=== PATIENT | male | born 1940 | race Caucasian/White ===

== ENCOUNTER 2017-06-09 10:57 | Inpatient (IN) | payer OTHER, MEDICARE ==
[~2017-06-09] VITALS: Ht 177.8 cm; Wt 125.5 kg
[2017-06-09] VITALS (8 sets, daily range): BP systolic 130–180; BP diastolic 69–84; PULSE 66–78; RESP 16–18; TEMP 97.8–98.8; O2SAT 96–100
[~2017-06-09 10:57] MED LIST: ALLO300T2 PO; ASMA220A; ATOR10 PO; CHOLCRY XX; CIPR500T4 PO; CLOP75 PO; DILT240C7 PO; FERR324T4 PO; FLUO.05%ST TOP; FURO40TA OR; HYDR-2951 PO; HYDRO50; KCL20; METH500T OR; METR-1 PO; NITR.4 SL
[2017-06-09] MEDS ORDERED: VANCOMYCIN INJ 1,000 MG in SODIUM CHLOR 0.9% 250 ML INJ 250 ML IV STA (11:42)
--- NOTE | 2017-06-09 11:57 | PD ---
HPI Chief Complaint: Skin Problem Time Seen by Provider: 11:29 Travel History International Travel<30 days: No Contact w/Intl Traveler<30days: No Traveled to known affect area: No History of Present Illness HPI Patient comes emergency Department after being evaluated at the [facility] by developing machine tender had x-ray done that showed bony destruction of the fifth metatarsal indicating osteomyelitis. Patient reports he's been being treated for this wound since February. Has been on antibiotics of Cipro which he took today. Patient reports pain over the wound and fifth toe to palpation and walking barefoot. Patient reports when he walks with shoes on does not have any pain. Denies any pain with resting. Denies any radiation of the pain. Describes pain as a burning sensation over the area. Denies any fevers, chest pain, shortness of breath, or new numbness or tingling. Patient does report he has neuropathy. reports concerns over possible cardiac clearance prior to surgery secondary to recently having an abnormal stress test and has not been evaluated by cardiology yet. PFSH Past Medical History Hx Anticoagulant Therapy: Yes AAA: Yes Arthritis: Yes (OSTEOARTHRITIS) Depression: Yes Coronary Artery Disease: Yes Diabetes: Yes Gastrointestinal Disorders: Yes (COLON POLYP/GERD) GERD: Yes Renal Failure: Yes Past Surgical History Cardiac Surgery: Yes (CAROTID ENDARECTOMY BOTH SIDES) Cholecystectomy: Yes Other Surgery: Yes (AMPUTATION OF 3 TOES L FOOT) Social History Alcohol Use: No Tobacco Use: No Substance Use: No Allergies-Medications (Allergen,Severity, Reaction): Coded Allergies: niacin (Verified Allergy, Severe, rash, 06/09/17) Reported Meds & Prescriptions Reported Meds & Active Scripts Active Reported Zantac (Ranitidine HCl) 150 Mg Tab 150 Mg PO BID Before breakfast and dinner Potassium Chloride ER (Potassium Chloride) 20 Meq Tab 20 Meq PO DAILY Ditropan (Oxybutynin Chloride) 5 Mg Tab 5 Mg PO Q12HR Omeprazole 20 Mg Tab 20 Mg PO BID Take prior to the same meals each day Magnesium Oxide 400 Mg Tab 400 Mg PO DAILY Losartan (Losartan Potassium) 100 Mg Tab 100 Mg PO DAILY Systane Overnight Therapy (Hypromellose (Ophth)) 0.3 % Gel 1 Applic EACH EYE BID Pure & Gentle Lubricant (Hypromellose (Ophth)) 0.3 % Alvino 1 Drop EACH EYE QID Hydrocortisone 2.5 % Crm.pe.shanti 1 Applic TOPICAL BID Guaifenesin 400 Mg Tab 800 Mg PO BID Lasix (Furosemide) 40 Mg Tab 40 Mg PO BID Prozac (Fluoxetine HCl) 20 Mg Cap 20 Mg PO DAILY Fluocinonide Topical (Fluocinonide) 0.05% Cream 1 Applic TOPICAL BID PRN Apply thin layer to affected area(s) Fish Oil 1000 mg ([place]-3 Fatty Acids) 300 Mg-1,000 Mg Cap 2,000 Mg PO DAILY Cardizem LA (Diltiazem ER 24 HR) 300 Mg Julio 300 Mg PO DAILY Vitamin B-12 (Cyanocobalamin) 1,000 Mcg Tab 1,000 Mcg PO DAILY Plavix (Clopidogrel Bisulfate) 75 Mg Tab 75 Mg PO DAILY Cipro (Ciprofloxacin HCl) 500 Mg Tab 500 Mg PO BID Sm Cinnamon (Cinnamon) 500 Mg Cap 1 Cap PO DAILY Genteal Severe Opth Gel (Hypromellose) 0.25-0.3% Gel 1 Drop EACH EYE QID PRN Iodosorb Topical (Cadexomer Iodine) 0.9% Gel 1 Applic TOPICAL DAILY Apply small amount to affected area on skin Lipitor (Atorvastatin Calcium) 40 Mg Tab 20 Mg PO HS Aspirin Adult Low Strength (Aspirin) 81 Mg Tabdr 81 Mg PO DAILY Zyloprim (Allopurinol) 300 Mg Tab 300 Mg PO DAILY Review of Systems Except as stated in HPI: all other systems reviewed are Neg Physical Exam Narrative GENERAL: Well-developed, overly nourished, in no acute distress, and non-ill appearing. SKIN: Ulceration noted right fifth metatarsal lateral plantar surface. There is surrounding erythematous. It is febrile to palpation. No crepitus. Tender to palpation. HEAD: Atraumatic. Normocephalic. EYES: Pupils equal and round. EOMI. No scleral icterus. No injection or drainage. ENT: No nasal bleeding or discharge. Mucous membranes pink and moist. NECK: Trachea midline. Supple. No nuclear rigidity. CARDIOVASCULAR: Regular rate and rhythm. No murmur appreciated. RESPIRATORY: No accessory muscle use. No respiratory distress. Clear to auscultation. Breath sounds equal bilaterally. MUSCULOSKELETAL: No obvious deformities. No clubbing. No cyanosis. Trace edema bilateral lower extremities. Full range of motion. NEUROLOGICAL: Awake and alert. No obvious cranial nerve deficits. Motor grossly within normal limits. Normal speech. PSYCHIATRIC: Appropriate mood and affect; insight and judgment normal. Data Data Last Documented VS Orders Orders Sepsis Workup Initiated (06/09/17 ) Complete Blood Count With Diff (06/09/17 11:42) Comprehensive Metabolic Panel (06/09/17 11:42) Prothrombin Time / Inr (Pt) (06/09/17 11:42) Act Partial Throm Time (Ptt) (06/09/17 11:42) Lactic Acid Sepsis Protocol (06/09/17 11:42) Blood Culture (06/09/17 11:42) Wound Culture And Gram Stain (06/09/17 11:42) Ecg Monitoring (06/09/17 11:42) Iv Access Insert/Monitor (06/09/17 11:42) Oximetry (06/09/17 11:42) Vancomycin Inj (Vancomycin Inj) (06/09/17 11:42) Mri Foot W&W/O Contrast (06/09/17 ) Consult Podiatry (06/09/17 ) (Hub Use Only)Inp Phy Cons/Ref (06/09/17 ) Admit Order (Ed Use Only) (06/09/17 ) Vital Signs (Adult) Q4H (06/09/17 13:07) Activity Oob With Assistance (06/09/17 13:07) Notify Dr: Other (06/09/17 13:07) Labs Laboratory Tests Test 06/09/17 11:50 White Blood Count 8.8 TH/MM3 Red Blood Count 3.56 MIL/MM3 Hemoglobin 10.9 GM/DL Hematocrit 30.6 % Mean Corpuscular Volume 85.9 FL Mean Corpuscular Hemoglobin 30.6 PG Mean Corpuscular Hemoglobin Concent 35.6 % Red Cell Distribution Width 15.6 % Platelet Count 341 TH/MM3 Mean Platelet Volume 7.3 FL Neutrophils (%) (Auto) 77.5 % Lymphocytes (%) (Auto) 12.0 % Monocytes (%) (Auto) 6.3 % Eosinophils (%) (Auto) 3.7 % Basophils (%) (Auto) 0.5 % Neutrophils # (Auto) 6.8 TH/MM3 Lymphocytes # (Auto) 1.1 TH/MM3 Monocytes # (Auto) 0.6 TH/MM3 Eosinophils # (Auto) 0.3 TH/MM3 Basophils # (Auto) 0.0 TH/MM3 CBC Comment DIFF FINAL Differential Comment Prothrombin Time 10.9 SEC Prothromb Time International Ratio 1.1 RATIO Activated Partial Thromboplast Time 27.3 SEC Blood Urea Nitrogen 23 MG/DL Creatinine 1.48 MG/DL Random Glucose 109 MG/DL Total Protein 7.8 GM/DL Albumin 2.6 GM/DL Calcium Level 8.9 MG/DL Alkaline Phosphatase 139 U/L Aspartate Amino Transf (AST/SGOT) 22 U/L Alanine Aminotransferase (ALT/SGPT) 29 U/L Total Bilirubin 0.3 MG/DL Sodium Level 137 MEQ/L Potassium Level 3.9 MEQ/L Chloride Level 100 MEQ/L Carbon Dioxide Level 30.5 MEQ/L Anion Gap 7 MEQ/L Estimat Glomerular Filtration Rate 46 ML/MIN Lactic Acid Level 1.1 mmol/L Triglycerides Level 171 MG/DL Cholesterol Level 121 MG/DL LDL Cholesterol 62 MG/DL HDL Cholesterol 25.1 MG/DL Cholesterol/HDL Ratio 4.82 RATIO [facility] Medical Decision Making Medical Screen Exam Complete: Yes Emergency Medical Condition: Yes Differential Diagnosis Osteomyelitis, nonhealing diabetic ulcer, sepsis, cellulitis, necrotizing fasciitis Narrative Course [facility] on the right foot revealing bony structure of the fifth metatarsal head indicating osteomyelitis. Wound culture shows sensitivity to Cipro and vancomycin. Resistance to Zosyn. Patient was seen and examined. Initial laboratories studies were ordered. IV was established patient was placed on financial services rep. Wound culture and sensitivity was sent with patient was reviewed. Patient started on IV vancomycin. Cipro was withheld as patient reports he took this orally today. Discussed patient with podiatry who recommended MRI with admission to medicine for likely surgical intervention. Discussed patient with Dr. Cooper, who is in agreement with plan of care and disposition. Discussed all findings and plan care of patient, who is agreeable for admission. All questions were answered. Discussed patient with hospitalist, who is agreeable to admit the patient. Patient remained stable throughout ED course. Physician Communication Physician Communication [id number] Whitney, developing machine tender on-call, who recommends obtaining MRI with and without contrast admitted to medicine and consult her. [id number] Feldman, who is agreeable to admit the patient. Diagnosis Primary Impression: Osteomyelitis of right foot Qualified Codes: M86.9 - Osteomyelitis, unspecified Admitting Information Admitting Physician Requests: Admit Condition: Stable Stiven Dominguez Jun 09, 2017 11:57
[2017-06-09 12:23] LABS: AUTOMATED NEUTROPHIL # 6.8 TH/MM3 (1.8-7.7); BASOPHIL % 0.5 % (0.0-2.0); EOSINOPHIL # 0.3 TH/MM3 (0-0.4); EOSINOPHIL % 3.7 % (0.0-4.0); HEMATOCRIT 30.6 % (39.0-51.0); HEMOGLOBIN 10.9 GM/DL (13.0-17.0); LYMPHOCYTE # 1.1 TH/MM3 (1.0-4.8); MEAN CELL VOLUME 85.9 FL (80.0-100.0); MEAN CORPUSCULAR HEMOGLOBIN 30.6 PG (27.0-34.0); MEAN CORPUSCULAR HGB CONC 35.6 % (32.0-36.0); MEAN PLATELET VOLUME 7.3 FL (7.0-11.0); MONO % 6.3 % (0.0-8.0); MONOCYTE # 0.6 TH/MM3 (0-0.9); NEUT % 77.5 % (16.0-70.0); PLATELET COUNT 341 TH/MM3 (150-450); RED BLOOD COUNT 3.56 MIL/MM3 (4.50-5.90); RED CELL DISTRIBUTION WIDTH 15.6 % (11.6-17.2); WHITE BLOOD COUNT 8.8 TH/MM3 (4.0-11.0)
[2017-06-09 12:32] LABS: INTERNATIONAL NORMALIZED RATIO 1.1 RATIO; PROTHROMBIN TIME - PATIENT 10.9 SEC (9.8-11.6)
[2017-06-09 12:43] LABS: ALBUMIN 2.6 GM/DL (3.4-5.0); AST (GOT) 22 U/L (15-37); BICARBONATE 30.5 MEQ/L (21.0-32.0); CALCIUM 8.9 MG/DL (8.5-10.1); CHLORIDE 100 MEQ/L (98-107); CREATININE 1.48 MG/DL (0.60-1.30); GLOMERULAR FILTRATION RATE 46 ML/MIN (>89); GLUCOSE,RANDOM 109 MG/DL (74-106); SODIUM (NA) 137 MEQ/L (136-145)
[2017-06-09 12:46] LABS: ALKALINE PHOSPHATASE 139 U/L (45-117); ALT (GPT) 29 U/L (12-78); BLOOD UREA NITROGEN 23 MG/DL (7-18); TOTAL BILIRUBIN ADULT 0.3 MG/DL (0.2-1.0); TOTAL PROTEIN 7.8 GM/DL (6.4-8.2)
--- NOTE | 2017-06-09 13:14 | HHI.HP ---
[facility] Service [facility] ([place], [place])ists Primary Care Physician [facility] Admission Diagnosis right foot osteomyelitis Diagnoses: Chief Complaint: Right foot ulcer Travel History International Travel<30 Days: No Contact w/Intl Traveler <30 Da: No Traveled to Known Affected Are: No History of Present Illness Mr. Zamora is a pleasant 76-year-old with a history of diabetes, CAD who was [facility] to [facility] due to right foot diabetic ulcer. Patient was evaluated by [place] conservation or heritage architect who obtained an x-ray which showed bony destruction of the fifth metatarsal indicating osteomyelitis. Patient has been taking ciprofloxacin without any improvement of his wound. He describes a burning sensation over the wound area. He denies any chest pain, shortness of breath, fever or chills. He started noticing this diabetic foot ulcer back in February 2017. He denies any changes in bowel or bladder habits. Off note, patient underwent a cardiac stress test 2-3 weeks ago which showed an abnormal result likely in the inferior lateral area. He was referred to an outside snuff box finisher but he did not get to see the snuff box finisher. Emergency room provider contacted on-call conservation or heritage architect who recommended MRI and obtaining cardiac clearance for possible surgical intervention. Review of Systems Except as stated in HPI: all other systems reviewed are Neg Past Family Social History Past Medical History Osteoarthritis Colonic polyps Diabetes Coronary artery disease AAA GERD CKD Past Surgical History Carotid endarterectomy bilateral Cholecystectomy Amputation of 3 toes on the left foot. Reported Medications Ciprofloxacin 500 mg twice a day Plavix 75 mg daily Atorvastatin 20 mg daily at bedtime Fish oil Cardizem 300 mg by mouth daily Losartan 100 mg by mouth daily Aspirin 81 mg daily Prozac 20 mg by mouth daily Potassium chloride ER 20 mEq by mouth daily Furosemide 40 mg by mouth twice a day Guaifenesin 800 mg by mouth twice a day Magnesium oxide 400 mg daily Ranitidine 150 mg by mouth twice a day Omeprazole 20 mg twice a day Hydrocortisone cream Oxybutynin 5 mg by mouth every 12 hours Vitamin B12 thousand micrograms daily Allopurinol 300 mg by mouth daily Cinnamon 500 mg by mouth daily Allergies: Coded Allergies: niacin (Verified Allergy, Severe, rash, 06/09/17) Family History Mom - cerebral hemorrhage Dad - heart disease. Social History Denies using alcohol, tobacco, illicit drugs. Physical Exam Vital Signs Vital Signs Date Time Temp Pulse Resp B/P (MAP) Pulse Ox O2 Delivery O2 Flow Rate FiO2 06/09/17 11:55 17 100 Room Air 06/09/17 10:59 98.8 66 16 180/76 (110) 100 Room Air Physical Exam GENERAL: This is a well-nourished, well-developed patient, in no apparent distress. SKIN: No rashes, ecchymoses or lesions. Warm and dry. HEAD: Atraumatic. Normocephalic. No temporal or scalp tenderness. EYES: Pupils equal round and reactive. No injection or drainage. ENT: Nose without bleeding, purulent drainage or septal hematoma. Airway patent. NECK: Trachea midline. No lymphadenopathy. Supple, nontender, no meningeal signs. CARDIOVASCULAR: Regular rate and rhythm without murmurs, gallops, or rubs. No JVD. RESPIRATORY: Clear to auscultation. Breath sounds equal bilaterally. No wheezes , rales, or rhonchi. GASTROINTESTINAL: Abdomen soft, non-tender, nondistended. No guarding. MUSCULOSKELETAL: Extremities without clubbing, cyanosis, or edema. Right lateral foot has an open wound covered with gauze. No significant redness around. NEUROLOGICAL: Awake and alert. Cranial nerves II through XII intact. No focal neurological deficits. Normal speech. Laboratory Laboratory Tests Test 06/09/17 11:50 White Blood Count 8.8 Red Blood Count 3.56 Hemoglobin 10.9 Hematocrit 30.6 Mean Corpuscular Volume 85.9 Mean Corpuscular Hemoglobin 30.6 Mean Corpuscular Hemoglobin Concent 35.6 Red Cell Distribution Width 15.6 Platelet Count 341 Mean Platelet Volume 7.3 Neutrophils (%) (Auto) 77.5 Lymphocytes (%) (Auto) 12.0 Monocytes (%) (Auto) 6.3 Eosinophils (%) (Auto) 3.7 Basophils (%) (Auto) 0.5 Neutrophils # (Auto) 6.8 Lymphocytes # (Auto) 1.1 Monocytes # (Auto) 0.6 Eosinophils # (Auto) 0.3 Basophils # (Auto) 0.0 CBC Comment DIFF FINAL Differential Comment Prothrombin Time 10.9 Prothromb Time International Ratio 1.1 Activated Partial Thromboplast Time 27.3 Blood Urea Nitrogen 23 Creatinine 1.48 Random Glucose 109 Total Protein 7.8 Albumin 2.6 Calcium Level 8.9 Alkaline Phosphatase 139 Aspartate Amino Transf (AST/SGOT) 22 Alanine Aminotransferase (ALT/SGPT) 29 Total Bilirubin 0.3 Sodium Level 137 Potassium Level 3.9 Chloride Level 100 Carbon Dioxide Level 30.5 Anion Gap 7 Estimat Glomerular Filtration Rate 46 Lactic Acid Level 1.1 Date/Time Source Procedure Growth Status 06/09/17 11:42 Blood Peripheral Aerobic Blood Culture Pending Received 06/09/17 11:42 Blood Peripheral Anaerobic Blood Culture Pending Received 06/09/17 12:00 Wound Foot Gram Stain Pending Received 06/09/17 12:00 Wound Foot Wound Culture Pending Received Result Diagram: 06/09/17 1150 06/09/17 1150 Caprinjimy VTE Risk Assessment [place] VTE Risk Assessment: Mod/High Risk (score >= 2) Caprini Risk Assessment Model Point Value = 1 Point Value = 2 Point Value = 3 Point Value = 5 Age 41-60 Minor surgery BMI > 25 kg/m2 Swollen legs Varicose veins or History of unexplained or recurrent spontaneous Oral contraceptives or hormone replacement Sepsis (< 1 month) Serious lung disease, including pneumonia (< 1 month) Abnormal pulmonary function Acute myocardial infarction Congestive heart failure (< 1 month) History of inflammatory bowel disease Medical patient at bed rest Age 61-74 Arthroscopic surgery Major open surgery (> 45 min) Laparoscopic surgery (> 45 min) Malignancy Confined to bed (> 72 hours) Immobilizing plaster cast Central venous access Age >= 75 History of VTE Family history of VTE Factor V Leiden Prothrombin [id number] Lupus anticoagulant Anticardiolipin antibodies Elevated serum homocysteine Heparin-induced thrombocytopenia Other congenital or acquired thrombophilia Stroke (< 1 month) Elective arthroplasty Hip, pelvis, or leg fracture Acute spinal cord injury (< 1 month) Prophylaxis Regimen Total Risk Factor Score Risk Level Prophylaxis Regimen 0-1 Low Early ambulation 2 Moderate Order ONE of the following: *Sequential Compression Device (SCD) *Heparin 5000 units SQ BID 3-4 Higher Order ONE of the following medications: *Heparin 5000 units SQ TID *Enoxaparin/Lovenox 40 mg SQ daily (WT < 150 kg, CrCl > 30 mL/min) *Enoxaparin/Lovenox 30 mg SQ daily (WT < 150 kg, CrCl > 10-29 mL/min) *Enoxaparin/Lovenox 30 mg SQ BID (WT < 150 kg, CrCl > 30 mL/min) AND/OR *Sequential Compression Device (SCD) 5 or more Highest Order ONE of the following medications: *Heparin 5000 units SQ TID (Preferred with Epidurals) *Enoxaparin/Lovenox 40 mg SQ daily (WT < 150 kg, CrCl > 30 mL/min) *Enoxaparin/Lovenox 30 mg SQ daily (WT < 150 kg, CrCl > 10-29 mL/min) *Enoxaparin/Lovenox 30 mg SQ BID (WT < 150 kg, CrCl > 30 mL/min) AND *Sequential Compression Device (SCD) Assessment and Plan Problem List: (1) Osteomyelitis of right foot ICD Code: M86.9 - Osteomyelitis, unspecified Status: Acute (2) Coronary artery disease ICD Code: I25.10 - Atherosclerotic heart disease of [place] coronary artery without angina pectoris (3) CKD (chronic kidney disease) stage 3, GFR 30-59 ml/min ICD Code: N18.3 - Chronic kidney disease, stage 3 (moderate) (4) Diabetes mellitus ICD Code: E11.9 - Type 2 diabetes mellitus without complications Assessment and Plan Mr. Zamora is a pleasant 76-year-old with a history of diabetes, CAD who was sent to the [facility] by his [facility] conservation or heritage architect due to suspected right foot osteomyelitis. - Right foot osteomyelitis - Diabetic foot ulcer, right foot. - Will start patient on IV Ceftriaxone 2g Q24hrs and IV Vancomycin - pharmacy to dose. Keep trough level 15-20. - Cardiac clearance pending. Likely cath today. Surgery needs to be on hold until patient is cleared by cardiology. - Acetaminophen, [place] for pain. - Consult ID as well. - Cardiac clearance - Dr. Casarez has evaluated patient and Cardiac cath today. Recent cardiac stress test was abnormal. - Diabetes mellitus - Patient does not take any diabetic medications. He manages his DM with diet /lifestyle modifications and cinnamon tabs. - Will keep patient on low sliding scale insulin. If needed, consider Levemir. - Patient may benefit from metformin upon discharge if GFR > 45 - CKD stage III - Avoid nephrotoxins. Will repeat BMP in the AM. - Depression - continue Fluoxetine Full code. Heparin 5000 units Q12hrs for DVT Prophylaxis. Discussed with Dr. Henderson (Cardiology). Physician Certification 2 Midnight Certification Type: Admission for Inpatient Services Order for Inpatient Services The services are ordered in accordance with Medicare regulations or non- Medicare payer requirements, as applicable. In the case of services not specified as inpatient-only, they are appropriately provided as inpatient services in accordance with the 2-midnight benchmark. Estimated LOS (days): 2 days is the estimated time the patient will need to remain in the hospital, assuming treatment plan goals are met and no additional complications. Post-Hospital Plan: Home Problem Qualifiers (1) Osteomyelitis of right foot: Qualified Codes: M86.9 - Osteomyelitis, unspecified Xiomara Feldman DO Jun 09, 2017 13:14
[2017-06-09] MEDS ORDERED: ACETAMINOPHEN 325 MG TAB PO PRN (13:15)
[2017-06-09] MEDS ORDERED: LACTULOSE SYRUP 20 GM/30 ML CUP PO PRN (13:15)
[2017-06-09] MEDS ORDERED: SODIUM CHLORIDE 0.9% FLUSH 10 ML FLUSH IV FLUSH PRN (13:15)
[2017-06-09] MEDS ORDERED: BISACODYL 10 MG SUPP RECTAL PRN (13:15)
[2017-06-09] MEDS ORDERED: SENNOSIDES 8.6 MG TAB PO PRN (13:15)
[2017-06-09] MEDS ORDERED: ONDANSETRON HCL 4 MG/2 ML VIAL IVP PRN (13:15)
[2017-06-09] MEDS ORDERED: MAGNESIUM HYDROXIDE SUSP 30 ML CUP PO PRN (13:15)
[2017-06-09] MEDS ORDERED: NALOXONE HCL 0.4 MG/ML AMP IV PUSH PRN (13:15)
[2017-06-09] MEDS ORDERED: VITA10002 PO (13:21)
[2017-06-09] MEDS ORDERED: FISH100020 PO (13:21)
[2017-06-09] MEDS ORDERED: POTA-163 PO (13:21)
[2017-06-09] MEDS ORDERED: GUAI400T32 PO (13:21)
[2017-06-09] MEDS ORDERED: CIPR-9 PO (13:21)
[2017-06-09] MEDS ORDERED: OXYB5TAB8 PO (13:21)
[2017-06-09] MEDS ORDERED: PLAV75TA29 PO (13:21)
[2017-06-09] MEDS ORDERED: HYDR-3964 TOPICAL (13:21)
[2017-06-09] MEDS ORDERED: LOSA100T PO (13:21)
[2017-06-09] MEDS ORDERED: LIPI40TA PO (13:21)
[2017-06-09] MEDS ORDERED: PURE0.3D2 EACH EYE (13:21)
[2017-06-09] MEDS ORDERED: ALLO300 PO (13:21)
[2017-06-09] MEDS ORDERED: [UNRECOGNIZED DRUG - CODE] EACH EYE (13:21)
[2017-06-09] MEDS ORDERED: DILT1TAB22 PO (13:21)
[2017-06-09] MEDS ORDERED: MAGN400T2 PO (13:21)
[2017-06-09] MEDS ORDERED: ZANT150T2 PO (13:21)
[2017-06-09] MEDS ORDERED: FLUO0.05 TOPICAL (13:21)
[2017-06-09] MEDS ORDERED: OMEP20TA93 PO (13:21)
[2017-06-09] MEDS ORDERED: PROZ20CA11 PO (13:21)
[2017-06-09] MEDS ORDERED: IODOGEL TOPICAL (13:21)
[2017-06-09] MEDS ORDERED: FURO1TAB60 PO (13:21)
[2017-06-09] MEDS ORDERED: ASPI81TA16 PO (13:21)
[2017-06-09] MEDS ORDERED: GENT0.3G EACH EYE (13:21)
[2017-06-09] MEDS ORDERED: CINN500C14 PO (13:21)
[2017-06-09] MEDS: HEPARIN SODIUM - SQ 10,000 UNITS/ML VIAL SQ SCH (14:11)
[2017-06-09] MEDS ORDERED: GADODIAMIDE PF 287 MG/ML 5 ML VIAL (for RAD MRI) IVCONTRAST ONE (14:19)
[2017-06-09] MEDS ORDERED: Vancomycin Consult Pharmacy 1 EA OTHER SCH (15:15)
[2017-06-09] MEDS ORDERED: MIDAZOLAM HCL 2 MG/2 ML VIAL ONE (15:23)
[2017-06-09] MEDS ORDERED: HEPARIN-NS/PF INJ 1,000 ML ONE (15:23)
[2017-06-09] MEDS ORDERED: VANCOMYCIN INJ 1,500 MG in SODIUM CHLORID 0.9% 500 ML INJ 500 ML IV ONE (16:00)
--- NOTE | 2017-06-09 16:09 | MB ---
cc: NAZANIN CALVO DATE OF CONSULTATION: 06/09/2017 REASON FOR CONSULTATION: HISTORY OF PRESENT ILLNESS: The patient is a 76 year-old white male with history of right fifth metatarsal osteomyelitis. The patient has been on antibiotics. He presented to the [facility] emergency room. I was consulted from a cardiac standpoint for surgery. The patient recently had a stress test for frequent ischemia and also apical reversible defect. The patient was referred to Dr. Braun for outpatient evaluation but he has not been seen yet. The patient denies any chest pain or shortness of breath. PAST MEDICAL HISTORY Positive for: 1. Diabetes mellitus. 2. Osteoarthritis. 3. Depression. 4. Gastroesophageal reflux disease. 5. Colon polyps. 6. Diabetic skin ulcer. 7. Peripheral neuropathy. 8. Optic neuropathy. 9. Carotid artery stenosis. 10. Peripheral vascular disease. 11. Status post left foot toe amputation. 12. Anxiety. 13. Dyslipidemia. 14. Hypertension. 15. Carotid endarterectomy. 16. Gallbladder surgery. 17. Hospitalized for sepsis in 2011. Cardiac arrest at the time. MEDICATIONS: 1. Carboxymethyl cellulose. 2. Cinnamon. 3. Ciprofloxacin. 4. Plavix. 5. Cyanocobalamin. 6. Diltiazem. 7. Fish oil. 8. Fluocinonide cream. 9. Fluoxetine. 10. Furosemide. 11. Guaifenesin. 12. Hydrocortisone cream. 13. Losartan. 14. Magnesium. 15. Omeprazole. 16. Oxybutynin. 17. Potassium. 18. Zantac. SOCIAL HISTORY The patient does not smoke. No alcohol. He is accompanied by his . FAMILY HISTORY Negative for heart disease. REVIEW OF SYSTEMS: Otherwise negative. ALLERGIES: NIACIN PHYSICAL EXAMINATION VITAL SIGNS: Blood pressure 171/77, heart rate 78 regular. HEENT: Negative. Carotid upstrokes. No bruits. LUNGS: Clear. HEART: Regular with no murmur, gallop or rub. No bruits. EXTREMITIES: Mild edema. Status post toe amputation on the left side. NEUROLOGIC: Grossly nonfocal. ASSESSMENT: 1. Diabetes mellitus. 2. Coronary artery disease. 3. Recent abnormal myocardial perfusion study c/w ischemia. 4. Hypertension. 5. Dyslipidemia. 6. Right foot osteomyelitis. DISPOSITION AND PLAN Mr. Zamora will be monitored on telemetry. We will proceed with cardiac catheterization and coronary intervention if necessary. The patient and his understand and wish to proceed. I will follow him for cardiology during his hospitalization. He will then follow up at the [facility] after discharge. MD NICKY Garza/LIZBETH /2:26 PM /3:03 PM COOKIE
--- NOTE | 2017-06-09 16:12 | PD.CONS ---
History of Present Illness Service Podiatry Consult Requested By ED Reason for Consult Right lateral foot infection/osteomyelitis Primary Care Physician [facility] Diagnoses: History of Present Illness Patient was evaluated at [facility] clinic by resident athletic trainer had x-ray done showing bony destruction of the fifth metatarsal consistent with osteomyelitis and was sent to ED. Patient reports he's been being treated for this wound since February. Has been on antibiotics of Cipro which he took today. Patient reports pain over the wound and fifth toe to palpation and walking barefoot. Past Family Social History Allergies: Coded Allergies: niacin (Verified Allergy, Severe, rash, 06/09/17) Past Medical History AAA Arthritis Depression CAD DM GERD Renal failure Past Surgical History carotid endarterectomy cholecystectomy amputation of toes L foot Active Ordered Medications Current Medications Medications (Trade) Dose Ordered Sig/Sierra Route Start Time Stop Time Status Last Admin (NS Flush) 2 ml UNSCH PRN IV FLUSH 06/09/17 13:15 (NS Flush) 2 ml BID IV FLUSH 06/09/17 21:00 (Tylenol) 650 mg Q4H PRN PO 06/09/17 13:15 (Zofran Inj) 4 mg Q6H PRN IVP 06/09/17 13:15 (Restoril) 15 mg HS PRN PO 06/09/17 13:15 (Heparin Inj) 5,000 units Q12H SQ 06/09/17 14:00 06/09/17 14:11 (Narcan Inj) 0.4 mg UNSCH PRN IV PUSH 06/09/17 13:15 (Milk Of Magnesia Liq) 30 ml Q12H PRN PO 06/09/17 13:15 (Senokot) 17.2 mg Q12H PRN PO 06/09/17 13:15 (Dulcolax Supp) 10 mg DAILY PRN RECTAL 06/09/17 13:15 (Lactulose Liq) 30 ml DAILY PRN PO 06/09/17 13:15 Ceftriaxone Sodium 2000 mg/ Sodium Chloride 100 ml @ 200 mls/hr Q24H IV 06/09/17 17:00 Pharmacy Profile Note 0 ml @ 0 mls/hr UNSCH OTHER 06/09/17 15:15 Sodium Chloride 500 ml @ 100 mls/hr Q5H IV 06/09/17 16:39 06/09/17 20:38 06/09/17 16:39 (D50w (Vial) Inj) 50 ml UNSCH PRN IV PUSH 06/09/17 17:00 (Glucagon Inj) 1 mg UNSCH PRN OTHER 06/09/17 17:00 (NovoLOG SUPPLEMENTAL SCALE) 1 ACHS SLIDING SCALE SQ 06/09/17 17:00 (Ecotrin Ec) 81 mg DAILY PO 06/10/17 09:00 (Lipitor) 20 mg HS PO 06/09/17 21:00 (PROzac) 20 mg DAILY PO 06/10/17 09:00 (Protonix) 20 mg BID PO 06/09/17 21:00 (Everett 5-325 Mg) 1 tab Q6H PRN PO 06/09/17 17:00 06/09/17 17:30 Social History Denies x 3 Physical Exam Vital Signs Vital Signs Date Time Temp Pulse Resp B/P (MAP) Pulse Ox O2 Delivery O2 Flow Rate FiO2 06/09/17 14:50 97.8 72 16 162/84 (110) 98 06/09/17 14:12 98.1 78 16 171/77 (108) 99 Room Air 06/09/17 11:55 17 100 Room Air 06/09/17 11:40 76 17 06/09/17 10:59 98.8 66 16 180/76 (110) 100 Room Air Physical Exam R lateral foot with wound at 5th met head area probing to bone with purulence. Mild erythema/edema locally. Mild pain per patient. Light touch sensation absent. Warm skin temperature. Palpable pedal pulses. Laboratory Laboratory Tests Test 06/09/17 11:50 White Blood Count 8.8 Red Blood Count 3.56 Hemoglobin 10.9 Hematocrit 30.6 Mean Corpuscular Volume 85.9 Mean Corpuscular Hemoglobin 30.6 Mean Corpuscular Hemoglobin Concent 35.6 Red Cell Distribution Width 15.6 Platelet Count 341 Mean Platelet Volume 7.3 Neutrophils (%) (Auto) 77.5 Lymphocytes (%) (Auto) 12.0 Monocytes (%) (Auto) 6.3 Eosinophils (%) (Auto) 3.7 Basophils (%) (Auto) 0.5 Neutrophils # (Auto) 6.8 Lymphocytes # (Auto) 1.1 Monocytes # (Auto) 0.6 Eosinophils # (Auto) 0.3 Basophils # (Auto) 0.0 CBC Comment DIFF FINAL Differential Comment Prothrombin Time 10.9 Prothromb Time International Ratio 1.1 Activated Partial Thromboplast Time 27.3 Blood Urea Nitrogen 23 Creatinine 1.48 Random Glucose 109 Total Protein 7.8 Albumin 2.6 Calcium Level 8.9 Alkaline Phosphatase 139 Aspartate Amino Transf (AST/SGOT) 22 Alanine Aminotransferase (ALT/SGPT) 29 Total Bilirubin 0.3 Sodium Level 137 Potassium Level 3.9 Chloride Level 100 Carbon Dioxide Level 30.5 Anion Gap 7 Estimat Glomerular Filtration Rate 46 Lactic Acid Level 1.1 Date/Time Source Procedure Growth Status 06/09/17 11:42 Blood Peripheral Aerobic Blood Culture Pending Received 06/09/17 11:42 Blood Peripheral Anaerobic Blood Culture Pending Received 06/09/17 12:00 Wound Foot Gram Stain - Final Resulted 06/09/17 12:00 Wound Foot Wound Culture Pending Resulted Result Diagram: 06/09/17 1150 06/09/17 1150 Imaging MRI pending Assessment and Plan Assessment and Plan Osteomyelitis Right foot Cardiology clearance needed Awaiting MRI for surgical planning Likely to OR tomorrow evening. NPO after breakfast tomorrow in anticipation of surgery if cleared Carlos Melgar DPM Jun 09, 2017 16:12
[2017-06-09] MEDS ORDERED: SODIUM CHLOR 0.9% 1000 ML INJ 500 ML IV SCH (16:39)
--- NOTE | 2017-06-09 16:48 | CATHPROC ---
[facility] HIS Report Study Information Study Number Admission Scheduled Start Study Start [id number] Jun 09 2017 1:10PM 06/09/2017 Jun 09 2017 3:02PM [place] Service Cardiac Catheterization Admit Source Facility Department Emergency department [facility] - Principal Ios Developer Physician and Clinical Staff Initial Kriss Bundy Reel Slitter Timothy Corcoran,TOÑO Recorder Maryam Valerio,PHARMACEUTICAL LABORATORY TECHNICIAN TECH2 Scrub Blair Verduzco,RT(R) Procedures Performed Procedure Location (Site) Vessel Name Angiogram LV LV Ventricle Coronary Angiograms LCA Left Coronary Coronary Angiograms RCA Right Coronary Coronary Angiograms Subclav. Art. (Lft.) Subclavian Art. Equipment Time Central Office Repairer Supervisor Description Size Mfg Part Number Used/Scraped TRANSDUCER, TRUWAVE [id number] 15:11 P4RC * Used W/STOCKCOCK *[id number] *[id number] [id number] *[id number] 15:11 Ham[employer]oft INDUSTRIES PACK, CCL CUSTOM * Used *[id number] 15:11 Hamstersoft PACER PEN, SKIN DUAL W/ RULER * Used *[id number] 15:28 beneSolTRONIC JL 4.0 DXTERITY CATHETER FR 5 Used *[id number] 15:28 OnForce PIGTAIL ANG. CATHETER FR 5 Used *[id number] 15:11 [employer]Force WIRE, 3MMJ .035 180CM 180CM Used *[id number] PROBE COVER, STERILE [id number] 15:11 Lupatech MEDICAL * Used ULTRASOUND W/ GEL *[id number] 15:11 NAMIC MANIFOLD, 4 PORT * Used *[id number] 15:28 NAMIC TUBING, HIGH PRESSURE 48" 48" Used *[id number] 15:11 NAMIC TUBING, HIGH PRESSURE 48" 48" Used *[id number] 15:11 NYCOMED OMNIPAQUE, 350 MG, 150ML 150ML [id number] Used 15:49 NYCOMED OMNIPAQUE, 350 MG, 50ML 50ML [id number] Used [id number] 15:11 SWANSON MEDICAL BLANKET,WARM AIR CCL * Used *[id number] 15:11 TERUMO MEDICAL SHEATH, FR5 TERUMO (10CM) FR 5 Used *[id number] Equipment Model, Serial, Lot Number and Expiration Data Description Model Number Serial Number Lot Number Expiration Date JL 4.0 DXTERITY CATHETER [id number] 12-17-2019 PIGTAIL ANG. CATHETER [id number] 11-14-2019 History: Current Medications Medication Dosage/Unit Route Frequency Last Date/Time Taken PLAVIX FISH OIL CARDIZEM ASA Prozac K-Dur LASIX Magnesium Prilosec Allopurinol History: Allergies Allergy Reaction niacin rash History: Risk Factors Family History of Hypertension Dyslipidemia Previous [place] Previous Heart Failure Premature CAD Yes Yes No No No Prior Valve Prior PCI Prior CABG Surgery No No No Cerebrovascular Peripheral Artery Chronic Lung On Dialysis Diabetes Diabetes Therapy Disease Disease Disease No Yes Yes No Yes Oral History: Stress Tests Stress or Imaging Studies Performed Yes Standard Exercise Stress Test No Stress Echo No Stress Test SPECT Stress Test SPECT Result Stress Test SPECT Ischemia Risk/Extent Yes Positive High Stress Test CMR No Cardiac CTA Coronary Calcium Score No No History: Other Disease Selection Items Depression Gerd Renal Failure/Insufficiency History: Other Current Smoker Method Quit Packs a Day Years Used Pack Years No Cigarettes 28 Years Ago 1 25 25 Labs Hgb (g/dl) Hct (%) WBC (l/cumm) Platelets (thousands) 11.60-17.00 35.00-51.00 4.00-11.00 150.00-450.00 10.9 30.6 8.8 341 Glucose (mg/dl) BUN (mg/dl) Creatinine (mg/dl) BUN:Creatinine (1:x) 74.00-106.00 7.00-18.00 0.50-1.30 10.00-20.00 109 23 1.4 16.4 Na (meq/l) K (meq/l) 136.00-145.00 3.50-5.10 137 3.9 INR (PTT:PT) 0.90-1.10 1.1 CPK-MB (ng/ML) 0.50-3.60 Not Drawn Medication Medication Total Dose (Bolus/Oral) Medication Total Dosage/Unit 1% XYLOCAINE 20 mL FENTANYL 50 mcg OXYGEN 2 l/min VERSED 1 mg Medications (Bolus/Oral) Medication Time Given Dosage/Unit Administered By Reason FENTANYL 06/09/2017 3:45:45 PM 50 mcg Timothy Corcoran 50 mcg FENTANYL given in lab by Timothy Corcoran RN in Left Antecubital via Peripheral IV. Ordered by Quadrat, [place]. VERSED 06/09/2017 3:45:52 PM 1 mg Timothy Corcoran 1 mg VERSED given in lab by Timothy Corcoran, TOÑO in Left Antecubital via Peripheral IV. Ordered by Kriss Ellison. OXYGEN 06/09/2017 3:46:16 PM 2 l/min Timothy Corcoran 2 l/min OXYGEN given in lab by Timothy Corcoran, TOÑO via Nasal. Ordered by Kriss Henderson. 1% XYLOCAINE 06/09/2017 3:46:40 PM 20 mL Kriss Henderson 20 mL 1% XYLOCAINE given in lab by Kriss Henderson in Right Groin via Subcutaneous. Medication (Drip) Medication Time Given Dosage/Unit Concentration/Unit Diluent (ml) Solution IV Bolus 06/09/2017 3:52:48 PM 700 mL (Bolus) 500 NaCl .9 700 mL (Bolus) IV Bolus given in lab by Timothy Corcoran, TOÑO in Left Antecubital via Peripheral IV. Usi ng NaCl .9. Ordered by Kriss Henderson. IV Solutions 06/09/2017 3:02:14 PM 0 mL (IV) 500 NaCl .9 Patient arrived on IV Solutions in Left Antecubital via Peripheral IV. Pump/Drip Flow = 20 ml/hr usin g NaCl .9. Initial Case Assessment Cardiovascular HR Rhythm NIBP Chest Pain 76 sr 159/83 0 Circulatory - Right Pulses Dorsalis Pedis Femoral d 1 Scale (0,1,2,3,4,d) Circulatory - Left Pulses Dorsalis Pedis Femoral d 1 Scale (0,1,2,3,4,d) Neurological State Oriented to time-place- Alert Moves all extremities person Respiration - General Respiration Rate SpO2 (%) (B/min) 19 99 Final Case Assessment Cardiovascular HR Rhythm NIBP Chest Pain 69 sr 141/78 0 Circulatory - Right Pulses Dorsalis Pedis Femoral d 1 Scale (0,1,2,3,4,d) Circulatory - Left Pulses Dorsalis Pedis Femoral d 1 Scale (0,1,2,3,4,d) Neurological State Oriented to time-place- Alert Moves all extremities person Respiration - General Respiration Rate SpO2 (%) O2 (lpm) (B/min) 13 99 2 Chronological Log Time Study Chronological Log 15:00:02 Patient arrived via Bed. 15:00:03 Patient Name, D.O.B, / Armband Verified By R.N. 15:02:04 Consent signed by the physician and the patient and verified by the Principal Ios Developer staff. 15:02:05 Verbal Stimulation=2 Physical Stimulation=2 Airway=2 Respiration=2 TOTAL=8. (0=absent, 1=li mited, 2=present) 15:02:05 Pre-op and post- op instructions given; patient acknowledges understanding of instructions. 15:02:07 Presedation assessment performed by Principal Ios Developer RN. 15:02:08 Patient has been NPO for More than 6Hrs. 15:02:09 Skin Breakdown- 15:02:11 Nate Prominences Protected 15:02:14 A # 20 IV was noted in the Antecubital (left). Grade = patent 15:02:14 Patient arrived on IV Solutions in Left Antecubital via Peripheral IV. Pump/Drip Flow = 20 ml/hr using NaCl .9. 15:02:15 History and physical on the chart or being dictated. Assessment: Initial Case, HR=76 BPM, Rhythm=sr, PQUO=216/83 mmhg, Chest Pain=0 Right Pulses: Bernardo Ped=d, Femoral=1 15:02:16 Left Pulses: Bernardo Ped=d, Femoral=1 Neurological: State=Alert, Ox3, MCCORMICK Respiration: Resp=19 B/min, SpO2=99 % Vitals capture started with the following parameters, Patient=Adult, Interval=5 min, Initial Pr eircsl=569 mmHg, 15:12:17 Deflation Rate=5 mmHg, Cuff placed on Left Arm 15:12:58 HR=75 bpm, CIBU=519/83 mmhg, SpO2=98.0 %, Resp=22 B/min, Pain=0, Keely=10, Pavon=2 15:18:02 HR=75 bpm, LSWE=368/82 mmhg, SpO2=98.0 %, Resp=12 B/min, Pain=0, Keely=10, Pavon=2 15:22:01 Bilateral groins prepped with 2% chlorhexidine, and draped after a 3 minute waiting time. 15:22:07 paged 15:23:05 HR=72 bpm, OZMD=056/73 mmhg, SpO2=97.0 %, Resp=19 B/min 15:26:07 Pressure channel 1 zeroed. 15:26:10 Reference ECG taken 15:28:02 HR=71 bpm, JZND=226/82 mmhg, SpO2=98.0 %, Resp=15 B/min 15:33:38 HR=70 bpm, LUHM=747/78 mmhg, SpO2=99.0 %, Resp=20 B/min 15:38:04 HR=68 bpm, XEEW=862/80 mmhg, SpO2=99.0 %, Resp=21 B/min 15:38:41 MD arrived. 15:43:03 HR=68 bpm, FPWQ=907/84 mmhg, WjC0=033.0 %, Resp=20 B/min, Pain=0, Keely=10 15:45:45 50 mcg FENTANYL given in lab by Timothy Corcoran RN in Left Antecubital via Peripheral IV. O rdered by Kriss Henderson. 15:45:52 1 mg VERSED given in lab by Timothy Corcoran RN in Left Antecubital via Peripheral IV. Order ed by Kriss Henderson. 15:46:16 2 l/min OXYGEN given in lab by Timothy Corcoran, TOÑO via Nasal. Ordered by Kriss Henderson. Time Out. Correct patient, correct procedure, correct physician, power injector loaded with con trast with surgical team 15:46:33 present. Time Out Concurred by MD and individual staff in procedure. 15:46:40 Case Start 15:46:40 20 mL 1% XYLOCAINE given in lab by Kriss Henderson in Right Groin via Subcutaneous. 15:48:21 Access site was Right Femoral Artery. 15:48:28 A SHEATH, FR5 TERUMO (10CM) FR 5 was advanced into the Fem Art (right) using the Percutaneo us technique. 15:48:37 HR=68 bpm, VSOP=094/78 mmhg, TqK5=744.0 %, Resp=13 B/min 15:48:37 A PIGTAIL ANG. CATHETER FR 5 was advanced over a wire. OMNIPAQUE, 350 MG, 50ML 50ML was use d for injections. 15:50:04 The LV was injected at 10 cc/sec for a total of 20. OMNIPAQUE, 350 MG, 50ML 50ML used. Recorded Pressure: LV, HR=68, Condition=Condition 1 15:50:10 (Left Ventricle) LV 160/-1/11 Recorded Pressure: LV, Ao, HR=73, Condition=Condition 1 15:52:00 (Left Ventricle) LV 146/5/11, (Aorta) Ao 148/59/96 15:52:30 Catheter was removed A JL 4.0 DXTERITY CATHETER FR 5 was advanced over a wire. OMNIPAQUE, 350 MG, 150ML 150ML was us ed for 15:52:33 injections. 700 mL (Bolus) IV Bolus given in lab by Timothy Corcoran, RN in Left Antecubital via Peripheral I V. Using NaCl .9. Ordered 15:52:48 by Kriss Henderson. 15:53:03 HR=68 bpm, UNPM=647/79 mmhg, SpO2=99.0 %, Resp=19 B/min, Keely=10 15:54:27 The LCA was injected and visualized at various angles. OMNIPAQUE, 350 MG, 150ML 150ML used . 15:55:49 Catheter was removed A AR MOD INFINITI CATHETER FR 5 was advanced over a wire. OMNIPAQUE, 350 MG, 150ML 150ML was us ed for 15:55:51 injections. 15:58:02 HR=69 bpm, DCQC=512/72 mmhg, SpO2=98.0 %, Resp=22 B/min After removing the current catheter a AL 1 INFINITI CATHETER FR 5 was advanced over a WIRE, 3MM J .035 180CM 16:00:37 180CM. Unable to cannulate RCA 16:03:07 HR=65 bpm, QOOA=943/73 mmhg, SpO2=99.0 %, Resp=20 B/min 16:05:09 The RCA was injected and visualized at various angles. OMNIPAQUE, 350 MG, 150ML 150ML used . 16:06:52 Catheter was removed 16:08:02 HR=65 bpm, DUPW=666/79 mmhg, SpO2=99.0 %, Resp=25 B/min 16:13:03 HR=71 bpm, SPMT=403/75 mmhg, SpO2=97.0 %, Resp=16 B/min A AR MOD INFINITI CATHETER FR 5 was advanced over a wire. OMNIPAQUE, 350 MG, 150ML 150ML was us ed for 16:17:17 injections. 16:18:02 HR=58 bpm, JIMR=944/82 mmhg, SpO2=99.0 %, Resp=18 B/min 16:21:25 Catheter was removed 16:21:51 Case End 16:22:39 Sheath removed; pressure applied to access site. 16:23:44 HR=41 bpm, NNTY=748/81 mmhg, SpO2=99.0 %, Resp=20 B/min 16:28:04 HR=71 bpm, ZKXH=342/77 mmhg, SpO2=99.0 %, Resp=22 B/min The Subclav. Art. (Lft.) was injected to visualize the Left Internal mammory artery at various angles. OMNIPAQUE, 350 16:32:28 MG, 150ML 150ML used. 16:33:01 HR=70 bpm, AIGL=900/78 mmhg, SpO2=98.0 %, Resp=20 B/min 16:35:55 Hemostasis obtained 16:36:08 Sterile dressing applied to site 16:36:09 No case complications noted. 16:36:10 Cine recording checked. Assessment: Final Case, HR=69 BPM, Rhythm=sr, NUCI=577/78 mmhg, Chest Pain=0 Right Pulses: Bernardo Ped=d, Femoral=1 16:36:14 Left Pulses: Bernardo Ped=d, Femoral=1 Neurological: State=Alert, Ox3, MCCORMICK Respiration: Resp=13 B/min, SpO2=99 %, O2=2 lpm 16:36:58 Patient moved to bed 16:37:06 Bedside Report will be given. 16:38:04 HR=70 bpm, EBKW=674/74 mmhg, SpO2=99.0 %, Resp=15 B/min 16:43:25 Patient transported to DOCU. End Study - Contrast Media Used In Study Contrast Total Opened (mL) Total Used (mL) Total Wasted (mL) Omnipaque 100 100 0 End Study - Maximum Contrast Load Max Contrast Load (mL) 446.4 End Study - Radiation Exposure Fluoro Time (minutes) 7.3 End Study - Sheaths Sheaths Pulled By Sheath Hold Time (min) Blair Verduzco 15 End Study - Patient Disposition Complications Transferred To Interventional Outcome No Telemetry Bed No attempt made
[2017-06-09] MEDS ORDERED: cefTRIAXone INJ 2,000 MG in SODIUM CHLORIDE 0.9% INJ 100 ML IV SCH (17:00)
[2017-06-09] MEDS: INSULIN ASPART SUPPLEMENTAL SCALE SQ SCH ×2 (17:00→21:00)
[2017-06-09] MEDS ORDERED: DEXTROSE 50% IN WATER 50 ML VIAL(D50) IV PUSH PRN (17:00)
[2017-06-09] MEDS ORDERED: GLUCAGON 1 MG/ML VIAL OTHER PRN (17:00)
[2017-06-09] MEDS: ACETAMINOPHEN/HYDROcodone 325 MG/5 MG TAB PO PRN (17:30)
[2017-06-09] MEDS ORDERED: IOHEXOL 350 MG/ML 100 ML BTL (for Cath Lab) OTHER ONE (17:49)
[2017-06-09 18:37] LABS: CHOLESTEROL/ HDL RATIO 4.82 RATIO; HDL CHOLESTEROL 25.1 MG/DL (40.0-60.0)
--- NOTE | 2017-06-09 19:30 | RADRPT ---
EXAM DATE/TIME: 06/09/2017 18:15 [facility] COMPARISON: No previous studies available for comparison. INDICATIONS : Osteomyelitis. Infection. MEDICAL HISTORY : None. SURGICAL HISTORY : None. ENCOUNTER: Initial ACUITY: 1 day PAIN SCORE: 3/10 LOCATION: Right foot FINDINGS: There is bone destruction of the mid and distal portion of the fifth metatarsal with displacement lat erally. No other bony destructive changes are seen. Moderate degenerative change. CONCLUSION: 1. Bony destructive changes at the fifth metatarsal most characteristic of osteomyelitis. MRI pending . Brain Ortiz MD on June 09, 2017 at 19:26 Board Certified Radiologist. This report was verified electronically.
[2017-06-09] MEDS: PANTOPRAZOLE SOD 20 MG DELAYED RELEASE TAB PO SCH (21:25)
[2017-06-09] MEDS: TEMAZEPAM 15 MG CAP PO PRN (21:25)
[2017-06-09] MEDS: ATORVASTATIN 20 MG TAB PO SCH (21:25)
[2017-06-09] MEDS: SODIUM CHLORIDE 0.9% FLUSH 10 ML FLUSH IV FLUSH SCH (21:26)
--- NOTE | 2017-06-09 22:54 | RADRPT ---
EXAM DATE/TIME: 06/09/2017 13:20 [facility] COMPARISON: No previous studies available for comparison. INDICATIONS : Osteomyelitis. Right 5th toe non healing wound. CONTRAST: 25 cc Omniscan (gadodiamide) IV MEDICAL HISTORY : Hypertension. Diabetes mellitus type 2. Myocardial infarction. SURGICAL HISTORY : Cholecystectomy. CABG Left foot toes amputation ENCOUNTER: Initial ACUITY: 1 day PAIN SCORE: 3/10 LOCATION: Right foot TECHNIQUE: Multiplanar, multisequence MRI examination was performed without contrast and after the intravenous a dministration of gadolinium. FINDINGS: Exam is degraded by motion artifact. There is extensive marrow edema and marrow enhancement in the pr oximal and mid fifth metatarsal and there is bone destruction of the distal fifth metatarsal. This is characteristic of osteomyelitis. Is also suspected osteomyelitis of the proximal phalanx of toes. No other significant marrow signal abnormality is seen to suggest other areas of osteomyelitis. There is extensive edema and cellulitis in the foot. Plantar fascial and Achilles insertions appear intact . CONCLUSION: 1. Osteomyelitis of the entire fifth metatarsal with bone destruction distally. Also osteomyelitis pr oximal phalanx fifth toe with displacement from the destructive change at the distal fifth metatarsal . There is surrounding edema and cellulitis. Brian Ortiz MD on June 09, 2017 at 22:48 Board Certified Radiologist. This report was verified electronically.
[2017-06-10] VITALS (28 sets, daily range): BP systolic 119–165; BP diastolic 53–86; PULSE 63–100; RESP 17–20; TEMP 97.7–99.6; O2SAT 96–98
[2017-06-10] MEDS: HEPARIN SODIUM - SQ 10,000 UNITS/ML VIAL SQ SCH ×2 (02:42→16:44)
[2017-06-10] MEDS: ACETAMINOPHEN/HYDROcodone 325 MG/5 MG TAB PO PRN ×2 (02:42→22:08)
[2017-06-10 06:46] LABS: AUTOMATED NEUTROPHIL # 5.3 TH/MM3 (1.8-7.7); BASOPHIL # 0.1 TH/MM3 (0-0.2); EOSINOPHIL # 0.2 TH/MM3 (0-0.4); EOSINOPHIL % 3.7 % (0.0-4.0); HEMATOCRIT 27.3 % (39.0-51.0); HEMOGLOBIN 9.2 GM/DL (13.0-17.0); LYMPH % 10.4 % (9.0-44.0); LYMPHOCYTE # 0.7 TH/MM3 (1.0-4.8); MEAN CELL VOLUME 86.3 FL (80.0-100.0); MEAN CORPUSCULAR HGB CONC 33.6 % (32.0-36.0); MEAN PLATELET VOLUME 7.5 FL (7.0-11.0); MONO % 6.3 % (0.0-8.0); MONOCYTE # 0.4 TH/MM3 (0-0.9); NEUT % 78.6 % (16.0-70.0); PLATELET COUNT 299 TH/MM3 (150-450); RED BLOOD COUNT 3.16 MIL/MM3 (4.50-5.90); RED CELL DISTRIBUTION WIDTH 15.9 % (11.6-17.2); WHITE BLOOD COUNT 6.7 TH/MM3 (4.0-11.0)
[2017-06-10 07:32] LABS: CALCIUM 8.1 MG/DL (8.5-10.1); CREATININE 1.46 MG/DL (0.60-1.30)
--- NOTE | 2017-06-10 07:33 | MA ---
cc: KRISS CALVO DATE 06/09/2017 INDICATION Coronary artery disease, high-risk nuclear myocardial perfusion study, atrial fibrillation. This procedure is urgent. PROCEDURE PERFORMED 1. Retrograde left heart catheterization with left ventriculography and selective coronary angiography. 2. Left internal mammary artery angiography. 3. Moderate sedation. ACCESS SITE Right femoral artery. EQUIPMENT USED A 5-Icelandic pigtail catheter, 5-Icelandic JL4, AR1 and AL1 coronary artery catheters. MEDICATIONS Versed IV. Fentanyl IV. CONTRAST Omnipaque 100 cc. COMPLICATIONS None. ESTIMATED BLOOD LOSS Less than 10 cc. METHOD OF HEMOSTASIS Manual compression. RESULTS A. HEMODYNAMICS: Heart rate 72 beats per minute. Left ventricular end-diastolic pressure 5 mmHg. Left ventricle 145/5. Aorta 145/59/96. B. LEFT VENTRICULOGRAPHY Left ventricular ejection fraction 45% with inferior and inferobasal hypokinesis. No mitral regurgitation. C. CORONARY ANGIOGRAPHY: The left main coronary artery has 60% stenosis in the distal portion. The left anterior descending coronary artery has 80% stenosis in the mid-portion distal to the first diagonal branch. The proximal and distal LAD is patent. The first diagonal artery is patent. The ramus intermedius is patent. The circumflex artery has sequential 90 and 80% stenosis in the proximal portion and 90% stenosis in the mid-portion. The first marginal artery is occluded and fills faintly by collaterals. The second marginal artery slowly fills as well. The right coronary artery is totally occluded in the proximal portion. The distal RCA fills by left to right collaterals. The left subclavian artery and large left internal mammary artery are patent. DIAGNOSES 1. Severe multivessel coronary artery disease. 2. Mild left ventricular dysfunction consistent with ischemic cardiomyopathy. DISPOSITION Mr. Zamora will be monitored on telemetry after his procedure. His study revealed severe multivessel coronary artery disease and mild left ventricular dysfunction. I recommend coronary bypass for his further management. Dr. Saenz was consulted for CT Surgery. Kriss Calvo MD OQ/SSB /4:34 PM /6:40 AM [facility]
[2017-06-10] MEDS: INSULIN ASPART SUPPLEMENTAL SCALE SQ SCH ×4 (08:00→21:00)
[2017-06-10] MEDS: FLUoxetine HCL 20 MG CAP PO SCH (09:21)
[2017-06-10] MEDS: ASPIRIN EC 81 MG TABEC PO SCH (09:21)
[2017-06-10] MEDS: PANTOPRAZOLE SOD 20 MG DELAYED RELEASE TAB PO SCH ×2 (09:21→22:08)
[2017-06-10] MEDS: SODIUM CHLORIDE 0.9% FLUSH 10 ML FLUSH IV FLUSH SCH ×2 (09:22→22:08)
--- NOTE | 2017-06-10 10:56 | HHI.PR ---
Subjective Remarks Follow-up for multivessel disease and osteomyelitis Patient has no complaints. Denies any chest pain, shortness of breathing, palpitation, lightheadedness or dizziness. Plan I explained the management to the patient he stated that "I knows that already." No events. Discussed case with patient's nurse. Objective Vitals Vital Signs Date Time Temp Pulse Resp B/P (MAP) Pulse Ox O2 Delivery O2 Flow Rate FiO2 06/10/17 06:00 63 06/10/17 05:00 70 06/10/17 04:00 72 06/10/17 04:00 98.0 72 18 141/66 (91) 96 06/10/17 03:00 69 06/10/17 02:00 70 06/10/17 01:00 68 06/10/17 00:00 97.9 70 18 138/70 (92) 97 06/10/17 00:00 70 06/09/17 23:00 70 06/09/17 22:00 69 06/09/17 21:00 67 06/09/17 20:30 68 06/09/17 20:30 98.0 68 18 130/69 (89) 96 06/09/17 14:50 97.8 72 16 162/84 (110) 98 06/09/17 14:12 98.1 78 16 171/77 (108) 99 Room Air 06/09/17 11:55 17 100 Room Air 06/09/17 11:40 76 17 06/09/17 10:59 98.8 66 16 180/76 (110) 100 Room Air I/O 06/09/17 06/09/17 06/09/17 06/10/17 06/10/17 06/10/17 07:00 15:00 23:00 07:00 15:00 23:00 Intake Total 1000 ml 320 ml Output Total 400 ml Balance 1000 ml -80 ml Intake Oral 320 ml IV Total 1000 ml Output Urine Total 400 ml # Voids 1 Result Diagram: 06/10/17 0501 06/10/17 0501 Objective Remarks GENERAL: This is a well-nourished, well-developed patient, in no apparent distress. CARDIOVASCULAR: Regular rate and rhythm without murmurs, gallops, or rubs. No JVD. RESPIRATORY: Clear to auscultation. Breath sounds equal bilaterally. No wheezes , rales, or rhonchi. GASTROINTESTINAL: Abdomen soft, non-tender, nondistended. No guarding. MUSCULOSKELETAL: Extremities without clubbing, cyanosis, or edema. Right lateral foot has an open ulcerating wound with serosanguineous drainage. No erythema around the ulcerating wound. Medications and IVs Current Medications Vancomycin HCl 1000 mg/Sodium Chloride 250 ml @ 250 mls/hr ONCE STAT IV Last administered on 06/09/17at 12:00; Start 06/09/17 at 11:42; Stop 06/09/17 at 12:41 ; Status DC Sodium Chloride (NS Flush) 2 ml UNSCH PRN IV FLUSH FLUSH AFTER USING IV ACCESS ; Start 06/09/17 at 13:15 Sodium Chloride (NS Flush) 2 ml BID IV FLUSH Last administered on 06/10/17at 09: 22; Start 06/09/17 at 21:00 Acetaminophen (Tylenol) 650 mg Q4H PRN PO Headache, fever, pain 1-4; Start at 13:15 Ondansetron HCl (Zofran Inj) 4 mg Q6H PRN IVP NAUSEA OR VOMITING; Start at 13:15 Temazepam (Restoril) 15 mg HS PRN PO INSOMNIA Last administered on 06/09/17at 21 :25; Start 06/09/17 at 13:15 Heparin Sodium (Porcine) (Heparin Inj) 5,000 units Q12H SQ Last administered on 06/10/17at 02:42; Start 06/09/17 at 14:00 Naloxone HCl (Narcan Inj) 0.4 mg UNSCH PRN IV PUSH SEE LABEL COMMENTS; Start at 13:15 Magnesium Hydroxide (Milk Of Magnesia Liq) 30 ml Q12H PRN PO Mild constipation ; Start 06/09/17 at 13:15 Sennosides (Senokot) 17.2 mg Q12H PRN PO Moderate constipation; Start 06/09/17 at 13:15 Bisacodyl (Dulcolax Supp) 10 mg DAILY PRN RECTAL SEVERE CONSITIPATION; Start at 13:15 Lactulose (Lactulose Liq) 30 ml DAILY PRN PO SEVERE CONSITIPATION; Start at 13:15 Gadodiamide (Omniscan Pf Inj) 25 ml STK-MED ONCE IVCONTRAST Last administered on 06/09/17at 14:19; Start 06/09/17 at 14:19; Stop 06/09/17 at 14:20; Status DC Ceftriaxone Sodium 2000 mg/ Sodium Chloride 100 ml @ 200 mls/hr Q24H IV Last administered on 06/09/17at 17:00; Start 06/09/17 at 17:00 Pharmacy Profile Note 0 ml @ 0 mls/hr UNSCH OTHER ; Start 06/09/17 at 15:15 Heparin Sodium/ Sodium Chloride 1,000 ml @ As Directed STK-MED ONCE .ROUTE ; Start 06/09/17 at 15:23; Stop 06/09/17 at 15:24; Status DC Midazolam HCl (Versed Inj) 2 mg STK-MED ONCE .ROUTE Last administered on at 15:23; Start 06/09/17 at 15:23; Stop 06/09/17 at 15:24; Status DC Fentanyl Citrate (fentaNYL INJ) 100 mcg STK-MED ONCE .ROUTE Last administered on 06/09/17at 15:23; Start 06/09/17 at 15:23; Stop 06/09/17 at 15:24; Status DC Vancomycin HCl 1500 mg/Sodium Chloride 515 ml @ 250 mls/hr ONCE ONCE IV Last administered on 06/09/17at 16:00; Start 06/09/17 at 16:00; Stop 06/09/17 at 18:03 ; Status DC Sodium Chloride 500 ml @ 100 mls/hr Q5H IV Last administered on 06/09/17at 16: 39; Start 06/09/17 at 16:39; Stop 06/09/17 at 20:38; Status DC Dextrose (D50w (Vial) Inj) 50 ml UNSCH PRN IV PUSH HYPOGLYCEMIA-SEE COMMENTS; Start 06/09/17 at 17:00 Glucagon (Glucagon Inj) 1 mg UNSCH PRN OTHER HYPOGLYCEMIA-SEE COMMENTS; Start 06/09/17 at 17:00 Insulin Aspart (NovoLOG SUPPLEMENTAL SCALE) 1 ACHS SLIDING SCALE SQ ; Start at 17:00 Aspirin (Ecotrin Ec) 81 mg DAILY PO Last administered on 06/10/17at 09:21; Start 06/10/17 at 09:00 Atorvastatin Calcium (Lipitor) 20 mg HS PO Last administered on 06/09/17at 21:25 ; Start 06/09/17 at 21:00 Fluoxetine HCl (PROzac) 20 mg DAILY PO Last administered on 06/10/17at 09:21; Start 06/10/17 at 09:00 Pantoprazole Sodium (Protonix) 20 mg BID PO Last administered on 06/10/17at 09: 21; Start 06/09/17 at 21:00 Acetaminophen/ Hydrocodone Bitart ([place] 5-325 Mg) 1 tab Q6H PRN PO PAIN SCALE 6 TO 10 Last administered on 06/10/17at 02:42; Start 06/09/17 at 17:00 Iohexol (OMNIPAQUE 350 INJ (Manager Benefit)) 100 ml STK-MED ONCE OTHER ; Start at 17:49; Stop 06/09/17 at 17:50; Status DC Vancomycin HCl 1750 mg/Sodium Chloride 517.5 ml @ 250 mls/hr Q24H IV ; Start at 12:00 Miscellaneous Information SPECIFIC LAB TO BE DRAWN:VANCOMYCIN TROUGH DATE TO... ONCE ONCE .XX ; Start 06/12/17 at 11:45; Stop 06/12/17 at 11:46 A/P Problem List: (1) Osteomyelitis of right foot ICD Code: M86.9 - Osteomyelitis, unspecified Status: Acute (2) Coronary artery disease ICD Code: I25.10 - Atherosclerotic heart disease of [place] coronary artery without angina pectoris (3) CKD (chronic kidney disease) stage 3, GFR 30-59 ml/min ICD Code: N18.3 - Chronic kidney disease, stage 3 (moderate) (4) Diabetes mellitus ICD Code: E11.9 - Type 2 diabetes mellitus without complications Assessment and Plan Mr. Zamora is a pleasant 76-year-old with a history of diabetes, CAD who was sent to the hospital by his [facility] student success counselor due to suspected right foot osteomyelitis. Right foot osteomyelitis -Most likely underlying cause due to Diabetic foot ulcer, right foot. -Continue with IV Ceftriaxone 2g Q24hrs and IV Vancomycin - pharmacy to dose. Keep trough level 15-20. -Patient scheduled for or but needs to be cleared by rn care manager. Cardiac clearance -Patient had current catheterization done on 06/09 with multivessel disease recommending CABG. CTS consulted. Diabetes mellitus -Patient does not take any diabetic medications. He manages his DM with diet/ lifestyle modifications and cinnamon tabs. -Continue with low sliding scale insulin. If needed, consider Levemir. -Patient may benefit from metformin upon discharge if GFR > 45 CKD stage III - Avoid nephrotoxins. -Continue to monitor and trend. Depression -continue Fluoxetine DVT Prophylaxis. -Heparin. Problem Qualifiers (1) Osteomyelitis of right foot: Qualified Codes: M86.9 - Osteomyelitis, unspecified Ilda Milton MD Jun 10, 2017 10:56
--- NOTE | 2017-06-10 11:11 | PD.POD ---
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 Past Med/Surg/Social History Social History Smoking Status: Former Smoker Objective Vital Signs Vital Signs Date Time Temp Pulse Resp B/P (MAP) Pulse Ox O2 Delivery O2 Flow Rate FiO2 06/10/17 06:00 63 06/10/17 05:00 70 06/10/17 04:00 72 06/10/17 04:00 98.0 72 18 141/66 (91) 96 06/10/17 03:00 69 06/10/17 02:00 70 06/10/17 01:00 68 06/10/17 00:00 97.9 70 18 138/70 (92) 97 06/10/17 00:00 70 06/09/17 23:00 70 06/09/17 22:00 69 06/09/17 21:00 67 06/09/17 20:30 68 06/09/17 20:30 98.0 68 18 130/69 (89) 96 06/09/17 14:50 97.8 72 16 162/84 (110) 98 06/09/17 14:12 98.1 78 16 171/77 (108) 99 Room Air 06/09/17 11:55 17 100 Room Air 06/09/17 11:40 76 17 Coded Allergies: niacin (Verified Allergy, Severe, rash, 06/09/17) Medications and IVs Current Medications Medications (Trade) Dose Ordered Sig/Sierra Route Start Time Stop Time Status Last Admin (NS Flush) 2 ml UNSCH PRN IV FLUSH 06/09/17 13:15 (NS Flush) 2 ml BID IV FLUSH 06/09/17 21:00 06/10/17 09:22 (Tylenol) 650 mg Q4H PRN PO 06/09/17 13:15 (Zofran Inj) 4 mg Q6H PRN IVP 06/09/17 13:15 (Restoril) 15 mg HS PRN PO 06/09/17 13:15 06/09/17 21:25 (Heparin Inj) 5,000 units Q12H SQ 06/09/17 14:00 06/10/17 02:42 (Narcan Inj) 0.4 mg UNSCH PRN IV PUSH 06/09/17 13:15 (Milk Of Magnesia Liq) 30 ml Q12H PRN PO 06/09/17 13:15 (Senokot) 17.2 mg Q12H PRN PO 06/09/17 13:15 (Dulcolax Supp) 10 mg DAILY PRN RECTAL 06/09/17 13:15 (Lactulose Liq) 30 ml DAILY PRN PO 06/09/17 13:15 Ceftriaxone Sodium 2000 mg/ Sodium Chloride 100 ml @ 200 mls/hr Q24H IV 06/09/17 17:00 06/09/17 17:00 Pharmacy Profile Note 0 ml @ 0 mls/hr UNSCH OTHER 06/09/17 15:15 (D50w (Vial) Inj) 50 ml UNSCH PRN IV PUSH 06/09/17 17:00 (Glucagon Inj) 1 mg UNSCH PRN OTHER 06/09/17 17:00 (NovoLOG SUPPLEMENTAL SCALE) 1 ACHS SLIDING SCALE SQ 06/09/17 17:00 (Ecotrin Ec) 81 mg DAILY PO 06/10/17 09:00 06/10/17 09:21 (Lipitor) 20 mg HS PO 06/09/17 21:00 06/09/17 21:25 (PROzac) 20 mg DAILY PO 06/10/17 09:00 06/10/17 09:21 (Protonix) 20 mg BID PO 06/09/17 21:00 06/10/17 09:21 ([place] 5-325 Mg) 1 tab Q6H PRN PO 06/09/17 17:00 06/10/17 02:42 Vancomycin HCl 1750 mg/Sodium Chloride 517.5 ml @ 250 mls/hr Q24H IV 06/10/17 12:00 Miscellaneous Information SPECIFIC LAB TO BE DRAWN:VANCOMYCIN TROUGH DATE TO... ONCE ONCE .XX 06/12/17 11:45 06/12/17 11:46 Other Results Last 72 hours Impressions Foot X-Ray 06/09/17 0000 Signed Impressions: Service Date/Time: Friday, June 09, 2017 18:15 - CONCLUSION: 1. Bony destructive changes at the fifth metatarsal most characteristic of osteomyelitis. MRI pending. Brian Ortiz MD Foot MRI 06/09/17 0000 Signed Impressions: Service Date/Time: Friday, June 09, 2017 13:20 - CONCLUSION: 1. Osteomyelitis of the entire fifth metatarsal with bone destruction distally. Also osteomyelitis proximal phalanx fifth toe with displacement from the destructive change at the distal fifth metatarsal. There is surrounding edema and cellulitis. Brian Ortiz MD Assessment & Plan A/P Osteomyelitis right 5th metatarsal with abscess Can do surgery under local anesthesia to reduce risk. Spoke with anesthesia on duty today to confirm. Cardiology please coordinate with anesthesia to discuss further and formulate a plan to address this active infection. NPO until plan finalized Carlos Melgar DPM Jun 10, 2017 11:11
[2017-06-10] MEDS ORDERED: VANCOMYCIN INJ 1,750 MG in SODIUM CHLORID 0.9% 500 ML INJ 500 ML IV SCH (12:00)
--- NOTE | 2017-06-10 14:02 | PD.ID.CON ---
History of Present Illness Service ID Consult Requested By Dr Feldman Reason for Consult DFI R foot Primary Care Physician [facility] Diagnoses: History of Present Illness 76 yo male with diabetes present with chronic R lateral foot wound draining since February He has beed followed by electrical engineering technician and has been taking Keflex/ cipro , but cont to do worse X-ray done showing bony destruction of the fifth metatarsal consistent with osteomyelitis. Culture is positive for MSSA no fever or leukocytosis MRI showed Osteomyelitis of the entire fifth metatarsal with bone destruction distally. Also osteomyelitis proximal phalanx fifth toe with displacement from the destructive change at the distal fifth metatarsal. 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 Active Ordered Medications Medications where reviewed in EMR Antibiotics Include: CFTX vancomycin Family History Mom - cerebral hemorrhage Dad - heart disease. Social History Denies using alcohol, + remote tobacco No , illicit drugs. Physical Exam Vital Signs Vital Signs Date Time Temp Pulse Resp B/P (MAP) Pulse Ox O2 Delivery O2 Flow Rate FiO2 06/10/17 11:15 99.6 83 17 144/65 (91) 96 06/10/17 10:10 150/86 (107) 06/10/17 08:40 98.8 89 19 165/76 (105) 98 06/10/17 06:00 63 06/10/17 05:00 70 06/10/17 04:00 72 06/10/17 04:00 98.0 72 18 141/66 (91) 96 06/10/17 03:00 69 06/10/17 02:00 70 06/10/17 01:00 68 06/10/17 00:00 97.9 70 18 138/70 (92) 97 06/10/17 00:00 70 06/09/17 23:00 70 06/09/17 22:00 69 06/09/17 21:00 67 06/09/17 20:30 68 06/09/17 20:30 98.0 68 18 130/69 (89) 96 06/09/17 14:50 97.8 72 16 162/84 (110) 98 06/09/17 14:12 98.1 78 16 171/77 (108) 99 Room Air Physical Exam CONSTITUTIONAL/GENERAL: This is an obese elderly patient, in no apparent distress. TUBES/LINES/DRAINS: SKIN: No jaundice, rashes, or lesions. Skin temperature appropriate. Not diaphoretic. HEAD: Atraumatic. Normocephalic. EYES: Pupils equal and round and reactive. . No injection or drainage. Fundi not examined. ENT: Hearing grossly normal. Nose without bleeding or purulent drainage. Throat without visible erythema, exudates, masses, or lesions. NECK: Trachea midline. Supple, nontender. No palpable thyroid enlargement or nodularity. CARDIOVASCULAR: Regular rate and rhythm without murmurs, gallops, or rubs. No JVD. Peripheral pulses symmetric. RESPIRATORY/CHEST: Symmetric, unlabored respirations. Clear to auscultation. Breath sounds equal bilaterally. No wheezes, rales, or rhonchi. GASTROINTESTINAL: Abdomen soft, non-tender, nondistended. No hepato-splenomegaly , or palpable masses. No guarding. Bowel sounds present. GENITOURINARY: Without palpable bladder distension. MUSCULOSKELETAL: Extremities without clubbing, cyanosis, + chronic appearing edema with chronic discoloration No joint tenderness or effusion noted. No calf tenderness. No mottling or clubbing. L toes 2-4 amputated, well healed incision R foot swollen, erythemaotus with a draining wound over 5 th MT head, probing to the bone No odor or crepitus LYMPHATICS: No palpable cervical or supraclavicular adenopathy. NEUROLOGICAL: Awake and alert. Motor and sensory grossly within normal limits. Follows commands. Clear speech . Moves all extremities. PSYCHIATRIC: No obvious anxiety/depression. no apparent hallucinations or other psychotic thought process. Laboratory Laboratory Tests Test 06/10/17 05:01 White Blood Count 6.7 Red Blood Count 3.16 Hemoglobin 9.2 Hematocrit 27.3 Mean Corpuscular Volume 86.3 Mean Corpuscular Hemoglobin 29.0 Mean Corpuscular Hemoglobin Concent 33.6 Red Cell Distribution Width 15.9 Platelet Count 299 Mean Platelet Volume 7.5 Neutrophils (%) (Auto) 78.6 Lymphocytes (%) (Auto) 10.4 Monocytes (%) (Auto) 6.3 Eosinophils (%) (Auto) 3.7 Basophils (%) (Auto) 1.0 Neutrophils # (Auto) 5.3 Lymphocytes # (Auto) 0.7 Monocytes # (Auto) 0.4 Eosinophils # (Auto) 0.2 Basophils # (Auto) 0.1 CBC Comment DIFF FINAL Differential Comment Blood Urea Nitrogen 21 Creatinine 1.46 Random Glucose 96 Calcium Level 8.1 Sodium Level 138 Potassium Level 4.0 Chloride Level 104 Carbon Dioxide Level 29.0 Anion Gap 5 Estimat Glomerular Filtration Rate 47 Random Vancomycin Level 17.0 Date/Time Source Procedure Growth Status 06/09/17 11:45 Blood Peripheral Aerobic Blood Culture - Preliminary NO GROWTH IN 1 DAY Resulted 06/09/17 11:45 Blood Peripheral Anaerobic Blood Culture - Preliminary NO GROWTH IN 1 DAY Resulted 06/09/17 12:00 Wound Foot Gram Stain - Final Resulted 06/09/17 12:00 Wound Culture - Preliminary Staphylococcus Aureus Resulted Result Diagram: 06/10/17 0501 06/10/17 0501 Imaging Last Impressions Foot X-Ray 06/09/17 0000 Signed Impressions: Service Date/Time: Friday, June 09, 2017 18:15 - CONCLUSION: 1. Bony destructive changes at the fifth metatarsal most characteristic of osteomyelitis. MRI pending. Brian Ortiz MD Foot MRI 06/09/17 0000 Signed Impressions: Service Date/Time: Friday, June 09, 2017 13:20 - CONCLUSION: 1. Osteomyelitis of the entire fifth metatarsal with bone destruction distally. Also osteomyelitis proximal phalanx fifth toe with displacement from the destructive change at the distal fifth metatarsal. There is surrounding edema and cellulitis. Brian Ortiz MD Assessment and Plan Assessment and Plan DFI, osteo R 5th mrtarsal head MSSA CAD Cath showed severe MV CAD, CABG was recommended CT surgery consulted, CABG tentatively next week. - dc CFTX, vancomycin - start Cefazoline - electrical engineering technician consult for surgical debridement : plan for debridement under local anaethesia - Dilcia Anthony MD Jun 10, 2017 14:02
--- NOTE | 2017-06-10 14:20 | PD.CARD.PN ---
Subjective Subjective Remarks No CP or SOB, cath w severe MV CAD Objective Medications Current Medications Medications (Trade) Dose Ordered Sig/Sierra Route Start Time Stop Time Status Last Admin (NS Flush) 2 ml UNSCH PRN IV FLUSH 06/09/17 13:15 (NS Flush) 2 ml BID IV FLUSH 06/09/17 21:00 06/10/17 09:22 (Tylenol) 650 mg Q4H PRN PO 06/09/17 13:15 (Zofran Inj) 4 mg Q6H PRN IVP 06/09/17 13:15 (Restoril) 15 mg HS PRN PO 06/09/17 13:15 06/09/17 21:25 (Heparin Inj) 5,000 units Q12H SQ 06/09/17 14:00 06/10/17 02:42 (Narcan Inj) 0.4 mg UNSCH PRN IV PUSH 06/09/17 13:15 (Milk Of Magnesia Liq) 30 ml Q12H PRN PO 06/09/17 13:15 (Senokot) 17.2 mg Q12H PRN PO 06/09/17 13:15 (Dulcolax Supp) 10 mg DAILY PRN RECTAL 06/09/17 13:15 (Lactulose Liq) 30 ml DAILY PRN PO 06/09/17 13:15 Ceftriaxone Sodium 2000 mg/ Sodium Chloride 100 ml @ 200 mls/hr Q24H IV 06/09/17 17:00 06/09/17 17:00 Pharmacy Profile Note 0 ml @ 0 mls/hr UNSCH OTHER 06/09/17 15:15 (D50w (Vial) Inj) 50 ml UNSCH PRN IV PUSH 06/09/17 17:00 (Glucagon Inj) 1 mg UNSCH PRN OTHER 06/09/17 17:00 (NovoLOG SUPPLEMENTAL SCALE) 1 ACHS SLIDING SCALE SQ 06/09/17 17:00 (Ecotrin Ec) 81 mg DAILY PO 06/10/17 09:00 06/10/17 09:21 (Lipitor) 20 mg HS PO 06/09/17 21:00 06/09/17 21:25 (PROzac) 20 mg DAILY PO 06/10/17 09:00 06/10/17 09:21 (Protonix) 20 mg BID PO 06/09/17 21:00 06/10/17 09:21 ([place] 5-325 Mg) 1 tab Q6H PRN PO 06/09/17 17:00 06/10/17 02:42 Vancomycin HCl 1750 mg/Sodium Chloride 517.5 ml @ 250 mls/hr Q24H IV 06/10/17 12:00 06/10/17 12:26 Miscellaneous Information SPECIFIC LAB TO BE DRAWN:VANCOMYCIN TROUGH DATE TO... ONCE ONCE .XX 06/12/17 11:45 06/12/17 11:46 Vital Signs / I&O Vital Signs Date Time Temp Pulse Resp B/P (MAP) Pulse Ox O2 Delivery O2 Flow Rate FiO2 06/10/17 11:15 99.6 83 17 144/65 (91) 96 06/10/17 10:10 150/86 (107) 06/10/17 08:40 98.8 89 19 165/76 (105) 98 06/10/17 06:00 63 06/10/17 05:00 70 06/10/17 04:00 72 06/10/17 04:00 98.0 72 18 141/66 (91) 96 06/10/17 03:00 69 06/10/17 02:00 70 06/10/17 01:00 68 06/10/17 00:00 97.9 70 18 138/70 (92) 97 06/10/17 00:00 70 06/09/17 23:00 70 06/09/17 22:00 69 06/09/17 21:00 67 06/09/17 20:30 68 06/09/17 20:30 98.0 68 18 130/69 (89) 96 06/09/17 14:50 97.8 72 16 162/84 (110) 98 I/O 06/09/17 06/09/17 06/09/17 06/10/17 06/10/17 06/10/17 07:00 15:00 23:00 07:00 15:00 23:00 Intake Total 1000 ml 320 ml Output Total 400 ml Balance 1000 ml -80 ml Intake Oral 320 ml IV Total 1000 ml Output Urine Total 400 ml # Voids 1 Physical Exam GENERAL: In NAD SKIN: Warm and dry. HEAD: Normocephalic. EYES: No scleral icterus. No injection or drainage. NECK: Supple, trachea midline. No JVD or lymphadenopathy. CARDIOVASCULAR: Regular rate and rhythm without murmurs, gallops, or rubs. RESPIRATORY: Breath sounds equal bilaterally. No accessory muscle use. GASTROINTESTINAL: Abdomen soft, non-tender, nondistended. MUSCULOSKELETAL: No cyanosis, mild edema, R foot redness. Laboratory Laboratory Tests Test 06/10/17 05:01 White Blood Count 6.7 TH/MM3 Red Blood Count 3.16 MIL/MM3 Hemoglobin 9.2 GM/DL Hematocrit 27.3 % Mean Corpuscular Volume 86.3 FL Mean Corpuscular Hemoglobin 29.0 PG Mean Corpuscular Hemoglobin Concent 33.6 % Red Cell Distribution Width 15.9 % Platelet Count 299 TH/MM3 Mean Platelet Volume 7.5 FL Neutrophils (%) (Auto) 78.6 % Lymphocytes (%) (Auto) 10.4 % Monocytes (%) (Auto) 6.3 % Eosinophils (%) (Auto) 3.7 % Basophils (%) (Auto) 1.0 % Neutrophils # (Auto) 5.3 TH/MM3 Lymphocytes # (Auto) 0.7 TH/MM3 Monocytes # (Auto) 0.4 TH/MM3 Eosinophils # (Auto) 0.2 TH/MM3 Basophils # (Auto) 0.1 TH/MM3 CBC Comment DIFF FINAL Differential Comment Blood Urea Nitrogen 21 MG/DL Creatinine 1.46 MG/DL Random Glucose 96 MG/DL Calcium Level 8.1 MG/DL Sodium Level 138 MEQ/L Potassium Level 4.0 MEQ/L Chloride Level 104 MEQ/L Carbon Dioxide Level 29.0 MEQ/L Anion Gap 5 MEQ/L Estimat Glomerular Filtration Rate 47 ML/MIN Random Vancomycin Level 17.0 COMMENT Assessment and Plan Problem List: (1) Coronary artery disease ICD Codes: I25.10 - Atherosclerotic heart disease of [place] coronary artery without angina pectoris (2) Osteomyelitis of right foot ICD Codes: M86.9 - Osteomyelitis, unspecified Status: Acute (3) Diabetes mellitus ICD Codes: E11.9 - Type 2 diabetes mellitus without complications (4) CKD (chronic kidney disease) stage 3, GFR 30-59 ml/min ICD Codes: N18.3 - Chronic kidney disease, stage 3 (moderate) Assessment and Plan Cath showed severe MV CAD. Risk of anesthesia high, I recommend to proceed with CABG first. Continue abxs. Continue risk factor modification and tx for CAD. CT surgery consulted, CABG tentatively next week. Problem Qualifiers (1) Osteomyelitis of right foot: Qualified Codes: M86.9 - Osteomyelitis, unspecified Kriss Henderson MD Jun 10, 2017 14:20
[2017-06-10] MEDS ORDERED: PAPAVERINE INJ 60 MG, NITROGLYCERIN INJ 100 MCG, DILTIAZEM INJ 100 MG in SODIUM CHLORID... IRRIGATION SCH (15:15)
[2017-06-10] MEDS ORDERED: METOPROLOL TARTRATE 25 MG TAB PO SCH (15:15)
[2017-06-10] MEDS ORDERED: INSULIN REGULAR (IV INFUSION) 100 UNITS in SODIUM CHLORIDE 0.9% INJ 99 ML IV PRN (15:15)
[2017-06-10] MEDS ORDERED: SODIUM CHLORIDE 0.9% FLUSH 10 ML FLUSH IV FLUSH PRN (15:15)
[2017-06-10] MEDS ORDERED: CHLORHEXIDINE GLUCONATE 4% SOLN 120 ML BTL TOPICAL SCH (15:15)
[2017-06-10] MEDS ORDERED: CEFAZOLIN INJ 500 MG in SODIUM CHLORIDE 0.9% IRR BTL 500 ML IRRIGATION SCH (15:15)
[2017-06-10] MEDS ORDERED: DEXTROSE 50% IN WATER 50 ML VIAL(D50) IV PUSH PRN (15:15)
--- NOTE | 2017-06-10 15:18 | PD.CAR.PN ---
CVT Progress Note Subjective/Hospital Course: RISK SCORES About the STS Risk Calculator Procedure: CAB Only Risk of Mortality: 2.24% Morbidity or Mortality: 22.929% Long Length of Stay: 9.433% Short Length of Stay: 28.961% Permanent Stroke: 1.262% Prolonged Ventilation: 14.7% DSW Infection: 1.072% Renal Failure: 11.517% Reoperation: 6.118% Objective: Vital Signs Date Time Temp Pulse Resp B/P (MAP) Pulse Ox O2 Delivery O2 Flow Rate FiO2 06/10/17 11:15 99.6 83 17 144/65 (91) 96 06/10/17 10:10 150/86 (107) 06/10/17 08:40 98.8 89 19 165/76 (105) 98 06/10/17 06:00 63 06/10/17 05:00 70 06/10/17 04:00 72 06/10/17 04:00 98.0 72 18 141/66 (91) 96 06/10/17 03:00 69 06/10/17 02:00 70 06/10/17 01:00 68 06/10/17 00:00 97.9 70 18 138/70 (92) 97 06/10/17 00:00 70 06/09/17 23:00 70 06/09/17 22:00 69 06/09/17 21:00 67 06/09/17 20:30 68 06/09/17 20:30 98.0 68 18 130/69 (89) 96 Labs: Laboratory Tests Test 06/10/17 05:01 White Blood Count 6.7 TH/MM3 (4.0-11.0) Red Blood Count 3.16 MIL/MM3 (4.50-5.90) Hemoglobin 9.2 GM/DL (13.0-17.0) Hematocrit 27.3 % (39.0-51.0) Mean Corpuscular Volume 86.3 FL (80.0-100.0) Mean Corpuscular Hemoglobin 29.0 PG (27.0-34.0) Mean Corpuscular Hemoglobin Concent 33.6 % (32.0-36.0) Red Cell Distribution Width 15.9 % (11.6-17.2) Platelet Count 299 TH/MM3 (150-450) Mean Platelet Volume 7.5 FL (7.0-11.0) Neutrophils (%) (Auto) 78.6 % (16.0-70.0) Lymphocytes (%) (Auto) 10.4 % (9.0-44.0) Monocytes (%) (Auto) 6.3 % (0.0-8.0) Eosinophils (%) (Auto) 3.7 % (0.0-4.0) Basophils (%) (Auto) 1.0 % (0.0-2.0) Neutrophils # (Auto) 5.3 TH/MM3 (1.8-7.7) Lymphocytes # (Auto) 0.7 TH/MM3 (1.0-4.8) Monocytes # (Auto) 0.4 TH/MM3 (0-0.9) Eosinophils # (Auto) 0.2 TH/MM3 (0-0.4) Basophils # (Auto) 0.1 TH/MM3 (0-0.2) CBC Comment DIFF FINAL Differential Comment Blood Urea Nitrogen 21 MG/DL (7-18) Creatinine 1.46 MG/DL (0.60-1.30) Random Glucose 96 MG/DL (74-106) Calcium Level 8.1 MG/DL (8.5-10.1) Sodium Level 138 MEQ/L (136-145) Potassium Level 4.0 MEQ/L (3.5-5.1) Chloride Level 104 MEQ/L (98-107) Carbon Dioxide Level 29.0 MEQ/L (21.0-32.0) Anion Gap 5 MEQ/L (5-15) Estimat Glomerular Filtration Rate 47 ML/MIN (>89) Random Vancomycin Level 17.0 COMMENT Result Diagram: 06/10/17 0501 06/10/17 0501 (1) Coronary artery disease (2) Osteomyelitis of right foot (3) Diabetes mellitus (4) CKD (chronic kidney disease) stage 3, GFR 30-59 ml/min Problem Qualifiers (1) Osteomyelitis of right foot: Qualified Codes: M86.9 - Osteomyelitis, unspecified Lynn Larios Jun 10, 2017 15:18
--- NOTE | 2017-06-10 15:49 | PD.POD ---
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 Past Med/Surg/Social History Social History Smoking Status: Former Smoker Objective Vital Signs Vital Signs Date Time Temp Pulse Resp B/P (MAP) Pulse Ox O2 Delivery O2 Flow Rate FiO2 06/10/17 11:15 99.6 83 17 144/65 (91) 96 06/10/17 10:10 150/86 (107) 06/10/17 08:40 98.8 89 19 165/76 (105) 98 06/10/17 06:00 63 06/10/17 05:00 70 06/10/17 04:00 72 06/10/17 04:00 98.0 72 18 141/66 (91) 96 06/10/17 03:00 69 06/10/17 02:00 70 06/10/17 01:00 68 06/10/17 00:00 97.9 70 18 138/70 (92) 97 06/10/17 00:00 70 06/09/17 23:00 70 06/09/17 22:00 69 06/09/17 21:00 67 06/09/17 20:30 68 06/09/17 20:30 98.0 68 18 130/69 (89) 96 Coded Allergies: niacin (Verified Allergy, Severe, rash, 06/09/17) Other Results Last 72 hours Impressions Foot X-Ray 06/09/17 0000 Signed Impressions: Service Date/Time: Friday, June 09, 2017 18:15 - CONCLUSION: 1. Bony destructive changes at the fifth metatarsal most characteristic of osteomyelitis. MRI pending. Brian Ortiz MD Foot MRI 06/09/17 0000 Signed Impressions: Service Date/Time: Friday, June 09, 2017 13:20 - CONCLUSION: 1. Osteomyelitis of the entire fifth metatarsal with bone destruction distally. Also osteomyelitis proximal phalanx fifth toe with displacement from the destructive change at the distal fifth metatarsal. There is surrounding edema and cellulitis. 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 Continue IV antibiotics in the meantime. Will plan to attempt to do surgery under local anesthesia to reduce risk. Carlos Melgar DPM Jun 10, 2017 15:49
[2017-06-10] MEDS: ceFAZolin 2 GM PREMIX 50 ML IV SCH (16:43)
--- NOTE | 2017-06-10 16:44 | RADRPT ---
EXAM DATE/TIME: 06/10/2017 16:19 [facility] COMPARISON: No previous studies available for comparison. INDICATIONS : Pre op cardiac surgery. Evaluate for pneumonia, pneumothorax, and or any other communicable diseases. MEDICAL HISTORY : None. SURGICAL HISTORY : None. ENCOUNTER: Initial ACUITY: 1 day PAIN SCORE: 0/10 LOCATION: Bilateral chest FINDINGS: PA and lateral views of the chest. The lungs are clear. Cardiomediastinal silhouette within normal li mits. No evidence of pleural effusion or pneumothorax. Eventration of right hemidiaphragm. CONCLUSION: No acute cardiopulmonary disease identified. Aashish Patiño MD on June 10, 2017 at 16:41 Board Certified Radiologist. This report was verified electronically.
--- NOTE | 2017-06-10 18:09 | ECHRPT ---
Indication: CHEST PAIN CONCLUSIONS The left ventricular systolic function is normal with an estimated ejection fraction in the range of 55-60%. Normal left ventricular size. Mild concentric left ventricular hypertrophy. No rEgional wall motion abnormalities are present. The aortic valve is not well visualized. Mild aortic valve stenosis. Aortic valve area is 2.1 cm. Aortic valve mean gradient is 13 mmHg. Trace aortic valve regurgitation. There is trace tricuspid valve regurgitation. The estimated pulmonary arterial pressure is 29.9 mmHg. BP: 141 / 66 HR: 72 Rhythm: Sinus MEASUREMENTS (Male / Female) Normal Values Technical Quality:Fair 2D ECHO LV Diastolic Diameter PLAX 5.0 cm 4.2 - 5.9 / 3.9 - 5.3 cm LV Systolic Diameter PLAX 3.7 cm IVS Diastolic Thickness 1.4 cm 0.6 - 1.0 / 0.6 - 0.9 cm LVPW Diastolic Thickness 1.4 cm 0.6 - 1.0 / 0.6 - 0.9 cm LV Relative Wall Thickness 0.6 LVOT Diameter 2.0 cm LV Ejection Fraction MOD 4C 59.3 % LV Cardiac Index MOD 4C 2356.9 cm/minm LV Ejection Fraction 4C AL 61.0 % LV Cardiac Index 4C AL 2538.6 cm/minm DOPPLER AV Peak Velocity 265.0 cm/s AV Peak Gradient 28.1 mmHg AV Mean Gradient 13.0 mmHg AV Velocity Time Integral 42.4 cm AI Peak Velocity 148.0 cm/s AI Peak Gradient 8.8 mmHg AI Pressure Half Time 511.0 ms LVOT Peak Velocity 159.0 cm/s LVOT Peak Gradient 10.1 mmHg LVOT Velocity Time Integral 28.8 cm LVOT Cardiac Index 2569.2 cm/minm AV Area Cont Eq vti 2.1 cm AV Area Cont Eq pk 1.9 cm MV Area PHT 4.1 cm Mitral E Point Velocity 93.8 cm/s Mitral A Point Velocity 149.0 cm/s Mitral E to A Ratio 0.6 LV E' Lateral Velocity 9.1 cm/s Mitral E to LV E' Lateral Ratio 10.3 LV E' Septal Velocity 4.6 cm/s Mitral E to LV E' Septal Ratio 20.5 TR Peak Velocity 223.0 cm/s TR Peak Gradient 19.9 mmHg Right Atrial Pressure 10.0 mmHg Pulmonary Artery Systolic Pressu 29.9 mmHg Right Ventricular Systolic Press 29.9 mmHg FINDINGS LEFT VENTRICLE The left ventricular systolic function is normal with an estimated ejection fraction in the range of 55-60%. Normal left ventricular size. Mild concentric left ventricular hypertrophy. No regional wall motion abnormalities are present. RIGHT VENTRICLE Normal right ventricular size and systolic function. LEFT ATRIUM The left atrial size is normal. RIGHT ATRIUM The right atrial size is normal. ATRIAL SEPTUM Normal atrial septal thickness without atrial level shunting by limited color doppler interrogation. AORTA The aortic root and proximal ascending aorta are normal in size on limited imaging. MITRAL VALVE Structurally normal mitral valve. No mitral valve stenosis or regurgitation. AORTIC VALVE The aortic valve is not well visualized. Mild aortic valve stenosis. Aortic valve area is 2.1 cm. Aortic valve mean gradient is 13 mmHg. Trace aortic valve regurgitation. TRICUSPID VALVE Structurally normal tricuspid valve. There is trace tricuspid valve regurgitation. The estimated pulmonary arterial pressure is 29.9 mmHg. PULMONARY VALVE No pulmonary valve regurgitation or stenosis. VESSELS The inferior vena cava is normal in size. PERICARDIUM No pericardial effusion. Eduardo Upton MD (Electronically Signed) Final Date:10 June 2017 18:08
[2017-06-10] MEDS: ATORVASTATIN 20 MG TAB PO SCH (22:09)
--- NOTE | 2017-06-10 22:16 | RADRPT ---
EXAM DATE/TIME: 06/10/2017 21:20 [facility] COMPARISON: No previous studies available for comparison. INDICATIONS : Preop cardiac surgery. MEDICAL HISTORY : Aneurysm, abdominal. Arthritis. Osteoarthritis. Coronary artery disease. GERD. Colon polyp. Renal kiersten lure. Diabetes. Right foot ulcer. Depression. Anticoagulant therapy, Heparin. SURGICAL HISTORY : Carotid endarterectomy. Cholecystectomy. Left foot 3 toes amputation. ENCOUNTER: Initial ACUITY: 1 day PAIN SCORE: 0/10 LOCATION: Bilateral leg. GREATER SAPHENOUS VEIN THIGH: PROXIMAL: Right 4 mm Left 5 mm MID: Right 3 mm Left 3 mm DISTAL: Right 3 mm Left 3 mm CALF: PROXIMAL: Right 2 mm Left 3 mm MID: Right 4 mm Left 2 mm DISTAL: Right 2 mm Left 2 mm FINDINGS: The venous system of the lower extremities are patent by color Doppler imaging. Measurements of the leg veins (in mm) are listed above. CONCLUSION: Venous mapping as above. Herbert Cramer MD on June 10, 2017 at 22:13 Board Certified Radiologist. This report was verified electronically.
--- NOTE | 2017-06-10 22:16 | RADRPT ---
EXAM DATE/TIME: 06/10/2017 21:01 [facility] COMPARISON: No previous studies available for comparison. INDICATIONS : Preop cardiac surgery. MEDICAL HISTORY : Aneurysm, abdominal. Arthritis. Osteoarthritis. Coronary artery disease. GERD. Colon polyp. Renal kiersten lure. Diabetes. Right foot ulcer. Dperession. Anticoagulant therapy, Heparin. SURGICAL HISTORY : Cholecystectomy.Carotid endarterectomy. Left foot 3 toes amputation. ENCOUNTER: Initial ACUITY: 1 day PAIN SCORE: 0/10 LOCATION: Bilateral leg. TECHNIQUE: Venous ultrasound of the left and right leg was performed from the inguinal ligament to the proximal calf. Real-time, color Doppler and spectral tracing, compression and augmentation techniques were us ed. FINDINGS: RIGHT LEG: Limited visualization in the right groin region deep to a possible 4.7 x 3.4 x 7.9 cm hematoma. Other hernández, there is normal compressibility of the deep venous system from the inguinal region to the proxi mal calf. No echogenic clot is seen in the lumen of the common femoral, femoral, popliteal, and post erior tibial veins. There is a normal response of the venous system to proximal and distal augmentat ion and respiration. LEFT LEG: There is normal compressibility of the deep venous system from the inguinal region to the proximal ca lf. No echogenic clot is seen in the lumen of the common femoral, femoral, popliteal, and posterior tibial veins. There is a normal response of the venous system to proximal and distal augmentation an d respiration. CONCLUSION: 1. Possible 4.7 x 2.4 x 7.9 cm right inguinal hematoma. 2. No DVT. Herbert Cramer MD on June 10, 2017 at 22:11 Board Certified Radiologist. This report was verified electronically.
--- NOTE | 2017-06-10 22:31 | RADRPT ---
EXAM DATE/TIME: 06/10/2017 20:37 [facility] COMPARISON: No previous studies available for comparison. INDICATIONS : Preop cardiac surgery. MEDICAL HISTORY : Aneurysm, abdominal. Arthritis. Osteoarthritis. Coronary artery disease. GERD. Colon polyp. Renal kiersten lure. Diabetes. Right foot ulcer. Dperession. Anticoagulant therapy, Heparin. SURGICAL HISTORY : Cholecystectomy. Carotid endarterectomy. Left foot 3 toes amputation. ENCOUNTER: Initial ACUITY: 1 day PAIN SCORE: 0/10 LOCATION: Bilateral neck. PEAK SYSTOLIC VELOCITIES (cm/sec): ICA/CCA RATIO: Right: 1.6 Left: 0.4 ICA: Right: 176 Left: 56 CCA: Right: 110 Left: 130 ECA: Right: 193 Left: 268 VERTEBRAL: Right: 65 antegrade Left: 63 antegrade Elevated flow velocities and ICA/CCA ratios have been found to correlate with increased degrees of vessel stenosis, calculated as percentage of diameter relative to a normal segment of distal ICA/CCA FINDINGS: RIGHT CAROTID: Mild plaque of the bulb and proximal internal carotid artery with 30% or less narrowing. The wavefor ms are within normal limits. LEFT CAROTID: Mild plaque in the bulb and proximal internal carotid artery with 30% or less narrowing. The wavefor ms are within normal limits. VERTEBRAL ARTERIES: Antegrade flow is seen in both vertebral arteries. MISCELLANEOUS: None. CONCLUSION: Mild atherosclerotic plaque of both carotid bifurcations. No hemodynamically significant stenosis. Benton Quiroz MD on June 10, 2017 at 22:27 Board Certified Radiologist. This report was verified electronically.
[2017-06-11] VITALS (22 sets, daily range): BP systolic 125–159; BP diastolic 67–83; PULSE 70–81; RESP 16–20; TEMP 98.2–98.9; O2SAT 94–97
[2017-06-11] MEDS: ceFAZolin 2 GM PREMIX 50 ML IV SCH ×3 (00:35→15:58)
[2017-06-11] MEDS: HEPARIN SODIUM - SQ 10,000 UNITS/ML VIAL SQ SCH ×2 (00:35→14:14)
[2017-06-11 02:51] LABS: BILIRUBIN, URINE NEG (NEG); BLOOD, URINE SMALL (NEG); GLUCOSE,URINE NEG (NEG); HYALINE CAST, URINE 1 /lpf (RARE); KETONE, URINE NEG (NEG); MUCUS URINE FEW /lpf (OCC); NITRITE,URINE NEG (NEG); PH, URINE 5.5 (5.0-8.5); URINE COLOR YELLOW (YELLW/STRAW); URINE LEUKOCYTE ESTERASE NEG (NEG)
[2017-06-11 07:15] LABS: HEMATOCRIT 25.1 % (39.0-51.0); HEMOGLOBIN 8.6 GM/DL (13.0-17.0); MEAN CELL VOLUME 85.4 FL (80.0-100.0); MEAN CORPUSCULAR HEMOGLOBIN 29.3 PG (27.0-34.0); MEAN CORPUSCULAR HGB CONC 34.3 % (32.0-36.0); MEAN PLATELET VOLUME 7.4 FL (7.0-11.0); PLATELET COUNT 251 TH/MM3 (150-450); RED BLOOD COUNT 2.94 MIL/MM3 (4.50-5.90); RED CELL DISTRIBUTION WIDTH 15.9 % (11.6-17.2); WHITE BLOOD COUNT 5.8 TH/MM3 (4.0-11.0)
[2017-06-11 07:25] LABS: BICARBONATE 28.5 MEQ/L (21.0-32.0); BLOOD UREA NITROGEN 23 MG/DL (7-18); CALCIUM 8.2 MG/DL (8.5-10.1); CHLORIDE 103 MEQ/L (98-107); CREATININE 1.53 MG/DL (0.60-1.30); GLOMERULAR FILTRATION RATE 45 ML/MIN (>89); GLUCOSE,RANDOM 85 MG/DL (74-106); SODIUM (NA) 137 MEQ/L (136-145)
[2017-06-11] MEDS: INSULIN ASPART SUPPLEMENTAL SCALE SQ SCH ×4 (08:00→21:00)
--- NOTE | 2017-06-11 08:33 | MB ---
cc: SELMA SAENZ DATE OF CONSULTATION 06/10/17 1941 HISTORY OF PRESENT ILLNESS A 76-year-old male patient of Dr. Henderson, Dr. Quezada podiatry, Dr. Shelby at [facility], history of right foot diabetic ulcer, was evaluated by the [facility] warehouse administrator who obtained an x-ray which shows some bony destruction of the fifth metatarsal indicating some osteomyelitis. The patient had been on Cipro without any improvement of his wound. He has had this wound since February 2017. He has undergone multiple interventions on his foot. He was seen by podiatry on this admission. There is a wound on the fifth metatarsal head, apparently with some purulence and some mild erythema and edema. Plan would be for further foot surgery. 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 Apparently, they are waiting to possibly do surgery under local anesthesia to reduce the risk of further infection. The patient, in the meantime, also had a recent abnormal stress test at the [facility] in [place] and was referred to Dr. Gloria Braun as an outpatient, but did not meet that appointment or was unable to see her at this time so he was evaluated by Dr. Henderson and underwent cardiac cath on the which showed an ejection fraction of 45%, left main disease, a 60% stenosis in the distal portion. The LAD had an 80% stenosis in the mid portion. The circ had a 90% and 80% stenosis in the proximal portion and a 90% stenosis in the mid portion. The RCA was totally occluded with distal RCA filling by [id number] collaterals. We were consulted to evaluate for coronary artery bypass grafting. PAST MEDICAL HISTORY 1. Osteoarthritis, 2. Colon polyps 3. Diabetes mellitus, 4. Coronary artery disease 5. History of aortic abdominal aneurysm which is followed by the [facility]. He says it is still very small. 6. Gastroesophageal reflux disease, 7. Chronic kidney disease. PAST SURGICAL HISTORY 1. Right carotid endarterectomy, the left is completely occluded 2. Cholecystectomy. 3. He has had amputation of three toes on the left foot. ALLERGIES NIACIN MEDICATIONS Home include 1. Ciprofloxacin 2. Plavix. 3. Atorvastatin 4. Fish oil. 5. Cardizem. 6. Losartan. 7. Aspirin. 8. Prozac. 9. Potassium. 10. Lasix, 11. Mucinex. 12. Magnesium. 13. Zantac, 14. Oxybutinin. 15. Vitamin B12 16. Allopurinol 17. Cinnamon. FAMILY HISTORY Mother at 47 from cerebral hemorrhage. Father in his 70s from heart disease. He recently lost a son last year from an CA. SOCIAL HISTORY The patient , one living child. 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 Prior to that he smoked for 25 years. Occasional glass of wine with meals. REVIEW OF SYSTEMS GENERAL: No night sweats, fever, heat and cold intolerance. SKIN: No psoriasis, itching or hives. HEENT: No blurred vision, hearing loss. He does wear dentures. RESPIRATORY: No cough or shortness breath. 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 ENDOCRINOLOGY: Positive for diabetes. PHYSICAL EXAMINATION VITAL SIGNS: Blood pressure 140/60, heart rate of 80, temperature max 99.6. GENERAL: Patient is awake, alert in no acute distress HEENT: Head is normocephalic, atraumatic. Pupils equal and reactive. Oral mucosa pink, moist. NECK: Supple. No JVD. CARDIAC: Heart sounds S1-S2, regular rate and rhythm. No rubs, murmurs, gallops. LUNGS: Clear to auscultation. No wheezes, rales or rhonchi. ABDOMEN: Soft, nontender. No masses or organomegaly. EXTREMITIES: Reveal chronic venostasis With a wound on the fifth metatarsal head with some purulent drainage, some mild erythema and edema plus distal pulses. LABORATORY FINDINGS Hemoglobin 9.2, hematocrit of 27, white cell count 6.7, platelet count 299. Sodium 138, potassium 4.0, BUN 21, creatinine 1.46, INR 1.1. The foot grew some staph aureus from the wound. Blood cultures negative times four bottles. IMAGING STUDIES The MRI of the foot showed osteomyelitis of the entire fifth metatarsal with bone destruction distally. IMPRESSION 1. This is a 76-year-old male from the [facility] with diabetic right foot with osteomyelitis of the entire fifth metatarsal with bony destruction. The patient is being followed by infectious disease and podiatry. 2. Recent stress test which was abnormal at the [facility] in [place]. Underwent cardiac cath with multivessel disease, ejection fraction of 45%. The cardiac films have been reviewed by Dr. Selma Saenz and planning for coronary artery bypass grafting on Wednesday. Apparently, they are able to do surgery under local anesthesia for his foot secondary to the osteomyelitis. That discussion will be made by cardiology and will be discussed with Dr. Lennon. In the meantime, the patient has chronic kidney disease stage III, diabetes mellitus type 2. Further workup is still pending for the cardiac surgery. STS data risk of mortality is 2.24 and documented in the electronic record. Dictated by NILSA Iqbal MD CARMEN Riley/ /3:35 PM /8:15 AM
--- NOTE | 2017-06-11 09:25 | EKG ---
Date Performed: 06/10/2017 Time Performed: 18:08:24 PTAGE: 76 years EKG: Sinus rhythm with PVC(s) with borderline 1st degree A-V block Right bundle branch block Inferior infarct - age un determined Lateral T wave changes may be due to myocardial ischemia Abnormal ECG PREVIOUS TRACING : 10/09/2011 18.20 Compared to previous tracing, lateral T wave changes are no w present. DOCTOR: Duy Lin Interpretating Date/Time 06/11/2017 09:24:00
[2017-06-11] MEDS: ASPIRIN EC 81 MG TABEC PO SCH (09:46)
[2017-06-11] MEDS: PANTOPRAZOLE SOD 20 MG DELAYED RELEASE TAB PO SCH ×2 (09:46→21:01)
[2017-06-11] MEDS: FLUoxetine HCL 20 MG CAP PO SCH (09:46)
[2017-06-11] MEDS: SODIUM CHLORIDE 0.9% FLUSH 10 ML FLUSH IV FLUSH SCH ×2 (09:47→21:02)
--- NOTE | 2017-06-11 11:24 | HHI.PR ---
Subjective Remarks Follow-up for multivessel disease and foot infection Patient is no complaints. Denied any pain. Denied any chest pain, palpitation , shortness of breathing, lightheadedness dizziness. He is found sitting in the chair watching TV. Patient stated that his only request is to make it home. Objective Vitals Vital Signs Date Time Temp Pulse Resp B/P (MAP) Pulse Ox O2 Delivery O2 Flow Rate FiO2 06/11/17 10:00 73 06/11/17 09:00 76 06/11/17 08:00 73 06/11/17 07:00 78 06/11/17 07:00 98.6 78 20 140/72 (94) 96 06/11/17 05:00 76 06/11/17 04:00 73 06/11/17 04:00 98.9 73 16 125/67 (86) 95 06/11/17 03:00 76 06/11/17 02:00 78 06/11/17 01:00 78 06/11/17 00:00 98.3 80 16 159/83 (108) 94 06/11/17 00:00 81 06/10/17 23:00 82 06/10/17 22:00 92 06/10/17 21:00 84 06/10/17 20:00 98.7 82 18 143/73 (96) 97 06/10/17 20:00 83 06/10/17 19:00 86 06/10/17 18:00 92 06/10/17 17:00 100 06/10/17 16:50 17 06/10/17 16:00 88 06/10/17 15:50 97.7 78 20 119/53 (75) 98 06/10/17 15:00 80 06/10/17 14:00 84 06/10/17 13:00 80 06/10/17 12:00 80 I/O 06/10/17 06/10/17 06/10/17 06/11/17 06/11/17 06/11/17 07:00 15:00 23:00 07:00 15:00 23:00 Intake Total 320 ml 970 ml 360 ml Output Total 400 ml 650 ml Balance -80 ml 970 ml -290 ml Intake Oral 320 ml 920 ml 360 ml IV Total 50 ml Output Urine Total 400 ml 650 ml # Voids 1 4 # Bowel Movements 0 Result Diagram: 06/11/1753106/11/17531 Objective Remarks GENERAL: This is a well-nourished, well-developed patient, in no apparent distress. CARDIOVASCULAR: Regular rate and rhythm without murmurs, gallops, or rubs. No JVD. RESPIRATORY: Clear to auscultation. Breath sounds equal bilaterally. No wheezes , rales, or rhonchi. GASTROINTESTINAL: Abdomen soft, non-tender, nondistended. No guarding. MUSCULOSKELETAL: Extremities without clubbing, cyanosis, or edema. Right lateral foot has an open ulcerating wound with serosanguineous drainage. No erythema around the ulcerating wound. Medications and IVs Current Medications Vancomycin HCl 1000 mg/Sodium Chloride 250 ml @ 250 mls/hr ONCE STAT IV Last administered on 06/09/17at 12:00; Start 06/09/17 at 11:42; Stop 06/09/17 at 12:41 ; Status DC Sodium Chloride (NS Flush) 2 ml UNSCH PRN IV FLUSH FLUSH AFTER USING IV ACCESS ; Start 06/09/17 at 13:15; Stop 06/10/17 at 15:36; Status DC Sodium Chloride (NS Flush) 2 ml BID IV FLUSH Last administered on 06/10/17at 09: 22; Start 06/09/17 at 21:00; Stop 06/10/17 at 15:36; Status DC Acetaminophen (Tylenol) 650 mg Q4H PRN PO Headache, fever, pain 1-4 Last administered on 06/10/17at 15:51; Start 06/09/17 at 13:15 Ondansetron HCl (Zofran Inj) 4 mg Q6H PRN IVP NAUSEA OR VOMITING; Start at 13:15 Temazepam (Restoril) 15 mg HS PRN PO INSOMNIA Last administered on 06/09/17at 21 :25; Start 06/09/17 at 13:15 Heparin Sodium (Porcine) (Heparin Inj) 5,000 units Q12H SQ Last administered on 06/11/17at 00:35; Start 06/09/17 at 14:00 Naloxone HCl (Narcan Inj) 0.4 mg UNSCH PRN IV PUSH SEE LABEL COMMENTS; Start at 13:15 Magnesium Hydroxide (Milk Of Magnesia Liq) 30 ml Q12H PRN PO Mild constipation ; Start 06/09/17 at 13:15 Sennosides (Senokot) 17.2 mg Q12H PRN PO Moderate constipation; Start 06/09/17 at 13:15 Bisacodyl (Dulcolax Supp) 10 mg DAILY PRN RECTAL SEVERE CONSITIPATION; Start at 13:15 Lactulose (Lactulose Liq) 30 ml DAILY PRN PO SEVERE CONSITIPATION; Start at 13:15 Gadodiamide (Omniscan Pf Inj) 25 ml STK-MED ONCE IVCONTRAST Last administered on 06/09/17at 14:19; Start 06/09/17 at 14:19; Stop 06/09/17 at 14:20; Status DC Ceftriaxone Sodium 2000 mg/ Sodium Chloride 100 ml @ 200 mls/hr Q24H IV Last administered on 06/09/17at 17:00; Start 06/09/17 at 17:00; Stop 06/10/17 at 15:04 ; Status DC Pharmacy Profile Note 0 ml @ 0 mls/hr UNSCH OTHER ; Start 06/09/17 at 15:15; Stop 06/10/17 at 15:04; Status DC Heparin Sodium/ Sodium Chloride 1,000 ml @ As Directed STK-MED ONCE .ROUTE ; Start 06/09/17 at 15:23; Stop 06/09/17 at 15:24; Status DC Midazolam HCl (Versed Inj) 2 mg STK-MED ONCE .ROUTE Last administered on at 15:23; Start 06/09/17 at 15:23; Stop 06/09/17 at 15:24; Status DC Fentanyl Citrate (fentaNYL INJ) 100 mcg STK-MED ONCE .ROUTE Last administered on 06/09/17at 15:23; Start 06/09/17 at 15:23; Stop 06/09/17 at 15:24; Status DC Vancomycin HCl 1500 mg/Sodium Chloride 515 ml @ 250 mls/hr ONCE ONCE IV Last administered on 06/09/17at 16:00; Start 06/09/17 at 16:00; Stop 06/09/17 at 18:03 ; Status DC Sodium Chloride 500 ml @ 100 mls/hr Q5H IV Last administered on 06/09/17at 16: 39; Start 06/09/17 at 16:39; Stop 06/09/17 at 20:38; Status DC Dextrose (D50w (Vial) Inj) 50 ml UNSCH PRN IV PUSH HYPOGLYCEMIA-SEE COMMENTS; Start 06/09/17 at 17:00 Glucagon (Glucagon Inj) 1 mg UNSCH PRN OTHER HYPOGLYCEMIA-SEE COMMENTS; Start 06/09/17 at 17:00 Insulin Aspart (NovoLOG SUPPLEMENTAL SCALE) 1 ACHS SLIDING SCALE SQ ; Start at 17:00 Aspirin (Ecotrin Ec) 81 mg DAILY PO Last administered on 06/11/17at 09:46; Start 06/10/17 at 09:00 Atorvastatin Calcium (Lipitor) 20 mg HS PO Last administered on 06/10/17at 22:09 ; Start 06/09/17 at 21:00 Fluoxetine HCl (PROzac) 20 mg DAILY PO Last administered on 06/11/17at 09:46; Start 06/10/17 at 09:00 Pantoprazole Sodium (Protonix) 20 mg BID PO Last administered on 06/11/17at 09: 46; Start 06/09/17 at 21:00 Acetaminophen/ Hydrocodone Bitart ([place] 5-325 Mg) 1 tab Q6H PRN PO PAIN SCALE 6 TO 10 Last administered on 06/10/17at 22:08; Start 06/09/17 at 17:00 Iohexol (OMNIPAQUE 350 INJ (Program Admin)) 100 ml STK-MED ONCE OTHER ; Start at 17:49; Stop 06/09/17 at 17:50; Status DC Vancomycin HCl 1750 mg/Sodium Chloride 517.5 ml @ 250 mls/hr Q24H IV Last administered on 06/10/17at 12:26; Start 06/10/17 at 12:00; Stop 06/10/17 at 15:04 ; Status DC Miscellaneous Information SPECIFIC LAB TO BE DRAWN:VANCOMYCIN TROUGH DATE TO... ONCE ONCE .XX ; Start 06/12/17 at 11:45; Stop 06/12/17 at 11:46; Status Cancel Cefazolin Sodium/ Dextrose 50 ml @ 150 mls/hr Q8H IV Last administered on 06/11at 07:59; Start 06/10/17 at 16:00 Sodium Chloride (NS Flush) 2 ml BID IV FLUSH Last administered on 06/11/17at 09: 47; Start 06/10/17 at 21:00 Sodium Chloride (NS Flush) 2 ml UNSCH PRN IV FLUSH FLUSH AFTER USING IV ACCESS ; Start 06/10/17 at 15:15 Papaverine HCl 60 mg/Nitroglycerin 100 mcg/Diltiazem HCl 100 mg/Sodium Chloride 100 ml @ 0 mls/hr CLIN TECH IRRIGATION ; Start 06/10/17 at 15:15; Stop 06/17/17 at 15:14 Cefazolin Sodium 500 mg/Sodium Chloride 505 ml @ 0 mls/hr CLIN TECH IRRIGATION ; Start 06/10/17 at 15:15; Stop 06/17/17 at 15:14 Cefazolin Sodium/ Dextrose 50 ml @ 150 mls/hr CLIN TECH IV ; Start 06/10/17 at 15:15; Stop 06/17/17 at 15:14 Metoprolol Tartrate (Lopressor) 12.5 mg CLIN TECH PO ; Start 06/10/17 at 15:15; Stop 06/17/17 at 15:14 Chlorhexidine Gluconate (Hibiclens 4% Top Soln) 1 applic CLIN TECH TOPICAL ; Start 06/10/17 at 15:15; Stop 06/17/17 at 15:14 Insulin Human Regular 100 units/ Sodium Chloride 100 ml @ 3 mls/hr TITRATE PRN IV for blood glucose control; Start 06/10/17 at 15:15; Stop 06/17/17 at 15:14 Dextrose (D50w (Vial) Inj) 50 ml UNSCH PRN IV PUSH HYPOGLYCEMIA-SEE COMMENTS; Start 06/10/17 at 15:15 A/P Problem List: (1) Osteomyelitis of right foot ICD Code: M86.9 - Osteomyelitis, unspecified Status: Acute (2) Coronary artery disease ICD Code: I25.10 - Atherosclerotic heart disease of [place] coronary artery without angina pectoris (3) CKD (chronic kidney disease) stage 3, GFR 30-59 ml/min ICD Code: N18.3 - Chronic kidney disease, stage 3 (moderate) (4) Diabetes mellitus ICD Code: E11.9 - Type 2 diabetes mellitus without complications Assessment and Plan Mr. Zamora is a pleasant 76-year-old with a history of diabetes, CAD who was sent to the hospital by his [facility] receiving tank operator due to suspected right foot osteomyelitis. Right foot osteomyelitis of the fifth metatarsal with abscess. -Most likely underlying cause due to Diabetic foot ulcer, right foot. -Continue with IV Ceftriaxone 2g Q24hrs and IV Vancomycin - pharmacy to dose. Keep trough level 15-20. -Infectious disease consulted and following. -Patient is not cleared by top distribution executive for surgery. Per Dr. Melgar receiving tank operator she recommends for surgery once patient is cleared by top distribution executive and stated to call her when patient is clear. Severe multivessel disease -Status post cardiac catheterization by Dr. kaminski -Patient scheduled for cardiac bypass next week. Diabetes mellitus -Patient does not take any diabetic medications. He manages his DM with diet/ lifestyle modifications and cinnamon tabs. -Continue with low sliding scale insulin. If needed, consider Levemir. -Patient may benefit from metformin upon discharge if GFR > 45 CKD stage III - Avoid nephrotoxins. -Continue to monitor and trend. Depression -continue Fluoxetine DVT Prophylaxis. -Heparin. Discharge Planning Patient scheduled for cardiac bypass next weeks. Once he is cleared by top distribution executive after surgery will need to call receiving tank operator for surgery on foot. Problem Qualifiers (1) Osteomyelitis of right foot: Qualified Codes: M86.9 - Osteomyelitis, unspecified Ilda Milton MD Jun 11, 2017 11:24
--- NOTE | 2017-06-11 14:19 | PD.CAR.PN ---
CVT Progress Note Subjective/Hospital Course: A 76-year-old male patient of Dr. Henderson, Dr. Quezada podiatry, Dr. Shelby at the [facility], history of right foot diabetic ulcer, was evaluated by the [facility] superintendent production who obtained an x-ray which shows some bony destruction of the fifth metatarsal indicating some osteomyelitis. The patient had been on Cipro without any improvement of his wound. He has had this wound since February 2017. He has undergone multiple interventions on his foot. He was seen by podiatry on this admission. There is a wound on the fifth metatarsal head, apparently with some purulence and some mild erythema and edema. Plan would be for further foot surgery. 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 Apparently, they are waiting to possibly do surgery under local anesthesia to reduce the risk of further infection. The patient, in the meantime, also had a recent abnormal stress test at the [facility] in [place] and was referred to Dr. Gloria Braun as an outpatient, but did not meet that appointment or was unable to see her at this time so he was evaluated by Dr. Henderson and underwent cardiac cath on the which showed an ejection fraction of 45%, left main disease, a 60% stenosis in the distal portion. The LAD had an 80% stenosis in the mid portion. The circ had a 90% and 80% stenosis in the proximal portion and a 90% stenosis in the mid portion. The RCA was totally occluded with distal RCA filling by [id number] collaterals. We were consulted to evaluate for coronary artery bypass grafting. PAST MEDICAL HISTORY: Osteoarthritis, Colon polyps, Diabetes mellitus, Coronary artery disease, History of aortic abdominal aneurysm which is followed by the [facility]. He says it is still very small, Gastroesophageal reflux disease, Chronic kidney disease., right CEA 06/11 pt currently being treated for antibiotics for right diabetic foot with osteomyelitis, will need to wait until after CABG for foot surgery tentatively planned for Tues 06/15 ECHO : EF 55-60, mild , trace AI, trace TR Objective: GENERAL: A&O x 3 SKIN: Warm and dry. dressing to right foot HEAD: Normocephalic. EYES: No scleral icterus. No injection or drainage. NECK: Supple, trachea midline. No JVD or lymphadenopathy. CARDIOVASCULAR: Regular rate and rhythm without murmurs, gallops, or rubs. RESPIRATORY: Breath sounds equal bilaterally. No accessory muscle use. GASTROINTESTINAL: Abdomen soft, non-tender, nondistended. MUSCULOSKELETAL: No cyanosis, or edema. BACK: Nontender without obvious deformity. No CVA tenderness. Vital Signs Date Time Temp Pulse Resp B/P (MAP) Pulse Ox O2 Delivery O2 Flow Rate FiO2 06/11/17 12:00 73 06/11/17 11:00 74 06/11/17 11:00 98.3 73 18 147/76 (99) 96 06/11/17 10:00 73 06/11/17 09:00 76 06/11/17 08:00 73 06/11/17 07:00 78 06/11/17 07:00 98.6 78 20 140/72 (94) 96 06/11/17 05:00 76 06/11/17 04:00 73 06/11/17 04:00 98.9 73 16 125/67 (86) 95 06/11/17 03:00 76 06/11/17 02:00 78 06/11/17 01:00 78 06/11/17 00:00 98.3 80 16 159/83 (108) 94 06/11/17 00:00 81 06/10/17 23:00 82 06/10/17 22:00 92 06/10/17 21:00 84 06/10/17 20:00 98.7 82 18 143/73 (96) 97 06/10/17 20:00 83 06/10/17 19:00 86 06/10/17 18:00 92 06/10/17 17:00 100 06/10/17 16:50 17 06/10/17 16:00 88 06/10/17 15:50 97.7 78 20 119/53 (75) 98 06/10/17 15:00 80 Labs: Laboratory Tests Test 06/11/17 02:19 06/11/17 05:32 Urine Color YELLOW (YELLW/STRAW) Urine Turbidity CLEAR (CLEAR) Urine pH 5.5 (5.0-8.5) Urine Specific [place] 1.022 (1.002-1.035) Urine Protein TRACE mg/dL (NEG-TRACE) Urine Glucose (UA) NEG mg/dL (NEG) Urine Ketones NEG mg/dL (NEG) Urine Occult Blood SMALL (NEG) Urine Nitrite NEG (NEG) Urine Bilirubin NEG (NEG) Urine Urobilinogen LESS THAN 2.0 MG/DL (LESS Urine Leukocyte Esterase NEG (NEG) Urine RBC 11 /hpf (0-3) Urine WBC 1 /hpf (0-5) Urine Hyaline Casts 1 /lpf (RARE) Urine Mucus FEW /lpf (OCC) Microscopic Urinalysis Comment CULT NOT INDICATED White Blood Count 5.8 TH/MM3 (4.0-11.0) Red Blood Count 2.94 MIL/MM3 (4.50-5.90) Hemoglobin 8.6 GM/DL (13.0-17.0) Hematocrit 25.1 % (39.0-51.0) Mean Corpuscular Volume 85.4 FL (80.0-100.0) Mean Corpuscular Hemoglobin 29.3 PG (27.0-34.0) Mean Corpuscular Hemoglobin Concent 34.3 % (32.0-36.0) Red Cell Distribution Width 15.9 % (11.6-17.2) Platelet Count 251 TH/MM3 (150-450) Mean Platelet Volume 7.4 FL (7.0-11.0) Blood Urea Nitrogen 23 MG/DL (7-18) Creatinine 1.53 MG/DL (0.60-1.30) Random Glucose 85 MG/DL (74-106) Calcium Level 8.2 MG/DL (8.5-10.1) Sodium Level 137 MEQ/L (136-145) Potassium Level 4.0 MEQ/L (3.5-5.1) Chloride Level 103 MEQ/L (98-107) Carbon Dioxide Level 28.5 MEQ/L (21.0-32.0) Anion Gap 6 MEQ/L (5-15) Estimat Glomerular Filtration Rate 45 ML/MIN (>89) Result Diagram: 06/11/17 0532 06/11/17 0532 (1) Coronary artery disease Plan: ASA, statin for surgery on Tues (2) Osteomyelitis of right foot Plan: podiatry following , on antibiotics (3) Diabetes mellitus (4) CKD (chronic kidney disease) stage 3, GFR 30-59 ml/min Plan: creatinine 1.5 Problem Qualifiers (1) Osteomyelitis of right foot: Qualified Codes: M86.9 - Osteomyelitis, unspecified Lynn Larios Jun 11, 2017 14:19
--- NOTE | 2017-06-11 18:51 | PD.CARD.PN ---
Subjective Subjective Remarks No CP or SOB, cath w severe MV CAD, feels better Objective Medications Current Medications Medications (Trade) Dose Ordered Sig/[place] Route Start Time Stop Time Status Last Admin (Tylenol) 650 mg Q4H PRN PO 06/09/17 13:15 06/10/17 15:51 (Zofran Inj) 4 mg Q6H PRN IVP 06/09/17 13:15 (Restoril) 15 mg HS PRN PO 06/09/17 13:15 06/09/17 21:25 (Heparin Inj) 5,000 units Q12H SQ 06/09/17 14:00 06/11/17 14:14 (Narcan Inj) 0.4 mg UNSCH PRN IV PUSH 06/09/17 13:15 (Milk Of Magnesia Liq) 30 ml Q12H PRN PO 06/09/17 13:15 (Senokot) 17.2 mg Q12H PRN PO 06/09/17 13:15 (Dulcolax Supp) 10 mg DAILY PRN RECTAL 06/09/17 13:15 (Lactulose Liq) 30 ml DAILY PRN PO 06/09/17 13:15 (D50w (Vial) Inj) 50 ml UNSCH PRN IV PUSH 06/09/17 17:00 (Glucagon Inj) 1 mg UNSCH PRN OTHER 06/09/17 17:00 (NovoLOG SUPPLEMENTAL SCALE) 1 ACHS SLIDING SCALE SQ 06/09/17 17:00 (Ecotrin Ec) 81 mg DAILY PO 06/10/17 09:00 06/11/17 09:46 (Lipitor) 20 mg HS PO 06/09/17 21:00 06/10/17 22:09 (PROzac) 20 mg DAILY PO 06/10/17 09:00 06/11/17 09:46 (Protonix) 20 mg BID PO 06/09/17 21:00 06/11/17 09:46 ([place] 5-325 Mg) 1 tab Q6H PRN PO 06/09/17 17:00 06/10/17 22:08 Cefazolin Sodium/ Dextrose 50 ml @ 150 mls/hr Q8H IV 06/10/17 16:00 06/11/17 15:58 (NS Flush) 2 ml BID IV FLUSH 06/10/17 21:00 06/11/17 09:47 (NS Flush) 2 ml UNSCH PRN IV FLUSH 06/10/17 15:15 Papaverine HCl 60 mg/Nitroglycerin 100 mcg/Diltiazem HCl 100 mg/Sodium Chloride 100 ml @ 0 mls/hr WOOD HEEL FINISHER IRRIGATION 06/10/17 15:15 06/17/17 15:14 Cefazolin Sodium 500 mg/Sodium Chloride 505 ml @ 0 mls/hr WOOD HEEL FINISHER IRRIGATION 06/10/17 15:15 06/17/17 15:14 Cefazolin Sodium/ Dextrose 50 ml @ 150 mls/hr WOOD HEEL FINISHER IV 06/10/17 15:15 06/17/17 15:14 (Lopressor) 12.5 mg WOOD HEEL FINISHER PO 06/10/17 15:15 06/17/17 15:14 (Hibiclens 4% Top Soln) 1 applic WOOD HEEL FINISHER TOPICAL 06/10/17 15:15 06/17/17 15:14 Insulin Human Regular 100 units/ Sodium Chloride 100 ml @ 3 mls/hr TITRATE PRN IV 06/10/17 15:15 06/17/17 15:14 (D50w (Vial) Inj) 50 ml UNSCH PRN IV PUSH 06/10/17 15:15 Vital Signs / I&O Vital Signs Date Time Temp Pulse Resp B/P (MAP) Pulse Ox O2 Delivery O2 Flow Rate FiO2 06/11/17 18:00 74 06/11/17 17:00 79 06/11/17 16:00 72 06/11/17 15:00 98.7 72 16 143/82 (102) 06/11/17 14:00 73 06/11/17 13:00 70 06/11/17 12:00 73 06/11/17 11:00 74 06/11/17 11:00 98.3 73 18 147/76 (99) 96 06/11/17 10:00 73 06/11/17 09:00 76 06/11/17 08:00 73 06/11/17 07:00 78 06/11/17 07:00 98.6 78 20 140/72 (94) 96 06/11/17 05:00 76 06/11/17 04:00 73 06/11/17 04:00 98.9 73 16 125/67 (86) 95 06/11/17 03:00 76 06/11/17 02:00 78 06/11/17 01:00 78 06/11/17 00:00 98.3 80 16 159/83 (108) 94 06/11/17 00:00 81 06/10/17 23:00 82 06/10/17 22:00 92 06/10/17 21:00 84 06/10/17 20:00 98.7 82 18 143/73 (96) 97 06/10/17 20:00 83 06/10/17 19:00 86 I/O 06/10/17 06/10/17 06/10/17 06/11/17 06/11/17 06/11/17 07:00 15:00 23:00 07:00 15:00 23:00 Intake Total 320 ml 970 ml 360 ml 680 ml Output Total 400 ml 650 ml 350 ml Balance -80 ml 970 ml -290 ml 330 ml Intake Oral 320 ml 920 ml 360 ml 480 ml IV Total 50 ml 200 ml Output Urine Total 400 ml 650 ml 350 ml # Voids 1 4 2 # Bowel Movements 0 1 Physical Exam GENERAL: In NAD SKIN: Warm and dry. HEAD: Normocephalic. EYES: No scleral icterus. No injection or drainage. NECK: Supple, trachea midline. No JVD or lymphadenopathy. CARDIOVASCULAR: Regular rate and rhythm without murmurs, gallops, or rubs. RESPIRATORY: Breath sounds equal bilaterally. No accessory muscle use. GASTROINTESTINAL: Abdomen soft, non-tender, nondistended. MUSCULOSKELETAL: No cyanosis, mild edema, R foot redness. Laboratory Laboratory Tests Test 06/10/17 19:13 06/11/17 02:19 06/11/17 05:32 Erythrocyte Sedimentation Rate GREATER THAN 140 mm/hr Urine Color YELLOW Urine Turbidity CLEAR Urine pH 5.5 Urine Specific [place] 1.022 Urine Protein TRACE mg/dL Urine Glucose (UA) NEG mg/dL Urine Ketones NEG mg/dL Urine Occult Blood SMALL Urine Nitrite NEG Urine Bilirubin NEG Urine Urobilinogen LESS THAN 2.0 MG/DL Urine Leukocyte Esterase NEG Urine RBC 11 /hpf Urine WBC 1 /hpf Urine Hyaline Casts 1 /lpf Urine Mucus FEW /lpf Microscopic Urinalysis Comment CULT NOT INDICATED White Blood Count 5.8 TH/MM3 Red Blood Count 2.94 MIL/MM3 Hemoglobin 8.6 GM/DL Hematocrit 25.1 % Mean Corpuscular Volume 85.4 FL Mean Corpuscular Hemoglobin 29.3 PG Mean Corpuscular Hemoglobin Concent 34.3 % Red Cell Distribution Width 15.9 % Platelet Count 251 TH/MM3 Mean Platelet Volume 7.4 FL Blood Urea Nitrogen 23 MG/DL Creatinine 1.53 MG/DL Random Glucose 85 MG/DL Calcium Level 8.2 MG/DL Sodium Level 137 MEQ/L Potassium Level 4.0 MEQ/L Chloride Level 103 MEQ/L Carbon Dioxide Level 28.5 MEQ/L Anion Gap 6 MEQ/L Estimat Glomerular Filtration Rate 45 ML/MIN Hemoglobin A1c 6.0 % Assessment and Plan Problem List: (1) Coronary artery disease ICD Codes: I25.10 - Atherosclerotic heart disease of [place] coronary artery without angina pectoris (2) Osteomyelitis of right foot ICD Codes: M86.9 - Osteomyelitis, unspecified Status: Acute (3) Diabetes mellitus ICD Codes: E11.9 - Type 2 diabetes mellitus without complications (4) CKD (chronic kidney disease) stage 3, GFR 30-59 ml/min ICD Codes: N18.3 - Chronic kidney disease, stage 3 (moderate) Assessment and Plan No angina or CHF. Cath showed severe MV CAD. Risk of general anesthesia high, I recommend to proceed with CABG first. Continue abxs. Continue aggressive risk factor modification and tx for CAD. CABG tentatively next week. Plan d/w pt and . Problem Qualifiers (1) Osteomyelitis of right foot: Qualified Codes: M86.9 - Osteomyelitis, unspecified Kriss Henderson MD Jun 11, 2017 18:51
[2017-06-11] MEDS: ATORVASTATIN 20 MG TAB PO SCH (21:01)
[2017-06-11] MEDS: TEMAZEPAM 15 MG CAP PO PRN (21:13)
[2017-06-12] VITALS (24 sets, daily range): BP systolic 120–148; BP diastolic 62–70; PULSE 56–82; RESP 18–20; TEMP 97.1–98.4; O2SAT 96–98
[2017-06-12] MEDS: ceFAZolin 2 GM PREMIX 50 ML IV SCH ×3 (00:04→16:00)
[2017-06-12] MEDS: HEPARIN SODIUM - SQ 10,000 UNITS/ML VIAL SQ SCH ×2 (01:36→14:00)
[2017-06-12 06:27] LABS: HEMATOCRIT 24.3 % (39.0-51.0); HEMOGLOBIN 8.2 GM/DL (13.0-17.0); MEAN CELL VOLUME 85.6 FL (80.0-100.0); MEAN CORPUSCULAR HGB CONC 33.8 % (32.0-36.0); MEAN PLATELET VOLUME 7.4 FL (7.0-11.0); PLATELET COUNT 244 TH/MM3 (150-450); RED BLOOD COUNT 2.84 MIL/MM3 (4.50-5.90); RED CELL DISTRIBUTION WIDTH 16.1 % (11.6-17.2); WHITE BLOOD COUNT 5.7 TH/MM3 (4.0-11.0)
[2017-06-12 06:53] LABS: BICARBONATE 29.3 MEQ/L (21.0-32.0); CALCIUM 8.8 MG/DL (8.5-10.1); CREATININE 1.35 MG/DL (0.60-1.30)
[2017-06-12] MEDS: INSULIN ASPART SUPPLEMENTAL SCALE SQ SCH ×4 (08:00→20:45)
[2017-06-12] MEDS: SODIUM CHLORIDE 0.9% FLUSH 10 ML FLUSH IV FLUSH SCH ×2 (09:00→20:45)
[2017-06-12] MEDS: ASPIRIN EC 81 MG TABEC PO SCH (09:07)
[2017-06-12] MEDS: FLUoxetine HCL 20 MG CAP PO SCH (09:07)
[2017-06-12] MEDS: PANTOPRAZOLE SOD 20 MG DELAYED RELEASE TAB PO SCH ×2 (09:07→20:43)
--- NOTE | 2017-06-12 10:56 | PD.CAR.PN ---
CVT Progress Note Subjective/Hospital Course: A 76-year-old male patient of Dr. Henderson, Dr. Quezada podiatry, Dr. Shelby at the [facility], history of right foot diabetic ulcer, was evaluated by the [facility] pre need consultant who obtained an x-ray which shows some bony destruction of the fifth metatarsal indicating some osteomyelitis. The patient had been on Cipro without any improvement of his wound. He has had this wound since February 2017. He has undergone multiple interventions on his foot. He was seen by podiatry on this admission. There is a wound on the fifth metatarsal head, apparently with some purulence and some mild erythema and edema. Plan would be for further foot surgery. 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 Apparently, they are waiting to possibly do surgery under local anesthesia to reduce the risk of further infection. The patient, in the meantime, also had a recent abnormal stress test at the [facility] in [place] and was referred to Dr. Gloria Braun as an outpatient, but did not meet that appointment or was unable to see her at this time so he was evaluated by Dr. Henderson and underwent cardiac cath on the which showed an ejection fraction of 45%, left main disease, a 60% stenosis in the distal portion. The LAD had an 80% stenosis in the mid portion. The circ had a 90% and 80% stenosis in the proximal portion and a 90% stenosis in the mid portion. The RCA was totally occluded with distal RCA filling by [id number] collaterals. We were consulted to evaluate for coronary artery bypass grafting. PAST MEDICAL HISTORY: Osteoarthritis, Colon polyps, Diabetes mellitus, Coronary artery disease, History of aortic abdominal aneurysm which is followed by the [facility]. He says it is still very small, Gastroesophageal reflux disease, Chronic kidney disease., right CEA 06/11 pt currently being treated for antibiotics for right diabetic foot with osteomyelitis, will need to wait until after CABG for foot surgery tentatively planned for Tu06/15 ECHO : EF 55-60, mild , trace AI, trace TR 06/12/16 No complaints today. Denies chest pain Anemic Objective: Vital Signs Date Time Temp Pulse Resp B/P (MAP) Pulse Ox O2 Delivery O2 Flow Rate FiO2 06/12/17 10:00 69 06/12/17 10:00 97.1 72 20 147/68 (94) 96 06/12/17 09:00 70 06/12/17 08:00 72 06/12/17 07:00 72 06/12/17 07:00 Room Air 06/12/17 06:00 72 06/12/17 05:00 69 06/12/17 04:00 Room Air 06/12/17 04:00 70 06/12/17 04:00 98.3 70 18 148/70 (96) 96 06/12/17 03:00 68 06/12/17 02:00 71 06/12/17 01:00 73 06/12/17 00:00 98.4 82 18 139/69 (92) 96 06/12/17 00:00 Room Air 06/12/17 00:00 82 06/11/17 23:00 80 06/11/17 22:00 75 06/11/17 21:00 79 06/11/17 20:00 98.2 80 20 151/67 (95) 97 06/11/17 20:00 80 06/11/17 18:00 74 06/11/17 17:00 79 06/11/17 16:00 72 06/11/17 15:00 98.7 72 16 143/82 (102) 06/11/17 14:00 73 06/11/17 13:00 70 06/11/17 12:00 73 06/11/17 11:00 74 06/11/17 11:00 98.3 73 18 147/76 (99) 96 Labs: Laboratory Tests Test 06/12/17 05:25 White Blood Count 5.7 TH/MM3 (4.0-11.0) Red Blood Count 2.84 MIL/MM3 (4.50-5.90) Hemoglobin 8.2 GM/DL (13.0-17.0) Hematocrit 24.3 % (39.0-51.0) Mean Corpuscular Volume 85.6 FL (80.0-100.0) Mean Corpuscular Hemoglobin 29.0 PG (27.0-34.0) Mean Corpuscular Hemoglobin Concent 33.8 % (32.0-36.0) Red Cell Distribution Width 16.1 % (11.6-17.2) Platelet Count 244 TH/MM3 (150-450) Mean Platelet Volume 7.4 FL (7.0-11.0) Blood Urea Nitrogen 22 MG/DL (7-18) Creatinine 1.35 MG/DL (0.60-1.30) Random Glucose 95 MG/DL (74-106) Calcium Level 8.8 MG/DL (8.5-10.1) Sodium Level 136 MEQ/L (136-145) Potassium Level 3.9 MEQ/L (3.5-5.1) Chloride Level 100 MEQ/L (98-107) Carbon Dioxide Level 29.3 MEQ/L (21.0-32.0) Anion Gap 7 MEQ/L (5-15) Estimat Glomerular Filtration Rate 52 ML/MIN (>89) Result Diagram: 06/12/1752406/12/17524 Imaging: Last Impressions Lower Extremity Ultrasound 06/10/17 0000 Signed Impressions: Service Date/Time: May 21:20 - CONCLUSION: Venous mapping as above. Herbert Cramer MD Chest X-Ray 06/10/17 0000 Signed Impressions: Service Date/Time: May 16:19 - CONCLUSION: No acute cardiopulmonary disease identified. Aashish Patiño MD Carotid Artery Ultrasound 06/10/17 0000 Signed Impressions: Service Date/Time: May 20:37 - CONCLUSION: Mild atherosclerotic plaque of both carotid bifurcations. No hemodynamically significant stenosis. Benton Quiroz MD Foot X-Ray 06/09/17 0000 Signed Impressions: Service Date/Time: Friday, June 09, 2017 18:15 - CONCLUSION: 1. Bony destructive changes at the fifth metatarsal most characteristic of osteomyelitis. MRI pending. Brian Ortiz MD Foot MRI 06/09/17 0000 Signed Impressions: Service Date/Time: Friday, June 09, 2017 13:20 - CONCLUSION: 1. Osteomyelitis of the entire fifth metatarsal with bone destruction distally. Also osteomyelitis proximal phalanx fifth toe with displacement from the destructive change at the distal fifth metatarsal. There is surrounding edema and cellulitis. Brian Ortiz MD Cardiovascular: RRR Pulmonary: CTA GI/: NABS, NT Plan: Significant anemia since [facility] - will require blood transfusion with CABG. ID and podiatry care appreciated Plan CABG Wednesday (1) Coronary artery disease Plan: ASA, statin for surgery on Tues (2) Osteomyelitis of right foot Plan: podiatry following , on antibiotics (3) Diabetes mellitus (4) CKD (chronic kidney disease) stage 3, GFR 30-59 ml/min Plan: creatinine 1.5 Problem Qualifiers (1) Osteomyelitis of right foot: Qualified Codes: M86.9 - Osteomyelitis, unspecified Selma Saenz MD Jun 12, 2017 10:56
[2017-06-12] MEDS: ACETAMINOPHEN/HYDROcodone 325 MG/5 MG TAB PO PRN ×2 (11:02→20:47)
[2017-06-12] MEDS ORDERED: PHARMACY ORDERED LAB ONE (11:45)
--- NOTE | 2017-06-12 12:17 | HHI.PR ---
Subjective Remarks Follow-up for osteomyelitis and multivessel coronary disease Patient had no complaints. He denies any chest pain, shortness of breathing, palpitation, lightheadedness or dizziness. Remains afebrile. Objective Vitals Vital Signs Date Time Temp Pulse Resp B/P (MAP) Pulse Ox O2 Delivery O2 Flow Rate FiO2 06/12/17 11:17 97.1 56 20 120/62 (81) 96 06/12/17 11:04 65 06/12/17 10:00 69 06/12/17 10:00 97.1 72 20 147/68 (94) 96 06/12/17 09:00 70 06/12/17 08:00 72 06/12/17 07:00 72 06/12/17 07:00 Room Air 06/12/17 06:00 72 06/12/17 05:00 69 06/12/17 04:00 Room Air 06/12/17 04:00 70 06/12/17 04:00 98.3 70 18 148/70 (96) 96 06/12/17 03:00 68 06/12/17 02:00 71 06/12/17 01:00 73 06/12/17 00:00 98.4 82 18 139/69 (92) 96 06/12/17 00:00 Room Air 06/12/17 00:00 82 06/11/17 23:00 80 06/11/17 22:00 75 06/11/17 21:00 79 06/11/17 20:00 98.2 80 20 151/67 (95) 97 06/11/17 20:00 80 06/11/17 18:00 74 06/11/17 17:00 79 06/11/17 16:00 72 06/11/17 15:00 98.7 72 16 143/82 (102) 06/11/17 14:00 73 06/11/17 13:00 70 I/O 06/11/17 06/11/17 06/11/17 06/12/17 06/12/17 06/12/17 07:00 15:00 23:00 07:00 15:00 23:00 Intake Total 360 ml 680 ml 290 ml Output Total 650 ml 350 ml 700 ml Balance -290 ml 330 ml -410 ml Intake Oral 360 ml 480 ml 240 ml IV Total 200 ml 50 ml Output Urine Total 650 ml 350 ml 700 ml # Voids 2 # Bowel Movements 0 1 0 Result Diagram: 06/12/1752406/12/17524 Objective Remarks GENERAL: This is a well-nourished, well-developed patient, in no apparent distress. SKIN: Right groin area with ecchymosis but no induration or tenderness palpation. CARDIOVASCULAR: Regular rate and rhythm without murmurs, gallops, or rubs. No JVD. RESPIRATORY: Clear to auscultation. Breath sounds equal bilaterally. No wheezes , rales, or rhonchi. GASTROINTESTINAL: Abdomen soft, non-tender, nondistended. No guarding. MUSCULOSKELETAL: Extremities without clubbing, cyanosis, or edema. Right lateral foot has an open ulcerating wound with serosanguineous drainage. No erythema around the ulcerating wound. Medications and IVs Current Medications Vancomycin HCl 1000 mg/Sodium Chloride 250 ml @ 250 mls/hr ONCE STAT IV Last administered on 06/09/17at 12:00; Start 06/09/17 at 11:42; Stop 06/09/17 at 12:41 ; Status DC Sodium Chloride (NS Flush) 2 ml UNSCH PRN IV FLUSH FLUSH AFTER USING IV ACCESS ; Start 06/09/17 at 13:15; Stop 06/10/17 at 15:36; Status DC Sodium Chloride (NS Flush) 2 ml BID IV FLUSH Last administered on 06/10/17at 09: 22; Start 06/09/17 at 21:00; Stop 06/10/17 at 15:36; Status DC Acetaminophen (Tylenol) 650 mg Q4H PRN PO Headache, fever, pain 1-4 Last administered on 06/10/17at 15:51; Start 06/09/17 at 13:15 Ondansetron HCl (Zofran Inj) 4 mg Q6H PRN IVP NAUSEA OR VOMITING; Start at 13:15 Temazepam (Restoril) 15 mg HS PRN PO INSOMNIA Last administered on 06/11/17at 21 :13; Start 06/09/17 at 13:15 Heparin Sodium (Porcine) (Heparin Inj) 5,000 units Q12H SQ Last administered on 06/12/17at 01:36; Start 06/09/17 at 14:00 Naloxone HCl (Narcan Inj) 0.4 mg UNSCH PRN IV PUSH SEE LABEL COMMENTS; Start at 13:15 Magnesium Hydroxide (Milk Of Magnesia Liq) 30 ml Q12H PRN PO Mild constipation ; Start 06/09/17 at 13:15 Sennosides (Senokot) 17.2 mg Q12H PRN PO Moderate constipation; Start 06/09/17 at 13:15 Bisacodyl (Dulcolax Supp) 10 mg DAILY PRN RECTAL SEVERE CONSITIPATION; Start at 13:15 Lactulose (Lactulose Liq) 30 ml DAILY PRN PO SEVERE CONSITIPATION; Start at 13:15 Gadodiamide (Omniscan Pf Inj) 25 ml STK-MED ONCE IVCONTRAST Last administered on 06/09/17at 14:19; Start 06/09/17 at 14:19; Stop 06/09/17 at 14:20; Status DC Ceftriaxone Sodium 2000 mg/ Sodium Chloride 100 ml @ 200 mls/hr Q24H IV Last administered on 06/09/17at 17:00; Start 06/09/17 at 17:00; Stop 06/10/17 at 15:04 ; Status DC Pharmacy Profile Note 0 ml @ 0 mls/hr UNSCH OTHER ; Start 06/09/17 at 15:15; Stop 06/10/17 at 15:04; Status DC Heparin Sodium/ Sodium Chloride 1,000 ml @ As Directed STK-MED ONCE .ROUTE ; Start 06/09/17 at 15:23; Stop 06/09/17 at 15:24; Status DC Midazolam HCl (Versed Inj) 2 mg STK-MED ONCE .ROUTE Last administered on at 15:23; Start 06/09/17 at 15:23; Stop 06/09/17 at 15:24; Status DC Fentanyl Citrate (fentaNYL INJ) 100 mcg STK-MED ONCE .ROUTE Last administered on 06/09/17at 15:23; Start 06/09/17 at 15:23; Stop 06/09/17 at 15:24; Status DC Vancomycin HCl 1500 mg/Sodium Chloride 515 ml @ 250 mls/hr ONCE ONCE IV Last administered on 06/09/17at 16:00; Start 06/09/17 at 16:00; Stop 06/09/17 at 18:03 ; Status DC Sodium Chloride 500 ml @ 100 mls/hr Q5H IV Last administered on 06/09/17at 16: 39; Start 06/09/17 at 16:39; Stop 06/09/17 at 20:38; Status DC Dextrose (D50w (Vial) Inj) 50 ml UNSCH PRN IV PUSH HYPOGLYCEMIA-SEE COMMENTS; Start 06/09/17 at 17:00 Glucagon (Glucagon Inj) 1 mg UNSCH PRN OTHER HYPOGLYCEMIA-SEE COMMENTS; Start 06/09/17 at 17:00 Insulin Aspart (NovoLOG SUPPLEMENTAL SCALE) 1 ACHS SLIDING SCALE SQ ; Start at 17:00 Aspirin (Ecotrin Ec) 81 mg DAILY PO Last administered on 06/12/17at 09:07; Start 06/10/17 at 09:00 Atorvastatin Calcium (Lipitor) 20 mg HS PO Last administered on 06/11/17at 21:01 ; Start 06/09/17 at 21:00 Fluoxetine HCl (PROzac) 20 mg DAILY PO Last administered on 06/12/17at 09:07; Start 06/10/17 at 09:00 Pantoprazole Sodium (Protonix) 20 mg BID PO Last administered on 06/12/17at 09: 07; Start 06/09/17 at 21:00 Acetaminophen/ Hydrocodone Bitart ([place] 5-325 Mg) 1 tab Q6H PRN PO PAIN SCALE 6 TO 10 Last administered on 06/12/17at 11:02; Start 06/09/17 at 17:00 Iohexol (OMNIPAQUE 350 INJ ([employer] Sales Representative)) 100 ml STK-MED ONCE OTHER ; Start at 17:49; Stop 06/09/17 at 17:50; Status DC Vancomycin HCl 1750 mg/Sodium Chloride 517.5 ml @ 250 mls/hr Q24H IV Last administered on 06/10/17at 12:26; Start 06/10/17 at 12:00; Stop 06/10/17 at 15:04 ; Status DC Miscellaneous Information SPECIFIC LAB TO BE DRAWN:VANCOMYCIN TROUGH DATE TO... ONCE ONCE .XX ; Start 06/12/17 at 11:45; Stop 06/12/17 at 11:46; Status Cancel Cefazolin Sodium/ Dextrose 50 ml @ 150 mls/hr Q8H IV Last administered on 06/12at 09:07; Start 06/10/17 at 16:00 Sodium Chloride (NS Flush) 2 ml BID IV FLUSH Last administered on 06/12/17at 09: 00; Start 06/10/17 at 21:00 Sodium Chloride (NS Flush) 2 ml UNSCH PRN IV FLUSH FLUSH AFTER USING IV ACCESS ; Start 06/10/17 at 15:15 Papaverine HCl 60 mg/Nitroglycerin 100 mcg/Diltiazem HCl 100 mg/Sodium Chloride 100 ml @ 0 mls/hr MAINTENANCE SHOP WELDER IRRIGATION ; Start 06/10/17 at 15:15; Stop 06/17/17 at 15:14 Cefazolin Sodium 500 mg/Sodium Chloride 505 ml @ 0 mls/hr MAINTENANCE SH[employer] WEL[employer] IRRIGATION ; Start 06/10/17 at 15:15; Stop 06/17/17 at 15:14 Cefazolin Sodium/ Dextrose 50 ml @ 150 mls/hr MAINTENANCE SHOP WELDER IV ; Start 06/10/17 at 15:15; Stop 06/17/17 at 15:14 Metoprolol Tartrate (Lopressor) 12.5 mg MAINTENANCE SHOP WELDER PO ; Start 06/10/17 at 15:15; Stop 06/17/17 at 15:14 Chlorhexidine Gluconate (Hibiclens 4% Top Soln) 1 applic MAINTENANCE SHOP WELDER TOPICAL ; Start 06/10/17 at 15:15; Stop 06/17/17 at 15:14 Insulin Human Regular 100 units/ Sodium Chloride 100 ml @ 3 mls/hr TITRATE PRN IV for blood glucose control; Start 06/10/17 at 15:15; Stop 06/17/17 at 15:14 Dextrose (D50w (Vial) Inj) 50 ml UNSCH PRN IV PUSH HYPOGLYCEMIA-SEE COMMENTS; Start 06/10/17 at 15:15 A/P Problem List: (1) Osteomyelitis of right foot ICD Code: M86.9 - Osteomyelitis, unspecified Status: Acute (2) Coronary artery disease ICD Code: I25.10 - Atherosclerotic heart disease of [place] coronary artery without angina pectoris (3) CKD (chronic kidney disease) stage 3, GFR 30-59 ml/min ICD Code: N18.3 - Chronic kidney disease, stage 3 (moderate) (4) Diabetes mellitus ICD Code: E11.9 - Type 2 diabetes mellitus without complications Assessment and Plan Mr. Zamora is a pleasant 76-year-old with a history of diabetes, CAD who was sent to the hospital by his [facility] developer automatic due to suspected right foot osteomyelitis. Right foot osteomyelitis of the fifth metatarsal with abscess. -Most likely underlying cause due to Diabetic foot ulcer, right foot. -s/p IV Ceftriaxone 2g Q24hrs and IV Vancomycin -Infectious disease following on Cefazolin -Patient is not cleared by master barber for surgery. Per Dr. Melgar developer automatic she recommends for surgery once patient is cleared by master barber and stated to call her when patient is clear. Severe multivessel disease -Status post cardiac catheterization by Dr. kaminski -Patient scheduled for cardiac bypass on Wednesday. Diabetes mellitus -Patient does not take any diabetic medications. He manages his DM with diet/ lifestyle modifications and cinnamon tabs. -Continue with low sliding scale insulin. Blood sugar seems to be controlled. -Patient may benefit from metformin upon discharge if GFR > 45 CKD stage III - Avoid nephrotoxins. -Continue to monitor and trend. Depression -continue Fluoxetine DVT Prophylaxis. -Heparin. Discharge Planning Patient scheduled for cardiac bypass on Wednesday. Once he is cleared by master barber after surgery will need to call developer automatic for surgery on foot. Problem Qualifiers (1) Osteomyelitis of right foot: Qualified Codes: M86.9 - Osteomyelitis, unspecified Ilda Milton MD Jun 12, 2017 12:17
--- NOTE | 2017-06-12 15:56 | PD.CARD.PN ---
Subjective Subjective Remarks No CP or SOB, feels better Objective Medications Current Medications Medications (Trade) Dose Ordered Sig/[place] Route Start Time Stop Time Status Last Admin (Tylenol) 650 mg Q4H PRN PO 06/09/17 13:15 06/10/17 15:51 (Zofran Inj) 4 mg Q6H PRN IVP 06/09/17 13:15 (Restoril) 15 mg HS PRN PO 06/09/17 13:15 06/11/17 21:13 (Heparin Inj) 5,000 units Q12H SQ 06/09/17 14:00 06/12/17 14:00 (Narcan Inj) 0.4 mg UNSCH PRN IV PUSH 06/09/17 13:15 (Milk Of Magnesia Liq) 30 ml Q12H PRN PO 06/09/17 13:15 (Senokot) 17.2 mg Q12H PRN PO 06/09/17 13:15 (Dulcolax Supp) 10 mg DAILY PRN RECTAL 06/09/17 13:15 (Lactulose Liq) 30 ml DAILY PRN PO 06/09/17 13:15 (D50w (Vial) Inj) 50 ml UNSCH PRN IV PUSH 06/09/17 17:00 (Glucagon Inj) 1 mg UNSCH PRN OTHER 06/09/17 17:00 (NovoLOG SUPPLEMENTAL SCALE) 1 ACHS SLIDING SCALE SQ 06/09/17 17:00 (Ecotrin Ec) 81 mg DAILY PO 06/10/17 09:00 06/12/17 09:07 (Lipitor) 20 mg HS PO 06/09/17 21:00 06/11/17 21:01 (PROzac) 20 mg DAILY PO 06/10/17 09:00 06/12/17 09:07 (Protonix) 20 mg BID PO 06/09/17 21:00 06/12/17 09:07 ([place] 5-325 Mg) 1 tab Q6H PRN PO 06/09/17 17:00 06/12/17 11:02 Cefazolin Sodium/ Dextrose 50 ml @ 150 mls/hr Q8H IV 06/10/17 16:00 06/12/17 09:07 (NS Flush) 2 ml BID IV FLUSH 06/10/17 21:00 06/12/17 09:00 (NS Flush) 2 ml UNSCH PRN IV FLUSH 06/10/17 15:15 Papaverine HCl 60 mg/Nitroglycerin 100 mcg/Diltiazem HCl 100 mg/Sodium Chloride 100 ml @ 0 mls/hr CLOCK REPAIR TECHNICIAN IRRIGATION 06/10/17 15:15 06/17/17 15:14 Cefazolin Sodium 500 mg/Sodium Chloride 505 ml @ 0 mls/hr CLOCK REPAIR TECHNICIAN IRRIGATION 06/10/17 15:15 06/17/17 15:14 Cefazolin Sodium/ Dextrose 50 ml @ 150 mls/hr CLOCK REPAIR TECHNICIAN IV 06/10/17 15:15 06/17/17 15:14 (Lopressor) 12.5 mg CLOCK REPAIR TECHNICIAN PO 06/10/17 15:15 06/17/17 15:14 (Hibiclens 4% Top Soln) 1 applic CLOCK REPAIR TECHNICIAN TOPICAL 06/10/17 15:15 06/17/17 15:14 Insulin Human Regular 100 units/ Sodium Chloride 100 ml @ 3 mls/hr TITRATE PRN IV 06/10/17 15:15 06/17/17 15:14 (D50w (Vial) Inj) 50 ml UNSCH PRN IV PUSH 06/10/17 15:15 Vital Signs / I&O Vital Signs Date Time Temp Pulse Resp B/P (MAP) Pulse Ox O2 Delivery O2 Flow Rate FiO2 06/12/17 15:00 97.6 65 18 146/67 (93) 98 06/12/17 15:00 65 06/12/17 14:00 76 06/12/17 13:00 61 06/12/17 12:00 72 06/12/17 11:17 97.1 56 20 120/62 (81) 96 06/12/17 11:04 65 06/12/17 10:00 69 06/12/17 10:00 97.1 72 20 147/68 (94) 96 06/12/17 09:00 70 06/12/17 08:00 72 06/12/17 07:00 72 06/12/17 07:00 Room Air 06/12/17 06:00 72 06/12/17 05:00 69 06/12/17 04:00 Room Air 06/12/17 04:00 70 06/12/17 04:00 98.3 70 18 148/70 (96) 96 06/12/17 03:00 68 06/12/17 02:00 71 06/12/17 01:00 73 06/12/17 00:00 98.4 82 18 139/69 (92) 96 06/12/17 00:00 Room Air 06/12/17 00:00 82 06/11/17 23:00 80 06/11/17 22:00 75 06/11/17 21:00 79 06/11/17 20:00 98.2 80 20 151/67 (95) 97 06/11/17 20:00 80 06/11/17 18:00 74 06/11/17 17:00 79 06/11/17 16:00 72 I/O 06/11/17 06/11/17 06/11/17 06/12/17 06/12/17 06/12/17 07:00 15:00 23:00 07:00 15:00 23:00 Intake Total 360 ml 680 ml 290 ml Output Total 650 ml 350 ml 700 ml Balance -290 ml 330 ml -410 ml Intake Oral 360 ml 480 ml 240 ml IV Total 200 ml 50 ml Output Urine Total 650 ml 350 ml 700 ml # Voids 2 # Bowel Movements 0 1 0 Physical Exam GENERAL: In NAD SKIN: Warm and dry. HEAD: Normocephalic. EYES: No scleral icterus. No injection or drainage. NECK: Supple, trachea midline. No JVD or lymphadenopathy. CARDIOVASCULAR: Regular rate and rhythm without murmurs, gallops, or rubs. RESPIRATORY: Breath sounds equal bilaterally. No accessory muscle use. GASTROINTESTINAL: Abdomen soft, non-tender, nondistended. MUSCULOSKELETAL: No cyanosis, mild edema, R foot redness and drainage. Laboratory Laboratory Tests Test 06/12/17 05:25 White Blood Count 5.7 TH/MM3 Red Blood Count 2.84 MIL/MM3 Hemoglobin 8.2 GM/DL Hematocrit 24.3 % Mean Corpuscular Volume 85.6 FL Mean Corpuscular Hemoglobin 29.0 PG Mean Corpuscular Hemoglobin Concent 33.8 % Red Cell Distribution Width 16.1 % Platelet Count 244 TH/MM3 Mean Platelet Volume 7.4 FL Blood Urea Nitrogen 22 MG/DL Creatinine 1.35 MG/DL Random Glucose 95 MG/DL Calcium Level 8.8 MG/DL Sodium Level 136 MEQ/L Potassium Level 3.9 MEQ/L Chloride Level 100 MEQ/L Carbon Dioxide Level 29.3 MEQ/L Anion Gap 7 MEQ/L Estimat Glomerular Filtration Rate 52 ML/MIN Assessment and Plan Problem List: (1) Coronary artery disease ICD Codes: I25.10 - Atherosclerotic heart disease of [place] coronary artery without angina pectoris (2) Osteomyelitis of right foot ICD Codes: M86.9 - Osteomyelitis, unspecified Status: Acute (3) Diabetes mellitus ICD Codes: E11.9 - Type 2 diabetes mellitus without complications (4) CKD (chronic kidney disease) stage 3, GFR 30-59 ml/min ICD Codes: N18.3 - Chronic kidney disease, stage 3 (moderate) Assessment and Plan Remains stable from cardiac standpoint. No angina or CHF. Cath showed severe MV CAD. Risk of general anesthesia is high, I recommend to proceed with CABG first. Continue abxs as per ID. Continue aggressive risk factor modification and tx for CAD. CABG tentatively next week. Wound care to see for R foot infection. Problem Qualifiers (1) Osteomyelitis of right foot: Qualified Codes: M86.9 - Osteomyelitis, unspecified Kriss Henderson MD Jun 12, 2017 15:56
[2017-06-12] MEDS: ATORVASTATIN 20 MG TAB PO SCH (20:42)
[2017-06-12] MEDS: TEMAZEPAM 15 MG CAP PO PRN (20:43)
[2017-06-13] VITALS (20 sets, daily range): BP systolic 142–165; BP diastolic 63–80; PULSE 64–79; RESP 18–20; TEMP 98.1–98.6; O2SAT 96–99
[2017-06-13] MEDS: ceFAZolin 2 GM PREMIX 50 ML IV SCH ×3 (00:53→15:03)
[2017-06-13] MEDS: HEPARIN SODIUM - SQ 10,000 UNITS/ML VIAL SQ SCH ×2 (00:53→15:03)
[2017-06-13 07:39] LABS: BICARBONATE 28.6 MEQ/L (21.0-32.0); CALCIUM 8.4 MG/DL (8.5-10.1); CREATININE 1.17 MG/DL (0.60-1.30)
[2017-06-13] MEDS: INSULIN ASPART SUPPLEMENTAL SCALE SQ SCH ×4 (08:00→20:05)
[2017-06-13] MEDS: ASPIRIN EC 81 MG TABEC PO SCH (08:36)
[2017-06-13] MEDS: SODIUM CHLORIDE 0.9% FLUSH 10 ML FLUSH IV FLUSH SCH ×2 (08:36→20:05)
[2017-06-13] MEDS: PANTOPRAZOLE SOD 20 MG DELAYED RELEASE TAB PO SCH ×2 (08:36→20:04)
[2017-06-13] MEDS: FLUoxetine HCL 20 MG CAP PO SCH (08:36)
--- NOTE | 2017-06-13 15:46 | HHI.PR ---
Subjective Remarks Follow-up for osteomyelitis and severe multivessel disease Patient's at the bedside during the interview. Patient no complaints. Denied any chest pain, palpitation, shortness of breathing. He has no concerns. Patient asking for timeline when he can go home. He is very anxious to go home. Objective Vitals Vital Signs Date Time Temp Pulse Resp B/P (MAP) Pulse Ox O2 Delivery O2 Flow Rate FiO2 06/13/17 11:00 98.4 70 18 155/73 (100) 96 06/13/17 08:00 76 06/13/17 07:00 98.6 69 18 153/80 (104) 97 06/13/17 07:00 69 06/13/17 07:00 Room Air 97 06/13/17 06:00 79 06/13/17 05:00 76 06/13/17 04:00 78 06/13/17 04:00 Room Air 06/13/17 04:00 98.1 78 18 142/71 (94) 97 06/13/17 03:00 72 06/13/17 02:00 70 06/13/17 01:00 69 06/13/17 00:00 70 06/13/17 00:00 Room Air 06/13/17 00:00 98.2 70 18 160/63 (95) 99 06/12/17 23:00 66 06/12/17 22:00 72 06/12/17 21:00 61 06/12/17 20:00 Room Air 06/12/17 20:00 70 06/12/17 20:00 98.0 63 18 135/63 (87) 97 06/12/17 18:42 77 06/12/17 17:00 80 06/12/17 16:00 72 I/O 06/12/17 06/12/17 06/12/17 06/13/17 06/13/17 06/13/17 07:00 15:00 23:00 07:00 15:00 23:00 Intake Total 290 ml 480 ml 530 ml Output Total 700 ml 350 ml 600 ml Balance -410 ml 130 ml -70 ml Intake Oral 240 ml 480 ml 480 ml IV Total 50 ml 50 ml Output Urine Total 700 ml 350 ml 600 ml # Voids 2 # Bowel Movements 0 0 0 Result Diagram: 06/12/17 0525 06/13/17 0617 Objective Remarks GENERAL: This is a well-nourished, well-developed patient, in no apparent distress. SKIN: Right groin area with ecchymosis but no induration or tenderness palpation. CARDIOVASCULAR: Regular rate and rhythm without murmurs, gallops, or rubs. No JVD. RESPIRATORY: Clear to auscultation. Breath sounds equal bilaterally. No wheezes , rales, or rhonchi. GASTROINTESTINAL: Abdomen soft, non-tender, nondistended. No guarding. MUSCULOSKELETAL: Extremities without clubbing, cyanosis, or edema. Right lateral foot has an open ulcerating wound with serosanguineous drainage. No erythema around the ulcerating wound. Medications and IVs Current Medications Vancomycin HCl 1000 mg/Sodium Chloride 250 ml @ 250 mls/hr ONCE STAT IV Last administered on 06/09/17at 12:00; Start 06/09/17 at 11:42; Stop 06/09/17 at 12:41 ; Status DC Sodium Chloride (NS Flush) 2 ml UNSCH PRN IV FLUSH FLUSH AFTER USING IV ACCESS ; Start 06/09/17 at 13:15; Stop 06/10/17 at 15:36; Status DC Sodium Chloride (NS Flush) 2 ml BID IV FLUSH Last administered on 06/10/17at 09: 22; Start 06/09/17 at 21:00; Stop 06/10/17 at 15:36; Status DC Acetaminophen (Tylenol) 650 mg Q4H PRN PO Headache, fever, pain 1-4 Last administered on 06/10/17at 15:51; Start 06/09/17 at 13:15 Ondansetron HCl (Zofran Inj) 4 mg Q6H PRN IVP NAUSEA OR VOMITING; Start at 13:15 Temazepam (Restoril) 15 mg HS PRN PO INSOMNIA Last administered on 06/12/17at 20 :43; Start 06/09/17 at 13:15 Heparin Sodium (Porcine) (Heparin Inj) 5,000 units Q12H SQ Last administered on 06/13/17at 15:03; Start 06/09/17 at 14:00 Naloxone HCl (Narcan Inj) 0.4 mg UNSCH PRN IV PUSH SEE LABEL COMMENTS; Start at 13:15 Magnesium Hydroxide (Milk Of Magnesia Liq) 30 ml Q12H PRN PO Mild constipation ; Start 06/09/17 at 13:15 Sennosides (Senokot) 17.2 mg Q12H PRN PO Moderate constipation; Start 06/09/17 at 13:15 Bisacodyl (Dulcolax Supp) 10 mg DAILY PRN RECTAL SEVERE CONSITIPATION; Start at 13:15 Lactulose (Lactulose Liq) 30 ml DAILY PRN PO SEVERE CONSITIPATION; Start at 13:15 Gadodiamide (Omniscan Pf Inj) 25 ml STK-MED ONCE IVCONTRAST Last administered on 06/09/17at 14:19; Start 06/09/17 at 14:19; Stop 06/09/17 at 14:20; Status DC Ceftriaxone Sodium 2000 mg/ Sodium Chloride 100 ml @ 200 mls/hr Q24H IV Last administered on 06/09/17at 17:00; Start 06/09/17 at 17:00; Stop 06/10/17 at 15:04 ; Status DC Pharmacy Profile Note 0 ml @ 0 mls/hr UNSCH OTHER ; Start 06/09/17 at 15:15; Stop 06/10/17 at 15:04; Status DC Heparin Sodium/ Sodium Chloride 1,000 ml @ As Directed STK-MED ONCE .ROUTE ; Start 06/09/17 at 15:23; Stop 06/09/17 at 15:24; Status DC Midazolam HCl (Versed Inj) 2 mg STK-MED ONCE .ROUTE Last administered on at 15:23; Start 06/09/17 at 15:23; Stop 06/09/17 at 15:24; Status DC Fentanyl Citrate (fentaNYL INJ) 100 mcg STK-MED ONCE .ROUTE Last administered on 06/09/17at 15:23; Start 06/09/17 at 15:23; Stop 06/09/17 at 15:24; Status DC Vancomycin HCl 1500 mg/Sodium Chloride 515 ml @ 250 mls/hr ONCE ONCE IV Last administered on 06/09/17at 16:00; Start 06/09/17 at 16:00; Stop 06/09/17 at 18:03 ; Status DC Sodium Chloride 500 ml @ 100 mls/hr Q5H IV Last administered on 06/09/17at 16: 39; Start 06/09/17 at 16:39; Stop 06/09/17 at 20:38; Status DC Dextrose (D50w (Vial) Inj) 50 ml UNSCH PRN IV PUSH HYPOGLYCEMIA-SEE COMMENTS; Start 06/09/17 at 17:00 Glucagon (Glucagon Inj) 1 mg UNSCH PRN OTHER HYPOGLYCEMIA-SEE COMMENTS; Start 06/09/17 at 17:00 Insulin Aspart (NovoLOG SUPPLEMENTAL SCALE) 1 ACHS SLIDING SCALE SQ ; Start at 17:00 Aspirin (Ecotrin Ec) 81 mg DAILY PO Last administered on 06/13/17at 08:36; Start 06/10/17 at 09:00 Atorvastatin Calcium (Lipitor) 20 mg HS PO Last administered on 06/12/17at 20:42 ; Start 06/09/17 at 21:00 Fluoxetine HCl (PROzac) 20 mg DAILY PO Last administered on 06/13/17at 08:36; Start 06/10/17 at 09:00 Pantoprazole Sodium (Protonix) 20 mg BID PO Last administered on 06/13/17at 08: 36; Start 06/09/17 at 21:00 Acetaminophen/ Hydrocodone Bitart ([place] 5-325 Mg) 1 tab Q6H PRN PO PAIN SCALE 6 TO 10 Last administered on 06/12/17at 20:47; Start 06/09/17 at 17:00 Iohexol (OMNIPAQUE 350 INJ (Flight Instructor)) 100 ml STK-MED ONCE OTHER ; Start at 17:49; Stop 06/09/17 at 17:50; Status DC Vancomycin HCl 1750 mg/Sodium Chloride 517.5 ml @ 250 mls/hr Q24H IV Last administered on 06/10/17at 12:26; Start 06/10/17 at 12:00; Stop 06/10/17 at 15:04 ; Status DC Miscellaneous Information SPECIFIC LAB TO BE DRAWN:VANCOMYCIN TROUGH DATE TO... ONCE ONCE .XX ; Start 06/12/17 at 11:45; Stop 06/12/17 at 11:46; Status Cancel Cefazolin Sodium/ Dextrose 50 ml @ 150 mls/hr Q8H IV Last administered on 06/13at 15:03; Start 06/10/17 at 16:00 Sodium Chloride (NS Flush) 2 ml BID IV FLUSH Last administered on 06/13/17at 08: 36; Start 06/10/17 at 21:00 Sodium Chloride (NS Flush) 2 ml UNSCH PRN IV FLUSH FLUSH AFTER USING IV ACCESS ; Start 06/10/17 at 15:15 Papaverine HCl 60 mg/Nitroglycerin 100 mcg/Diltiazem HCl 100 mg/Sodium Chloride 100 ml @ 0 mls/hr ENVIRONMENTAL SUSTAINABILITY MANAGER IRRIGATION ; Start 06/10/17 at 15:15; Stop 06/17/17 at 15:14 Cefazolin Sodium 500 mg/Sodium Chloride 505 ml @ 0 mls/hr ENVIRONMENTAL SUSTAINABILITY MANAGER IRRIGATION ; Start 06/10/17 at 15:15; Stop 06/17/17 at 15:14 Cefazolin Sodium/ Dextrose 50 ml @ 150 mls/hr ENVIRONMENTAL SUSTAINABILITY MANAGER IV ; Start 06/10/17 at 15:15; Stop 06/17/17 at 15:14 Metoprolol Tartrate (Lopressor) 12.5 mg ENVIRONMENTAL SUSTAINABILITY MANAGER PO ; Start 06/10/17 at 15:15; Stop 06/17/17 at 15:14 Chlorhexidine Gluconate (Hibiclens 4% Top Soln) 1 applic ENVIRONMENTAL SUSTAINABILITY MANAGER TOPICAL ; Start 06/10/17 at 15:15; Stop 06/17/17 at 15:14 Insulin Human Regular 100 units/ Sodium Chloride 100 ml @ 3 mls/hr TITRATE PRN IV for blood glucose control; Start 06/10/17 at 15:15; Stop 06/17/17 at 15:14 Dextrose (D50w (Vial) Inj) 50 ml UNSCH PRN IV PUSH HYPOGLYCEMIA-SEE COMMENTS; Start 06/10/17 at 15:15 A/P Problem List: (1) Osteomyelitis of right foot ICD Code: M86.9 - Osteomyelitis, unspecified Status: Acute (2) Coronary artery disease ICD Code: I25.10 - Atherosclerotic heart disease of [place] coronary artery without angina pectoris (3) CKD (chronic kidney disease) stage 3, GFR 30-59 ml/min ICD Code: N18.3 - Chronic kidney disease, stage 3 (moderate) (4) Diabetes mellitus ICD Code: E11.9 - Type 2 diabetes mellitus without complications Assessment and Plan Mr. Zamora is a pleasant 76-year-old with a history of diabetes, CAD who was sent to the hospital by his [facility] scheme technician due to suspected right foot osteomyelitis. Right foot osteomyelitis of the fifth metatarsal with abscess. -Most likely underlying cause due to Diabetic foot ulcer, right foot. -s/p IV Ceftriaxone 2g Q24hrs and IV Vancomycin -Infectious disease following on Cefazolin -Patient is not cleared by software systems architect for surgery. Per Dr. Melgar scheme technician she recommends for surgery once patient is cleared by software systems architect and stated to call her when patient is clear. Severe multivessel disease -Status post cardiac catheterization by Dr. kaminski -Patient scheduled for cardiac bypass on Wednesday. Diabetes mellitus -Patient does not take any diabetic medications. He manages his DM with diet/ lifestyle modifications and cinnamon tabs. -Continue with low sliding scale insulin. Blood sugar seems to be controlled. -Patient may benefit from metformin upon discharge if GFR > 45 CKD stage III - Avoid nephrotoxins. -Continue to monitor and trend. Depression -continue Fluoxetine DVT Prophylaxis. -Heparin. Physical deconditioning -Consult PT. Discharge Planning Patient scheduled for cardiac bypass on Wednesday. Once he is cleared by software systems architect after surgery will need to call scheme technician for surgery on foot. Problem Qualifiers (1) Osteomyelitis of right foot: Qualified Codes: M86.9 - Osteomyelitis, unspecified Ilda Milton MD Jun 13, 2017 15:46
--- NOTE | 2017-06-13 16:57 | PD.CARD.PN ---
Subjective Subjective Remarks No CP or SOB, no c/o Objective Medications Current Medications Medications (Trade) Dose Ordered Sig/[place] Route Start Time Stop Time Status Last Admin (Tylenol) 650 mg Q4H PRN PO 06/09/17 13:15 06/10/17 15:51 (Zofran Inj) 4 mg Q6H PRN IVP 06/09/17 13:15 (Restoril) 15 mg HS PRN PO 06/09/17 13:15 06/12/17 20:43 (Heparin Inj) 5,000 units Q12H SQ 06/09/17 14:00 06/13/17 15:03 (Narcan Inj) 0.4 mg UNSCH PRN IV PUSH 06/09/17 13:15 (Milk Of Magnesia Liq) 30 ml Q12H PRN PO 06/09/17 13:15 (Senokot) 17.2 mg Q12H PRN PO 06/09/17 13:15 (Dulcolax Supp) 10 mg DAILY PRN RECTAL 06/09/17 13:15 (Lactulose Liq) 30 ml DAILY PRN PO 06/09/17 13:15 (D50w (Vial) Inj) 50 ml UNSCH PRN IV PUSH 06/09/17 17:00 (Glucagon Inj) 1 mg UNSCH PRN OTHER 06/09/17 17:00 (NovoLOG SUPPLEMENTAL SCALE) 1 ACHS SLIDING SCALE SQ 06/09/17 17:00 (Ecotrin Ec) 81 mg DAILY PO 06/10/17 09:00 06/13/17 08:36 (Lipitor) 20 mg HS PO 06/09/17 21:00 06/12/17 20:42 (PROzac) 20 mg DAILY PO 06/10/17 09:00 06/13/17 08:36 (Protonix) 20 mg BID PO 06/09/17 21:00 06/13/17 08:36 ([place] 5-325 Mg) 1 tab Q6H PRN PO 06/09/17 17:00 06/12/17 20:47 Cefazolin Sodium/ Dextrose 50 ml @ 150 mls/hr Q8H IV 06/10/17 16:00 06/13/17 15:03 (NS Flush) 2 ml BID IV FLUSH 06/10/17 21:00 06/13/17 08:36 (NS Flush) 2 ml UNSCH PRN IV FLUSH 06/10/17 15:15 Papaverine HCl 60 mg/Nitroglycerin 100 mcg/Diltiazem HCl 100 mg/Sodium Chloride 100 ml @ 0 mls/hr ANTIQUE FURNITURE REPAIRER IRRIGATION 06/10/17 15:15 06/17/17 15:14 Cefazolin Sodium 500 mg/Sodium Chloride 505 ml @ 0 mls/hr ANTIQUE FURNITURE REPAIRER IRRIGATION 06/10/17 15:15 06/17/17 15:14 Cefazolin Sodium/ Dextrose 50 ml @ 150 mls/hr ANTIQUE FURNITURE REPAIRER IV 06/10/17 15:15 06/17/17 15:14 (Lopressor) 12.5 mg ANTIQUE FURNITURE REPAIRER PO 06/10/17 15:15 06/17/17 15:14 (Hibiclens 4% Top Soln) 1 applic ANTIQUE FURNITURE REPAIRER TOPICAL 06/10/17 15:15 06/17/17 15:14 Insulin Human Regular 100 units/ Sodium Chloride 100 ml @ 3 mls/hr TITRATE PRN IV 06/10/17 15:15 06/17/17 15:14 (D50w (Vial) Inj) 50 ml UNSCH PRN IV PUSH 06/10/17 15:15 Vital Signs / I&O Vital Signs Date Time Temp Pulse Resp B/P (MAP) Pulse Ox O2 Delivery O2 Flow Rate FiO2 06/13/17 11:00 98.4 70 18 155/73 (100) 96 06/13/17 08:00 76 06/13/17 07:00 98.6 69 18 153/80 (104) 97 06/13/17 07:00 69 06/13/17 07:00 Room Air 97 06/13/17 06:00 79 06/13/17 05:00 76 06/13/17 04:00 78 06/13/17 04:00 Room Air 06/13/17 04:00 98.1 78 18 142/71 (94) 97 06/13/17 03:00 72 06/13/17 02:00 70 06/13/17 01:00 69 06/13/17 00:00 70 06/13/17 00:00 Room Air 06/13/17 00:00 98.2 70 18 160/63 (95) 99 06/12/17 23:00 66 06/12/17 22:00 72 06/12/17 21:00 61 06/12/17 20:00 Room Air 06/12/17 20:00 70 06/12/17 20:00 98.0 63 18 135/63 (87) 97 06/12/17 18:42 77 06/12/17 17:00 80 I/O 06/12/17 06/12/17 06/12/17 06/13/17 06/13/17 06/13/17 07:00 15:00 23:00 07:00 15:00 23:00 Intake Total 290 ml 480 ml 530 ml Output Total 700 ml 350 ml 600 ml Balance -410 ml 130 ml -70 ml Intake Oral 240 ml 480 ml 480 ml IV Total 50 ml 50 ml Output Urine Total 700 ml 350 ml 600 ml # Voids 2 # Bowel Movements 0 0 0 Physical Exam GENERAL: In NAD SKIN: Warm and dry. HEAD: Normocephalic. EYES: No scleral icterus. No injection or drainage. NECK: Supple, trachea midline. No JVD or lymphadenopathy. CARDIOVASCULAR: Regular rate and rhythm without murmurs, gallops, or rubs. RESPIRATORY: Breath sounds equal bilaterally. No accessory muscle use. GASTROINTESTINAL: Abdomen soft, non-tender, nondistended. MUSCULOSKELETAL: No cyanosis, mild edema, R foot redness and drainage. Laboratory Laboratory Tests Test 06/13/17 06:17 Blood Urea Nitrogen 21 MG/DL Creatinine 1.17 MG/DL Random Glucose 92 MG/DL Calcium Level 8.4 MG/DL Sodium Level 137 MEQ/L Potassium Level 3.7 MEQ/L Chloride Level 101 MEQ/L Carbon Dioxide Level 28.6 MEQ/L Anion Gap 7 MEQ/L Estimat Glomerular Filtration Rate 61 ML/MIN Assessment and Plan Problem List: (1) Coronary artery disease ICD Codes: I25.10 - Atherosclerotic heart disease of [place] coronary artery without angina pectoris (2) Osteomyelitis of right foot ICD Codes: M86.9 - Osteomyelitis, unspecified Status: Acute (3) Diabetes mellitus ICD Codes: E11.9 - Type 2 diabetes mellitus without complications (4) CKD (chronic kidney disease) stage 3, GFR 30-59 ml/min ICD Codes: N18.3 - Chronic kidney disease, stage 3 (moderate) Assessment and Plan No new cardiac issues. No angina or CHF. Cath showed severe MV CAD. Risk of general anesthesia is high, I recommend to proceed with CABG first. Continue abxs as per ID for R foot osteomyelitis. Wound care management. Continue aggressive risk factor modification and tx for CAD. CABG this week. Problem Qualifiers (1) Osteomyelitis of right foot: Qualified Codes: M86.9 - Osteomyelitis, unspecified Kriss Henderson MD Jun 13, 2017 16:57
[2017-06-13] MEDS: ACETAMINOPHEN/HYDROcodone 325 MG/5 MG TAB PO PRN (20:04)
[2017-06-13] MEDS: ATORVASTATIN 20 MG TAB PO SCH (20:04)
[2017-06-14] VITALS (23 sets, daily range): BP systolic 135–173; BP diastolic 65–89; PULSE 55–89; RESP 16–20; TEMP 97.2–98.6; O2SAT 94–98
[2017-06-14] MEDS: HEPARIN SODIUM - SQ 10,000 UNITS/ML VIAL SQ SCH ×2 (01:23→14:00)
[2017-06-14] MEDS: ceFAZolin 2 GM PREMIX 50 ML IV SCH ×3 (01:24→15:53)
[2017-06-14 06:49] LABS: INTERNATIONAL NORMALIZED RATIO 1.1 RATIO; PROTHROMBIN TIME - PATIENT 10.8 SEC (9.8-11.6)
[2017-06-14 07:00] LABS: AUTOMATED NEUTROPHIL # 3.4 TH/MM3 (1.8-7.7); BASOPHIL % 0.8 % (0.0-2.0); EOSINOPHIL # 0.4 TH/MM3 (0-0.4); EOSINOPHIL % 6.4 % (0.0-4.0); HEMATOCRIT 26.3 % (39.0-51.0); HEMOGLOBIN 8.9 GM/DL (13.0-17.0); LYMPH % 25.3 % (9.0-44.0); LYMPHOCYTE # 1.4 TH/MM3 (1.0-4.8); MEAN CELL VOLUME 85.7 FL (80.0-100.0); MEAN CORPUSCULAR HEMOGLOBIN 29.1 PG (27.0-34.0); MEAN CORPUSCULAR HGB CONC 33.9 % (32.0-36.0); MEAN PLATELET VOLUME 7.4 FL (7.0-11.0); MONO % 7.8 % (0.0-8.0); MONOCYTE # 0.4 TH/MM3 (0-0.9); NEUT % 59.7 % (16.0-70.0); PLATELET COUNT 268 TH/MM3 (150-450); RED BLOOD COUNT 3.07 MIL/MM3 (4.50-5.90); RED CELL DISTRIBUTION WIDTH 16.2 % (11.6-17.2); WHITE BLOOD COUNT 5.7 TH/MM3 (4.0-11.0)
[2017-06-14 07:04] LABS: CALCIUM 8.9 MG/DL (8.5-10.1); CREATININE 1.14 MG/DL (0.60-1.30)
[2017-06-14] MEDS: INSULIN ASPART SUPPLEMENTAL SCALE SQ SCH ×4 (08:00→21:00)
[2017-06-14] MEDS ORDERED: POTASSIUM CHLORIDE 20 MEQ CONTROLLED RELEASE TAB PO ONE (09:00)
[2017-06-14] MEDS ORDERED: PILL SPLITTER OTHER PRN (09:15)
[2017-06-14] MEDS: FLUoxetine HCL 20 MG CAP PO SCH (10:58)
[2017-06-14] MEDS: ASPIRIN EC 81 MG TABEC PO SCH (10:58)
[2017-06-14] MEDS: PANTOPRAZOLE SOD 20 MG DELAYED RELEASE TAB PO SCH ×2 (10:58→22:44)
[2017-06-14] MEDS: amLODIPine BESYLATE 5 MG TAB PO SCH (10:59)
[2017-06-14] MEDS: SODIUM CHLORIDE 0.9% FLUSH 10 ML FLUSH IV FLUSH SCH ×2 (10:59→22:47)
[2017-06-14] MEDS: METOPROLOL TARTRATE 25 MG TAB PO SCH ×2 (10:59→22:44)
--- NOTE | 2017-06-14 14:17 | PD.CAR.PN ---
CVT Progress Note Subjective/Hospital Course: A 76-year-old male patient of Dr. Henderson, Dr. Quezada podiatry, Dr. Shelby at the [facility], history of right foot diabetic ulcer, was evaluated by the [facility] tile mason who obtained an x-ray which shows some bony destruction of the fifth metatarsal indicating some osteomyelitis. The patient had been on Cipro without any improvement of his wound. He has had this wound since February 2017. He has undergone multiple interventions on his foot. He was seen by podiatry on this admission. There is a wound on the fifth metatarsal head, apparently with some purulence and some mild erythema and edema. Plan would be for further foot surgery. 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 Apparently, they are waiting to possibly do surgery under local anesthesia to reduce the risk of further infection. The patient, in the meantime, also had a recent abnormal stress test at the [facility] in [place] and was referred to Dr. Gloria Braun as an outpatient, but did not meet that appointment or was unable to see her at this time so he was evaluated by Dr. Henderson and underwent cardiac cath on the which showed an ejection fraction of 45%, left main disease, a 60% stenosis in the distal portion. The LAD had an 80% stenosis in the mid portion. The circ had a 90% and 80% stenosis in the proximal portion and a 90% stenosis in the mid portion. The RCA was totally occluded with distal RCA filling by [id number] collaterals. We were consulted to evaluate for coronary artery bypass grafting. PAST MEDICAL HISTORY: Osteoarthritis, Colon polyps, Diabetes mellitus, Coronary artery disease, History of aortic abdominal aneurysm which is followed by the PA. He says it is still very small, Gastroesophageal reflux disease, Chronic kidney disease., right CEA 06/11 pt currently being treated for antibiotics for right diabetic foot with osteomyelitis, will need to wait until after CABG for foot surgery tentatively planned for Tu06/15 ECHO : EF 55-60, mild , trace AI, trace TR 06/12/16 No complaints today. Denies chest pain Anemic 06/14/17 for surgery in am then to be evaluate for left foot surgery after recovery denies pain family at bedside Objective: GENERAL: A&O x 3 SKIN: Warm and dry. dressing to right foot HEAD: Normocephalic. EYES: No scleral icterus. No injection or drainage. NECK: Supple, trachea midline. No JVD or lymphadenopathy. CARDIOVASCULAR: Regular rate and rhythm without murmurs, gallops, or rubs. RESPIRATORY: Breath sounds equal bilaterally. No accessory muscle use. GASTROINTESTINAL: Abdomen soft, non-tender, nondistended. MUSCULOSKELETAL: No cyanosis, or edema. BACK: Nontender without obvious deformity. No CVA tenderness. Vital Signs Date Time Temp Pulse Resp B/P (MAP) Pulse Ox O2 Delivery O2 Flow Rate FiO2 06/14/17 12:00 97.2 80 18 145/72 (96) 97 06/14/17 10:00 89 06/14/17 09:00 74 06/14/17 08:00 74 06/14/17 07:15 Room Air 06/14/17 07:15 98.4 72 18 169/89 (115) 97 06/14/17 07:15 78 06/14/17 06:00 73 06/14/17 05:00 70 06/14/17 04:00 98.2 73 18 173/86 (115) 97 06/14/17 04:00 Room Air 06/14/17 04:00 73 06/14/17 03:00 70 06/14/17 02:00 72 06/14/17 01:00 71 06/14/17 00:00 Room Air 06/14/17 00:00 98.6 74 18 151/79 (103) 95 06/14/17 00:00 74 06/13/17 23:00 76 06/13/17 22:00 64 06/13/17 21:00 69 06/13/17 20:00 98.2 71 18 165/65 (98) 96 06/13/17 20:00 Room Air 06/13/17 20:00 71 06/13/17 18:00 78 06/13/17 16:00 68 06/13/17 15:00 98.3 69 20 155/73 (100) 97 Labs: Laboratory Tests Test 06/14/17 05:55 White Blood Count 5.7 TH/MM3 (4.0-11.0) Red Blood Count 3.07 MIL/MM3 (4.50-5.90) Hemoglobin 8.9 GM/DL (13.0-17.0) Hematocrit 26.3 % (39.0-51.0) Mean Corpuscular Volume 85.7 FL (80.0-100.0) Mean Corpuscular Hemoglobin 29.1 PG (27.0-34.0) Mean Corpuscular Hemoglobin Concent 33.9 % (32.0-36.0) Red Cell Distribution Width 16.2 % (11.6-17.2) Platelet Count 268 TH/MM3 (150-450) Mean Platelet Volume 7.4 FL (7.0-11.0) Neutrophils (%) (Auto) 59.7 % (16.0-70.0) Lymphocytes (%) (Auto) 25.3 % (9.0-44.0) Monocytes (%) (Auto) 7.8 % (0.0-8.0) Eosinophils (%) (Auto) 6.4 % (0.0-4.0) Basophils (%) (Auto) 0.8 % (0.0-2.0) Neutrophils # (Auto) 3.4 TH/MM3 (1.8-7.7) Lymphocytes # (Auto) 1.4 TH/MM3 (1.0-4.8) Monocytes # (Auto) 0.4 TH/MM3 (0-0.9) Eosinophils # (Auto) 0.4 TH/MM3 (0-0.4) Basophils # (Auto) 0.0 TH/MM3 (0-0.2) CBC Comment DIFF FINAL Differential Comment Prothrombin Time 10.8 SEC (9.8-11.6) Prothromb Time International Ratio 1.1 RATIO Blood Urea Nitrogen 19 MG/DL (7-18) Creatinine 1.14 MG/DL (0.60-1.30) Random Glucose 81 MG/DL (74-106) Calcium Level 8.9 MG/DL (8.5-10.1) Sodium Level 136 MEQ/L (136-145) Potassium Level 3.7 MEQ/L (3.5-5.1) Chloride Level 101 MEQ/L (98-107) Carbon Dioxide Level 30.0 MEQ/L (21.0-32.0) Anion Gap 5 MEQ/L (5-15) Estimat Glomerular Filtration Rate 63 ML/MIN (>89) Result Diagram: 06/14/17 0555 06/14/1755 Telemetry: NSR (1) Coronary artery disease Plan: ASA, statin for surgery on Tues (2) Osteomyelitis of right foot Plan: podiatry following , on antibiotics (3) Diabetes mellitus (4) CKD (chronic kidney disease) stage 3, GFR 30-59 ml/min Plan: creatinine 1.5 Problem Qualifiers (1) Osteomyelitis of right foot: Qualified Codes: M86.9 - Osteomyelitis, unspecified Lynn Larios Jun 14, 2017 14:17
--- NOTE | 2017-06-14 15:08 | HHI.IDPN ---
Subjective Subjective Remarks pt doing OK No c/o For CABG tomorrow no fever Antibiotics cefazoline Allergies: Coded Allergies: niacin (Verified Allergy, Severe, rash, 06/09/17) Objective . Vital Signs Date Time Temp Pulse Resp B/P (MAP) Pulse Ox O2 Delivery O2 Flow Rate FiO2 06/14/17 14:00 88 06/14/17 12:00 77 06/14/17 12:00 97.2 80 18 145/72 (96) 97 06/14/17 11:00 61 06/14/17 10:00 89 06/14/17 09:00 74 06/14/17 08:00 74 06/14/17 07:15 Room Air 06/14/17 07:15 98.4 72 18 169/89 (115) 97 06/14/17 07:15 78 06/14/17 06:00 73 06/14/17 05:00 70 06/14/17 04:00 98.2 73 18 173/86 (115) 97 06/14/17 04:00 Room Air 06/14/17 04:00 73 06/14/17 03:00 70 06/14/17 02:00 72 06/14/17 01:00 71 06/14/17 00:00 Room Air 06/14/17 00:00 98.6 74 18 151/79 (103) 95 06/14/17 00:00 74 06/13/17 23:00 76 06/13/17 22:00 64 06/13/17 21:00 69 06/13/17 20:00 98.2 71 18 165/65 (98) 96 06/13/17 20:00 Room Air 06/13/17 20:00 71 06/13/17 18:00 78 06/13/17 16:00 68 06/13/17 15:00 98.3 69 20 155/73 (100) 97 . Laboratory Tests Test 06/14/17 05:55 White Blood Count 5.7 TH/MM3 Red Blood Count 3.07 MIL/MM3 Hemoglobin 8.9 GM/DL Hematocrit 26.3 % Mean Corpuscular Volume 85.7 FL Mean Corpuscular Hemoglobin 29.1 PG Mean Corpuscular Hemoglobin Concent 33.9 % Red Cell Distribution Width 16.2 % Platelet Count 268 TH/MM3 Mean Platelet Volume 7.4 FL Neutrophils (%) (Auto) 59.7 % Lymphocytes (%) (Auto) 25.3 % Monocytes (%) (Auto) 7.8 % Eosinophils (%) (Auto) 6.4 % Basophils (%) (Auto) 0.8 % Neutrophils # (Auto) 3.4 TH/MM3 Lymphocytes # (Auto) 1.4 TH/MM3 Monocytes # (Auto) 0.4 TH/MM3 Eosinophils # (Auto) 0.4 TH/MM3 Basophils # (Auto) 0.0 TH/MM3 CBC Comment DIFF FINAL Differential Comment Laboratory Tests Test 06/13/17 06:17 06/14/17 05:55 Blood Urea Nitrogen 21 MG/DL 19 MG/DL Creatinine 1.17 MG/DL 1.14 MG/DL Random Glucose 92 MG/DL 81 MG/DL Calcium Level 8.4 MG/DL 8.9 MG/DL Sodium Level 137 MEQ/L 136 MEQ/L Potassium Level 3.7 MEQ/L 3.7 MEQ/L Chloride Level 101 MEQ/L 101 MEQ/L Carbon Dioxide Level 28.6 MEQ/L 30.0 MEQ/L Anion Gap 7 MEQ/L 5 MEQ/L Estimat Glomerular Filtration Rate 61 ML/MIN 63 ML/MIN Imaging Last Impressions Lower Extremity Ultrasound 06/10/17 0000 Signed Impressions: Service Date/Time: May 21:20 - CONCLUSION: Venous mapping as above. Herbert Cramer MD Chest X-Ray 06/10/17 0000 Signed Impressions: Service Date/Time: May 16:19 - CONCLUSION: No acute cardiopulmonary disease identified. Aashish Patiño MD Carotid Artery Ultrasound 06/10/17 0000 Signed Impressions: Service Date/Time: May 20:37 - CONCLUSION: Mild atherosclerotic plaque of both carotid bifurcations. No hemodynamically significant stenosis. Benton Quiroz MD Foot X-Ray 06/09/17 0000 Signed Impressions: Service Date/Time: Friday, June 09, 2017 18:15 - CONCLUSION: 1. Bony destructive changes at the fifth metatarsal most characteristic of osteomyelitis. MRI pending. Brian Ortiz MD Foot MRI 06/09/17 0000 Signed Impressions: Service Date/Time: Friday, June 09, 2017 13:20 - CONCLUSION: 1. Osteomyelitis of the entire fifth metatarsal with bone destruction distally. Also osteomyelitis proximal phalanx fifth toe with displacement from the destructive change at the distal fifth metatarsal. There is surrounding edema and cellulitis. Brain Ortiz MD Physical Exam CONSTITUTIONAL/GENERAL: This is an obese elderly patient, in no apparent distress. TUBES/LINES/DRAINS: SKIN: No jaundice, rashes, or lesions. Skin temperature appropriate. Not diaphoretic. EYES: Pupils equal and round and reactive. . No injection or drainage. Fundi not examined. ENT: Hearing grossly normal. Nose without bleeding or purulent drainage. Throat without visible erythema, exudates, masses, or lesions. CARDIOVASCULAR: Regular rate and rhythm without murmurs, gallops, or rubs. No JVD. Peripheral pulses symmetric. RESPIRATORY/CHEST: Symmetric, unlabored respirations. Clear to auscultation. Breath sounds equal bilaterally. No wheezes, rales, or rhonchi. GASTROINTESTINAL: Abdomen soft, non-tender, nondistended. No hepato-splenomegaly , or palpable masses. No guarding. Bowel sounds present. MUSCULOSKELETAL: Extremities without clubbing, cyanosis, + chronic appearing edema with chronic discoloration + odorless drainage from the wound over R 5th MT head L toes 2-4 amputated, well healed incision R foot swollen, erythemaotus with a draining wound over 5 th MT head, probing to the bone No odor or crepitus NEUROLOGICAL: Awake and alert. Motor and sensory grossly within normal limits. Follows commands. Clear speech . Moves all extremities. PSYCHIATRIC: calm, cooperative Assessment & Plan Remarks Osteomyelitis of the entire L fifth metatarsal with bone destruction distally. , MSSA osteomyelitis proximal phalanx L fifth toe with displacement from the destructive change at the distal fifth metatarsal. DFI, osteo CAD Cath showed severe MV CAD, CABG was recommended CT surgery consulted, CABG tentatively next week. -cont Cefazoline - Pt needs surgery and taken into account degree of destruction probably 5th toe or 5th ray amputation - anticipate longterm IV abx I will be OOT thru 06/28 Other ID physicians will cover for me - Dilcia Anthony MD Jun 14, 2017 15:07
--- NOTE | 2017-06-14 15:37 | HHI.PR ---
Subjective Remarks Seen earlier today. Denies any chest pain at this time however he has some chest pain over benign. No shortness of breath or palpitations. No nausea or vomiting or diarrhea constipation. No diaphoresis. Plan for CABG tomorrow. Family at bedside very supportive. Objective Vitals Vital Signs Date Time Temp Pulse Resp B/P (MAP) Pulse Ox O2 Delivery O2 Flow Rate FiO2 06/14/17 15:00 66 06/14/17 15:00 98.3 65 16 94 06/14/17 14:00 88 06/14/17 12:13 60 06/14/17 12:00 77 06/14/17 12:00 97.2 80 18 145/72 (96) 97 06/14/17 11:00 61 06/14/17 10:00 89 06/14/17 09:00 74 06/14/17 08:00 74 06/14/17 07:15 Room Air 06/14/17 07:15 98.4 72 18 169/89 (115) 97 06/14/17 07:15 78 06/14/17 06:00 73 06/14/17 05:00 70 06/14/17 04:00 98.2 73 18 173/86 (115) 97 06/14/17 04:00 Room Air 06/14/17 04:00 73 06/14/17 03:00 70 06/14/17 02:00 72 06/14/17 01:00 71 06/14/17 00:00 Room Air 06/14/17 00:00 98.6 74 18 151/79 (103) 95 06/14/17 00:00 74 06/13/17 23:00 76 06/13/17 22:00 64 06/13/17 21:00 69 06/13/17 20:00 98.2 71 18 165/65 (98) 96 06/13/17 20:00 Room Air 06/13/17 20:00 71 06/13/17 18:00 78 06/13/17 16:00 68 I/O 06/13/17 06/13/17 06/13/17 06/14/17 06/14/17 06/14/17 07:00 15:00 23:00 07:00 15:00 23:00 Intake Total 530 ml 870 ml 530 ml Output Total 600 ml 350 ml 650 ml Balance -70 ml 520 ml -120 ml Intake Oral 480 ml 720 ml 480 ml IV Total 50 ml 150 ml 50 ml Output Urine Total 600 ml 350 ml 650 ml # Bowel Movements 0 0 0 Result Diagram: 06/14/17 0555 06/14/17 0555 Imaging Last Impressions Lower Extremity Ultrasound 06/10/17 0000 Signed Impressions: Service Date/Time: May 21:20 - CONCLUSION: Venous mapping as above. Herbert Cramer MD Chest X-Ray 06/10/17 0000 Signed Impressions: Service Date/Time: May 16:19 - CONCLUSION: No acute cardiopulmonary disease identified. Aashish Patiño MD Carotid Artery Ultrasound 06/10/17 0000 Signed Impressions: Service Date/Time: May 20:37 - CONCLUSION: Mild atherosclerotic plaque of both carotid bifurcations. No hemodynamically significant stenosis. Benton Quiroz MD Foot X-Ray 06/09/17 0000 Signed Impressions: Service Date/Time: Friday, June 09, 2017 18:15 - CONCLUSION: 1. Bony destructive changes at the fifth metatarsal most characteristic of osteomyelitis. MRI pending. Brian Ortiz MD Foot MRI 06/09/17 0000 Signed Impressions: Service Date/Time: Friday, June 09, 2017 13:20 - CONCLUSION: 1. Osteomyelitis of the entire fifth metatarsal with bone destruction distally. Also osteomyelitis proximal phalanx fifth toe with displacement from the destructive change at the distal fifth metatarsal. There is surrounding edema and cellulitis. Brian Ortiz MD Objective Remarks GENERAL: This is a well-nourished, well-developed patient, in no apparent distress. SKIN: Right groin area with ecchymosis but no induration or tenderness palpation. CARDIOVASCULAR: Regular rate and rhythm without murmurs, gallops, or rubs. No JVD. RESPIRATORY: Clear to auscultation. Breath sounds equal bilaterally. No wheezes , rales, or rhonchi. GASTROINTESTINAL: Abdomen soft, non-tender, nondistended. No guarding. MUSCULOSKELETAL: Extremities without clubbing, cyanosis, or edema. Right lateral foot has an open ulcerating wound with serosanguineous drainage. No erythema around the ulcerating wound. A/P Problem List: (1) Osteomyelitis of right foot ICD Code: M86.9 - Osteomyelitis, unspecified Status: Acute (2) Coronary artery disease ICD Code: I25.10 - Atherosclerotic heart disease of [place] coronary artery without angina pectoris (3) CKD (chronic kidney disease) stage 3, GFR 30-59 ml/min ICD Code: N18.3 - Chronic kidney disease, stage 3 (moderate) (4) Diabetes mellitus ICD Code: E11.9 - Type 2 diabetes mellitus without complications Assessment and Plan Mr. Zamora is a pleasant 76-year-old with a history of diabetes, CAD who was sent to the hospital by his [facility] principal account clerk due to suspected right foot osteomyelitis. Right foot osteomyelitis of the fifth metatarsal with abscess. -Most likely underlying cause due to Diabetic foot ulcer, right foot. -s/p IV Ceftriaxone 2g Q24hrs and IV Vancomycin -Infectious disease following on Cefazolin -Patient is not cleared by commercial credit portfolio manager for surgery. Per Dr. Melgar principal account clerk she recommends for surgery once patient is cleared by commercial credit portfolio manager and stated to call her when patient is clear. Severe multivessel disease -Status post cardiac catheterization by Dr. kaminski -Patient scheduled for cardiac bypass on Wednesday. Diabetes mellitus -Patient does not take any diabetic medications. He manages his DM with diet/ lifestyle modifications and cinnamon tabs. -Continue with low sliding scale insulin. Blood sugar seems to be controlled. -Patient may benefit from metformin upon discharge if GFR > 45 CKD stage III - Avoid nephrotoxins. -Continue to monitor and trend. Depression -continue Fluoxetine DVT Prophylaxis. -Heparin. Physical deconditioning -Consult PT. Discharge Planning Patient scheduled for cardiac bypass on Wednesday06/15/17. Once he is cleared by commercial credit portfolio manager after surgery will need to call principal account clerk for surgery on foot. Problem Qualifiers (1) Osteomyelitis of right foot: Qualified Codes: M86.9 - Osteomyelitis, unspecified Karina Clements MD Jun 14, 2017 15:37
--- NOTE | 2017-06-14 19:09 | PD.CARD.PN ---
Subjective Subjective Remarks No CP or SOB, anxious Objective Medications Current Medications Medications (Trade) Dose Ordered Sig/[place] Route Start Time Stop Time Status Last Admin (Tylenol) 650 mg Q4H PRN PO 06/09/17 13:15 06/10/17 15:51 (Zofran Inj) 4 mg Q6H PRN IVP 06/09/17 13:15 (Restoril) 15 mg HS PRN PO 06/09/17 13:15 06/12/17 20:43 (Heparin Inj) 5,000 units Q12H SQ 06/09/17 14:00 06/14/17 14:00 (Narcan Inj) 0.4 mg UNSCH PRN IV PUSH 06/09/17 13:15 (Milk Of Magnesia Liq) 30 ml Q12H PRN PO 06/09/17 13:15 (Senokot) 17.2 mg Q12H PRN PO 06/09/17 13:15 (Dulcolax Supp) 10 mg DAILY PRN RECTAL 06/09/17 13:15 (Lactulose Liq) 30 ml DAILY PRN PO 06/09/17 13:15 (D50w (Vial) Inj) 50 ml UNSCH PRN IV PUSH 06/09/17 17:00 (Glucagon Inj) 1 mg UNSCH PRN OTHER 06/09/17 17:00 (NovoLOG SUPPLEMENTAL SCALE) 1 ACHS SLIDING SCALE SQ 06/09/17 17:00 06/14/17 17:00 (Ecotrin Ec) 81 mg DAILY PO 06/10/17 09:00 06/14/17 10:58 (Lipitor) 20 mg HS PO 06/09/17 21:00 06/13/17 20:04 (PROzac) 20 mg DAILY PO 06/10/17 09:00 06/14/17 10:58 (Protonix) 20 mg BID PO 06/09/17 21:00 06/14/17 10:58 ([place] 5-325 Mg) 1 tab Q6H PRN PO 06/09/17 17:00 06/13/17 20:04 Cefazolin Sodium/ Dextrose 50 ml @ 150 mls/hr Q8H IV 06/10/17 16:00 06/14/17 15:53 (NS Flush) 2 ml BID IV FLUSH 06/10/17 21:00 06/14/17 10:59 (NS Flush) 2 ml UNSCH PRN IV FLUSH 06/10/17 15:15 Papaverine HCl 60 mg/Nitroglycerin 100 mcg/Diltiazem HCl 100 mg/Sodium Chloride 100 ml @ 0 mls/hr CHILD ABUSE WORKER IRRIGATION 06/10/17 15:15 06/17/17 15:14 Cefazolin Sodium 500 mg/Sodium Chloride 505 ml @ 0 mls/hr CHILD ABUSE WORKER IRRIGATION 06/10/17 15:15 06/17/17 15:14 Cefazolin Sodium/ Dextrose 50 ml @ 150 mls/hr CHILD ABUSE WORKER IV 06/10/17 15:15 06/17/17 15:14 (Lopressor) 12.5 mg CHILD ABUSE WORKER PO 06/10/17 15:15 06/17/17 15:14 (Hibiclens 4% Top Soln) 1 applic CHILD ABUSE WORKER TOPICAL 06/10/17 15:15 06/17/17 15:14 Insulin Human Regular 100 units/ Sodium Chloride 100 ml @ 3 mls/hr TITRATE PRN IV 06/10/17 15:15 06/17/17 15:14 (D50w (Vial) Inj) 50 ml UNSCH PRN IV PUSH 06/10/17 15:15 (Lopressor) 12.5 mg Q12HR PO 06/14/17 09:00 06/14/17 10:59 (Norvasc) 5 mg DAILY PO 06/14/17 09:00 06/14/17 10:59 (Pill Splitter) 1 ea UNSCH PRN OTHER 06/14/17 09:15 Vital Signs / I&O Vital Signs Date Time Temp Pulse Resp B/P (MAP) Pulse Ox O2 Delivery O2 Flow Rate FiO2 06/14/17 18:00 66 06/14/17 17:00 64 06/14/17 16:00 62 06/14/17 15:00 66 06/14/17 15:00 98.3 65 16 94 06/14/17 14:00 88 06/14/17 12:13 60 06/14/17 12:00 77 06/14/17 12:00 97.2 80 18 145/72 (96) 97 06/14/17 11:00 61 06/14/17 10:00 89 06/14/17 09:00 74 1/29/18 08:00 74 06/14/17 07:15 Room Air 06/14/17 07:15 98.4 72 18 169/89 (115) 97 06/14/17 07:15 78 06/14/17 06:00 73 06/14/17 05:00 70 06/14/17 04:00 98.2 73 18 173/86 (115) 97 06/14/17 04:00 Room Air 06/14/17 04:00 73 06/14/17 03:00 70 06/14/17 02:00 72 06/14/17 01:00 71 06/14/17 00:00 Room Air 06/14/17 00:00 98.6 74 18 151/79 (103) 95 06/14/17 00:00 74 06/13/17 23:00 76 06/13/17 22:00 64 06/13/17 21:00 69 06/13/17 20:00 98.2 71 18 165/65 (98) 96 06/13/17 20:00 Room Air 06/13/17 20:00 71 I/O 06/13/17 06/13/17 06/13/17 06/14/17 06/14/17 06/14/17 07:00 15:00 23:00 07:00 15:00 23:00 Intake Total 530 ml 870 ml 530 ml 800 ml Output Total 600 ml 350 ml 650 ml 950 ml Balance -70 ml 520 ml -120 ml -150 ml Intake Oral 480 ml 720 ml 480 ml 800 ml IV Total 50 ml 150 ml 50 ml Output Urine Total 600 ml 350 ml 650 ml 950 ml # Bowel Movements 0 0 0 Physical Exam GENERAL: In NAD SKIN: Warm and dry. HEAD: Normocephalic. EYES: No scleral icterus. No injection or drainage. NECK: Supple, trachea midline. No JVD or lymphadenopathy. CARDIOVASCULAR: Regular rate and rhythm without murmurs, gallops, or rubs. RESPIRATORY: Breath sounds equal bilaterally. No accessory muscle use. GASTROINTESTINAL: Abdomen soft, non-tender, nondistended. MUSCULOSKELETAL: No cyanosis, mild edema, R foot redness and drainage. Laboratory Laboratory Tests Test 06/14/17 05:55 White Blood Count 5.7 TH/MM3 Red Blood Count 3.07 MIL/MM3 Hemoglobin 8.9 GM/DL Hematocrit 26.3 % Mean Corpuscular Volume 85.7 FL Mean Corpuscular Hemoglobin 29.1 PG Mean Corpuscular Hemoglobin Concent 33.9 % Red Cell Distribution Width 16.2 % Platelet Count 268 TH/MM3 Mean Platelet Volume 7.4 FL Neutrophils (%) (Auto) 59.7 % Lymphocytes (%) (Auto) 25.3 % Monocytes (%) (Auto) 7.8 % Eosinophils (%) (Auto) 6.4 % Basophils (%) (Auto) 0.8 % Neutrophils # (Auto) 3.4 TH/MM3 Lymphocytes # (Auto) 1.4 TH/MM3 Monocytes # (Auto) 0.4 TH/MM3 Eosinophils # (Auto) 0.4 TH/MM3 Basophils # (Auto) 0.0 TH/MM3 CBC Comment DIFF FINAL Differential Comment Prothrombin Time 10.8 SEC Prothromb Time International Ratio 1.1 RATIO Blood Urea Nitrogen 19 MG/DL Creatinine 1.14 MG/DL Random Glucose 81 MG/DL Calcium Level 8.9 MG/DL Sodium Level 136 MEQ/L Potassium Level 3.7 MEQ/L Chloride Level 101 MEQ/L Carbon Dioxide Level 30.0 MEQ/L Anion Gap 5 MEQ/L Estimat Glomerular Filtration Rate 63 ML/MIN Assessment and Plan Problem List: (1) Coronary artery disease ICD Codes: I25.10 - Atherosclerotic heart disease of [place] coronary artery without angina pectoris (2) Osteomyelitis of right foot ICD Codes: M86.9 - Osteomyelitis, unspecified Status: Acute (3) Diabetes mellitus ICD Codes: E11.9 - Type 2 diabetes mellitus without complications (4) CKD (chronic kidney disease) stage 3, GFR 30-59 ml/min ICD Codes: N18.3 - Chronic kidney disease, stage 3 (moderate) Assessment and Plan Remains stable from cardiac standpoint. No new cardiac issues. No angina or CHF. Cath showed severe MV CAD. Risk of general anesthesia is high, I recommend to proceed with CABG first. Continue abxs as per ID for R foot osteomyelitis. Wound care management. Continue aggressive risk factor modification and tx for CAD. CABG tomorrow. Plan again d/w pt and . Problem Qualifiers (1) Osteomyelitis of right foot: Qualified Codes: M86.9 - Osteomyelitis, unspecified Kriss Henderson MD Jun 14, 2017 19:09
[2017-06-14] MEDS: ATORVASTATIN 20 MG TAB PO SCH (22:45)
[2017-06-15] VITALS (17 sets, daily range): BP systolic 89–163; BP diastolic 38–74; PULSE 49–75; RESP 12–22; TEMP 97.2–97.8; O2SAT 95–100
[2017-06-15] MEDS: ceFAZolin 2 GM PREMIX 50 ML IV SCH ×5 (01:19→15:59)
[2017-06-15] MEDS: HEPARIN SODIUM - SQ 10,000 UNITS/ML VIAL SQ SCH (01:20)
[2017-06-15] MEDS ORDERED: methylPREDNISolone SOD SUCC 125 MG/2 ML VIAL ONE (06:42)
[2017-06-15] MEDS ORDERED: VANCOMYCIN HCL 1000 MG VIAL ONE (06:42)
[2017-06-15] MEDS ORDERED: HEPARIN SODIUM - SQ 10,000 UNITS/ML VIAL ONE (06:42)
[2017-06-15] MEDS ORDERED: ceFAZolin 2 GM PREMIX 50 ML ONE ×2 (06:43→11:39)
[2017-06-15] MEDS ORDERED: CARDIOPLEGIC IRR 2,000 ML ONE (07:13)
[2017-06-15] MEDS ORDERED: POTASSIUM CHLORIDE 40 MEQ/20 ML VIAL ONE (07:14)
[2017-06-15] MEDS ORDERED: CALCIUM CHLORIDE 10% SOLN 1 GRAM/10 ML SYR ONE (07:14)
[2017-06-15] MEDS ORDERED: SODIUM BICARBONATE 8.4% INJ 50 ML ONE (07:14)
[2017-06-15] MEDS ORDERED: HEPARIN SODIUM - IV 10,000 UNITS/10 ML VIAL ONE (07:15)
[2017-06-15] MEDS ORDERED: MANNITOL INJ 100 ML ONE (07:15)
[2017-06-15] MEDS ORDERED: ALBUMIN 25% INJ 50 ML IV ONE (07:16)
[2017-06-15] MEDS: INSULIN ASPART SUPPLEMENTAL SCALE SQ SCH ×2 (08:00→12:00)
[2017-06-15] MEDS: PANTOPRAZOLE SOD 20 MG DELAYED RELEASE TAB PO SCH (09:00)
[2017-06-15] MEDS: SODIUM CHLORIDE 0.9% FLUSH 10 ML FLUSH IV FLUSH SCH ×2 (09:00→21:00)
[2017-06-15] MEDS: METOPROLOL TARTRATE 25 MG TAB PO SCH (09:00)
[2017-06-15] MEDS: FLUoxetine HCL 20 MG CAP PO SCH (09:00)
[2017-06-15] MEDS: amLODIPine BESYLATE 5 MG TAB PO SCH (09:00)
[2017-06-15] MEDS: ASPIRIN EC 81 MG TABEC PO SCH (09:00)
[2017-06-15] MEDS ORDERED: SODIUM CHLORIDE 0.9% INJ 50 ML ONE ×2 (11:15→12:59)
[2017-06-15] MEDS ORDERED: ePHEDrine/NS 25 MG/5 ML SYRINGE ONE (12:29)
[2017-06-15] MEDS ORDERED: LACTATED RINGER'S 1000 ML INJ 500 ML IV PRN (12:48)
--- NOTE | 2017-06-15 12:57 | PD.OP ---
cc: Selma Saenz MD; Kriss Henderson MD Operative Report Date of Surgery: Jun 15, 2017 Preoperative Diagnosis: (1) Angina pectoris (2) Coronary artery disease Postoperative Diagnosis: same Procedure: CABG x 4 Hines to LAd - good SVG to RI - good SVG to D1 - good SVG to PDA - poor EVH Anesthesia: Dr. Mcpherson Surgeon: Selma Saenz [employer] Supervisor(s): MUSA Rodriguez Operation and Findings: The risks, benefits, complications, treatment options, and expected outcomes were discussed with the patient. The possibilities of reaction to medication, pulmonary aspiration, perforation of viscus, bleeding, recurrent infection, the need for additional procedures, failure to diagnose a condition, and creating a complication requiring transfusion or operation were discussed with the patient. The patient concurred with the proposed plan, giving informed consent. The site of surgery properly noted/marked. The patient was taken to Operating Room, identified as Hai Zamora and the procedure verified as CABG, EVH. A Time Out was held and the above information confirmed. Standard monitoring lines and Ramsey catheter were placed. General anesthesia was induced. The patient was prepped and draped in a sterile fashion. A median sternotomy was performed and electrocautery was used to obtain hemostasis. The left internal mammary artery was procured as a pedicle from the 7th rib to the 1st rib in the usual manner. Simultaneously left greater saphenous vein was procured from the left leg using a minimally invasive endoscopic technique. The vein was prepared for anastomosis and the leg wound was irrigated and closed in 2 layers. The pericardium was opened and a pericardial sling was created using interrupted 0 silk sutures. The patient was heparinized for cardiopulmonary bypass and the distal mammary pedicle was instrumented for anastomosis. The heart was instrumented for cardiopulmonary bypass in the usual manner. Antegrade blood cardioplegia was employed. The patient was placed on cardiopulmonary bypass. An aortic cross-clamp was applied and the heart was arrested using cold blood cardioplegia. Antegrade cardioplegia was administered after he each anastomosis. After adequate arrest, the distal right coronary circulation was investigated and the PDA was opened with a [place] blade and found to be a 1 millimeter poor target. Saphenous vein was approximated to the PDA artery using a running 7 0 Prolene suture. The graft was measured for length and orientation and the proximal anastomosis was constructed to the ascending aorta using a running 5 0 Prolene suture after creating an aortotomy with a 5 millimeter punch. The [place] Intermedius artery was then opened with a [place] blade and found to be a 1.5 millimeter good target. The RI artery was intramyocardial. Saphenous vein was approximated to the RI artery using a running 7 0 Prolene suture. The graft was measured for length and orientation and the proximal anastomosis was constructed to the ascending aorta using a running 5 0 Prolene suture after creating an aortotomy with a 5 millimeter punch. The 1st diagonal artery was then opened with a [place] blade and found to be a 1.5 millimeter good target. Saphenous vein was approximated to the D1 artery using a running 7 0 Prolene suture. The graft was measured for length and orientation and was suspended from the pericardium. The distal LAD was opened with a [place] blade and found to be a 1.5 millimeter good target. The left internal mammary artery was approximated to the LAD using a running 7 0 Prolene suture. The pedicle was attached to the epicardium using interrupted 5 0 silk suture. The patient was systemically rewarmed and received a hotshot dose of warm blood cardioplegia. The aorta was vented and the proximal anastomosis to the D1 graft was accomplished using a running 5 0 Prolene suture after creating an aortotomy was a 5 millimeter punch. The cross-clamp was removed and all proximal and distal anastomoses were examined for hemostasis. The patient was weaned from cardiopulmonary bypass. Protamine was given. There was no adverse reaction. Decannulation was carried out without incident. Wound was checked for hemostasis which was obtained using electrocautery. A 36 [place] mediastinal and 32 [place] left pleural chest tubes were placed and secured to the skin with 0 silk suture. The sternum was closed with stainless steel wire. The fascia was closed with 1. PDS. The subcutaneous tissue was closed using a running 2-0 Vicryl suture. The skin was closed with 4-0 Monocryl. Sterile dressings were placed. At the end of the operation, all sponge, instruments, and needle counts were correct. The patient was transferred to the CVICU in stable condition. Findings: Diffuse CAD Intramyocardial vessles XC: 85 min CPB: 99 min Drains: mediastinal x 1 pleural x 1 Complications: none Disposition: to CVICU in stable condition Selma Saenz MD Jun 15, 2017 12:57
[2017-06-15] MEDS ORDERED: POTASSIUM CHLOR 20 MEQ PREMIX 100 ML IV PRN ×3 (13:00)
[2017-06-15] MEDS ORDERED: POTASSIUM CHLORIDE 20 MEQ CONTROLLED RELEASE TAB PO PRN ×2 (13:00)
[2017-06-15] MEDS ORDERED: CALCIUM CHLORIDE 10% 1 GRAM/10 ML VIAL IV PUSH PRN (13:00)
[2017-06-15] MEDS ORDERED: RESP: RACEPINEPHRINE 2.25% 0.5 ML NEB NEB PRN (13:00)
[2017-06-15] MEDS ORDERED: SODIUM BICARBONATE 8.4% SOLN 50 MEQ/50 ML VIAL IV PUSH PRN ×2 (13:00)
[2017-06-15] MEDS ORDERED: INSULIN REGULAR (IV INFUSION) 100 UNITS in SODIUM CHLORIDE 0.9% INJ 99 ML IV PRN (13:00)
[2017-06-15] MEDS ORDERED: RESP: ALBUTEROL 2.5 MG/IPRATROPIUM 0.5 MG NEB (PRN) NEB (13:00)
[2017-06-15] MEDS ORDERED: METOPROLOL TARTRATE 5 MG/5 ML VIAL IV PUSH PRN (13:00)
[2017-06-15] MEDS ORDERED: ONDANSETRON HCL 4 MG/2 ML VIAL IV PUSH PRN (13:00)
[2017-06-15] MEDS ORDERED: CALCIUM CHLORIDE INJ 1 GM in SODIUM CHLORIDE 0.9% INJ 100 ML IV PRN (13:00)
[2017-06-15] MEDS ORDERED: DEXTROSE 50% IN WATER 50 ML VIAL(D50) IV PUSH PRN (13:00)
[2017-06-15] MEDS ORDERED: hydrALAZINE HCL 20 MG/ML VIAL IV PUSH PRN (13:00)
[2017-06-15] MEDS ORDERED: SODIUM CHLORIDE 0.9% FLUSH 10 ML FLUSH IV FLUSH PRN (13:00)
[2017-06-15] MEDS ORDERED: CLEVIDIPINE INJ 50 ML IV PRN (13:00)
[2017-06-15] MEDS ORDERED: MAGNESIUM SULFATE INJ 2 GM in SODIUM CHLORIDE 0.9% INJ 100 ML IV PRN ×4 (13:00)
[2017-06-15] MEDS ORDERED: ACETAMINOPHEN 325 MG TAB PO PRN (13:30)
[2017-06-15] MEDS ORDERED: ACETAMINOPHEN 650 MG SUPP RECTAL PRN (13:30)
[2017-06-15] MEDS ORDERED: ALBUMIN 5% INJ 250 ML IV PRN (13:30)
[2017-06-15] MEDS ORDERED: MIDAZOLAM HCL 2 MG/2 ML VIAL ONE ×2 (13:50)
[2017-06-15] MEDS ORDERED: fentaNYL CITRATE 1000 MCG/20 ML VIAL ONE ×2 (13:50)
[2017-06-15] MEDS ORDERED: Post-op Orders (for Pharmacy) OTHER ONE (14:00)
[2017-06-15] MEDS: AMIODARONE 200 MG TAB PO SCH ×2 (14:00→21:30)
[2017-06-15] MEDS: ACETAMINOPHEN 1000 MG/100 ML 100 ML IV SCH ×2 (14:23→19:32)
--- NOTE | 2017-06-15 14:39 | RADRPT ---
EXAM DATE/TIME: 06/15/2017 13:55 [facility] COMPARISON: CHEST PA & LAT, June 10, 2017, 16:19. CHEST SINGLE AP, October 09, 2011, 17:32. INDICATIONS : Post open heart surgery. MEDICAL HISTORY : Aneurysm, abdominal. Arthritis. Osteoarthritis. Coronary artery disease. GERD.Colon polyp. Renal fail ure. Diabetes. Right foot ulcer. Dperession. Anticoagulant therapy,Heparin. SURGICAL HISTORY : Cholecystectomy.Carotid endarterectomy. Left foot 3 toes amputation. ENCOUNTER: Subsequent ACUITY: 4 - 6 days PAIN SCORE: 0/10 LOCATION: Bilateral chest FINDINGS: A single view of the chest demonstrates CABG. Minimal left basilar density likely atelectasis. Heart mildly enlarged. Left-sided chest tube without pneumothorax. Endotracheal tube with tip 6 cm above th e dia. Nasogastric tube with tip below the inferior margin of image. Left subclavian central line with tip in the cavoatrial junction. Osseous structures are intact. CONCLUSION: 1. Status post CABG. 2. Minimal left basilar density likely atelectasis. 3. Support lines and tubes a described above. Basil Keyes MD on June 15, 2017 at 14:34 Board Certified Radiologist. This report was verified electronically.
[2017-06-15] MEDS ORDERED: DOBUTamine PREMIX DRIP 250 ML ONE (15:12)
[2017-06-15] MEDS ORDERED: DOBUTamine PREMIX DRIP 250 ML IV PRN (15:30)
[2017-06-15] MEDS: RESP: ALBUTEROL 2.5 MG/IPRATROPIUM 0.5 MG NEB (SCH) NEB ×2 (16:28→20:19)
[2017-06-15] MEDS: FUROSEMIDE 40 MG/4 ML VIAL IV PUSH SCH ×2 (16:32→17:32)
[2017-06-15] MEDS: ATORVASTATIN 20 MG TAB PO SCH (21:31)
[2017-06-16] VITALS (20 sets, daily range): BP systolic 104–131; BP diastolic 37–64; PULSE 68–92; RESP 16–20; TEMP 97.9–98.5; O2SAT 95–98
[2017-06-16] MEDS: ceFAZolin 2 GM PREMIX 50 ML IV SCH ×4 (00:02→23:59)
[2017-06-16] MEDS: ACETAMINOPHEN 1000 MG/100 ML 100 ML IV SCH ×2 (02:19→09:12)
[2017-06-16] MEDS: RESP: ALBUTEROL 2.5 MG/IPRATROPIUM 0.5 MG NEB (SCH) NEB ×3 (04:18→19:52)
[2017-06-16 04:19] LABS: HEMATOCRIT 26.4 % (39.0-51.0); HEMOGLOBIN 8.8 GM/DL (13.0-17.0); MEAN CORPUSCULAR HEMOGLOBIN 29.4 PG (27.0-34.0); MEAN CORPUSCULAR HGB CONC 33.4 % (32.0-36.0); PLATELET COUNT 221 TH/MM3 (150-450); RED CELL DISTRIBUTION WIDTH 15.3 % (11.6-17.2)
[2017-06-16 04:47] LABS: BICARBONATE 22.9 MEQ/L (21.0-32.0); CALCIUM 7.7 MG/DL (8.5-10.1); CREATININE 1.61 MG/DL (0.60-1.30); MAGNESIUM 2.3 MG/DL (1.5-2.5)
[2017-06-16] MEDS: PANTOPRAZOLE SOD 40 MG DELAYED RELEASE TAB PO SCH (05:20)
[2017-06-16] MEDS: AMIODARONE 200 MG TAB PO SCH ×2 (05:20→18:16)
--- NOTE | 2017-06-16 05:49 | RADRPT ---
EXAM DATE/TIME: 06/16/2017 04:32 [facility] COMPARISON: CHEST SINGLE AP, June 15, 2017, 13:55. INDICATIONS : Short of breath. MEDICAL HISTORY : Aneurysm, abdominal. Arthritis. Osteoarthritis. Coronary artery disease.GERD.Colon polyp. Renal failu re. Diabetes. Right foot ulcer. Dperession. SURGICAL HISTORY : Cholecystectomy.Carotid endarterectomy. Left foot 3 toes amputation. ENCOUNTER: Subsequent ACUITY: 1 week PAIN SCORE: 0/10 LOCATION: Bilateral chest FINDINGS: Left chest tube without significant pneumothorax. Left central line in superior vena cava. Previous m edian sternotomy. Basilar airspace disease, left greater than right. No pneumothorax. Previous endotr acheal tube and nasogastric tube have been removed. CONCLUSION: 1. Removal of previous endotracheal tube and nasogastric tube. Mild basilar airspace disease with sma ll left effusion similar to prior exam. Brian Ortiz MD on June 16, 2017 at 5:45 Board Certified Radiologist. This report was verified electronically.
[2017-06-16] MEDS ORDERED: SOD PHOSPHATE/SOD BIPHOSPHATE (ADULT) ENEMA 133ML RECTAL PRN (09:00)
[2017-06-16] MEDS ORDERED: GLUCAGON 1 MG/ML VIAL OTHER PRN (09:00)
[2017-06-16] MEDS ORDERED: DEXTROSE 50% IN WATER 50 ML VIAL(D50) IV PUSH PRN (09:00)
[2017-06-16] MEDS ORDERED: INSULIN REGULAR (IV INFUSION) 100 UNITS in SODIUM CHLORIDE 0.9% INJ 99 ML IV PRN (09:00)
[2017-06-16] MEDS ORDERED: INSULIN DETEMIR 100 UNITS/ML VIAL SQ ONE (09:00)
[2017-06-16] MEDS ORDERED: BISACODYL 10 MG SUPP RECTAL PRN (09:00)
--- NOTE | 2017-06-16 09:33 | EKG ---
Date Performed: 06/16/2017 Time Performed: 06:43:30 PTAGE: 76 years EKG: Atrial fibrillation Right bundle branch block Possible inferior infarct - age undetermined Low QRS voltages in precordial leads Nonspecific T-wave changes Abnormal ECG PREVIOUS TRACING : 06/10/2017 18.08 Compared to the prior study, nonspecific T-wave changes hav e improved. DOCTOR: Randall Elizalde Interpretating Date/Time 06/16/2017 09:33:01
[2017-06-16] MEDS: SODIUM CHLORIDE 0.9% FLUSH 10 ML FLUSH IV FLUSH SCH ×2 (10:46→21:03)
[2017-06-16] MEDS: MULTIVITAMINS/MINERALS THERAPEUTIC TAB PO SCH (10:47)
[2017-06-16] MEDS: amLODIPine BESYLATE 5 MG TAB PO SCH (10:47)
[2017-06-16] MEDS: ASPIRIN 81 MG CHEW TAB PO SCH (10:47)
[2017-06-16] MEDS: FLUoxetine HCL 20 MG CAP PO SCH (10:47)
[2017-06-16] MEDS: MAGNESIUM HYDROXIDE SUSP 30 ML CUP PO SCH (10:47)
[2017-06-16] MEDS: INSULIN ASPART SUPPLEMENTAL SCALE SQ SCH ×4 (11:18→21:00)
--- NOTE | 2017-06-16 12:01 | PD.CAR.PN ---
CVT Progress Note Subjective/Hospital Course: A 76-year-old male patient of Dr. Henderson, Dr. Quezada podiatry, Dr. Shelby at the [place], history of right foot diabetic ulcer, was evaluated by the [place] physical therapy assistant instructor who obtained an x-ray which shows some bony destruction of the fifth metatarsal indicating some osteomyelitis. The patient had been on Cipro without any improvement of his wound. He has had this wound since February 2017. He has undergone multiple interventions on his foot. He was seen by podiatry on this admission. There is a wound on the fifth metatarsal head, apparently with some purulence and some mild erythema and edema. Plan would be for further foot surgery. 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 Apparently, they are waiting to possibly do surgery under local anesthesia to reduce the risk of further infection. The patient, in the meantime, also had a recent abnormal stress test at the [place] [facility] in [place] and was referred to Dr. Gloria Braun as an outpatient, but did not meet that appointment or was unable to see her at this time so he was evaluated by Dr. Henderson and underwent cardiac cath on the which showed an ejection fraction of 45%, left main disease, a 60% stenosis in the distal portion. The LAD had an 80% stenosis in the mid portion. The circ had a 90% and 80% stenosis in the proximal portion and a 90% stenosis in the mid portion. The RCA was totally occluded with distal RCA filling by [id number] collaterals. We were consulted to evaluate for coronary artery bypass grafting. PAST MEDICAL HISTORY: Osteoarthritis, Colon polyps, Diabetes mellitus, Coronary artery disease, History of aortic abdominal aneurysm which is followed by the [place]. He says it is still very small, Gastroesophageal reflux disease, Chronic kidney disease., right CEA 06/11 pt currently being treated for antibiotics for right diabetic foot with osteomyelitis, will need to wait until after CABG for foot surgery tentatively planned for Tu06/15 ECHO : EF 55-60, mild , trace AI, trace TR 06/12/16 No complaints today. Denies chest pain Anemic 06/14/17 for surgery in am then to be evaluate for left foot surgery after recovery denies pain family at bedside 06/15 surgery: CABG x 4, Hines to LAd - good, SVG to RI - good, SVG to D1 - good, SVG to PDA - poor, L EVH extubated at 5pm last evening, + solumedrol, crystalloid 2500cc, cell saver 750cc, 1200cc EBL 2 units PRBC 06/16 up in chair, weak, slightly confused creatinine 1.61no diuresis today aggressive pulm toileting weaned off dobutamine and insulin gtt will transfer to stepdown later today Objective: GENERAL: awake, slightly confused SKIN: Warm and dry. prevena to chest , jovanna wrap to left leg HEAD: Normocephalic. EYES: No scleral icterus. No injection or drainage. NECK: Supple, trachea midline. No JVD or lymphadenopathy. CARDIOVASCULAR: Regular rate and rhythm without murmurs, gallops, or rubs. RESPIRATORY: Breath sounds equal bilaterally. No accessory muscle use. diminished in bases, chest tube to wall suction, no air leak / drained 230cc/ 12 hrs GASTROINTESTINAL: Abdomen soft, non-tender, nondistended. MUSCULOSKELETAL: No cyanosis, or edema. BACK: Nontender without obvious deformity. No CVA tenderness. Vital Signs Date Time Temp Pulse Resp B/P (MAP) Pulse Ox O2 Delivery O2 Flow Rate FiO2 06/16/17 04:18 97 Nasal Cannula 2.00 06/16/17 03:19 16 06/16/17 03:19 16 06/16/17 03:00 68 06/16/17 03:00 96 Nasal Cannula 2.00 06/16/17 03:00 69 119/56 06/16/17 03:00 98.3 69 16 119/56 (77) 96 104/37 (59) 06/16/17 02:19 68 111/53 06/16/17 01:00 69 122/55 06/16/17 00:02 71 131/60 06/15/17 23:00 98 Nasal Cannula 2.00 06/15/17 23:00 68 06/15/17 23:00 97.6 75 16 118/51 (73) 98 129/47 (74) 06/15/17 23:00 68 118/51 06/15/17 20:32 99 Nasal Cannula 3.00 06/15/17 20:19 99 Nasal Cannula 3.00 06/15/17 19:15 99 Nasal Cannula 4.00 06/15/17 19:10 97.5 70 16 109/57 (74) 99 113/42 (65) 06/15/17 19:00 68 06/15/17 17:08 99 Nasal Cannula 4.00 06/15/17 17:08 99 Nasal Cannula 4.00 06/15/17 16:25 100 40 06/15/17 16:25 Nasal Cannula 99 40 06/15/17 16:00 49 103/41 06/15/17 15:28 55 105/51 06/15/17 15:00 100 Mechanical Ventilator 40 06/15/17 15:00 97.6 49 12 105/57 (73) 100 103/41 (61) 06/15/17 15:00 51 06/15/17 14:00 51 06/15/17 14:00 40 06/15/17 13:40 99 40 06/15/17 13:30 99 Mechanical Ventilator 100 06/15/17 13:30 97.8 54 22 102/53 (69) 99 89/38 (55) 06/15/17 13:30 100 Labs: Laboratory Tests Test 06/16/17 03:40 White Blood Count 13.0 TH/MM3 (4.0-11.0) Red Blood Count 3.00 MIL/MM3 (4.50-5.90) Hemoglobin 8.8 GM/DL (13.0-17.0) Hematocrit 26.4 % (39.0-51.0) Mean Corpuscular Volume 88.0 FL (80.0-100.0) Mean Corpuscular Hemoglobin 29.4 PG (27.0-34.0) Mean Corpuscular Hemoglobin Concent 33.4 % (32.0-36.0) Red Cell Distribution Width 15.3 % (11.6-17.2) Platelet Count 221 TH/MM3 (150-450) Mean Platelet Volume 8.0 FL (7.0-11.0) Blood Urea Nitrogen 27 MG/DL (7-18) Creatinine 1.61 MG/DL (0.60-1.30) Random Glucose 114 MG/DL (74-106) Calcium Level 7.7 MG/DL (8.5-10.1) Magnesium Level 2.3 MG/DL (1.5-2.5) Sodium Level 138 MEQ/L (136-145) Potassium Level 5.0 MEQ/L (3.5-5.1) Chloride Level 106 MEQ/L (98-107) Carbon Dioxide Level 22.9 MEQ/L (21.0-32.0) Anion Gap 9 MEQ/L (5-15) Estimat Glomerular Filtration Rate 42 ML/MIN (>89) Result Diagram: 06/16/1733906/16/17339 Telemetry: NSR, junctional (1) Coronary artery disease Plan: ASA, statin eval to start BB in am decrease amiodarone dose HR 70's aggressive pulm toileting PT/OT (2) Osteomyelitis of right foot Plan: podiatry following , on antibiotics will discuss timing for surgery with Dr Saenz (3) Diabetes mellitus Plan: insulin sliding scale diabetic diet HGB A1C 6.0 (4) CKD (chronic kidney disease) stage 3, GFR 30-59 ml/min Plan: creatinine 1.5 > 1.6 (5) Chronic anemia Plan: start ferrous sulfate Problem Qualifiers (1) Osteomyelitis of right foot: Qualified Codes: M86.9 - Osteomyelitis, unspecified Lynn Larios Jun 16, 2017 12:01
[2017-06-16] MEDS: FERROUS SULFATE 325 MG (65 MG ELEMENTAL IRON) TAB PO SCH ×2 (13:53→18:17)
[2017-06-16] MEDS: ACETAMINOPHEN/HYDROcodone 325 MG/5 MG TAB PO PRN (18:18)
[2017-06-16] MEDS: ATORVASTATIN 20 MG TAB PO SCH (20:59)
[2017-06-16] MEDS: DOCUSATE SODIUM 100 MG CAP PO SCH (21:00)
[2017-06-16] MEDS: SENNOSIDES 8.6 MG TAB PO SCH (21:00)
[2017-06-17] VITALS (31 sets, daily range): BP systolic 107–150; BP diastolic 55–66; PULSE 77–90; RESP 16–20; TEMP 97.7–98.6; O2SAT 92–98
[2017-06-17] MEDS: ACETAMINOPHEN/HYDROcodone 325 MG/5 MG TAB PO PRN ×3 (00:09→21:21)
[2017-06-17] MEDS: INSULIN ASPART SUPPLEMENTAL SCALE SQ SCH ×5 (02:00→21:17)
[2017-06-17 05:22] LABS: AUTOMATED NEUTROPHIL # 7.7 TH/MM3 (1.8-7.7); BASOPHIL # 0.1 TH/MM3 (0-0.2); BASOPHIL % 0.7 % (0.0-2.0); EOSINOPHIL % 0.5 % (0.0-4.0); HEMOGLOBIN 7.8 GM/DL (13.0-17.0); LYMPH % 12.8 % (9.0-44.0); LYMPHOCYTE # 1.3 TH/MM3 (1.0-4.8); MEAN CORPUSCULAR HEMOGLOBIN 30.5 PG (27.0-34.0); MEAN CORPUSCULAR HGB CONC 33.8 % (32.0-36.0); MEAN PLATELET VOLUME 7.8 FL (7.0-11.0); MONO % 9.5 % (0.0-8.0); NEUT % 76.5 % (16.0-70.0); PLATELET COUNT 186 TH/MM3 (150-450); RED BLOOD COUNT 2.55 MIL/MM3 (4.50-5.90); RED CELL DISTRIBUTION WIDTH 16.3 % (11.6-17.2)
[2017-06-17 05:45] LABS: BICARBONATE 26.8 MEQ/L (21.0-32.0); CREATININE 2.23 MG/DL (0.60-1.30); MAGNESIUM 2.6 MG/DL (1.5-2.5)
[2017-06-17] MEDS: AMIODARONE 200 MG TAB PO SCH ×2 (06:00→17:04)
[2017-06-17] MEDS: PANTOPRAZOLE SOD 40 MG DELAYED RELEASE TAB PO SCH (06:00)
[2017-06-17] MEDS: RESP: ALBUTEROL 2.5 MG/IPRATROPIUM 0.5 MG NEB (SCH) NEB ×3 (07:34→20:19)
--- NOTE | 2017-06-17 07:59 | HHI.PR ---
Subjective Remarks In the chair eating breakfast . Says he has intermittent chest pain , feels tired. No fever or chills. No n/v/d/c. Objective Vitals Vital Signs Date Time Temp Pulse Resp B/P (MAP) Pulse Ox O2 Delivery O2 Flow Rate FiO2 06/17/17 07:34 92 Nasal Cannula 3.00 06/17/17 06:32 81 06/17/17 05:24 82 06/17/17 04:16 83 06/17/17 03:40 98.0 83 19 119/58 (78) 95 06/17/17 03:40 95 Nasal Cannula 2.00 06/17/17 03:40 84 06/17/17 02:11 87 06/17/17 01:08 88 06/17/17 00:00 89 06/16/17 23:30 98.2 90 20 109/53 (71) 96 06/16/17 23:30 91 06/16/17 23:30 96 Nasal Cannula 2.00 06/16/17 22:53 92 06/16/17 21:00 92 06/16/17 20:00 90 06/16/17 19:52 97 Nasal Cannula 3.00 06/16/17 19:30 81 06/16/17 19:30 98.5 84 19 111/54 (73) 96 06/16/17 19:30 96 Nasal Cannula 2.00 06/16/17 18:00 80 06/16/17 17:00 78 06/16/17 16:00 78 06/16/17 15:10 97.9 79 18 117/58 (77) 97 Arterial Line 06/16/17 15:10 Nasal Cannula 2.00 06/16/17 15:00 80 06/16/17 14:00 74 06/16/17 14:00 20 119/54 (75) 96 06/16/17 13:37 98 Nasal Cannula 3.00 06/16/17 12:00 81 06/16/17 12:00 98.1 16 128/60 (82) 97 06/16/17 10:00 72 06/16/17 10:00 20 109/53 (71) 95 06/16/17 09:00 74 06/16/17 09:00 20 131/64 (86) 98 06/16/17 08:00 98.4 16 127/60 (82) 96 06/16/17 08:00 76 06/16/17 08:00 96 Nasal Cannula 2.00 I/O 06/16/17 06/16/17 06/16/17 06/17/17 06/17/17 06/17/17 07:00 15:00 23:00 07:00 15:00 23:00 Intake Total 390 ml 300 ml 240 ml Output Total 980 ml 200 ml 505 ml Balance -590 ml 100 ml -265 ml Intake Oral 240 ml 300 ml 240 ml IV Total 150 ml Output Urine Total 750 ml 100 ml 425 ml Chest Tube Drainage Total 230 ml 100 ml 80 ml Bladder Scan Volume Amount 47 ml # Bowel Movements 0 0 Result Diagram: 06/17/17 0445 06/17/17 0445 Imaging Last Impressions Renal Ultrasound 06/17/17 0000 Signed Impressions: Service Date/Time: June 15:04 - CONCLUSION: Tiny echogenic foci in both kidneys with no definite shadowing. These could represent small stones. There is no evidence of hydronephrosis. Dez Taylor MD Chest X-Ray 06/16/17 0500 Signed Impressions: Service Date/Time: Friday, June 16, 2017 04:32 - CONCLUSION: 1. Removal of previous endotracheal tube and nasogastric tube. Mild basilar airspace disease with small left effusion similar to prior exam. Brian Ortiz MD Lower Extremity Ultrasound 06/10/17 0000 Signed Impressions: Service Date/Time: May 21:20 - CONCLUSION: Venous mapping as above. Herbert Cramer MD Carotid Artery Ultrasound 06/10/17 0000 Signed Impressions: Service Date/Time: May 20:37 - CONCLUSION: Mild atherosclerotic plaque of both carotid bifurcations. No hemodynamically significant stenosis. Benton Quiroz MD Foot X-Ray 06/09/17 0000 Signed Impressions: Service Date/Time: Friday, June 09, 2017 18:15 - CONCLUSION: 1. Bony destructive changes at the fifth metatarsal most characteristic of osteomyelitis. MRI pending. Brian Ortiz MD Foot MRI 06/09/17 0000 Signed Impressions: Service Date/Time: Friday, June 09, 2017 13:20 - CONCLUSION: 1. Osteomyelitis of the entire fifth metatarsal with bone destruction distally. Also osteomyelitis proximal phalanx fifth toe with displacement from the destructive change at the distal fifth metatarsal. There is surrounding edema and cellulitis. Brian Ortiz MD Objective Remarks GENERAL: This is a well-nourished, well-developed patient, in no apparent distress. SKIN: Right groin area with ecchymosis but no induration or tenderness palpation. CARDIOVASCULAR: Regular rate and rhythm without murmurs, gallops, or rubs. No JVD. RESPIRATORY: Clear to auscultation. Breath sounds equal bilaterally. No wheezes , rales, or rhonchi. GASTROINTESTINAL: Abdomen soft, non-tender, nondistended. No guarding. MUSCULOSKELETAL: Extremities without clubbing, cyanosis, or edema. Right lateral foot has an open ulcerating wound with serosanguineous drainage. No erythema around the ulcerating wound. A/P Problem List: (1) Osteomyelitis of right foot ICD Code: M86.9 - Osteomyelitis, unspecified Status: Acute (2) Coronary artery disease ICD Code: I25.10 - Atherosclerotic heart disease of [place] coronary artery without angina pectoris (3) CKD (chronic kidney disease) stage 3, GFR 30-59 ml/min ICD Code: N18.3 - Chronic kidney disease, stage 3 (moderate) (4) Diabetes mellitus ICD Code: E11.9 - Type 2 diabetes mellitus without complications Assessment and Plan Mr. Zamora is a pleasant 76-year-old with a history of diabetes, CAD who was sent to the hospital by his [facility] tender assistant due to suspected right foot osteomyelitis. Right foot osteomyelitis of the fifth metatarsal with abscess. -Most likely underlying cause due to Diabetic foot ulcer, right foot. -s/p IV Ceftriaxone 2g Q24hrs and IV Vancomycin -Infectious disease following on Cefazolin -Patient is not cleared by supervisor long goods for surgery. Per Dr. Melgar dam tender assistant she recommends for surgery once patient is cleared by supervisor long goods and stated to call her when patient is clear. Severe multivessel disease -Status post cardiac catheterization by Dr. kaminski -Patient scheduled for cardiac bypass on Wednesday. Diabetes mellitus -Patient does not take any diabetic medications. He manages his DM with diet/ lifestyle modifications and cinnamon tabs. -Continue with low sliding scale insulin. Blood sugar seems to be controlled. -Patient may benefit from metformin upon discharge if GFR > 45 CKD stage III - Avoid nephrotoxins. -Continue to monitor and trend. Depression -continue Fluoxetine DVT Prophylaxis. -Heparin. Physical deconditioning -Consult PT. Discharge Planning S/p cardiac bypass on Wednesday06/15/17. Improving DC once he is cleared by supervisor long goods after surgery., ID . Patient can't have foot surgery for 2 weeks after CABG per surgeon. Might consider short term rehab and to follow up as Op with podiatry for foor surgery Problem Qualifiers (1) Osteomyelitis of right foot: Qualified Codes: M86.9 - Osteomyelitis, unspecified Karina Clements MD Jun 17, 2017 07:59
[2017-06-17] MEDS: POLYETHYLENE GLYCOL 17 GM PKG PO SCH (08:15)
[2017-06-17] MEDS: MULTIVITAMINS/MINERALS THERAPEUTIC TAB PO SCH (08:16)
[2017-06-17] MEDS: ceFAZolin 2 GM PREMIX 50 ML IV SCH ×3 (08:16→23:20)
[2017-06-17] MEDS: ASPIRIN 81 MG CHEW TAB PO SCH (08:16)
[2017-06-17] MEDS: MAGNESIUM HYDROXIDE SUSP 30 ML CUP PO SCH (08:16)
[2017-06-17] MEDS: FLUoxetine HCL 20 MG CAP PO SCH (08:16)
[2017-06-17] MEDS: DOCUSATE SODIUM 100 MG CAP PO SCH ×2 (08:17→21:17)
[2017-06-17] MEDS: SODIUM CHLORIDE 0.9% FLUSH 10 ML FLUSH IV FLUSH SCH ×2 (08:17→21:17)
[2017-06-17] MEDS: amLODIPine BESYLATE 5 MG TAB PO SCH (08:19)
[2017-06-17] MEDS: FERROUS SULFATE 325 MG (65 MG ELEMENTAL IRON) TAB PO SCH ×2 (11:32→17:04)
--- NOTE | 2017-06-17 14:18 | PD.CONS ---
[facility] Service Nephrology Consult Requested By Dr. Lennon Reason for Consult Acute renal failure Primary Care Physician [facility] History of Present Illness Patient is a 76-year-old white male with history of diabetes, foot infection, who has coronary artery disease and underwent coronary artery bypass grafting on 06/15/17, patient has progressive renal insufficiency he has a Ramsey catheter was taken out but has difficulty in passing urine, he denies any shortness of breath the has weight gain since surgery his creatinine is 2.23 from baseline of 1.14. He denies any prostate problems or kidney stones in the past. Review of Systems Constitutional: COMPLAINS OF: Fatigue Respiratory: COMPLAINS OF: Shortness of breath Cardiovascular: COMPLAINS OF: Chest pain, Orthopnea Musculoskeletal: COMPLAINS OF: Back pain Neurologic: COMPLAINS OF: Abnormal gait Past Family Social History Allergies: Coded Allergies: niacin (Verified Allergy, Severe, rash, 06/09/17) Past Medical History AAA Arthritis Depression CAD DM GERD Renal failure Past Surgical History CABG carotid endarterectomy cholecystectomy amputation of toes L foot Reported Medications Reported Meds & Active Scripts Active Reported Zantac (Ranitidine HCl) 150 Mg Tab 150 Mg PO BID Before breakfast and dinner Potassium Chloride ER (Potassium Chloride) 20 Meq Tab 20 Meq PO DAILY Ditropan (Oxybutynin Chloride) 5 Mg Tab 5 Mg PO Q12HR Omeprazole 20 Mg Tab 20 Mg PO BID Take prior to the same meals each day Magnesium Oxide 400 Mg Tab 400 Mg PO DAILY Losartan (Losartan Potassium) 100 Mg Tab 100 Mg PO DAILY Systane Overnight Therapy (Hypromellose (Ophth)) 0.3 % Gel 1 Applic EACH EYE BID Pure & Gentle Lubricant (Hypromellose (Ophth)) 0.3 % Alvino 1 Drop EACH EYE QID Hydrocortisone 2.5 % Crm.pe.shanti 1 Applic TOPICAL BID Guaifenesin 400 Mg Tab 800 Mg PO BID Lasix (Furosemide) 40 Mg Tab 40 Mg PO BID Prozac (Fluoxetine HCl) 20 Mg Cap 20 Mg PO DAILY Fluocinonide Topical (Fluocinonide) 0.05% Cream 1 Applic TOPICAL BID PRN Apply thin layer to affected area(s) Fish Oil 1000 mg (Lewis-3 Fatty Acids) 300 Mg-1,000 Mg Cap 2,000 Mg PO DAILY Cardizem LA (Diltiazem ER 24 HR) 300 Mg Julio 300 Mg PO DAILY Vitamin B-12 (Cyanocobalamin) 1,000 Mcg Tab 1,000 Mcg PO DAILY Plavix (Clopidogrel Bisulfate) 75 Mg Tab 75 Mg PO DAILY Cipro (Ciprofloxacin HCl) 500 Mg Tab 500 Mg PO BID Sm Cinnamon (Cinnamon) 500 Mg Cap 1 Cap PO DAILY Genteal Severe Opth Gel (Hypromellose) 0.25-0.3% Gel 1 Drop EACH EYE QID PRN Iodosorb Topical (Cadexomer Iodine) 0.9% Gel 1 Applic TOPICAL DAILY Apply small amount to affected area on skin Lipitor (Atorvastatin Calcium) 40 Mg Tab 20 Mg PO HS Aspirin Adult Low Strength (Aspirin) 81 Mg Tabdr 81 Mg PO DAILY Zyloprim (Allopurinol) 300 Mg Tab 300 Mg PO DAILY Active Ordered Medications Current Medications Medications (Trade) Dose Ordered Sig/Sierra Route Start Time Stop Time Status Last Admin (Tylenol) 650 mg Q4H PRN PO 06/09/17 13:15 06/10/17 15:51 (Narcan Inj) 0.4 mg UNSCH PRN IV PUSH 06/09/17 13:15 (Senokot) 17.2 mg Q12H PRN PO 06/09/17 13:15 (Dulcolax Supp) 10 mg DAILY PRN RECTAL 06/09/17 13:15 (Lactulose Liq) 30 ml DAILY PRN PO 06/09/17 13:15 (Lipitor) 20 mg HS PO 06/09/17 21:00 06/16/17 20:59 (PROzac) 20 mg DAILY PO 06/10/17 09:00 06/17/17 08:16 ([place] 5-325 Mg) 1 tab Q6H PRN PO 06/09/17 17:00 06/17/17 00:09 Cefazolin Sodium/ Dextrose 50 ml @ 150 mls/hr Q8H IV 06/10/17 16:00 06/17/17 08:16 (Norvasc) 5 mg DAILY PO 06/14/17 09:00 06/17/17 08:19 (Pill Splitter) 1 ea UNSCH PRN OTHER 06/14/17 09:15 (NS Flush) 2 ml BID IV FLUSH 06/15/17 21:00 06/17/17 08:17 (NS Flush) 2 ml UNSCH PRN IV FLUSH 06/15/17 13:00 (Aspirin Chew) 81 mg DAILY PO 06/16/17 09:00 06/17/17 08:16 (Protonix) 40 mg DAILY@06 PO 06/16/17 06:00 06/17/17 06:00 (Zofran Inj) 4 mg Q6H PRN IV PUSH 06/15/17 13:00 (Apresoline Inj) 10 mg Q4H PRN IV PUSH 06/15/17 13:00 (Duoneb Neb) 1 ampule Q2HR NEB PRN NEB 06/15/17 13:00 (Duoneb Neb) 1 ampule Q6HR WHILE AWAKE NEB NEB 06/16/17 14:00 06/18/17 13:59 06/17/17 13:34 (Colace) 100 mg BID PO 06/16/17 21:00 06/17/17 08:17 (Theragran M Tab) 1 tab DAILY PO 06/16/17 09:00 06/17/17 08:16 (Milk Of Magnesia Liq) 30 ml DAILY PO 06/16/17 09:00 06/17/17 08:16 (Dulcolax Supp) 10 mg UNSCH PRN RECTAL 06/16/17 09:00 (Miralax) 17 gm DAILY PO 06/17/17 09:00 06/17/17 08:15 (Senokot) 8.6 mg HS PO 06/16/17 21:00 06/16/17 21:00 (Fleets Enema (Adult)) 118 ml UNSCH PRN RECTAL 06/16/17 09:00 (D50w (Vial) Inj) 50 ml UNSCH PRN IV PUSH 06/16/17 09:00 (Glucagon Inj) 1 mg UNSCH PRN OTHER 06/16/17 09:00 (Cordarone) 400 mg Q12H PO 06/16/17 18:00 06/17/17 06:00 (NovoLOG SUPPLEMENTAL SCALE) 1 ACHS SQ 06/17/17 12:00 06/17/17 11:32 (Ferrous Sulfate) 325 mg BID@12,17 PO 06/16/17 13:00 06/17/17 11:32 Family History Noncontributory Social History History of smoking quit in Physical Exam Vital Signs Vital Signs Date Time Temp Pulse Resp B/P (MAP) Pulse Ox O2 Delivery O2 Flow Rate FiO2 06/17/17 14:06 81 06/17/17 13:02 84 06/17/17 12:08 80 06/17/17 11:02 81 06/17/17 11:02 98.2 78 20 107/55 (72) 98 06/17/17 11:02 98 Nasal Cannula 2.00 06/17/17 10:01 90 06/17/17 09:19 81 06/17/17 08:00 98.6 84 20 115/58 (77) 93 06/17/17 08:00 93 Nasal Cannula 2.00 06/17/17 08:00 81 06/17/17 07:34 92 Nasal Cannula 3.00 06/17/17 06:32 81 06/17/17 05:24 82 06/17/17 04:16 83 06/17/17 03:40 98.0 83 19 119/58 (78) 95 06/17/17 03:40 95 Nasal Cannula 2.00 06/17/17 03:40 84 06/17/17 02:11 87 06/17/17 01:08 88 06/17/17 00:00 89 06/16/17 23:30 98.2 90 20 109/53 (71) 96 06/16/17 23:30 91 06/16/17 23:30 96 Nasal Cannula 2.00 06/16/17 22:53 92 06/16/17 21:00 92 06/16/17 20:00 90 06/16/17 19:52 97 Nasal Cannula 3.00 06/16/17 19:30 81 06/16/17 19:30 98.5 84 19 111/54 (73) 96 06/16/17 19:30 96 Nasal Cannula 2.00 06/16/17 18:00 80 06/16/17 17:00 78 06/16/17 16:00 78 06/16/17 15:10 97.9 79 18 117/58 (77) 97 Arterial Line 06/16/17 15:10 Nasal Cannula 2.00 06/16/17 15:00 80 Physical Exam GENERAL: Well-nourished, well-developed patient. SKIN: Warm and dry. HEAD: Normocephalic. EYES: No scleral icterus. No injection or drainage. NECK: Supple, trachea midline. No JVD or lymphadenopathy. CARDIOVASCULAR: Regular rate and rhythm without murmurs, gallops, or rubs. RESPIRATORY: Breath sounds diminished at bases. GASTROINTESTINAL: Abdomen soft, non-tender, nondistended. EXTREMITIES: No cyanosis, 2+ edema. NEUROLOGICAL: Awake, alert, and oriented x 3. Non-focal. Laboratory Laboratory Tests Test 06/17/17 04:45 White Blood Count 10.0 Red Blood Count 2.55 Hemoglobin 7.8 Hematocrit 23.0 Mean Corpuscular Volume 90.0 Mean Corpuscular Hemoglobin 30.5 Mean Corpuscular Hemoglobin Concent 33.8 Red Cell Distribution Width 16.3 Platelet Count 186 Mean Platelet Volume 7.8 Neutrophils (%) (Auto) 76.5 Lymphocytes (%) (Auto) 12.8 Monocytes (%) (Auto) 9.5 Eosinophils (%) (Auto) 0.5 Basophils (%) (Auto) 0.7 Neutrophils # (Auto) 7.7 Lymphocytes # (Auto) 1.3 Monocytes # (Auto) 1.0 Eosinophils # (Auto) 0.0 Basophils # (Auto) 0.1 CBC Comment DIFF FINAL Differential Comment Blood Urea Nitrogen 36 Creatinine 2.23 Random Glucose 97 Calcium Level 8.0 Magnesium Level 2.6 Sodium Level 139 Potassium Level 4.8 Chloride Level 105 Carbon Dioxide Level 26.8 Anion Gap 7 Estimat Glomerular Filtration Rate 29 Date/Time Source Procedure Growth Status 06/09/17 11:45 Blood Peripheral Aerobic Blood Culture - Final NO GROWTH IN 5 DAYS Complete 06/09/17 11:45 Blood Peripheral Anaerobic Blood Culture - Final NO GROWTH IN 5 DAYS Complete 06/09/17 12:00 Wound Foot Gram Stain - Final Complete 06/09/17 12:00 Wound Culture - Final Staphylococcus Aureus Complete Result Diagram: 06/17/17 0445 06/17/17 0445 Imaging Last Impressions Chest X-Ray 06/16/17 0500 Signed Impressions: Service Date/Time: Friday, June 16, 2017 04:32 - CONCLUSION: 1. Removal of previous endotracheal tube and nasogastric tube. Mild basilar airspace disease with small left effusion similar to prior exam. Brian Ortiz MD Lower Extremity Ultrasound 06/10/17 0000 Signed Impressions: Service Date/Time: May 21:20 - CONCLUSION: Venous mapping as above. Herbert Cramer MD Carotid Artery Ultrasound 06/10/17 0000 Signed Impressions: Service Date/Time: May 20:37 - CONCLUSION: Mild atherosclerotic plaque of both carotid bifurcations. No hemodynamically significant stenosis. Benton Quiroz MD Foot X-Ray 06/09/17 0000 Signed Impressions: Service Date/Time: Friday, June 09, 2017 18:15 - CONCLUSION: 1. Bony destructive changes at the fifth metatarsal most characteristic of osteomyelitis. MRI pending. Brian Ortiz MD Foot MRI 06/09/17 0000 Signed Impressions: Service Date/Time: Friday, June 09, 2017 13:20 - CONCLUSION: 1. Osteomyelitis of the entire fifth metatarsal with bone destruction distally. Also osteomyelitis proximal phalanx fifth toe with displacement from the destructive change at the distal fifth metatarsal. There is surrounding edema and cellulitis. Brian Ortiz MD Assessment and Plan Problem List: (1) Acute renal failure ICD Codes: N17.9 - Acute kidney failure, unspecified Plan: Patient needs to be diuresed. I will give her albumin with Lasix Monitor intake and output Avoid dye studies Avoid nephrotoxins Get kidney ultrasound Follow BMP (2) Osteomyelitis of right foot ICD Codes: M86.9 - Osteomyelitis, unspecified Status: Acute Plan: ID was following (3) S/P CABG x 4 ICD Codes: Z95.1 - Presence of aortocoronary bypass graft Plan: Continue to monitor (4) Diabetes mellitus ICD Codes: E11.9 - Type 2 diabetes mellitus without complications Plan: Monitor blood glucose Problem Qualifiers (1) Osteomyelitis of right foot: Qualified Codes: M86.9 - Osteomyelitis, unspecified Jairo Delgado MD Jun 17, 2017 14:18
--- NOTE | 2017-06-17 14:29 | PD.CAR.PN ---
CVT Progress Note Subjective/Hospital Course: A 76-year-old male patient of Dr. Henderson, Dr. Quezada podiatry, Dr. Shelby at the [facility], history of right foot diabetic ulcer, was evaluated by the [facility] landscaper who obtained an x-ray which shows some bony destruction of the fifth metatarsal indicating some osteomyelitis. The patient had been on Cipro without any improvement of his wound. He has had this wound since February 2017. He has undergone multiple interventions on his foot. He was seen by podiatry on this admission. There is a wound on the fifth metatarsal head, apparently with some purulence and some mild erythema and edema. Plan would be for further foot surgery. 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 Apparently, they are waiting to possibly do surgery under local anesthesia to reduce the risk of further infection. The patient, in the meantime, also had a recent abnormal stress test at the [facility] in [place] and was referred to Dr. Gloria Braun as an outpatient, but did not meet that appointment or was unable to see her at this time so he was evaluated by Dr. Henderson and underwent cardiac cath on the which showed an ejection fraction of 45%, left main disease, a 60% stenosis in the distal portion. The LAD had an 80% stenosis in the mid portion. The circ had a 90% and 80% stenosis in the proximal portion and a 90% stenosis in the mid portion. The RCA was totally occluded with distal RCA filling by [id number] collaterals. We were consulted to evaluate for coronary artery bypass grafting. PAST MEDICAL HISTORY: Osteoarthritis, Colon polyps, Diabetes mellitus, Coronary artery disease, History of aortic abdominal aneurysm which is followed by the [facility]. He says it is still very small, Gastroesophageal reflux disease, Chronic kidney disease., right CEA 06/11 pt currently being treated for antibiotics for right diabetic foot with osteomyelitis, will need to wait until after CABG for foot surgery tentatively planned for Tu06/15 ECHO : EF 55-60, mild , trace AI, trace TR 06/12/16 No complaints today. Denies chest pain Anemic 06/14/17 for surgery in am then to be evaluate for left foot surgery after recovery denies pain family at bedside 06/15 surgery: CABG x 4, Hines to LAd - good, SVG to RI - good, SVG to D1 - good, SVG to PDA - poor, L EVH extubated at 5pm last evening, + solumedrol, crystalloid 2500cc, cell saver 750cc, 1200cc EBL 2 units PRBC 06/16 up in chair, weak, slightly confused creatinine 1.61no diuresis today aggressive pulm toileting weaned off dobutamine and insulin gtt will transfer to stepdown later today 06/17 up in chair , chest tube drained 180cc/ 12 hrs / will leave in place worsening renal indices/ consult nephro HGB 7.8/ transfuse one unit PRBC, then diuresis will need rehab at discharge / less confused today Objective: GENERAL: A&O SKIN: Warm and dry. prevena dressing to chest , incision intact to leg HEAD: Normocephalic. EYES: No scleral icterus. No injection or drainage. NECK: Supple, trachea midline. No JVD or lymphadenopathy. CARDIOVASCULAR: Regular rate and rhythm without murmurs, gallops, or rubs. RESPIRATORY: chest tube to wall suction, no air leak / drained 180cc/ 12 hrs Breath sounds equal bilaterally. No accessory muscle use. GASTROINTESTINAL: Abdomen soft, non-tender, nondistended. MUSCULOSKELETAL: No cyanosis, or edema. BACK: Nontender without obvious deformity. No CVA tenderness. Vital Signs Date Time Temp Pulse Resp B/P (MAP) Pulse Ox O2 Delivery O2 Flow Rate FiO2 06/17/17 14:06 81 06/17/17 13:02 84 06/17/17 12:08 80 06/17/17 11:02 81 06/17/17 11:02 98.2 78 20 107/55 (72) 98 06/17/17 11:02 98 Nasal Cannula 2.00 06/17/17 10:01 90 06/17/17 09:19 81 06/17/17 08:00 98.6 84 20 115/58 (77) 93 06/17/17 08:00 93 Nasal Cannula 2.00 06/17/17 08:00 81 06/17/17 07:34 92 Nasal Cannula 3.00 06/17/17 06:32 81 06/17/17 05:24 82 06/17/17 04:16 83 06/17/17 03:40 98.0 83 19 119/58 (78) 95 06/17/17 03:40 95 Nasal Cannula 2.00 06/17/17 03:40 84 06/17/17 02:11 87 06/17/17 01:08 88 06/17/17 00:00 89 06/16/17 23:30 98.2 90 20 109/53 (71) 96 06/16/17 23:30 91 06/16/17 23:30 96 Nasal Cannula 2.00 06/16/17 22:53 92 06/16/17 21:00 92 06/16/17 20:00 90 06/16/17 19:52 97 Nasal Cannula 3.00 06/16/17 19:30 81 06/16/17 19:30 98.5 84 19 111/54 (73) 96 06/16/17 19:30 96 Nasal Cannula 2.00 06/16/17 18:00 80 06/16/17 17:00 78 06/16/17 16:00 78 06/16/17 15:10 97.9 79 18 117/58 (77) 97 Arterial Line 06/16/17 15:10 Nasal Cannula 2.00 06/16/17 15:00 80 Labs: Laboratory Tests Test 06/17/17 04:45 White Blood Count 10.0 TH/MM3 (4.0-11.0) Red Blood Count 2.55 MIL/MM3 (4.50-5.90) Hemoglobin 7.8 GM/DL (13.0-17.0) Hematocrit 23.0 % (39.0-51.0) Mean Corpuscular Volume 90.0 FL (80.0-100.0) Mean Corpuscular Hemoglobin 30.5 PG (27.0-34.0) Mean Corpuscular Hemoglobin Concent 33.8 % (32.0-36.0) Red Cell Distribution Width 16.3 % (11.6-17.2) Platelet Count 186 TH/MM3 (150-450) Mean Platelet Volume 7.8 FL (7.0-11.0) Neutrophils (%) (Auto) 76.5 % (16.0-70.0) Lymphocytes (%) (Auto) 12.8 % (9.0-44.0) Monocytes (%) (Auto) 9.5 % (0.0-8.0) Eosinophils (%) (Auto) 0.5 % (0.0-4.0) Basophils (%) (Auto) 0.7 % (0.0-2.0) Neutrophils # (Auto) 7.7 TH/MM3 (1.8-7.7) Lymphocytes # (Auto) 1.3 TH/MM3 (1.0-4.8) Monocytes # (Auto) 1.0 TH/MM3 (0-0.9) Eosinophils # (Auto) 0.0 TH/MM3 (0-0.4) Basophils # (Auto) 0.1 TH/MM3 (0-0.2) CBC Comment DIFF FINAL Differential Comment Blood Urea Nitrogen 36 MG/DL (7-18) Creatinine 2.23 MG/DL (0.60-1.30) Random Glucose 97 MG/DL (74-106) Calcium Level 8.0 MG/DL (8.5-10.1) Magnesium Level 2.6 MG/DL (1.5-2.5) Sodium Level 139 MEQ/L (136-145) Potassium Level 4.8 MEQ/L (3.5-5.1) Chloride Level 105 MEQ/L (98-107) Carbon Dioxide Level 26.8 MEQ/L (21.0-32.0) Anion Gap 7 MEQ/L (5-15) Estimat Glomerular Filtration Rate 29 ML/MIN (>89) Result Diagram: 06/17/1744406/17/17444 Telemetry: NSR (1) Coronary artery disease (2) S/P CABG x 4 Plan: ASA, statin eval to start BB in am / dc norvasc decrease amiodarone dose HR 70's aggressive pulm toileting PT/OT (3) Osteomyelitis of right foot Plan: podiatry following , on antibiotics ok for surgery in 2 weeks from CABG/ will need to be eval for rehab in the meantime (4) Diabetes mellitus Plan: insulin sliding scale diabetic diet HGB A1C 6.0 (5) CKD (chronic kidney disease) stage 3, GFR 30-59 ml/min Plan: creatinine 1.5 > 1.6 > 2.23 nephro consult (6) Chronic anemia Plan: start ferrous sulfate transfuse one unit PRBC Problem Qualifiers (1) Osteomyelitis of right foot: Qualified Codes: M86.9 - Osteomyelitis, unspecified Lynn Larios Jun 17, 2017 14:29
[2017-06-17] MEDS ORDERED: ALBUMIN 25% INJ 100 ML IV SCH (15:00)
[2017-06-17] MEDS ORDERED: FUROSEMIDE 20 MG/2 ML VIAL IV PUSH ONE (15:00)
[2017-06-17 15:02] LABS: HEMATOCRIT 23.4 % (39.0-51.0); HEMOGLOBIN 7.6 GM/DL (13.0-17.0)
--- NOTE | 2017-06-17 15:47 | RADRPT ---
EXAM DATE/TIME: 06/17/2017 15:04 [facility] COMPARISON: No previous studies available for comparison. INDICATIONS : Increased BUN/creatinine. MEDICAL HISTORY : Aneurysm, abdominal. Arthritis. Osteoarthritis. Coronary artery disease. Dyspnea. Colon polyp. GERD. Renal failure. Diabetes. Tobacco use. Anticoagulant therapy. SURGICAL HISTORY : Carotid endarterectomy. Cholecystectomy. Amputation of left three toes. ENCOUNTER: Initial ACUITY: 1 day PAIN SCORE: 0/10 LOCATION: Bilateral flank MEASUREMENTS: RIGHT KIDNEY: 11.7 x 5.0 x 5.7 cm LEFT KIDNEY: 10.9 x 3.7 x 6.1 cm FINDINGS: Shows a small suboptimal secondary to the patient's body habitus. RIGHT KIDNEY: Renal cortex is normal in thickness and echotexture. No hydronephrosis or solid mass. There is a si mple appearing cyst measuring 2.7 x 2.3 x 2.4 cm in the upper pole. There are tiny echogenic foci in the central kidney with no definite shadowing. LEFT KIDNEY: Renal cortex is normal in thickness and echotexture. No hydronephrosis or mass. There are several ti ny echogenic foci in the central kidney without definite shadowing. BLADDER: Within normal limits given the degree of distension. CONCLUSION: Tiny echogenic foci in both kidneys with no definite shadowing. These could represent small stones. There is no evidence of hydronephrosis. Dez Taylor MD on June 17, 2017 at 15:41 Board Certified Radiologist. This report was verified electronically.
[2017-06-17] MEDS: FUROSEMIDE 40 MG/4 ML VIAL IV PUSH SCH (17:04)
[2017-06-17] MEDS: SENNOSIDES 8.6 MG TAB PO SCH (21:17)
[2017-06-17] MEDS: ATORVASTATIN 20 MG TAB PO SCH (21:17)
[2017-06-18] VITALS (28 sets, daily range): BP systolic 123–141; BP diastolic 57–64; PULSE 62–85; RESP 18–20; TEMP 97.4–98.9; O2SAT 94–96
[2017-06-18 04:59] LABS: HEMATOCRIT 22.7 % (39.0-51.0); HEMOGLOBIN 7.8 GM/DL (13.0-17.0); MEAN CELL VOLUME 89.4 FL (80.0-100.0); MEAN CORPUSCULAR HEMOGLOBIN 30.9 PG (27.0-34.0); MEAN CORPUSCULAR HGB CONC 34.6 % (32.0-36.0); MEAN PLATELET VOLUME 7.7 FL (7.0-11.0); PLATELET COUNT 175 TH/MM3 (150-450); RED BLOOD COUNT 2.54 MIL/MM3 (4.50-5.90); RED CELL DISTRIBUTION WIDTH 16.6 % (11.6-17.2); WHITE BLOOD COUNT 8.8 TH/MM3 (4.0-11.0)
[2017-06-18] MEDS: PANTOPRAZOLE SOD 40 MG DELAYED RELEASE TAB PO SCH (05:26)
[2017-06-18] MEDS: AMIODARONE 200 MG TAB PO SCH ×2 (05:26→17:32)
[2017-06-18] MEDS ORDERED: ALBUMIN 25% INJ 100 ML IV ONE (05:27)
[2017-06-18 05:40] LABS: BICARBONATE 27.5 MEQ/L (21.0-32.0); CALCIUM 8.5 MG/DL (8.5-10.1); CREATININE 2.05 MG/DL (0.60-1.30)
[2017-06-18] MEDS: ALBUMIN 25% INJ 100 ML IV SCH ×2 (06:30→17:40)
[2017-06-18] MEDS: RESP: ALBUTEROL 2.5 MG/IPRATROPIUM 0.5 MG NEB (SCH) NEB ×2 (07:19→11:11)
--- NOTE | 2017-06-18 07:38 | HHI.PR ---
Subjective Remarks Waking up. Feeling very tired. SOB improved. No fever or chills. No pain in his chest. No n/v/d/c. Objective Vitals Vital Signs Date Time Temp Pulse Resp B/P (MAP) Pulse Ox O2 Delivery O2 Flow Rate FiO2 06/18/17 07:19 Nasal Cannula 2.00 06/18/17 06:00 76 06/18/17 05:00 74 06/18/17 04:00 65 06/18/17 03:20 96 Nasal Cannula 3.00 06/18/17 03:20 98.3 78 18 137/63 (87) 96 06/18/17 03:00 75 06/18/17 02:00 85 06/18/17 01:00 77 06/18/17 00:00 83 06/17/17 23:10 98.2 82 18 150/65 (93) 96 06/17/17 23:10 96 Nasal Cannula 3.00 06/17/17 23:00 80 06/17/17 22:00 88 06/17/17 21:14 98.4 84 16 118/57 97 06/17/17 21:00 84 06/17/17 20:00 88 06/17/17 19:45 98.0 81 18 141/66 (91) 98 06/17/17 19:45 98 Nasal Cannula 3.00 06/17/17 19:00 77 06/17/17 18:14 98.2 79 18 114/56 97 06/17/17 18:10 98.2 80 18 115/56 97 06/17/17 18:09 81 06/17/17 18:06 98.1 81 18 120/56 97 06/17/17 18:02 98.2 82 20 123/60 96 06/17/17 17:07 82 06/17/17 16:09 18 06/17/17 16:03 82 06/17/17 15:21 99 Nasal Cannula 2.00 06/17/17 15:21 97.7 84 20 134/60 (84) 98 06/17/17 15:21 83 06/17/17 14:06 81 06/17/17 13:02 84 06/17/17 12:08 80 06/17/17 11:02 81 06/17/17 11:02 98.2 78 20 107/55 (72) 98 06/17/17 11:02 98 Nasal Cannula 2.00 06/17/17 10:01 90 06/17/17 09:19 81 06/17/17 08:00 98.6 84 20 115/58 (77) 93 06/17/17 08:00 93 Nasal Cannula 2.00 06/17/17 08:00 81 I/O 06/17/17 06/17/17 06/17/17 06/18/17 06/18/17 06/18/17 07:00 15:00 23:00 07:00 15:00 23:00 Intake Total 240 ml 1110 ml 290 ml Output Total 505 ml 610 ml 1530 ml Balance -265 ml 500 ml -1240 ml Intake Oral 240 ml 480 ml 240 ml IV Total 200 ml 50 ml Packed Cells 400 ml Blood Product IV Normal Saline Flush 30 ml Output Urine Total 425 ml 500 ml 1100 ml Chest Tube Drainage Total 80 ml 110 ml 430 ml # Voids 4 # Bowel Movements 0 0 1 Result Diagram: 06/18/17 0445 06/18/17 0445 Imaging Last Impressions Renal Ultrasound 06/17/17 0000 Signed Impressions: Service Date/Time: June 15:04 - CONCLUSION: Tiny echogenic foci in both kidneys with no definite shadowing. These could represent small stones. There is no evidence of hydronephrosis. Dez Taylor MD Chest X-Ray 06/16/17 0500 Signed Impressions: Service Date/Time: Friday, June 16, 2017 04:32 - CONCLUSION: 1. Removal of previous endotracheal tube and nasogastric tube. Mild basilar airspace disease with small left effusion similar to prior exam. Brian Ortiz MD Lower Extremity Ultrasound 06/10/17 0000 Signed Impressions: Service Date/Time: May 21:20 - CONCLUSION: Venous mapping as above. Herbert Cramer MD Carotid Artery Ultrasound 06/10/17 0000 Signed Impressions: Service Date/Time: May 20:37 - CONCLUSION: Mild atherosclerotic plaque of both carotid bifurcations. No hemodynamically significant stenosis. Benton Quiroz MD Foot X-Ray 06/09/17 0000 Signed Impressions: Service Date/Time: Friday, June 09, 2017 18:15 - CONCLUSION: 1. Bony destructive changes at the fifth metatarsal most characteristic of osteomyelitis. MRI pending. Brian Ortiz MD Foot MRI 06/09/17 0000 Signed Impressions: Service Date/Time: Friday, June 09, 2017 13:20 - CONCLUSION: 1. Osteomyelitis of the entire fifth metatarsal with bone destruction distally. Also osteomyelitis proximal phalanx fifth toe with displacement from the destructive change at the distal fifth metatarsal. There is surrounding edema and cellulitis. Brian Ortiz MD Objective Remarks GENERAL: This is a well-nourished, well-developed patient, in no apparent distress. SKIN: Right groin area with ecchymosis but no induration or tenderness palpation. CARDIOVASCULAR: Dressing mid chest post CABG in place c/d/i. Regular rate and rhythm without murmurs, gallops, or rubs. No JVD. RESPIRATORY: Clear to auscultation. Breath sounds equal bilaterally. No wheezes , rales, or rhonchi. GASTROINTESTINAL: Abdomen soft, non-tender, nondistended. No guarding. MUSCULOSKELETAL: Extremities without clubbing, cyanosis, or edema. Right lateral foot has an open ulcerating wound with serosanguineous drainage. No erythema around the ulcerating wound. A/P Problem List: (1) Osteomyelitis of right foot ICD Code: M86.9 - Osteomyelitis, unspecified Status: Acute (2) Coronary artery disease ICD Code: I25.10 - Atherosclerotic heart disease of [place] coronary artery without angina pectoris (3) CKD (chronic kidney disease) stage 3, GFR 30-59 ml/min ICD Code: N18.3 - Chronic kidney disease, stage 3 (moderate) (4) Diabetes mellitus ICD Code: E11.9 - Type 2 diabetes mellitus without complications Assessment and Plan Mr. Zamora is a pleasant 76-year-old with a history of diabetes, CAD who was sent to the hospital by his [facility] event sales manager due to suspected right foot osteomyelitis. Right foot osteomyelitis of the fifth metatarsal with abscess. -Most likely underlying cause due to Diabetic foot ulcer, right foot. -s/p IV Ceftriaxone 2g Q24hrs and IV Vancomycin -Infectious disease following on Cefazolin -Patient is not cleared by police clerk for surgery. Per Dr. Melgar event sales manager she recommends for surgery once patient is cleared by police clerk and stated to call her when patient is clear. Patient however can;t have surgery for at least 2 weeks after CABG per CTS. Severe multivessel disease -Status post cardiac catheterization by Dr. kaminski -Patient scheduled for cardiac bypass on Wednesday. Diabetes mellitus -Patient does not take any diabetic medications. He manages his DM with diet/ lifestyle modifications and cinnamon tabs. -Continue with low sliding scale insulin. Blood sugar seems to be controlled. -Patient may benefit from metformin upon discharge if GFR > 45 CKD stage III - Avoid nephrotoxins. -Continue to monitor and trend. Depression -continue Fluoxetine DVT Prophylaxis. -Heparin. Physical deconditioning -Consult PT. Discharge Planning S/p cardiac bypass on Wednesday06/15/17. Improving. DC once he is cleared by CTS, ID . Patient can't have foot surgery for 2 weeks after CABG per surgeon. Needs rehab and to follow up as OP with podiatry for foot surgery. Problem Qualifiers (1) Osteomyelitis of right foot: Qualified Codes: M86.9 - Osteomyelitis, unspecified Karina Clements MD Jun 18, 2017 07:38
[2017-06-18] MEDS: INSULIN ASPART SUPPLEMENTAL SCALE SQ SCH ×4 (08:00→21:00)
[2017-06-18] MEDS: DOCUSATE SODIUM 100 MG CAP PO SCH ×2 (10:00→20:13)
[2017-06-18] MEDS: MULTIVITAMINS/MINERALS THERAPEUTIC TAB PO SCH (10:01)
[2017-06-18] MEDS: FLUoxetine HCL 20 MG CAP PO SCH (10:01)
[2017-06-18] MEDS: ASPIRIN 81 MG CHEW TAB PO SCH (10:01)
[2017-06-18] MEDS: METOPROLOL TARTRATE 25 MG TAB PO SCH ×2 (10:01→20:14)
[2017-06-18] MEDS: FUROSEMIDE 40 MG/4 ML VIAL IV PUSH SCH ×2 (10:02→17:32)
[2017-06-18] MEDS: ACETAMINOPHEN/HYDROcodone 325 MG/5 MG TAB PO PRN ×2 (10:02→20:14)
[2017-06-18] MEDS: MAGNESIUM HYDROXIDE SUSP 30 ML CUP PO SCH (10:02)
[2017-06-18] MEDS: SODIUM CHLORIDE 0.9% FLUSH 10 ML FLUSH IV FLUSH SCH ×2 (10:02→20:15)
[2017-06-18] MEDS: ceFAZolin 2 GM PREMIX 50 ML IV SCH (10:03)
[2017-06-18] MEDS: POLYETHYLENE GLYCOL 17 GM PKG PO SCH (10:04)
--- NOTE | 2017-06-18 11:30 | RADRPT ---
EXAM DATE/TIME: 06/18/2017 10:22 [facility] COMPARISON: CHEST SINGLE AP, June 16, 2017, 4:32. INDICATIONS : Evaluate for pneumothorax. MEDICAL HISTORY : Aneurysm, abdominal. Arthritis. Osteoarthritis. Coronary artery disease.GERD.Colon polyp. Renal failu re. Diabetes. Right foot ulcer.Dperession. Dperession. SURGICAL HISTORY : Cholecystectomy.Carotid endarterectomy. Left foot 3 toes amputation. ENCOUNTER: Subsequent ACUITY: 1 week PAIN SCORE: 0/10 LOCATION: Bilateral chest FINDINGS: Stable left apical chest tube. No significant pneumothorax. Stable linear opacity in the left upper l andria zone and mild airspace disease in the left lower lung zone. Cardiomediastinal contours are stable . Remainder of the exam is unchanged. CONCLUSION: 1. Left apical chest tube in place without significant pneumothorax. 2. Stable left midlung zone atelectasis and left lower lung zone airspace disease. Jose Juarez MD on June 18, 2017 at 11:21 Board Certified Radiologist. This report was verified electronically.
--- NOTE | 2017-06-18 12:07 | PD.CAR.PN ---
CVT Progress Note Subjective/Hospital Course: A 76-year-old male patient of Dr. Henderson, Dr. Quezada podiatry, Dr. [facility] at [facility], history of right foot diabetic ulcer, was evaluated by the [facility] draftsperson who obtained an x-ray which shows some bony destruction of the fifth metatarsal indicating some osteomyelitis. The patient had been on Cipro without any improvement of his wound. He has had this wound since February 2017. He has undergone multiple interventions on his foot. He was seen by podiatry on this admission. There is a wound on the fifth metatarsal head, apparently with some purulence and some mild erythema and edema. Plan would be for further foot surgery. 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 Apparently, they are waiting to possibly do surgery under local anesthesia to reduce the risk of further infection. The patient, in the meantime, also had a recent abnormal stress test at the [facility] in [place] and was referred to Dr. Gloria Braun as an outpatient, but did not meet that appointment or was unable to see her at this time so he was evaluated by Dr. Henderson and underwent cardiac cath on the which showed an ejection fraction of 45%, left main disease, a 60% stenosis in the distal portion. The LAD had an 80% stenosis in the mid portion. The circ had a 90% and 80% stenosis in the proximal portion and a 90% stenosis in the mid portion. The RCA was totally occluded with distal RCA filling by [id number] collaterals. We were consulted to evaluate for coronary artery bypass grafting. PAST MEDICAL HISTORY: Osteoarthritis, Colon polyps, Diabetes mellitus, Coronary artery disease, History of aortic abdominal aneurysm which is followed by the [facility]. He says it is still very small, Gastroesophageal reflux disease, Chronic kidney disease., right CEA 06/11 pt currently being treated for antibiotics for right diabetic foot with osteomyelitis, will need to wait until after CABG for foot surgery tentatively planned for Tu06/15 ECHO : EF 55-60, mild , trace AI, trace TR 06/12/16 No complaints today. Denies chest pain Anemic 06/14/17 for surgery in am then to be evaluate for left foot surgery after recovery denies pain family at bedside 06/15 surgery: CABG x 4, Hines to LAd - good, SVG to RI - good, SVG to D1 - good, SVG to PDA - poor, L EVH extubated at 5pm last evening, + solumedrol, crystalloid 2500cc, cell saver 750cc, 1200cc EBL 2 units PRBC 06/16 up in chair, weak, slightly confused creatinine 1.61no diuresis today aggressive pulm toileting weaned off dobutamine and insulin gtt will transfer to stepdown later today 06/17 up in chair , chest tube drained 180cc/ 12 hrs / will leave in place worsening renal indices/ consult nephro HGB 7.8/ transfuse one unit PRBC, then diuresis will need rehab at discharge / less confused today 06/18 chest tube drained 430cc/ 12 hrs / no air leak chest tube to gallagher seal/ check cxr in am post one unit PRBC 21/ HGB 7.8/ continue iron supplement PT/OT possible dc wednesday to rehab/ will need f/u and antibiotic therapy at discharge for osteomyelitis right foot Objective: GENERAL: A&O x 3 SKIN: Warm and dry. prevena dressing to chest , incision intact left leg / dressing to right foot HEAD: Normocephalic. EYES: No scleral icterus. No injection or drainage. NECK: Supple, trachea midline. No JVD or lymphadenopathy. CARDIOVASCULAR: Regular rate and rhythm without murmurs, gallops, or rubs. mild lower ext edema RESPIRATORY: Breath sounds equal bilaterally. No accessory muscle use. GASTROINTESTINAL: Abdomen soft, non-tender, nondistended. MUSCULOSKELETAL: No cyanosis, or edema. BACK: Nontender without obvious deformity. No CVA tenderness. Vital Signs Date Time Temp Pulse Resp B/P (MAP) Pulse Ox O2 Delivery O2 Flow Rate FiO2 06/18/17 07:19 Nasal Cannula 2.00 06/18/17 07:00 98.8 75 20 141/64 (89) 95 06/18/17 07:00 75 06/18/17 07:00 95 Nasal Cannula 2.00 06/18/17 06:00 76 06/18/17 05:00 74 06/18/17 04:00 65 06/18/17 03:20 96 Nasal Cannula 3.00 06/18/17 03:20 98.3 78 18 137/63 (87) 96 06/18/17 03:00 75 06/18/17 02:00 85 06/18/17 01:00 77 06/18/17 00:00 83 06/17/17 23:10 98.2 82 18 150/65 (93) 96 06/17/17 23:10 96 Nasal Cannula 3.00 06/17/17 23:00 80 06/17/17 22:00 88 06/17/17 21:14 98.4 84 16 118/57 97 06/17/17 21:00 84 06/17/17 20:00 88 06/17/17 19:45 98.0 81 18 141/66 (91) 98 06/17/17 19:45 98 Nasal Cannula 3.00 06/17/17 19:00 77 06/17/17 18:14 98.2 79 18 114/56 97 06/17/17 18:10 98.2 80 18 115/56 97 06/17/17 18:09 81 06/17/17 18:06 98.1 81 18 120/56 97 06/17/17 18:02 98.2 82 20 123/60 96 06/17/17 17:07 82 06/17/17 16:09 18 06/17/17 16:03 82 06/17/17 15:21 99 Nasal Cannula 2.00 06/17/17 15:21 97.7 84 20 134/60 (84) 98 06/17/17 15:21 83 06/17/17 14:06 81 06/17/17 13:02 84 06/17/17 12:08 80 Labs: Laboratory Tests Test 06/18/17 04:45 White Blood Count 8.8 TH/MM3 (4.0-11.0) Red Blood Count 2.54 MIL/MM3 (4.50-5.90) Hemoglobin 7.8 GM/DL (13.0-17.0) Hematocrit 22.7 % (39.0-51.0) Mean Corpuscular Volume 89.4 FL (80.0-100.0) Mean Corpuscular Hemoglobin 30.9 PG (27.0-34.0) Mean Corpuscular Hemoglobin Concent 34.6 % (32.0-36.0) Red Cell Distribution Width 16.6 % (11.6-17.2) Platelet Count 175 TH/MM3 (150-450) Mean Platelet Volume 7.7 FL (7.0-11.0) Blood Urea Nitrogen 40 MG/DL (7-18) Creatinine 2.05 MG/DL (0.60-1.30) Random Glucose 95 MG/DL (74-106) Calcium Level 8.5 MG/DL (8.5-10.1) Sodium Level 136 MEQ/L (136-145) Potassium Level 4.3 MEQ/L (3.5-5.1) Chloride Level 102 MEQ/L (98-107) Carbon Dioxide Level 27.5 MEQ/L (21.0-32.0) Anion Gap 7 MEQ/L (5-15) Estimat Glomerular Filtration Rate 32 ML/MIN (>89) Result Diagram: 06/18/1744406/18/17444 (1) Coronary artery disease (2) S/P CABG x 4 Plan: ASA, statin BB / decrease amiodarone dose HR 70's aggressive pulm toileting PT/OT (3) Osteomyelitis of right foot Plan: podiatry following , on antibiotics ok for surgery in 2 weeks from CABG/ will need to be eval for rehab in the meantime (4) Diabetes mellitus Plan: insulin sliding scale diabetic diet HGB A1C 6.0 (5) CKD (chronic kidney disease) stage 3, GFR 30-59 ml/min Plan: creatinine 1.5 > 1.6 > 2.23> 2.05 nephro consult (6) Chronic anemia Plan: ferrous sulfate s/p one unit PRBC f/u labs in am Problem Qualifiers (1) Osteomyelitis of right foot: Qualified Codes: M86.9 - Osteomyelitis, unspecified Lynn Larios Jun 18, 2017 12:07
--- NOTE | 2017-06-18 15:32 | HHI.NPPN ---
Subjective History of Present Illness 76 year old DM CAD S/P CABG ARF/CKD Review of Systems General Constitutional: Fatigue Objective Data Data Vital Signs Date Time Temp Pulse Resp B/P (MAP) Pulse Ox O2 Delivery O2 Flow Rate FiO2 06/18/17 12:00 98.9 72 20 123/57 (79) 95 06/18/17 12:00 95 Room Air 06/18/17 07:19 Nasal Cannula 2.00 06/18/17 07:00 98.8 75 20 141/64 (89) 95 06/18/17 07:00 75 06/18/17 07:00 95 Nasal Cannula 2.00 06/18/17 06:00 76 06/18/17 05:00 74 06/18/17 04:00 65 06/18/17 03:20 96 Nasal Cannula 3.00 06/18/17 03:20 98.3 78 18 137/63 (87) 96 06/18/17 03:00 75 06/18/17 02:00 85 06/18/17 01:00 77 06/18/17 00:00 83 06/17/17 23:10 98.2 82 18 150/65 (93) 96 06/17/17 23:10 96 Nasal Cannula 3.00 06/17/17 23:00 80 06/17/17 22:00 88 06/17/17 21:14 98.4 84 16 118/57 97 06/17/17 21:00 84 06/17/17 20:00 88 06/17/17 19:45 98.0 81 18 141/66 (91) 98 06/17/17 19:45 98 Nasal Cannula 3.00 06/17/17 19:00 77 06/17/17 18:14 98.2 79 18 114/56 97 06/17/17 18:10 98.2 80 18 115/56 97 06/17/17 18:09 81 06/17/17 18:06 98.1 81 18 120/56 97 06/17/17 18:02 98.2 82 20 123/60 96 06/17/17 17:07 82 06/17/17 16:09 18 06/17/17 16:03 82 -: 06/18/17 0445 06/18/17 0445 Physical Exam General Appearance: Well Developed, Well Nourished Neck Neck Exam: Neck Supple Pulmonary Resp Exam: Clear Bilaterally, Breath Sounds Equal Cardiology CV Exam: Regular Gastrointestinal/Abdomen GI Exam: Soft, Non-Tender, Bowel Sounds Present Extremeties Extremities Exam: Moderate Edema Assessment/Plan Problem List: (1) Acute renal failure ICD Codes: N17.9 - Acute kidney failure, unspecified Plan: Patient doing better improved UOP with Albumin/Lasix may reduce to daily stop albumin by am, Tiney stone no obstruction on US Follow BMP (2) Osteomyelitis of right foot ICD Codes: M86.9 - Osteomyelitis, unspecified Status: Acute Plan: ID was following (3) S/P CABG x 4 ICD Codes: Z95.1 - Presence of aortocoronary bypass graft Plan: Continue to monitor (4) Diabetes mellitus ICD Codes: E11.9 - Type 2 diabetes mellitus without complications Plan: Monitor blood glucose Problem Qualifiers (1) Osteomyelitis of right foot: Qualified Codes: M86.9 - Osteomyelitis, unspecified Jairo Delgado MD Jun 18, 2017 15:32
--- NOTE | 2017-06-18 17:38 | HHI.IDPN ---
Note Infectious Disease Note ID COVERAGE for Dr Anthony. Background: 76 yo male with diabetes present with chronic R lateral foot wound draining since February He has been followed by individual small group instructor and has been taking Keflex/ cipro , but cont to do worse X-ray done showing bony destruction of the fifth metatarsal consistent with osteomyelitis. Culture is positive for MSSA Patient is post CABG x 4 vessels on 06/15/17. Afebrile. No complaints. Renal function has decreased. MRI showed Osteomyelitis of the entire fifth metatarsal with bone destruction distally. Also osteomyelitis proximal phalanx fifth toe with displacement from the destructive change at the distal fifth metatarsal. 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 ANTIBIOTICS: Cefazolin. OBJECTIVE: Vital Signs Date Time Temp Pulse Resp B/P (MAP) Pulse Ox O2 Delivery O2 Flow Rate FiO2 06/10/17 11:15 99.6 83 17 144/65 (91) 96 06/10/17 10:10 150/86 (107) 06/10/17 08:40 98.8 89 19 165/76 (105) 98 06/10/17 06:00 63 06/10/17 05:00 70 06/10/17 04:00 72 06/10/17 04:00 98.0 72 18 141/66 (91) 96 06/10/17 03:00 69 06/10/17 02:00 70 06/10/17 01:00 68 06/10/17 00:00 97.9 70 18 138/70 (92) 97 06/10/17 00:00 70 06/09/17 23:00 70 06/09/17 22:00 69 06/09/17 21:00 67 06/09/17 20:30 68 06/09/17 20:30 98.0 68 18 130/69 (89) 96 06/09/17 14:50 97.8 72 16 162/84 (110) 98 06/09/17 14:12 98.1 78 16 171/77 (108) 99 Room Air GENERAL: Patient is in no acute distress. HEENT: EOMI, No icterus. NECK: Supple. LUNGS: Clear breath sounds. CARDIAC: Regular rate and rhythm ABDOMEN: Soft, non tender. EXTREMITIES: Right lateral foot has ulcer at the area beyond the base of the 5th toe. No erythema. Serous drainage on the dressing. no purulence. SKIN: No rash. Imaging Foot X-Ray 06/09/17 0000 Signed Impressions: Service Date/Time: Friday, June 09, 2017 18:15 - CONCLUSION: 1. Bony destructive changes at the fifth metatarsal most characteristic of osteomyelitis. MRI pending. Brian Ortiz MD Foot MRI 06/09/17 0000 Signed Impressions: Service Date/Time: Friday, June 09, 2017 13:20 - CONCLUSION: 1. Osteomyelitis of the entire fifth metatarsal with bone destruction distally. Also osteomyelitis proximal phalanx fifth toe with displacement from the destructive change at the distal fifth metatarsal. There is surrounding edema and cellulitis. Brian Ortiz MD Assessment and Plan DFI, osteo R 5th metatarsal head MSSA CAD RECOMMEND: Continue Cefazolin Iv. Adjusted for renal function. Plan on 6 weeks of antibiotics. Surgical debridement per podiatry. - Db Castro MD Jun 18, 2017 17:38
[2017-06-18] MEDS: FERROUS SULFATE 325 MG (65 MG ELEMENTAL IRON) TAB PO SCH (17:40)
--- NOTE | 2017-06-18 17:44 | HHI.FF ---
Infusion Therapy Location of Infusion Therapy: [facility] Infusion Therapy Order Patient Information Patient Weight 128.5 kg Diagnosis: Coded Allergies: niacin (Verified Allergy, Severe, rash, 06/09/17) Administer Medication Cefazolin 1 gram IV q 12 hours Stop Treatment: Jul 21, 2017 Additional Information Venous access: Other Additional Instructions [x] Peripheral flush and dressing changes per protocol [x] Implanted port and central main line station engineer: * Implanted port: 10 ml Normal Saline followed by 5 ml Heparin 100 units/ml Heparin flush after each use and monthly to maintain. [] May leave port accessed during therapy. [] May leave peripheral site accessed for duration of therapy. [x] If patient has SOB or respiratory distress, check oxygen saturation. If less than 90% or clinical signs of respiratory distress, administer oxygen at 2 L/min. via nasal cannula and notify physician. [x] Anaphylaxis/Reaction orders: * Stop infusion. * Keep IV line open with saline flush. * Notify physician. * Monitor vital signs every 15 minutes until symptoms resolve. * Check Oxygen saturation; Oxygen at 2 L/min. via nasal cannula if less than 90% or clinical signs of respiratory distress. * Administer diphenhydramine (Benadryl) 25 mg IV STAT, (unless patient has received as pre-med). May repeat once, if necessary. * Solu-Cortef 250 mg IVP over 30-60 seconds, use 100 mg vials for each dissolution. * Epinephrine (1mg/1 ml) 0.3 mg subcutaneously or IVP now with any signs of respiratory distress. * Check with physician for new additional pre-med orders if patient is re- challenged or re-treated. [x] May remove PICC line when treatment complete, after confirming with Physician. [x] If the patient is admitted to the hospital, the ED, or transferred via EVAC , complete transfer form including medication reconciliation order sheet. Laboratory Tests Weekly Labs: BMP Additional Information Fax labs to Dr Anthony. [phone] Sauceda in 2 weeks. Db Castro MD Jun 18, 2017 17:44
[2017-06-18] MEDS: SENNOSIDES 8.6 MG TAB PO SCH (20:14)
[2017-06-18] MEDS: ATORVASTATIN 20 MG TAB PO SCH (20:14)
[2017-06-18] MEDS ORDERED: ceFAZolin 2 GM PREMIX 50 ML IV SCH (22:00)
[2017-06-19] VITALS (25 sets, daily range): BP systolic 118–154; BP diastolic 56–80; PULSE 59–72; RESP 18–21; TEMP 98–98.5; O2SAT 94–98
[2017-06-19 04:39] LABS: HEMATOCRIT 23.1 % (39.0-51.0); HEMOGLOBIN 7.7 GM/DL (13.0-17.0); MEAN CELL VOLUME 90.2 FL (80.0-100.0); MEAN CORPUSCULAR HEMOGLOBIN 30.1 PG (27.0-34.0); MEAN CORPUSCULAR HGB CONC 33.3 % (32.0-36.0); MEAN PLATELET VOLUME 7.8 FL (7.0-11.0); PLATELET COUNT 185 TH/MM3 (150-450); RED BLOOD COUNT 2.56 MIL/MM3 (4.50-5.90); RED CELL DISTRIBUTION WIDTH 16.6 % (11.6-17.2); WHITE BLOOD COUNT 7.2 TH/MM3 (4.0-11.0)
--- NOTE | 2017-06-19 04:44 | RADRPT ---
EXAM DATE/TIME: 06/19/2017 03:57 [facility] COMPARISON: No previous studies available for comparison. INDICATIONS : Shortness of breath, possible pulmonary disease. MEDICAL HISTORY : Arthritis. Osteoarthritis. Gastroesophageal reflux disease. Abdominal aneurysm Renal failure Diab etes CAD SURGICAL HISTORY : Cholecystectomy. Carotid endarterectomy. ENCOUNTER: Subsequent ACUITY: 1 week PAIN SCORE: 2/10 LOCATION: Bilateral chest FINDINGS: Left-sided chest tube is noted, left lower lobe consolidation, median sternotomy wires. There is a sm all left apical pneumothorax. Chest tube in place. CONCLUSION: Small left-sided pneumothorax. Chest tube in place. Phillip Desai MD on June 19, 2017 at 4:40 Board Certified Radiologist. This report was verified electronically.
[2017-06-19 05:07] LABS: BICARBONATE 28.3 MEQ/L (21.0-32.0); CREATININE 1.81 MG/DL (0.60-1.30)
[2017-06-19] MEDS: AMIODARONE 200 MG TAB PO SCH ×2 (06:06→17:34)
[2017-06-19] MEDS: PANTOPRAZOLE SOD 40 MG DELAYED RELEASE TAB PO SCH (06:06)
[2017-06-19] MEDS: ALBUMIN 25% INJ 100 ML IV SCH (06:10)
--- NOTE | 2017-06-19 07:40 | HHI.PR ---
Subjective Remarks In bed, appears in nad. No chest pain overnight. He is coughing at ties clear / whitish sputum and has chest pain, using pillow for support. Feels weak. Received 1U PRBC yesterday, H/H so far still low but stable. Objective Vitals Vital Signs Date Time Temp Pulse Resp B/P (MAP) Pulse Ox O2 Delivery O2 Flow Rate FiO2 06/19/17 06:00 61 06/19/17 05:00 62 06/19/17 04:00 61 06/19/17 03:30 98.1 62 18 148/65 (92) 98 06/19/17 03:30 98 Nasal Cannula 2.00 06/19/17 03:00 63 06/19/17 02:00 63 06/19/17 01:00 63 06/19/17 00:00 63 06/18/17 23:05 94 Nasal Cannula 2.00 06/18/17 23:00 98.2 65 18 127/60 (82) 94 06/18/17 23:00 66 06/18/17 23:00 89 Room Air 06/18/17 22:00 66 06/18/17 21:00 64 06/18/17 20:00 70 06/18/17 19:45 98.4 69 18 139/63 (88) 96 06/18/17 19:45 96 Room Air 06/18/17 19:39 96 Nasal Cannula 2.00 06/18/17 19:00 68 06/18/17 18:00 66 06/18/17 17:00 64 06/18/17 16:00 64 06/18/17 15:30 97.4 64 20 127/62 (83) 94 06/18/17 15:30 93 Room Air 06/18/17 15:00 62 06/18/17 14:00 68 06/18/17 13:00 66 06/18/17 12:00 72 06/18/17 12:00 98.9 72 20 123/57 (79) 95 06/18/17 12:00 95 Room Air 06/18/17 11:00 74 06/18/17 10:00 82 06/18/17 09:00 76 06/18/17 08:00 78 I/O 06/18/17 06/18/17 06/18/17 06/19/17 06/19/1718 07:00 15:00 23:00 07:00 15:00 23:00 Intake Total 290 ml 1070 ml 460 ml Output Total 1530 ml 910 ml 1280 ml Balance -1240 ml 160 ml -820 ml Intake Oral 240 ml 720 ml 360 ml IV Total 50 ml 350 ml 100 ml Output Urine Total 1100 ml 800 ml 1050 ml Chest Tube Drainage Total 430 ml 110 ml 230 ml # Voids 4 2 # Bowel Movements 1 0 1 Result Diagram: 06/19/17 0353 06/19/17 0353 Imaging Last Impressions Chest X-Ray 06/19/17 0600 Signed Impressions: Service Date/Time: Monday, June 19, 2017 03:57 - CONCLUSION: Small left-sided pneumothorax. Chest tube in place. Phillip Desai MD Renal Ultrasound 06/17/17 0000 Signed Impressions: Service Date/Time: June 15:04 - CONCLUSION: Tiny echogenic foci in both kidneys with no definite shadowing. These could represent small stones. There is no evidence of hydronephrosis. Dez Taylor MD Lower Extremity Ultrasound 06/10/17 0000 Signed Impressions: Service Date/Time: May 21:20 - CONCLUSION: Venous mapping as above. Herbert Cramer MD Carotid Artery Ultrasound 06/10/17 0000 Signed Impressions: Service Date/Time: May 20:37 - CONCLUSION: Mild atherosclerotic plaque of both carotid bifurcations. No hemodynamically significant stenosis. Benton Quiroz MD Foot X-Ray 06/09/17 0000 Signed Impressions: Service Date/Time: Friday, June 09, 2017 18:15 - CONCLUSION: 1. Bony destructive changes at the fifth metatarsal most characteristic of osteomyelitis. MRI pending. Brian Ortiz MD Foot MRI 06/09/17 0000 Signed Impressions: Service Date/Time: Friday, June 09, 2017 13:20 - CONCLUSION: 1. Osteomyelitis of the entire fifth metatarsal with bone destruction distally. Also osteomyelitis proximal phalanx fifth toe with displacement from the destructive change at the distal fifth metatarsal. There is surrounding edema and cellulitis. Brian Ortiz MD Objective Remarks GENERAL: This is a well-nourished, well-developed patient, in no apparent distress. SKIN: Right groin area with ecchymosis but no induration or tenderness palpation. CARDIOVASCULAR: Dressing mid chest post CABG in place c/d/i. Regular rate and rhythm without murmurs, gallops, or rubs. No JVD. RESPIRATORY: Clear to auscultation. Breath sounds equal bilaterally. No wheezes , rales, or rhonchi. GASTROINTESTINAL: Abdomen soft, non-tender, nondistended. No guarding. MUSCULOSKELETAL: Extremities without clubbing, cyanosis, or edema. Right lateral foot has an open ulcerating wound with serosanguineous drainage. No erythema around the ulcerating wound. A/P Problem List: (1) Osteomyelitis of right foot ICD Code: M86.9 - Osteomyelitis, unspecified Status: Acute (2) Coronary artery disease ICD Code: I25.10 - Atherosclerotic heart disease of koi coronary artery without angina pectoris (3) CKD (chronic kidney disease) stage 3, GFR 30-59 ml/min ICD Code: N18.3 - Chronic kidney disease, stage 3 (moderate) (4) Diabetes mellitus ICD Code: E11.9 - Type 2 diabetes mellitus without complications Assessment and Plan Mr. Zamora is a pleasant 76-year-old with a history of diabetes, CAD who was sent to the hospital by his [facility] small [facility] assembler due to suspected right foot osteomyelitis. Right foot osteomyelitis of the fifth metatarsal with abscess. -Most likely underlying cause due to Diabetic foot ulcer, right foot. -s/p IV Ceftriaxone 2g Q24hrs and IV Vancomycin -Infectious disease following on Cefazolin -Patient is not cleared by dethistler operator for surgery. Per Dr. Melgar small parts assembler she recommends for surgery once patient is cleared by dethistler operator and stated to call her when patient is clear. Patient however can't;t have surgery for at least 2 weeks after CABG per CTS. Severe multivessel disease -Status post cardiac catheterization by Dr. kaminski, with multivessel disease -S/p cardiac bypass Anemia postsurgical, also patient on antibiotics with infection S/P transfusion . Monitor H/H transfuse if HGB < 7 or id ,9 and symptomatic. Chest tubes in place ~200s output Diabetes mellitus 2 -Patient does not take any diabetic medications. He manages his DM with diet/ lifestyle modifications and cinnamon tabs. -Continue with low sliding scale insulin. Blood sugar seems to be controlled. -Patient may benefit from metformin upon discharge if GFR > 45 CKD stage III - Avoid nephrotoxins. -Continue to monitor and trend. Depression -continue Fluoxetine DVT Prophylaxis. -Heparin. Physical deconditioning -Consult PT. Discharge Planning S/p cardiac bypass on Wednesday06/15/17. With foot infaction , with anemia postsurgical transfused. Still with chest tube in place less drain. Improving. DC once he is cleared by CTS, ID . Patient can't have foot surgery for 2 weeks after CABG per surgeon. Needs rehab and to follow up as OP with podiatry for foot surgery, PCP and consultants. Discussed with the patient, nurse Problem Qualifiers (1) Osteomyelitis of right foot: Qualified Codes: M86.9 - Osteomyelitis, unspecified Karina Clements MD Jun 19, 2017 07:40
[2017-06-19] MEDS: INSULIN ASPART SUPPLEMENTAL SCALE SQ SCH ×4 (08:00→21:00)
[2017-06-19] MEDS: MAGNESIUM HYDROXIDE SUSP 30 ML CUP PO SCH (09:00)
[2017-06-19] MEDS: DOCUSATE SODIUM 100 MG CAP PO SCH ×2 (09:00→21:20)
[2017-06-19] MEDS: POLYETHYLENE GLYCOL 17 GM PKG PO SCH (09:01)
[2017-06-19] MEDS: FUROSEMIDE 40 MG/4 ML VIAL IV PUSH SCH ×2 (09:02→17:35)
[2017-06-19] MEDS: METOPROLOL TARTRATE 25 MG TAB PO SCH ×2 (09:03→21:20)
[2017-06-19] MEDS: ASPIRIN 81 MG CHEW TAB PO SCH (09:03)
[2017-06-19] MEDS: MULTIVITAMINS/MINERALS THERAPEUTIC TAB PO SCH (09:03)
[2017-06-19] MEDS: FLUoxetine HCL 20 MG CAP PO SCH (09:03)
[2017-06-19] MEDS: SODIUM CHLORIDE 0.9% FLUSH 10 ML FLUSH IV FLUSH SCH ×2 (09:03→21:00)
--- NOTE | 2017-06-19 10:21 | PD.CAR.PN ---
CVT Progress Note Subjective/Hospital Course: A 76-year-old male patient of Dr. Henderson, Dr. Quezada podiatry, Dr. Shelby at the [facility], history of right foot diabetic ulcer, was evaluated by the [facility] thread grinder who obtained an x-ray which shows some bony destruction of the fifth metatarsal indicating some osteomyelitis. The patient had been on Cipro without any improvement of his wound. He has had this wound since February 2017. He has undergone multiple interventions on his foot. He was seen by podiatry on this admission. There is a wound on the fifth metatarsal head, apparently with some purulence and some mild erythema and edema. Plan would be for further foot surgery. 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 Apparently, they are waiting to possibly do surgery under local anesthesia to reduce the risk of further infection. The patient, in the meantime, also had a recent abnormal stress test at the [facility] in [place] and was referred to Dr. Gloria Braun as an outpatient, but did not meet that appointment or was unable to see her at this time so he was evaluated by Dr. Henderson and underwent cardiac cath on the which showed an ejection fraction of 45%, left main disease, a 60% stenosis in the distal portion. The LAD had an 80% stenosis in the mid portion. The circ had a 90% and 80% stenosis in the proximal portion and a 90% stenosis in the mid portion. The RCA was totally occluded with distal RCA filling by [id number] collaterals. We were consulted to evaluate for coronary artery bypass grafting. PAST MEDICAL HISTORY: Osteoarthritis, Colon polyps, Diabetes mellitus, Coronary artery disease, History of aortic abdominal aneurysm which is followed by the [facility]. He says it is still very small, Gastroesophageal reflux disease, Chronic kidney disease., right CEA 06/11 pt currently being treated for antibiotics for right diabetic foot with osteomyelitis, will need to wait until after CABG for foot surgery tentatively planned for Tu06/15 ECHO : EF 55-60, mild , trace AI, trace TR 06/12/16 No complaints today. Denies chest pain Anemic 06/14/17 for surgery in am then to be evaluate for left foot surgery after recovery denies pain family at bedside 06/15 surgery: CABG x 4, Hines to LAd - good, SVG to RI - good, SVG to D1 - good, SVG to PDA - poor, L EVH extubated at 5pm last evening, + solumedrol, crystalloid 2500cc, cell saver 750cc, 1200cc EBL 2 units PRBC 06/16 up in chair, weak, slightly confused creatinine 1.61no diuresis today aggressive pulm toileting weaned off dobutamine and insulin gtt will transfer to stepdown later today 06/17 up in chair , chest tube drained 180cc/ 12 hrs / will leave in place worsening renal indices/ consult nephro HGB 7.8/ transfuse one unit PRBC, then diuresis will need rehab at discharge / less confused today 06/18 chest tube drained 430cc/ 12 hrs / no air leak chest tube to gallagher seal/ check cxr in am post one unit PRBC 21/ HGB 7.8/ continue iron supplement PT/OT possible dc wednesday to rehab/ will need f/u and antibiotic therapy at discharge for osteomyelitis right foot 06/[address] drained 340 mls past 24 hrs Re-evaluate for removal in am Objective: Vital Signs Date Time Temp Pulse Resp B/P (MAP) Pulse Ox O2 Delivery O2 Flow Rate FiO2 06/19/17 10:00 67 06/19/17 09:00 68 06/19/17 08:00 68 06/19/17 07:00 98.5 72 21 154/67 (96) 98 06/19/17 07:00 63 06/19/17 07:00 98 Nasal Cannula 2.00 06/19/17 06:00 61 06/19/17 05:00 62 06/19/17 04:00 61 06/19/17 03:30 98.1 62 18 148/65 (92) 98 06/19/17 03:30 98 Nasal Cannula 2.00 06/19/17 03:00 63 06/19/17 02:00 63 06/19/17 01:00 63 06/19/17 00:00 63 06/18/17 23:05 94 Nasal Cannula 2.00 06/18/17 23:00 98.2 65 18 127/60 (82) 94 06/18/17 23:00 66 06/18/17 23:00 89 Room Air 06/18/17 22:00 66 06/18/17 21:00 64 06/18/17 20:00 70 06/18/17 19:45 98.4 69 18 139/63 (88) 96 06/18/17 19:45 96 Room Air 06/18/17 19:39 96 Nasal Cannula 2.00 06/18/17 19:00 68 06/18/17 18:00 66 06/18/17 17:00 64 06/18/17 16:00 64 06/18/17 15:30 97.4 64 20 127/62 (83) 94 06/18/17 15:30 93 Room Air 06/18/17 15:00 62 06/18/17 14:00 68 06/18/17 13:00 66 06/18/17 12:00 72 06/18/17 12:00 98.9 72 20 123/57 (79) 95 06/18/17 12:00 95 Room Air 06/18/17 11:00 74 Labs: Laboratory Tests Test 06/19/17 03:53 White Blood Count 7.2 TH/MM3 (4.0-11.0) Red Blood Count 2.56 MIL/MM3 (4.50-5.90) Hemoglobin 7.7 GM/DL (13.0-17.0) Hematocrit 23.1 % (39.0-51.0) Mean Corpuscular Volume 90.2 FL (80.0-100.0) Mean Corpuscular Hemoglobin 30.1 PG (27.0-34.0) Mean Corpuscular Hemoglobin Concent 33.3 % (32.0-36.0) Red Cell Distribution Width 16.6 % (11.6-17.2) Platelet Count 185 TH/MM3 (150-450) Mean Platelet Volume 7.8 FL (7.0-11.0) Blood Urea Nitrogen 44 MG/DL (7-18) Creatinine 1.81 MG/DL (0.60-1.30) Random Glucose 73 MG/DL (74-106) Calcium Level 8.0 MG/DL (8.5-10.1) Sodium Level 138 MEQ/L (136-145) Potassium Level 4.2 MEQ/L (3.5-5.1) Chloride Level 103 MEQ/L (98-107) Carbon Dioxide Level 28.3 MEQ/L (21.0-32.0) Anion Gap 7 MEQ/L (5-15) Estimat Glomerular Filtration Rate 37 ML/MIN (>89) Result Diagram: 06/19/17 0353 06/19/17 0353 (1) Coronary artery disease (2) S/P CABG x 4 Plan: ASA, statin BB / decrease amiodarone dose HR 70's aggressive pulm toileting PT/OT (3) Osteomyelitis of right foot Plan: podiatry following , on antibiotics ok for surgery in 2 weeks from CABG/ will need to be eval for rehab in the meantime (4) Diabetes mellitus Plan: insulin sliding scale diabetic diet HGB A1C 6.0 (5) CKD (chronic kidney disease) stage 3, GFR 30-59 ml/min Plan: creatinine 1.5 > 1.6 > 2.23> 2.05 nephro consult (6) Chronic anemia Plan: ferrous sulfate s/p one unit PRBC f/u labs in am Problem Qualifiers (1) Osteomyelitis of right foot: Qualified Codes: M86.9 - Osteomyelitis, unspecified Ludivina Chowdhury MD Jun 19, 2017 10:21
[2017-06-19] MEDS: ACETAMINOPHEN/HYDROcodone 325 MG/5 MG TAB PO PRN ×2 (12:02→21:20)
[2017-06-19] MEDS: FERROUS SULFATE 325 MG (65 MG ELEMENTAL IRON) TAB PO SCH ×2 (12:15→17:33)
--- NOTE | 2017-06-19 12:27 | PD.POD ---
Subjective Podiatric Problems Patient with known 5th metatarsal osteomyletis, in need of amputation. Patient is bowie snot have cardiac clearance for surgery until 06/29/16. If the patient remains in house at that time we will plan for surgical intervention. If he is discharged before that date we recommend continued abx, dressing changes, and outpt f/u in 5 days with . Please do not hesitate to call with any questions/concerns. Past Med/Surg/Social History Social History Smoking Status: Former Smoker Objective Vital Signs Vital Signs Date Time Temp Pulse Resp B/P (MAP) Pulse Ox O2 Delivery O2 Flow Rate FiO2 06/19/17 12:00 64 06/19/17 11:00 98.0 66 20 154/59 (90) 95 06/19/17 11:00 95 Room Air 06/19/17 11:00 66 06/19/17 10:40 96 21 06/19/17 10:00 67 06/19/17 09:00 68 06/19/17 08:00 68 06/19/17 07:00 98.5 72 21 154/67 (96) 98 06/19/17 07:00 63 06/19/17 07:00 98 Nasal Cannula 2.00 06/19/17 06:00 61 06/19/17 05:00 62 06/19/17 04:00 61 06/19/17 03:30 98.1 62 18 148/65 (92) 98 06/19/17 03:30 98 Nasal Cannula 2.00 06/19/17 03:00 63 06/19/17 02:00 63 06/19/17 01:00 63 06/19/17 00:00 63 06/18/17 23:05 94 Nasal Cannula 2.00 06/18/17 23:00 98.2 65 18 127/60 (82) 94 06/18/17 23:00 66 06/18/17 23:00 89 Room Air 06/18/17 22:00 66 06/18/17 21:00 64 06/18/17 20:00 70 06/18/17 19:45 98.4 69 18 139/63 (88) 96 06/18/17 19:45 96 Room Air 06/18/17 19:39 96 Nasal Cannula 2.00 06/18/17 19:00 68 06/18/17 18:00 66 06/18/17 17:00 64 06/18/17 16:00 64 06/18/17 15:30 97.4 64 20 127/62 (83) 94 06/18/17 15:30 93 Room Air 06/18/17 15:00 62 06/18/17 14:00 68 06/18/17 13:00 66 Coded Allergies: niacin (Verified Allergy, Severe, rash, 06/09/17) Jo Baeza DPM Jun 19, 2017 12:27
--- NOTE | 2017-06-19 13:25 | HHI.NPPN ---
Subjective History of Present Illness 76 year old DM CAD S/P CABG ARF/CKD Review of Systems General Constitutional: Fatigue Objective Data Data 06/19/17 06/20/17 19:00 07:00 Intake Total 100 ml Balance 100 ml IV Total 100 ml Vital Signs Date Time Temp Pulse Resp B/P (MAP) Pulse Ox O2 Delivery O2 Flow Rate FiO2 06/19/17 13:10 19 06/19/17 13:00 64 06/19/17 12:00 64 06/19/17 11:00 98.0 66 20 154/59 (90) 95 06/19/17 11:00 95 Room Air 06/19/17 11:00 66 06/19/17 10:40 96 21 06/19/17 10:00 67 06/19/17 09:00 68 06/19/17 08:00 68 06/19/17 07:00 98.5 72 21 154/67 (96) 98 06/19/17 07:00 63 06/19/17 07:00 98 Nasal Cannula 2.00 06/19/17 06:00 61 06/19/17 05:00 62 06/19/17 04:00 61 06/19/17 03:30 98.1 62 18 148/65 (92) 98 06/19/17 03:30 98 Nasal Cannula 2.00 06/19/17 03:00 63 06/19/17 02:00 63 06/19/17 01:00 63 06/19/17 00:00 63 06/18/17 23:05 94 Nasal Cannula 2.00 06/18/17 23:00 98.2 65 18 127/60 (82) 94 06/18/17 23:00 66 06/18/17 23:00 89 Room Air 06/18/17 22:00 66 06/18/17 21:00 64 06/18/17 20:00 70 06/18/17 19:45 98.4 69 18 139/63 (88) 96 06/18/17 19:45 96 Room Air 06/18/17 19:39 96 Nasal Cannula 2.00 06/18/17 19:00 68 06/18/17 18:00 66 06/18/17 17:00 64 06/18/17 16:00 64 06/18/17 15:30 97.4 64 20 127/62 (83) 94 06/18/17 15:30 93 Room Air 06/18/17 15:00 62 06/18/17 14:00 68 -: 06/19/17 0353 06/19/17 0353 Physical Exam General Appearance: Well Developed, Well Nourished Neck Neck Exam: Neck Supple Pulmonary Resp Exam: Clear Bilaterally, Breath Sounds Equal Cardiology CV Exam: Regular Gastrointestinal/Abdomen GI Exam: Soft, Non-Tender, Bowel Sounds Present Extremeties Extremities Exam: Moderate Edema Assessment/Plan Problem List: (1) Acute renal failure ICD Codes: N17.9 - Acute kidney failure, unspecified Plan: Patient doing better improved UOP with Albumin/Lasix Albumin stopped will dc IV Lasix by am start PO Lasix 40 mg daily Cr 1.8 Follow BMP (2) Osteomyelitis of right foot ICD Codes: M86.9 - Osteomyelitis, unspecified Status: Acute Plan: ID was following (3) S/P CABG x 4 ICD Codes: Z95.1 - Presence of aortocoronary bypass graft Plan: Continue to monitor (4) Diabetes mellitus ICD Codes: E11.9 - Type 2 diabetes mellitus without complications Plan: Monitor blood glucose Problem Qualifiers (1) Osteomyelitis of right foot: Qualified Codes: M86.9 - Osteomyelitis, unspecified Jairo Delgado MD Jun 19, 2017 13:25
[2017-06-19] MEDS: SENNOSIDES 8.6 MG TAB PO SCH (21:20)
[2017-06-19] MEDS: ATORVASTATIN 20 MG TAB PO SCH (21:20)
[2017-06-20] VITALS (28 sets, daily range): BP systolic 128–167; BP diastolic 62–72; PULSE 54–91; RESP 18–21; TEMP 96.5–98.1; O2SAT 93–96
[2017-06-20] MEDS: PANTOPRAZOLE SOD 40 MG DELAYED RELEASE TAB PO SCH (04:52)
[2017-06-20] MEDS: AMIODARONE 200 MG TAB PO SCH ×2 (04:53→17:30)
[2017-06-20] MEDS: ACETAMINOPHEN/HYDROcodone 325 MG/5 MG TAB PO PRN ×2 (04:53→20:10)
[2017-06-20 05:26] LABS: AUTOMATED NEUTROPHIL # 5.1 TH/MM3 (1.8-7.7); BASOPHIL # 0.1 TH/MM3 (0-0.2); BASOPHIL % 0.7 % (0.0-2.0); EOSINOPHIL # 0.5 TH/MM3 (0-0.4); EOSINOPHIL % 7.1 % (0.0-4.0); HEMATOCRIT 23.9 % (39.0-51.0); HEMOGLOBIN 8.2 GM/DL (13.0-17.0); LYMPHOCYTE # 1.1 TH/MM3 (1.0-4.8); MEAN CELL VOLUME 90.2 FL (80.0-100.0); MEAN CORPUSCULAR HEMOGLOBIN 30.9 PG (27.0-34.0); MEAN CORPUSCULAR HGB CONC 34.2 % (32.0-36.0); MEAN PLATELET VOLUME 7.9 FL (7.0-11.0); MONO % 8.8 % (0.0-8.0); MONOCYTE # 0.6 TH/MM3 (0-0.9); NEUT % 68.4 % (16.0-70.0); PLATELET COUNT 210 TH/MM3 (150-450); RED BLOOD COUNT 2.65 MIL/MM3 (4.50-5.90); RED CELL DISTRIBUTION WIDTH 17.1 % (11.6-17.2); WHITE BLOOD COUNT 7.4 TH/MM3 (4.0-11.0)
[2017-06-20 05:36] LABS: BICARBONATE 31.5 MEQ/L (21.0-32.0); CALCIUM 8.7 MG/DL (8.5-10.1); CREATININE 1.73 MG/DL (0.60-1.30)
[2017-06-20] MEDS: INSULIN ASPART SUPPLEMENTAL SCALE SQ SCH ×4 (08:00→20:09)
--- NOTE | 2017-06-20 08:50 | PD.CAR.PN ---
CVT Progress Note Subjective/Hospital Course: A 76-year-old male patient of Dr. Henderson, Dr. Quezada podiatry, Dr. Shelby at the [facility], history of right foot diabetic ulcer, was evaluated by the [facility] motor coach tour operator who obtained an x-ray which shows some bony destruction of the fifth metatarsal indicating some osteomyelitis. The patient had been on Cipro without any improvement of his wound. He has had this wound since February 2017. He has undergone multiple interventions on his foot. He was seen by podiatry on this admission. There is a wound on the fifth metatarsal head, apparently with some purulence and some mild erythema and edema. Plan would be for further foot surgery. 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 Apparently, they are waiting to possibly do surgery under local anesthesia to reduce the risk of further infection. The patient, in the meantime, also had a recent abnormal stress test at the [facility] in [place] and was referred to Dr. Gloria Braun as an outpatient, but did not meet that appointment or was unable to see her at this time so he was evaluated by Dr. Henderson and underwent cardiac cath on the which showed an ejection fraction of 45%, left main disease, a 60% stenosis in the distal portion. The LAD had an 80% stenosis in the mid portion. The circ had a 90% and 80% stenosis in the proximal portion and a 90% stenosis in the mid portion. The RCA was totally occluded with distal RCA filling by [id number] collaterals. We were consulted to evaluate for coronary artery bypass grafting. PAST MEDICAL HISTORY: Osteoarthritis, Colon polyps, Diabetes mellitus, Coronary artery disease, History of aortic abdominal aneurysm which is followed by the [facility]. He says it is still very small, Gastroesophageal reflux disease, Chronic kidney disease., right CEA 06/11 pt currently being treated for antibiotics for right diabetic foot with osteomyelitis, will need to wait until after CABG for foot surgery tentatively planned for Tu06/15 ECHO : EF 55-60, mild , trace AI, trace TR 06/12/16 No complaints today. Denies chest pain Anemic 06/14/17 for surgery in am then to be evaluate for left foot surgery after recovery denies pain family at bedside 06/15 surgery: CABG x 4, Hines to LAd - good, SVG to RI - good, SVG to D1 - good, SVG to PDA - poor, L EVH extubated at 5pm last evening, + solumedrol, crystalloid 2500cc, cell saver 750cc, 1200cc EBL 2 units PRBC 06/16 up in chair, weak, slightly confused creatinine 1.61no diuresis today aggressive pulm toileting weaned off dobutamine and insulin gtt will transfer to stepdown later today 06/17 up in chair , chest tube drained 180cc/ 12 hrs / will leave in place worsening renal indices/ consult nephro HGB 7.8/ transfuse one unit PRBC, then diuresis will need rehab at discharge / less confused today 06/18 chest tube drained 430cc/ 12 hrs / no air leak chest tube to gallagher seal/ check cxr in am post one unit PRBC 21/ HGB 7.8/ continue iron supplement PT/OT possible dc wednesday to rehab/ will need f/u and antibiotic therapy at discharge for osteomyelitis right foot 06/[address] drained 340 mls past 24 hrs Re-evaluate for removal in am 06/20 D/C CT Ambulate Discharge planning Objective: Vital Signs Date Time Temp Pulse Resp B/P (MAP) Pulse Ox O2 Delivery O2 Flow Rate FiO2 06/20/17 08:00 60 06/20/17 07:15 95 Room Air 06/20/17 07:15 96.5 58 20 150/66 (94) 95 06/20/17 07:00 54 06/20/17 06:02 58 06/20/17 05:55 18 06/20/17 05:01 59 06/20/17 04:10 58 06/20/17 03:11 97.7 63 18 167/72 (103) 94 06/20/17 03:10 94 Room Air 06/20/17 03:00 63 06/20/17 02:07 58 06/20/17 01:00 57 06/19/17 23:20 98.4 60 18 130/80 (97) 95 06/19/17 23:00 61 06/19/17 23:00 95 Room Air 06/19/17 19:53 21 06/19/17 19:38 98.2 72 18 135/63 (87) 95 06/19/17 19:00 95 Room Air 06/19/17 19:00 61 06/19/17 18:00 64 06/19/17 17:00 64 06/19/17 16:00 59 06/19/17 15:00 61 06/19/17 15:00 94 Room Air 06/19/17 15:00 98.4 60 19 118/56 (76) 94 06/19/17 14:00 60 06/19/17 13:00 64 06/19/17 12:00 64 06/19/17 11:00 98.0 66 20 154/59 (90) 95 06/19/17 11:00 95 Room Air 06/19/17 11:00 66 06/19/17 10:40 96 21 06/19/17 10:00 67 06/19/17 09:00 68 Labs: Laboratory Tests Test 06/20/17 04:38 White Blood Count 7.4 TH/MM3 (4.0-11.0) Red Blood Count 2.65 MIL/MM3 (4.50-5.90) Hemoglobin 8.2 GM/DL (13.0-17.0) Hematocrit 23.9 % (39.0-51.0) Mean Corpuscular Volume 90.2 FL (80.0-100.0) Mean Corpuscular Hemoglobin 30.9 PG (27.0-34.0) Mean Corpuscular Hemoglobin Concent 34.2 % (32.0-36.0) Red Cell Distribution Width 17.1 % (11.6-17.2) Platelet Count 210 TH/MM3 (150-450) Mean Platelet Volume 7.9 FL (7.0-11.0) Neutrophils (%) (Auto) 68.4 % (16.0-70.0) Lymphocytes (%) (Auto) 15.0 % (9.0-44.0) Monocytes (%) (Auto) 8.8 % (0.0-8.0) Eosinophils (%) (Auto) 7.1 % (0.0-4.0) Basophils (%) (Auto) 0.7 % (0.0-2.0) Neutrophils # (Auto) 5.1 TH/MM3 (1.8-7.7) Lymphocytes # (Auto) 1.1 TH/MM3 (1.0-4.8) Monocytes # (Auto) 0.6 TH/MM3 (0-0.9) Eosinophils # (Auto) 0.5 TH/MM3 (0-0.4) Basophils # (Auto) 0.1 TH/MM3 (0-0.2) CBC Comment DIFF FINAL Differential Comment Blood Urea Nitrogen 46 MG/DL (7-18) Creatinine 1.73 MG/DL (0.60-1.30) Random Glucose 79 MG/DL (74-106) Calcium Level 8.7 MG/DL (8.5-10.1) Sodium Level 139 MEQ/L (136-145) Potassium Level 3.7 MEQ/L (3.5-5.1) Chloride Level 101 MEQ/L (98-107) Carbon Dioxide Level 31.5 MEQ/L (21.0-32.0) Anion Gap 7 MEQ/L (5-15) Estimat Glomerular Filtration Rate 39 ML/MIN (>89) Result Diagram: 06/20/1743706/20/17437 (1) Coronary artery disease (2) S/P CABG x 4 Plan: ASA, statin BB / decrease amiodarone dose HR 70's aggressive pulm toileting PT/OT (3) Osteomyelitis of right foot Plan: podiatry following , on antibiotics ok for surgery in 2 weeks from CABG/ will need to be eval for rehab in the meantime (4) Diabetes mellitus Plan: insulin sliding scale diabetic diet HGB A1C 6.0 (5) CKD (chronic kidney disease) stage 3, GFR 30-59 ml/min Plan: creatinine 1.5 > 1.6 > 2.23> 2.05 nephro consult (6) Chronic anemia Plan: ferrous sulfate s/p one unit PRBC f/u labs in am Problem Qualifiers (1) Osteomyelitis of right foot: Qualified Codes: M86.9 - Osteomyelitis, unspecified Ludivina Chowdhury MD Jun 20, 2017 08:50
[2017-06-20] MEDS: MAGNESIUM HYDROXIDE SUSP 30 ML CUP PO SCH (09:00)
[2017-06-20] MEDS: POLYETHYLENE GLYCOL 17 GM PKG PO SCH (10:01)
[2017-06-20] MEDS: MULTIVITAMINS/MINERALS THERAPEUTIC TAB PO SCH (10:01)
[2017-06-20] MEDS: METOPROLOL TARTRATE 25 MG TAB PO SCH ×2 (10:01→20:10)
[2017-06-20] MEDS: ASPIRIN 81 MG CHEW TAB PO SCH (10:02)
[2017-06-20] MEDS: DOCUSATE SODIUM 100 MG CAP PO SCH ×2 (10:02→20:11)
[2017-06-20] MEDS: FUROSEMIDE 40 MG TAB PO SCH (10:02)
[2017-06-20] MEDS: FLUoxetine HCL 20 MG CAP PO SCH (10:02)
[2017-06-20] MEDS: SODIUM CHLORIDE 0.9% FLUSH 10 ML FLUSH IV FLUSH SCH ×2 (10:03→20:10)
[2017-06-20] MEDS: ceFAZolin 2 GM PREMIX 50 ML IV SCH ×2 (10:03→20:11)
--- NOTE | 2017-06-20 10:03 | HHI.PR ---
Subjective Remarks Less drainage ~75 cc, HGB also improved. Feels tired, in the chair. SOB at baseline. No n/v/d/c. No fever or chills. Objective Vitals Vital Signs Date Time Temp Pulse Resp B/P (MAP) Pulse Ox O2 Delivery O2 Flow Rate FiO2 06/20/17 09:00 60 06/20/17 08:00 60 06/20/17 07:15 95 Room Air 06/20/17 07:15 96.5 58 20 150/66 (94) 95 06/20/17 07:00 54 06/20/17 06:02 58 06/20/17 05:55 18 06/20/17 05:01 59 06/20/17 04:10 58 06/20/17 03:11 97.7 63 18 167/72 (103) 94 06/20/17 03:10 94 Room Air 06/20/17 03:00 63 06/20/17 02:07 58 06/20/17 01:00 57 06/19/17 23:20 98.4 60 18 130/80 (97) 95 06/19/17 23:00 61 06/19/17 23:00 95 Room Air 06/19/17 19:53 21 06/19/17 19:38 98.2 72 18 135/63 (87) 95 06/19/17 19:00 95 Room Air 06/19/17 19:00 61 06/19/17 18:00 64 06/19/17 17:00 64 06/19/17 16:00 59 06/19/17 15:00 61 06/19/17 15:00 94 Room Air 06/19/17 15:00 98.4 60 19 118/56 (76) 94 06/19/17 14:00 60 06/19/17 13:00 64 06/19/17 12:00 64 06/19/17 11:00 98.0 66 20 154/59 (90) 95 06/19/17 11:00 95 Room Air 06/19/17 11:00 66 06/19/17 10:40 96 21 I/O 06/19/17 06/19/17 06/19/17 06/20/17 06/20/17 06/20/17 07:00 15:00 23:00 07:00 15:00 23:00 Intake Total 460 ml 200 ml 480 ml 340 ml Output Total 1280 ml 1280 ml 1020 ml Balance -820 ml 200 ml -800 ml -680 ml Intake Oral 360 ml 480 ml 240 ml IV Total 100 ml 200 ml 100 ml Output Urine Total 1050 ml 1200 ml 950 ml Chest Tube Drainage Total 230 ml 80 ml 70 ml # Voids 2 # Bowel Movements 1 1 Result Diagram: 06/20/178 06/20/17 0438 Imaging Last Impressions Chest X-Ray 06/19/17 0600 Signed Impressions: Service Date/Time: Monday, June 19, 2017 03:57 - CONCLUSION: Small left-sided pneumothorax. Chest tube in place. Phillip Desai MD Renal Ultrasound 06/17/17 0000 Signed Impressions: Service Date/Time: June 15:04 - CONCLUSION: Tiny echogenic foci in both kidneys with no definite shadowing. These could represent small stones. There is no evidence of hydronephrosis. Dez Taylor MD Lower Extremity Ultrasound 06/10/17 0000 Signed Impressions: Service Date/Time: May 21:20 - CONCLUSION: Venous mapping as above. Herbert Cramer MD Carotid Artery Ultrasound 06/10/17 0000 Signed Impressions: Service Date/Time: May 20:37 - CONCLUSION: Mild atherosclerotic plaque of both carotid bifurcations. No hemodynamically significant stenosis. Benton Quiroz MD Foot X-Ray 06/09/17 0000 Signed Impressions: Service Date/Time: Friday, June 09, 2017 18:15 - CONCLUSION: 1. Bony destructive changes at the fifth metatarsal most characteristic of osteomyelitis. MRI pending. Brian Ortiz MD Foot MRI 06/09/17 0000 Signed Impressions: Service Date/Time: Friday, June 09, 2017 13:20 - CONCLUSION: 1. Osteomyelitis of the entire fifth metatarsal with bone destruction distally. Also osteomyelitis proximal phalanx fifth toe with displacement from the destructive change at the distal fifth metatarsal. There is surrounding edema and cellulitis. Brian Ortiz MD Objective Remarks GENERAL: This is a well-nourished, well-developed patient, in no apparent distress. SKIN: Right groin area with ecchymosis but no induration or tenderness palpation. CARDIOVASCULAR: Dressing mid chest post CABG in place c/d/i. Regular rate and rhythm without murmurs, gallops, or rubs. No JVD. RESPIRATORY: Clear to auscultation. Breath sounds equal bilaterally. No wheezes , rales, or rhonchi. GASTROINTESTINAL: Abdomen soft, non-tender, nondistended. No guarding. MUSCULOSKELETAL: Extremities without clubbing, cyanosis, or edema. Right lateral foot has an open ulcerating wound with serosanguineous drainage. No erythema around the ulcerating wound. A/P Problem List: (1) Osteomyelitis of right foot ICD Code: M86.9 - Osteomyelitis, unspecified Status: Acute (2) Coronary artery disease ICD Code: I25.10 - Atherosclerotic heart disease of [place] coronary artery without angina pectoris (3) CKD (chronic kidney disease) stage 3, GFR 30-59 ml/min ICD Code: N18.3 - Chronic kidney disease, stage 3 (moderate) (4) Diabetes mellitus ICD Code: E11.9 - Type 2 diabetes mellitus without complications Assessment and Plan Mr. Zamora is a pleasant 76-year-old with a history of diabetes, CAD who was sent to the [facility] by his [facility] due to suspected right foot osteomyelitis. Right foot osteomyelitis of the fifth metatarsal with abscess. -Most likely underlying cause due to Diabetic foot ulcer, right foot. -s/p IV Ceftriaxone 2g Q24hrs and IV Vancomycin -Infectious disease following on Cefazolin -Patient is not cleared by automotive generator repairer for surgery. Per Dr. Melgar foreign broadcast specialist she recommends for surgery once patient is cleared by automotive generator repairer and stated to call her when patient is clear. Patient however can't;t have surgery for at least 2 weeks after CABG per CTS. Severe multivessel disease -Status post cardiac catheterization by Dr. kaminski, with multivessel disease -S/p cardiac bypass Anemia postsurgical, also patient on antibiotics with infection S/P transfusion . Monitor H/H transfuse if HGB < 7 or id ,9 and symptomatic. Chest tubes in place ~75 cc output Diabetes mellitus 2 -Patient does not take any diabetic medications. He manages his DM with diet/ lifestyle modifications and cinnamon tabs. -Continue with low sliding scale insulin. Blood sugar seems to be controlled. -Patient may benefit from metformin upon discharge if GFR > 45 CKD stage III - Avoid nephrotoxins. -Continue to monitor and trend. Depression -continue Fluoxetine DVT Prophylaxis. -Heparin. Physical deconditioning -Consult PT. Discharge Planning S/p cardiac bypass on Wednesday06/15/17. With foot infaction , with anemia postsurgical transfused. Still with chest tube in place less drain. Improving. DC once he is cleared by CTS, ID . Patient can't have foot surgery for 2 weeks after CABG per surgeon. Needs rehab and to follow up as OP with podiatry for foot surgery, PCP and consultants. Discussed with the patient, nurse Problem Qualifiers (1) Osteomyelitis of right foot: Qualified Codes: M86.9 - Osteomyelitis, unspecified Karina Clements MD Jun 20, 2017 10:03
[2017-06-20] MEDS: FERROUS SULFATE 325 MG (65 MG ELEMENTAL IRON) TAB PO SCH ×2 (12:19→17:29)
--- NOTE | 2017-06-20 12:21 | HHI.NPPN ---
Subjective History of Present Illness 76 year old DM CAD S/P CABG ARF/CKD Review of Systems General Constitutional: Fatigue Objective Data Data 06/20/17 06/21/17 19:00 07:00 Intake Total 50 ml Balance 50 ml IV Total 50 ml Vital Signs Date Time Temp Pulse Resp B/P (MAP) Pulse Ox O2 Delivery O2 Flow Rate FiO2 06/20/17 12:00 61 06/20/17 11:00 98.1 55 21 136/64 (88) 95 06/20/17 11:00 95 Room Air 06/20/17 11:00 55 06/20/17 10:00 68 06/20/17 09:00 60 06/20/17 08:00 60 06/20/17 07:15 95 Room Air 06/20/17 07:15 96.5 58 20 150/66 (94) 95 06/20/17 07:00 54 06/20/17 06:02 58 06/20/17 05:55 18 06/20/17 05:01 59 06/20/17 04:10 58 06/20/17 03:11 97.7 63 18 167/72 (103) 94 06/20/17 03:10 94 Room Air 06/20/17 03:00 63 06/20/17 02:07 58 06/20/17 01:00 57 06/19/17 23:20 98.4 60 18 130/80 (97) 95 06/19/17 23:00 61 06/19/17 23:00 95 Room Air 06/19/17 19:53 21 06/19/17 19:38 98.2 72 18 135/63 (87) 95 06/19/17 19:00 95 Room Air 06/19/17 19:00 61 06/19/17 18:00 64 06/19/17 17:00 64 06/19/17 16:00 59 06/19/17 15:00 61 06/19/17 15:00 94 Room Air 06/19/17 15:00 98.4 60 19 118/56 (76) 94 06/19/17 14:00 60 06/19/17 13:00 64 -: 06/20/17 0438 06/20/17 0438 Physical Exam General Appearance: Well Developed, Well Nourished Neck Neck Exam: Neck Supple Pulmonary Resp Exam: Clear Bilaterally, Breath Sounds Equal Cardiology CV Exam: Regular Gastrointestinal/Abdomen GI Exam: Soft, Non-Tender, Bowel Sounds Present Extremeties Extremities Exam: Moderate Edema Assessment/Plan Problem List: (1) Acute renal failure ICD Codes: N17.9 - Acute kidney failure, unspecified Plan: Patient doing better improved UOP 2.1 L started PO Lasix 40 mg daily Cr 1.7 Follow BMP OK to dc from Nephrology point of view (2) Osteomyelitis of right foot ICD Codes: M86.9 - Osteomyelitis, unspecified Status: Acute Plan: ID was following (3) S/P CABG x 4 ICD Codes: Z95.1 - Presence of aortocoronary bypass graft Plan: Continue to monitor (4) Diabetes mellitus ICD Codes: E11.9 - Type 2 diabetes mellitus without complications Plan: Monitor blood glucose Problem Qualifiers (1) Osteomyelitis of right foot: Qualified Codes: M86.9 - Osteomyelitis, unspecified Jairo Delgado MD Jun 20, 2017 12:21
[2017-06-20] MEDS: ATORVASTATIN 20 MG TAB PO SCH (20:10)
[2017-06-20] MEDS: SENNOSIDES 8.6 MG TAB PO SCH (20:11)
[2017-06-21] VITALS (17 sets, daily range): BP systolic 106–160; BP diastolic 55–74; PULSE 50–60; RESP 18–22; TEMP 97.9–98.4; O2SAT 93–98
[2017-06-21] MEDS: PANTOPRAZOLE SOD 40 MG DELAYED RELEASE TAB PO SCH (05:59)
[2017-06-21] MEDS: AMIODARONE 200 MG TAB PO SCH (06:00)
[2017-06-21 06:24] LABS: AUTOMATED NEUTROPHIL # 5.8 TH/MM3 (1.8-7.7); BASOPHIL # 0.1 TH/MM3 (0-0.2); BASOPHIL % 0.9 % (0.0-2.0); EOSINOPHIL # 0.7 TH/MM3 (0-0.4); EOSINOPHIL % 7.7 % (0.0-4.0); HEMATOCRIT 28.9 % (39.0-51.0); HEMOGLOBIN 9.6 GM/DL (13.0-17.0); LYMPH % 14.6 % (9.0-44.0); LYMPHOCYTE # 1.2 TH/MM3 (1.0-4.8); MEAN CELL VOLUME 90.1 FL (80.0-100.0); MEAN CORPUSCULAR HEMOGLOBIN 29.8 PG (27.0-34.0); MEAN CORPUSCULAR HGB CONC 33.1 % (32.0-36.0); MEAN PLATELET VOLUME 7.7 FL (7.0-11.0); MONO % 7.9 % (0.0-8.0); MONOCYTE # 0.7 TH/MM3 (0-0.9); NEUT % 68.9 % (16.0-70.0); PLATELET COUNT 278 TH/MM3 (150-450); RED BLOOD COUNT 3.21 MIL/MM3 (4.50-5.90); RED CELL DISTRIBUTION WIDTH 16.9 % (11.6-17.2); WHITE BLOOD COUNT 8.5 TH/MM3 (4.0-11.0)
[2017-06-21 06:51] LABS: BICARBONATE 31.8 MEQ/L (21.0-32.0); CALCIUM 8.5 MG/DL (8.5-10.1); CREATININE 1.47 MG/DL (0.60-1.30)
--- NOTE | 2017-06-21 07:32 | HHI.PR ---
Subjective Remarks Feels better today. Less sob, still tired,. No chest pain ./ No cough. No fever or chills. HGB improved Objective Vitals Vital Signs Date Time Temp Pulse Resp B/P (MAP) Pulse Ox O2 Delivery O2 Flow Rate FiO2 06/21/17 06:00 55 06/21/17 05:11 55 06/21/17 04:00 60 06/21/17 03:00 98.1 60 18 160/74 (102) 93 06/21/17 03:00 55 06/21/17 02:00 56 06/21/17 01:04 56 06/21/17 00:05 56 06/20/17 23:23 97.2 91 18 141/63 (89) 93 06/20/17 23:00 62 06/20/17 22:00 54 06/20/17 21:51 18 06/20/17 21:00 62 06/20/17 20:02 21 06/20/17 20:02 97.7 70 18 160/67 (98) 95 06/20/17 20:00 60 06/20/17 19:56 95 Room Air 06/20/17 19:00 62 06/20/17 18:00 60 06/20/17 17:00 64 06/20/17 16:00 59 06/20/17 15:00 60 06/20/17 15:00 98.1 59 19 128/62 (84) 94 06/20/17 15:00 94 Room Air 06/20/17 14:00 59 06/20/17 13:00 56 06/20/17 12:00 61 06/20/17 11:00 98.1 55 21 136/64 (88) 95 06/20/17 11:00 95 Room Air 06/20/17 11:00 55 06/20/17 10:28 96 21 06/20/17 10:00 68 06/20/17 09:00 60 06/20/17 08:00 60 I/O 06/20/17 06/20/17 06/20/17 06/21/17 06/21/17 06/21/17 07:00 15:00 23:00 07:00 15:00 23:00 Intake Total 340 ml 50 ml 770 ml 240 ml Output Total 1020 ml 920 ml 800 ml Balance -680 ml 50 ml -150 ml -560 ml Intake Oral 240 ml 720 ml 240 ml IV Total 100 ml 50 ml 50 ml Output Urine Total 950 ml 920 ml 800 ml Chest Tube Drainage Total 70 ml Result Diagram: 06/21/17 0555 06/21/17 0555 Imaging Last Impressions Chest X-Ray 06/21/17 0000 Signed Impressions: Service Date/Time: Wednesday, June 21, 2017 14:33 - CONCLUSION: Compensated cardiomegaly otherwise negative, PICC line in good position.. Lele Funez MD FACR Renal Ultrasound 06/17/17 0000 Signed Impressions: Service Date/Time: June 15:04 - CONCLUSION: Tiny echogenic foci in both kidneys with no definite shadowing. These could represent small stones. There is no evidence of hydronephrosis. Dez Taylor MD Lower Extremity Ultrasound 06/10/17 0000 Signed Impressions: Service Date/Time: May 21:20 - CONCLUSION: Venous mapping as above. Herbert Cramer MD Carotid Artery Ultrasound 06/10/17 0000 Signed Impressions: Service Date/Time: May 20:37 - CONCLUSION: Mild atherosclerotic plaque of both carotid bifurcations. No hemodynamically significant stenosis. Benton Quiroz MD Foot X-Ray 06/09/17 0000 Signed Impressions: Service Date/Time: Friday, June 09, 2017 18:15 - CONCLUSION: 1. Bony destructive changes at the fifth metatarsal most characteristic of osteomyelitis. MRI pending. Brian Ortiz MD Foot MRI 06/09/17 0000 Signed Impressions: Service Date/Time: Friday, June 09, 2017 13:20 - CONCLUSION: 1. Osteomyelitis of the entire fifth metatarsal with bone destruction distally. Also osteomyelitis proximal phalanx fifth toe with displacement from the destructive change at the distal fifth metatarsal. There is surrounding edema and cellulitis. Brian Ortiz MD Objective Remarks GENERAL: This is a well-nourished, well-developed patient, in no apparent distress. SKIN: Right groin area with ecchymosis but no induration or tenderness palpation. CARDIOVASCULAR: Dressing mid chest post CABG in place c/d/i. Regular rate and rhythm without murmurs, gallops, or rubs. No JVD. RESPIRATORY: Clear to auscultation. Breath sounds equal bilaterally. No wheezes , rales, or rhonchi. GASTROINTESTINAL: Abdomen soft, non-tender, nondistended. No guarding. MUSCULOSKELETAL: Extremities without clubbing, cyanosis, or edema. Right lateral foot has an open ulcerating wound with serosanguineous drainage. No erythema around the ulcerating wound. A/P Problem List: (1) Osteomyelitis of right foot ICD Code: M86.9 - Osteomyelitis, unspecified Status: Acute (2) Coronary artery disease ICD Code: I25.10 - Atherosclerotic heart disease of [place] coronary artery without angina pectoris (3) CKD (chronic kidney disease) stage 3, GFR 30-59 ml/min ICD Code: N18.3 - Chronic kidney disease, stage 3 (moderate) (4) Diabetes mellitus ICD Code: E11.9 - Type 2 diabetes mellitus without complications Assessment and Plan Mr. Zamora is a pleasant 76-year-old with a history of diabetes, CAD who was sent to the hospital by his [facility] teller [facility] due to suspected right foot osteomyelitis. Right foot osteomyelitis of the fifth metatarsal with abscess. -Most likely underlying cause due to Diabetic foot ulcer, right foot. -On IV Ceftriaxone 2g Q24hrs to continue at DC per ID -Infectious disease following on Cefazolin -Patient is not cleared by needle straightener for surgery. Per Dr. Melgar teller manager she recommends for surgery once patient is cleared by needle straightener and stated to call her when patient is clear. Patient however can't have surgery for at least 2 weeks after CABG per CTS. Will f./u as OP. Continue IV abx cefazolin per [place] at [place] [facility] done per ID specialist , also has a PICCline placed 06/21/17. Severe multivessel disease -Status post cardiac catheterization by Dr. kaminski, with multivessel disease -S/p cardiac bypass Anemia postsurgical, also patient on antibiotics with infection S/P transfusion . Monitor H/H transfuse if HGB < 7 or id ,9 and symptomatic. Chest tubes removed, GH/H stable improved. Diabetes mellitus 2 -Patient does not take any diabetic medications. He manages his DM with diet/ lifestyle modifications and cinnamon tabs. -Continue with low sliding scale insulin. Blood sugar seems to be controlled. -Patient may benefit from metformin upon discharge if GFR > 45 CKD stage III - Avoid nephrotoxins. -Continue to monitor and trend. Depression -continue Fluoxetine DVT Prophylaxis. -Heparin. Physical deconditioning -Consult PT. Discharge Planning S/p cardiac bypass on Wednesday06/15/17. With foot infaction , with anemia postsurgical transfused. HGB improved and stable. Cleared by CTS, ID . Antibiotic at DC cefaxzolin IV . Has a PICC line. Patient can't have foot surgery for 2 weeks after CABG per surgeon. Needs rehab and to follow up as OP with podiatry for foot surgery, PCP and consultants. Discussed with the patient, nurse Problem Qualifiers (1) Osteomyelitis of right foot: Qualified Codes: M86.9 - Osteomyelitis, unspecified Karina Clements MD Jun 21, 2017 07:32
[2017-06-21] MEDS: INSULIN ASPART SUPPLEMENTAL SCALE SQ SCH ×2 (07:57→11:31)
[2017-06-21] MEDS: METOPROLOL TARTRATE 25 MG TAB PO SCH (08:06)
[2017-06-21] MEDS: ASPIRIN 81 MG CHEW TAB PO SCH (08:06)
[2017-06-21] MEDS: DOCUSATE SODIUM 100 MG CAP PO SCH (08:06)
[2017-06-21] MEDS: MULTIVITAMINS/MINERALS THERAPEUTIC TAB PO SCH (08:06)
[2017-06-21] MEDS: SODIUM CHLORIDE 0.9% FLUSH 10 ML FLUSH IV FLUSH SCH (08:06)
[2017-06-21] MEDS: MAGNESIUM HYDROXIDE SUSP 30 ML CUP PO SCH (08:07)
[2017-06-21] MEDS: FUROSEMIDE 40 MG TAB PO SCH (08:07)
[2017-06-21] MEDS: FLUoxetine HCL 20 MG CAP PO SCH (08:07)
[2017-06-21] MEDS: POLYETHYLENE GLYCOL 17 GM PKG PO SCH (08:07)
[2017-06-21] MEDS: ceFAZolin 2 GM PREMIX 50 ML IV SCH (09:00)
--- NOTE | 2017-06-21 10:15 | HHI.DS ---
Discharge Summary Admission Date Jun 09, 2017 at 13:10 Discharge Date: Jun 21, 2017 Admitting Diagnosis right foot osteomyelitis (1) Osteomyelitis of right foot ICD Code: M86.9 - Osteomyelitis, unspecified Status: Acute (2) Coronary artery disease ICD Code: I25.10 - Atherosclerotic heart disease of [place] coronary artery without angina pectoris (3) CKD (chronic kidney disease) stage 3, GFR 30-59 ml/min ICD Code: N18.3 - Chronic kidney disease, stage 3 (moderate) (4) Diabetes mellitus ICD Code: E11.9 - Type 2 diabetes mellitus without complications Procedures cardiac cath cabg Brief History - From Admission Mr. Zamora is a pleasant 76-year-old with a history of diabetes, CAD who was [facility] due to right foot diabetic ulcer. Patient was evaluated by [place] hypo splasher who obtained an x-ray which showed bony destruction of the fifth metatarsal indicating osteomyelitis. Patient has been taking ciprofloxacin without any improvement of his wound. He describes a burning sensation over the wound area. He denies any chest pain, shortness of breath, fever or chills. He started noticing this diabetic foot ulcer back in February 2017. He denies any changes in bowel or bladder habits. Off note, patient underwent a cardiac stress test 2-3 weeks ago which showed an abnormal result likely in the inferior lateral area. He was referred to an outside tableau lead but he did not get to see the tableau lead. Emergency room provider contacted on-call hypo splasher who recommended MRI and obtaining cardiac clearance for possible surgical intervention. CBC/BMP: 06/21/17 0555 06/21/17 0555 Significant Findings Laboratory Tests Test 06/19/17 03:53 06/20/17 04:38 06/21/17 05:55 Red Blood Count 2.56 MIL/MM3 (4.50-5.90) 2.65 MIL/MM3 (4.50-5.90) 3.21 MIL/MM3 (4.50-5.90) Hemoglobin 7.7 GM/DL (13.0-17.0) 8.2 GM/DL (13.0-17.0) 9.6 GM/DL (13.0-17.0) Hematocrit 23.1 % (39.0-51.0) 23.9 % (39.0-51.0) 28.9 % (39.0-51.0) Blood Urea Nitrogen 44 MG/DL (7-18) 46 MG/DL (7-18) 45 MG/DL (7-18) Creatinine 1.81 MG/DL (0.60-1.30) 1.73 MG/DL (0.60-1.30) 1.47 MG/DL (0.60-1.30) Random Glucose 73 MG/DL (74-106) Calcium Level 8.0 MG/DL (8.5-10.1) Estimat Glomerular Filtration Rate 37 ML/MIN (>89) 39 ML/MIN (>89) 47 ML/MIN (>89) Monocytes (%) (Auto) 8.8 % (0.0-8.0) Eosinophils (%) (Auto) 7.1 % (0.0-4.0) 7.7 % (0.0-4.0) Eosinophils # (Auto) 0.5 TH/MM3 (0-0.4) 0.7 TH/MM3 (0-0.4) Anion Gap 4 MEQ/L (5-15) Imaging Last Impressions Chest X-Ray 06/21/17 0000 Signed Impressions: Service Date/Time: Wednesday, June 21, 2017 14:33 - CONCLUSION: Compensated cardiomegaly otherwise negative, PICC line in good position.. Lele Funez MD FACR Renal Ultrasound 06/17/17 0000 Signed Impressions: Service Date/Time: June 15:04 - CONCLUSION: Tiny echogenic foci in both kidneys with no definite shadowing. These could represent small stones. There is no evidence of hydronephrosis. Dez Taylor MD Lower Extremity Ultrasound 06/10/17 0000 Signed Impressions: Service Date/Time: May 21:20 - CONCLUSION: Venous mapping as above. Herbert Cramer MD Carotid Artery Ultrasound 06/10/17 0000 Signed Impressions: Service Date/Time: May 20:37 - CONCLUSION: Mild atherosclerotic plaque of both carotid bifurcations. No hemodynamically significant stenosis. Benton Quiroz MD Foot X-Ray 06/09/17 0000 Signed Impressions: Service Date/Time: Friday, June 09, 2017 18:15 - CONCLUSION: 1. Bony destructive changes at the fifth metatarsal most characteristic of osteomyelitis. MRI pending. Brian Ortiz MD Foot MRI 06/09/17 0000 Signed Impressions: Service Date/Time: Friday, June 09, 2017 13:20 - CONCLUSION: 1. Osteomyelitis of the entire fifth metatarsal with bone destruction distally. Also osteomyelitis proximal phalanx fifth toe with displacement from the destructive change at the distal fifth metatarsal. There is surrounding edema and cellulitis. Brian Ortiz MD PE at Discharge GENERAL: This is a well-nourished, well-developed patient, in no apparent distress. SKIN: Right groin area with ecchymosis but no induration or tenderness palpation. CARDIOVASCULAR: Dressing mid chest post CABG in place c/d/i. Regular rate and rhythm without murmurs, gallops, or rubs. No JVD. RESPIRATORY: Clear to auscultation. Breath sounds equal bilaterally. No wheezes , rales, or rhonchi. GASTROINTESTINAL: Abdomen soft, non-tender, nondistended. No guarding. MUSCULOSKELETAL: Extremities without clubbing, cyanosis, or edema. Right lateral foot has an open ulcerating wound with serosanguineous drainage. No erythema around the ulcerating wound. Hospital Course Mr. Zamora is a pleasant 76-year-old with a history of diabetes, CAD who was sent to the hospital by [facility] due to suspected right foot osteomyelitis. Right foot osteomyelitis of the fifth metatarsal with abscess. -Most likely underlying cause due to Diabetic foot ulcer, right foot. -On IV Ceftriaxone 2g Q24hrs to continue at DC per ID -Infectious disease following on Cefazolin -Patient is not cleared by tableau lead for surgery. Per Dr. Melgar hypo splasher she recommends for surgery once patient is cleared by tableau lead and stated to call her when patient is clear. Patient however can't have surgery for at least 2 weeks after CABG per CTS. Will f./u as OP. Continue IV abx cefazolin per ID at DC infusin done per ID specialist , also has a PICCline placed 06/21/17. Severe multivessel disease -Status post cardiac catheterization by Dr. henderson, with multivessel disease -S/p cardiac bypass Anemia postsurgical, also patient on antibiotics with infection S/P transfusion . Monitor H/H transfuse if HGB < 7 or id ,9 and symptomatic. Chest tubes removed, GH/H stable improved. Diabetes mellitus 2 -Patient does not take any diabetic medications. He manages his DM with diet/ lifestyle modifications and cinnamon tabs. -Continue with low sliding scale insulin. Blood sugar seems to be controlled. -Patient may benefit from metformin upon discharge if GFR > 45 CKD stage III - Avoid nephrotoxins. -Continue to monitor and trend. Depression -continue Fluoxetine DVT Prophylaxis. -Heparin. Physical deconditioning -Consult PT. Discharge Planning S/p cardiac bypass on Wednesday06/15/17. With foot infaction , with anemia postsurgical transfused. HGB improved and stable. Cleared by CTS, ID . Antibiotic at DC cefaxzolin IV . Has a PICC line. Patient can't have foot surgery for 2 weeks after CABG per surgeon. Needs rehab and to follow up as OP with podiatry for foot surgery, PCP and consultants. Pt Condition on Discharge: Stable Discharge Disposition: Discharge to SNF Discharge Time: > 30 minutes Discharge Instructions DIET: Follow Instructions for: Heart Healthy Diet, Diabetic Diet Activities you can perform: Regular-No Restrictions Follow up Referrals: Cardiology - 4 Weeks @ [facility] with Kriss Henderson MD Please call the office to schedule an appointment if they do not call. PCP [facility] [address] [place] [address] , [place] [address] Podiatry - 1 Week @ [facility] with Carlos Melgar DPM SNF/PRISON/HH @ Snf/Usp/Hh with [facility] Surgical - 2 Weeks with Lynn Larios New Orders: BASIC METABOLIC PROF - 2 Weeks CBC NO DIFF - 2 Weeks X-RAY CHEST PA & LAT - 2 Weeks New Medications: Cefazolin Inj (Cefazolin Inj) 2 Gm/50 Ml Bagp 2 GM IV Q12HR for Infection for 18 Days, BAG 0 Refills Amiodarone (Amiodarone) 200 Mg Tab 200 MG PO Q12H for Blood Pressure Management, #60 TAB Ferrous Sulfate (Ferosul) 325 Mg (65 Mg Iron) Tablet 325 MG PO BID@12,17 for Nutritional Supplement, #60 TAB Hydrocodone/Acetaminophen (Hydrocodone-Acetamin 5-325 mg) 5 Mg-325 Mg Tablet 1 TAB PO Q6H PRN for pain, #30 TAB Metoprolol Tartrate (Metoprolol Tartrate) 25 Mg Tab 12.5 MG PO Q12HR for Blood Pressure Management, #60 TAB Sennosides (Senna-Lax) 8.6 Mg Tab 8.6 MG PO HS for Constipation, #60 TAB Continued Medications: Allopurinol (Zyloprim) 300 Mg Tab 300 MG PO DAILY for Gout, #30 TAB [address] (Aspirin Adult Low Strength) 81 Mg Tabdr 81 MG PO DAILY for Heart Health, TAB Atorvastatin (Lipitor) 40 Mg Tab 20 MG PO HS for Cholesterol Management, #30 TAB 0 Refills Cadexomer Iodine Topical (Iodosorb Topical) 0.9% Gel 1 APPLIC TOPICAL DAILY, #1 TUBE Apply small amount to affected area on skin Carboxymethylcellulos-Hypromellose Opth Gel (Genteal Severe Opth Gel) 0.25-0.3% Gel 1 DROP EACH EYE QID PRN for DRY EYE, BOTTLE 0 Refills Cinnamon (Sm Cinnamon) 500 Mg Cap 1 CAP PO DAILY for Nutritional Supplement Clopidogrel (Plavix) 75 Mg Tab 75 MG PO DAILY for Blood Clot Prevention, #30 TAB 0 Refills Cyanocobalamin (Vitamin B-12) 1,000 Mcg Tab 1000 MCG PO DAILY for Nutritional Supplement, #1 BOTTLE 0 Refills Fluocinonide Topical (Fluocinonide Topical) 0.05% Cream 1 APPLIC TOPICAL BID PRN for Dermatitis, #30 GM 0 Refills Apply thin layer to affected area(s) Fluoxetine (Prozac) 20 Mg Cap 20 MG PO DAILY for Mood, #30 CAP 0 Refills Furosemide (Lasix) 40 Mg Tab 40 MG PO BID for Diuretic, #60 TAB 0 Refills Guaifenesin (Guaifenesin) 400 Mg Tab 800 MG PO BID for Thin Mucous Hydrocortisone (Hydrocortisone) 2.5 % Crm.pe.shanti 1 APPLIC TOPICAL BID for Itching Hypromellose (Ophth) (Pure & Gentle Lubricant) 0.3 % Alvino 1 DROP EACH EYE QID Hypromellose (Ophth) (Systane Overnight Therapy) 0.3 % Gel 1 APPLIC EACH EYE BID Losartan (Losartan) 100 Mg Tab 100 MG PO DAILY for Blood Pressure Management, #30 TAB 0 Refills Magnesium Oxide (Magnesium Oxide) 400 Mg Tab 400 MG PO DAILY for Nutritional Supplement, TAB 0 Refills Crescent-3 Fatty Acids (Fish Oil 1000 mg) 300 Mg-1,000 Mg Cap 2000 MG PO DAILY for Nutritional Supplement Omeprazole (Omeprazole) 20 Mg Tab 20 MG PO BID for Reflux, #30 TAB 0 Refills Take prior to the same meals each day Oxybutynin (Ditropan) 5 Mg Tab 5 MG PO Q12HR for Urinary Symptom Managemen, #60 TAB 0 Refills Potassium Chloride ER (Potassium Chloride ER) 20 Meq Tab 20 MEQ PO DAILY for Electrolyte Replacement, #30 TAB 0 Refills Ranitidine (Zantac) 150 Mg Tab 150 MG PO BID for Reduce Stomach Acid, #60 TAB 0 Refills Before breakfast and dinner Discontinued Medications: Ciprofloxacin (Cipro) 500 Mg Tab 500 MG PO BID for Infection, TAB 0 Refills Diltiazem ER 24 HR (Cardizem LA) 300 Mg Julio 300 MG PO DAILY for Blood Pressure Management, #30 TAB 0 Refills Karina Clements MD Jun 21, 2017 10:15
[2017-06-21] MEDS ORDERED: FERR325T20 PO (10:19)
[2017-06-21] MEDS ORDERED: HYDR-3516 PO (10:19)
[2017-06-21] MEDS ORDERED: AMIO200T PO (10:19)
[2017-06-21] MEDS ORDERED: METO25TA3 PO (10:19)
[2017-06-21] MEDS ORDERED: SENN187 PO (10:19)
[2017-06-21] MEDS ORDERED: CEFA2SOL IV (10:26)
--- NOTE | 2017-06-21 11:01 | HHI.NPPN ---
Subjective History of Present Illness 76 year old DM CAD S/P CABG ARF/CKD Review of Systems General Constitutional: Fatigue Objective Data Data 06/21/17 06/22/17 19:00 07:00 Intake Total 50 ml Balance 50 ml IV Total 50 ml Vital Signs Date Time Temp Pulse Resp B/P (MAP) Pulse Ox O2 Delivery O2 Flow Rate FiO2 06/21/17 10:00 51 06/21/17 09:00 53 06/21/17 08:00 50 06/21/17 07:48 Nasal Cannula 06/21/17 07:15 52 06/21/17 07:15 98.4 56 22 160/55 (90) 98 06/21/17 06:00 55 06/21/17 05:11 55 06/21/17 04:00 60 06/21/17 03:00 98.1 60 18 160/74 (102) 93 06/21/17 03:00 55 06/21/17 02:00 56 06/21/17 01:04 56 06/21/17 00:05 56 06/20/17 23:23 97.2 91 18 141/63 (89) 93 06/20/17 23:00 62 06/20/17 22:00 54 06/20/17 21:51 18 06/20/17 21:00 62 06/20/17 20:02 21 06/20/17 20:02 97.7 70 18 160/67 (98) 95 06/20/17 20:00 60 06/20/17 19:56 95 Room Air 06/20/17 19:00 62 06/20/17 18:00 60 06/20/17 17:00 64 06/20/17 16:00 59 06/20/17 15:00 60 06/20/17 15:00 98.1 59 19 128/62 (84) 94 06/20/17 15:00 94 Room Air 06/20/17 14:00 59 06/20/17 13:00 56 06/20/17 12:00 61 -: 06/21/17 0555 06/21/17 0555 Physical Exam General Appearance: Well Developed, Well Nourished Neck Neck Exam: Neck Supple Pulmonary Resp Exam: Clear Bilaterally, Breath Sounds Equal Cardiology CV Exam: Regular Gastrointestinal/Abdomen GI Exam: Soft, Non-Tender, Bowel Sounds Present Extremeties Extremities Exam: Moderate Edema Assessment/Plan Problem List: (1) Acute renal failure ICD Codes: N17.9 - Acute kidney failure, unspecified Plan: Patient doing better improved UOP started PO Lasix 40 mg daily Cr 1.4 Follow BMP [place] to dc from Nephrology point of view (2) Osteomyelitis of right foot ICD Codes: M86.9 - Osteomyelitis, unspecified Status: Acute Plan: ID was following (3) S/P CABG x 4 ICD Codes: Z95.1 - Presence of aortocoronary bypass graft Plan: Continue to monitor (4) Diabetes mellitus ICD Codes: E11.9 - Type 2 diabetes mellitus without complications Plan: Monitor blood glucose Problem Qualifiers (1) Osteomyelitis of right foot: Qualified Codes: M86.9 - Osteomyelitis, unspecified Jairo Delgado MD Jun 21, 2017 11:01
[2017-06-21] MEDS: FERROUS SULFATE 325 MG (65 MG ELEMENTAL IRON) TAB PO SCH (11:31)
--- NOTE | 2017-06-21 12:17 | RSPPFT ---
DATE OF PROCEDURE: 06/10/17 COMMENTS: Spirometry demonstrates an FEV1 of 1.4 at 45% of predicted, FVC of 2.0 at 52%, FEF 25-75 at 22%. Post-bronchodilator study was not done. Flow volume loops suggest a restrictive pattern. IMPRESSION: 1. Mild to moderate obstructive disease. 2. Additional moderate restrictive disease.
--- NOTE | 2017-06-21 12:56 | HHI.IDPN ---
Note Infectious Disease Note ID COVERAGE for Dr Anthony. Asked to see patient today by Dr. Clements. Background: 76 yo male with diabetes present with chronic R lateral foot wound draining since February He has been followed by wire products inspector and has been taking Keflex/ cipro , but cont to do worse X-ray done showing bony destruction of the fifth metatarsal consistent with osteomyelitis. Culture positive for MSSA Patient is post CABG x 4 vessels on 06/15/17. Up in bedside chair. Afebrile. No complaints. 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 ANTIBIOTICS: Cefazolin. OBJECTIVE: Vital Signs Date Time Temp Pulse Resp B/P (MAP) Pulse Ox O2 Delivery O2 Flow Rate FiO2 06/21/17 12:00 54 06/21/17 11:00 53 06/21/17 11:00 97.9 53 20 126/60 (82) 96 06/21/17 10:00 51 06/21/17 09:00 53 06/21/17 08:00 50 06/21/17 07:48 Nasal Cannula 06/21/17 07:15 52 06/21/17 07:15 98.4 56 22 160/55 (90) 98 06/21/17 06:00 55 06/21/17 05:11 55 06/21/17 04:00 60 06/21/17 03:00 98.1 60 18 160/74 (102) 93 06/21/17 03:00 55 06/21/17 02:00 56 06/21/17 01:04 56 06/21/17 00:05 56 06/20/17 23:23 97.2 91 18 141/63 (89) 93 06/20/17 23:00 62 06/20/17 22:00 54 06/20/17 21:51 18 06/20/17 21:00 62 06/20/17 20:02 21 06/20/17 20:02 97.7 70 18 160/67 (98) 95 06/20/17 20:00 60 06/20/17 19:56 95 Room Air 06/20/17 19:00 62 06/20/17 18:00 60 06/20/17 17:00 64 06/20/17 16:00 59 06/20/17 15:00 60 06/20/17 15:00 98.1 59 19 128/62 (84) 94 06/20/17 15:00 94 Room Air 06/20/17 14:00 59 06/20/17 13:00 56 Laboratory Tests Test 06/20/17 04:38 06/21/17 05:55 White Blood Count 7.4 TH/MM3 8.5 TH/MM3 Red Blood Count 2.65 MIL/MM3 3.21 MIL/MM3 Hemoglobin 8.2 GM/DL 9.6 GM/DL Hematocrit 23.9 % 28.9 % Mean Corpuscular Volume 90.2 FL 90.1 FL Mean Corpuscular Hemoglobin 30.9 PG 29.8 PG Mean Corpuscular Hemoglobin Concent 34.2 % 33.1 % Red Cell Distribution Width 17.1 % 16.9 % Platelet Count 210 TH/MM3 278 TH/MM3 Mean Platelet Volume 7.9 FL 7.7 FL Neutrophils (%) (Auto) 68.4 % 68.9 % Lymphocytes (%) (Auto) 15.0 % 14.6 % Monocytes (%) (Auto) 8.8 % 7.9 % Eosinophils (%) (Auto) 7.1 % 7.7 % Basophils (%) (Auto) 0.7 % 0.9 % Neutrophils # (Auto) 5.1 TH/MM3 5.8 TH/MM3 Lymphocytes # (Auto) 1.1 TH/MM3 1.2 TH/MM3 Monocytes # (Auto) 0.6 TH/MM3 0.7 TH/MM3 Eosinophils # (Auto) 0.5 TH/MM3 0.7 TH/MM3 Basophils # (Auto) 0.1 TH/MM3 0.1 TH/MM3 CBC Comment DIFF FINAL DIFF FINAL Differential Comment Laboratory Tests Test 06/20/17 04:38 06/21/17 05:55 Blood Urea Nitrogen 46 MG/DL 45 MG/DL Creatinine 1.73 MG/DL 1.47 MG/DL Random Glucose 79 MG/DL 96 MG/DL Calcium Level 8.7 MG/DL 8.5 MG/DL Sodium Level 139 MEQ/L 138 MEQ/L Potassium Level 3.7 MEQ/L 4.0 MEQ/L Chloride Level 101 MEQ/L 102 MEQ/L Carbon Dioxide Level 31.5 MEQ/L 31.8 MEQ/L Anion Gap 7 MEQ/L 4 MEQ/L Estimat Glomerular Filtration Rate 39 ML/MIN 47 ML/MIN GENERAL: Patient is in no acute distress. HEENT: [place]. EOMI, No icterus. NECK: Supple. LUNGS: Clear breath sounds. CARDIAC: Regular rate and rhythm ABDOMEN: Soft, non tender. EXTREMITIES: Right lateral foot has ulcer at the area beyond the base of the 5th toe Has dressing in place. No erythema. Serous drainage on the dressing. no purulence. SKIN: No rash. Imaging Foot X-Ray 06/09/17 0000 Signed Impressions: Service Date/Time: Friday, June 09, 2017 18:15 - CONCLUSION: 1. Bony destructive changes at the fifth metatarsal most characteristic of osteomyelitis. MRI pending. Brian Ortiz MD Foot MRI 06/09/17 0000 Signed Impressions: Service Date/Time: Friday, June 09, 2017 13:20 - CONCLUSION: 1. Osteomyelitis of the entire fifth metatarsal with bone destruction distally. Also osteomyelitis proximal phalanx fifth toe with displacement from the destructive change at the distal fifth metatarsal. There is surrounding edema and cellulitis. Brian Ortiz MD Assessment and Plan DFI, osteomyelitis R 5th metatarsal head MSSA CAD/Post CABG x 4. RECOMMEND: Continue Cefazolin 1 gram IV Q12H. Adjusted for renal function. Plan on 6 weeks of antibiotics. Orders written. Labs to be faxed to Dr. Anthony and follow up with Dr Sauceda in 2 weeks. Surgical debridement per podiatry. Okay to discharge to [place] after PIC line is placed. - Db Castro MD Jun 21, 2017 12:56
[2017-06-21] MEDS ORDERED: SODIUM CHLORIDE 0.9% FLUSH 10 ML FLUSH IV FLUSH PRN (14:30)
--- NOTE | 2017-06-21 15:36 | RADRPT ---
EXAM DATE/TIME: 06/21/2017 14:33 [facility] COMPARISON: CHEST SINGLE AP, June 19, 2017, 3:57. INDICATIONS : PICC line placement. MEDICAL HISTORY : Hypertension. Diabetes mellitus type II. SURGICAL HISTORY : CABG. ENCOUNTER: Subsequent ACUITY: 1 day PAIN SCORE: 3/10 LOCATION: Right chest FINDINGS: PICC line in good position. The lungs are clear. The heart is minimally enlarged. The pulmonary vascularity is normal. There is n o evidence for infiltrate or failure., Previous bypass. The portion of the bony skeleton visualized is unremarkable. CONCLUSION: Compensated cardiomegaly otherwise negative, PICC line in good position.. Lele Funez MD FACR on June 21, 2017 at 15:34 Board Certified Radiologist. This report was verified electronically.
[2017-06-21] MEDS ORDERED: AMIODARONE 200 MG TAB PO SCH (18:00)
[2017-06-22] MEDS ORDERED: SODIUM CHLORIDE 0.9% FLUSH 10 ML FLUSH IV FLUSH SCH (09:00)
== END 2017-06-21 16:36 | DRG 982 ==
LOC: NEPC 10:57 → NEDA 13:10 → HCIS 20:51 → HCVI 06-15 13:42 → HCPC 06-16 15:02
PROVIDERS: ADMIT Hospitalist; ATTEND Hospitalist
PROC: B2111ZZ Fluoroscopy of Multiple Coronary Arteries using Low Osmolar Contrast (ICD-10-PCS; 2017-06-09)
PROC: B2151ZZ Fluoroscopy of Left Heart using Low Osmolar Contrast (ICD-10-PCS; 2017-06-09)
PROC: B31N1ZZ Fluoroscopy of Other Upper Arteries using Low Osmolar Contrast (ICD-10-PCS; 2017-06-09)
PROC: 4A023N7 Measurement of Cardiac Sampling and Pressure, Left Heart, Percutaneous Approach (ICD-10-PCS; principal; 2017-06-09 14:15)
PROC: 021209W Bypass Coronary Artery, Three Arteries from Aorta with Autologous Venous Tissue, Open Approach (ICD-10-PCS; 2017-06-15)
PROC: 06BQ4ZZ Excision of Left Saphenous Vein, Percutaneous Endoscopic Approach (ICD-10-PCS; 2017-06-15)
PROC: 5A1221Z Performance of Cardiac Output, Continuous (ICD-10-PCS; 2017-06-15)
PROC: 30233N1 Transfusion of Nonautologous Red Blood Cells into Peripheral Vein, Percutaneous Approach (ICD-10-PCS; 2017-06-15)
PROC: 02100Z9 Bypass Coronary Artery, One Artery from Left Internal Mammary, Open Approach (ICD-10-PCS; 2017-06-15 07:23)
DX: E11.69 Type 2 diabetes mellitus with other specified complication (principal); M86.9 Osteomyelitis, unspecified; N17.9 Acute kidney failure, unspecified; E11.22 Type 2 diabetes mellitus with diabetic chronic kidney disease; E11.40 Type 2 diabetes mellitus with diabetic neuropathy, unspecified; E11.621 Type 2 diabetes mellitus with foot ulcer; H46.8 Other optic neuritis; I25.10 Atherosclerotic heart disease of native coronary artery without angina pectoris; N18.3 Chronic kidney disease, stage 3 (moderate); L97.519 Non-pressure chronic ulcer of other part of right foot with unspecified severity; M19.90 Unspecified osteoarthritis, unspecified site; I71.4 Abdominal aortic aneurysm, without rupture; K21.9 Gastro-esophageal reflux disease without esophagitis; I12.9 Hypertensive chronic kidney disease with stage 1 through stage 4 chronic kidney disease, or unspecified chronic kidney disease; F32.9 Major depressive disorder, single episode, unspecified; E11.622 Type 2 diabetes mellitus with other skin ulcer; F41.9 Anxiety disorder, unspecified; E78.5 Hyperlipidemia, unspecified; I25.5 Ischemic cardiomyopathy; L08.9 Local infection of the skin and subcutaneous tissue, unspecified; B95.61 Methicillin susceptible Staphylococcus aureus infection as the cause of diseases classified elsewhere; D64.9 Anemia, unspecified; Z86.010 Personal history of colon polyps; Z86.74 Personal history of sudden cardiac arrest; Z87.891 Personal history of nicotine dependence; Z82.49 Family history of ischemic heart disease and other diseases of the circulatory system
CPT/HCPCS: 36430; 71045; 71046; 73630; 73720; 76775; 76937; 80048; 80053; 80061; 80202; 81001; 82948; 83036; 83605; 83735; 85014; 85018; 85025; 85027; 85610; 85652; 85730; 86140; 86403; 86850; 86900; 86901; 86920; 87040; 87070; 87147; 87186; 87205; 93005; 93306; 93458; 93880; 93970; 93998; 94002; 94010; 94150; 94640; 94664; 94667; 94668; 96365; 99152; 99153; A9579; C1769; C1893; J0131; J0690; J0696; J1250; J1644; J1815; J1817; J1940; J2150; J2250; J2440; J2930; J3010; J3370; J3480; J7030; J7040; J7050; P9016; P9045; P9047; Q9967

== ENCOUNTER 2017-07-19 12:39 | Inpatient (IN) | payer MEDICARE, OTHER ==
[~2017-07-19] VITALS: Ht 175.3 cm; Wt 114.0 kg
[~2017-07-19 12:39] MED LIST changes: +ALLO300 PO; -ALLO300T2 PO; +AMIO200T PO; -ASMA220A; +ASPI81TA16 PO; -ATOR10 PO; +CEFA2SOL IV; -CHOLCRY XX; +CINN500C14 PO; -CIPR500T4 PO; -CLOP75 PO; -DILT240C7 PO; -FERR324T4 PO; +FERR325T20 PO; +FISH100020 PO; -FLUO.05%ST TOP; +FLUO0.05 TOPICAL; +FURO1TAB60 PO; -FURO40TA OR; +GENT0.3G EACH EYE; +GUAI400T32 PO; -HYDR-2951 PO; +HYDR-3516 PO; +HYDR-3964 TOPICAL; -HYDRO50; +IODOGEL TOPICAL; -KCL20; +LIPI40TA PO; +LOSA100T PO; +MAGN400T2 PO; -METH500T OR; +METO25TA3 PO; -METR-1 PO; -NITR.4 SL; +OMEP20TA93 PO; +OXYB5TAB8 PO; +PLAV75TA29 PO; +POTA-163 PO; +PROZ20CA11 PO; +PURE0.3D2 EACH EYE; +SENN187 PO; +VITA10002 PO; +ZANT150T2 PO; +[UNRECOGNIZED DRUG - CODE] EACH EYE
[2017-07-19 13:12] VITALS: BP 156/68; PULSE 54; RESP 16; TEMP 98.7; O2SAT 99
--- NOTE | 2017-07-19 13:50 | RADRPT ---
EXAM DATE/TIME: 07/19/2017 13:30 [facility] COMPARISON: FOOT RIGHT COMPLETE ([id number]), June 09, 2017, 18:15. INDICATIONS : Right foot pain. MEDICAL HISTORY : Hypertension. Diabetes mellitus type II. SURGICAL HISTORY : CABG. Cholecystectomy. ENCOUNTER: Initial ACUITY: 1 day PAIN SCORE: 8/10 LOCATION: Right foot. FINDINGS: There is progressive bony destruction involving the fifth metatarsal as well as bony distraction at t he base of the proximal phalanx characteristic of osteomyelitis. Prominent vascular calcification is present. Inferior and posterior calcaneal spurs are present. CONCLUSION: Progressive bony destruction of the fifth toe characteristic of osteomyelitis Randall Reeder MD on July 19, 2017 at 13:47 Board Certified Radiologist. This report was verified electronically.
[2017-07-19 14:17] LABS: AUTOMATED NEUTROPHIL # 5.8 TH/MM3 (1.8-7.7); BASOPHIL # 0.1 TH/MM3 (0-0.2); EOSINOPHIL # 0.4 TH/MM3 (0-0.4); EOSINOPHIL % 5.8 % (0.0-4.0); HEMATOCRIT 35.1 % (39.0-51.0); HEMOGLOBIN 11.4 GM/DL (13.0-17.0); LYMPH % 12.1 % (9.0-44.0); LYMPHOCYTE # 0.9 TH/MM3 (1.0-4.8); MEAN CELL VOLUME 90.2 FL (80.0-100.0); MEAN CORPUSCULAR HEMOGLOBIN 29.3 PG (27.0-34.0); MEAN CORPUSCULAR HGB CONC 32.5 % (32.0-36.0); MONO % 6.3 % (0.0-8.0); MONOCYTE # 0.5 TH/MM3 (0-0.9); NEUT % 74.8 % (16.0-70.0); PLATELET COUNT 214 TH/MM3 (150-450); RED BLOOD COUNT 3.89 MIL/MM3 (4.50-5.90); RED CELL DISTRIBUTION WIDTH 17.5 % (11.6-17.2); WHITE BLOOD COUNT 7.7 TH/MM3 (4.0-11.0)
[2017-07-19 14:27] LABS: BICARBONATE 32.3 MEQ/L (21.0-32.0); CREATININE 1.33 MG/DL (0.60-1.30)
[2017-07-19 14:29] LABS: INTERNATIONAL NORMALIZED RATIO 1.1 RATIO; PROTHROMBIN TIME - PATIENT 11.1 SEC (9.8-11.6)
[2017-07-19 15:59] VITALS: BP 181/74; PULSE 61; RESP 18; O2SAT 98
--- NOTE | 2017-07-19 16:05 | PD ---
HPI Chief Complaint: Injury Time Seen by Provider: 15:41 Travel History International Travel<30 days: No Contact w/Intl Traveler<30days: No Traveled to known affect area: No History of Present Illness HPI 76-year-old male presents emergency department with his with concerns of osteomyelitis of the right foot. States that this ulcer began in February and has become progressively worse. States that he was due to have a procedure for treatment however, patient required a CABGx4 (06/15/2017) and this placed this procedure on hold. He apparently has had multiple rounds of antibiotics for this problem. Patient comes to the emergency department today at the request of his shipping clerk/admin, Dr. Melgar. He denies fever, chills, nausea, vomiting, diarrhea. His primary care physician is at the [place], Dr. Shelby. His technical program manager Dr. Casarez, Dr. Melgar in his shipping clerk/admin outside the [place]. PFSH Past Medical History Hx Anticoagulant Therapy: Yes AAA: Yes Arthritis: Yes (OSTEOARTHRITIS) Depression: Yes Cardiovascular Problems: Yes Coronary Artery Disease: Yes Developmental Delay: No Diabetes: Yes Diminished Hearing: No Gastrointestinal Disorders: Yes (COLON POLYP/GERD) GERD: Yes Respiratory: Yes Integumentary: Yes (right foot ulcer) Renal Failure: Yes Past Surgical History Cardiac Surgery: Yes (CAROTID ENDARECTOMY BOTH SIDES) Cholecystectomy: Yes Other Surgery: Yes (AMPUTATION OF 3 TOES L FOOT) Social History Alcohol Use: No Tobacco Use: No (quit 1998) Substance Use: No Allergies-Medications (Allergen,Severity, Reaction): Coded Allergies: niacin (Verified Allergy, Severe, rash, 07/19/17) Reported Meds & Prescriptions Reported Meds & Active Scripts Active Hydrocodone-Acetamin 5-325 mg (Hydrocodone/Acetaminophen) 5 Mg-325 Mg Tablet 1 Tab PO Q6H PRN Senna-Lax (Sennosides) 8.6 Mg Tab 8.6 Mg PO HS Metoprolol Tartrate 25 Mg Tab 12.5 Mg PO Q12HR Ferosul (Ferrous Sulfate) 325 Mg (65 Mg Iron) Tablet 325 Mg PO BID@,17 Reported Zofran (Ondansetron HCl) 4 Mg Tab 4 Mg PO Q6HR PRN Potassium Chloride ER (Potassium Chloride) 20 Meq Tab 20 Meq PO DAILY Ditropan (Oxybutynin Chloride) 5 Mg Tab 5 Mg PO Q12HR Magnesium Oxide 400 Mg Tab 500 Mg PO DAILY Losartan (Losartan Potassium) 100 Mg Tab 100 Mg PO DAILY Lasix (Furosemide) 40 Mg Tab 40 Mg PO BID Prozac (Fluoxetine HCl) 20 Mg Cap 20 Mg PO DAILY Fluocinonide Topical (Fluocinonide) 0.05% Cream 1 Applic TOPICAL BID PRN Apply thin layer to affected area(s) Fish Oil 1000 mg ([place]-3 Fatty Acids) 300 Mg-1,000 Mg Cap 2,000 Mg PO DAILY Vitamin B-12 (Cyanocobalamin) 1,000 Mcg Tab 1,000 Mcg PO DAILY Plavix (Clopidogrel Bisulfate) 75 Mg Tab 75 Mg PO DAILY Lipitor (Atorvastatin Calcium) 40 Mg Tab 20 Mg PO HS Aspirin Adult Low Strength (Aspirin) 81 Mg Tabdr 81 Mg PO DAILY Zyloprim (Allopurinol) 300 Mg Tab 300 Mg PO DAILY Review of Systems Except as stated in HPI: all other systems reviewed are Neg Physical Exam Narrative GENERAL: WD, WN in NAD resting comfortably in bed SKIN: Focused skin assessment warm/dry. HEAD: Atraumatic. Normocephalic. EYES: Pupils equal and round. No scleral icterus. No injection or drainage. ENT: No nasal bleeding or discharge. Mucous membranes pink and moist. NECK: Trachea midline. No JVD. No lymphadenopathy CARDIOVASCULAR: Regular rate and rhythm. No murmur appreciated. RESPIRATORY: No accessory muscle use. Clear to auscultation. Breath sounds equal bilaterally. GASTROINTESTINAL: Abdomen soft, non-tender, nondistended. No CVA tenderness MUSCULOSKELETAL: No obvious deformities. No clubbing. No cyanosis. No edema. Right foot-lateral aspect of fifth MTP-1.5 x 1 cm ulcer with granulation tissue , no exudates or bleeding noted, tender to palpation of the area. No surrounding erythema or edema. No lymph angiopathic spread NEUROLOGICAL: Awake and alert. No obvious cranial nerve deficits. Motor grossly within normal limits. Normal speech. PSYCHIATRIC: Appropriate mood and affect; insight and judgment normal. Data Data Last Documented VS Vital Signs Date Time Temp Pulse Resp B/P (MAP) Pulse Ox O2 Delivery O2 Flow Rate FiO2 07/19/17 15:59 61 18 181/74 (109) 98 Room Air 07/19/17 13:12 98.7 Orders Orders Complete Blood Count With Diff (07/19/17 13:14) Basic Metabolic Panel (Bmp) (07/19/17 13:14) Coag Profile (07/19/17 13:14) Foot, Complete ([id number]) (07/19/17 ) Lactic Acid Sepsis Protocol (07/19/17 13:14) Blood Culture (07/19/17 13:14) Diet Npo Except Meds (07/20/17 Lunch) Mri Foot W&W/O Contrast (07/19/17 ) Admit Order (Ed Use Only) (07/19/17 17:06) Labs Laboratory Tests Test 07/19/17 14:00 White Blood Count 7.7 TH/MM3 Red Blood Count 3.89 MIL/MM3 Hemoglobin 11.4 GM/DL Hematocrit 35.1 % Mean Corpuscular Volume 90.2 FL Mean Corpuscular Hemoglobin 29.3 PG Mean Corpuscular Hemoglobin Concent 32.5 % Red Cell Distribution Width 17.5 % Platelet Count 214 TH/MM3 Mean Platelet Volume 8.0 FL Neutrophils (%) (Auto) 74.8 % Lymphocytes (%) (Auto) 12.1 % Monocytes (%) (Auto) 6.3 % Eosinophils (%) (Auto) 5.8 % Basophils (%) (Auto) 1.0 % Neutrophils # (Auto) 5.8 TH/MM3 Lymphocytes # (Auto) 0.9 TH/MM3 Monocytes # (Auto) 0.5 TH/MM3 Eosinophils # (Auto) 0.4 TH/MM3 Basophils # (Auto) 0.1 TH/MM3 CBC Comment DIFF FINAL Differential Comment Prothrombin Time 11.1 SEC Prothromb Time International Ratio 1.1 RATIO Activated Partial Thromboplast Time 26.1 SEC Blood Urea Nitrogen 23 MG/DL Creatinine 1.33 MG/DL Random Glucose 119 MG/DL Calcium Level 9.0 MG/DL Sodium Level 137 MEQ/L Potassium Level 4.5 MEQ/L Chloride Level 101 MEQ/L Carbon Dioxide Level 32.3 MEQ/L Anion Gap 4 MEQ/L Estimat Glomerular Filtration Rate 52 ML/MIN Lactic Acid Level 0.8 mmol/L MDM Medical Decision Making Medical Screen Exam Complete: Yes Emergency Medical Condition: Yes Differential Diagnosis Right foot osteomyelitis, cellulitis, ulcer Narrative Course 76-year-old male presents emergency department at the request of his shipping clerk/admin , Dr. Melgar for evaluation of osteomyelitis of the right foot. Patient has apparently had this osteomyelitis for several months requiring multiple rounds of antibiotics. Patient had a CABG June 15 which placed his foot surgery on hold. States he took all of his morning medications. Vital signs are stable. His exam findings demonstrate an ulcer to the lateral aspect of the right foot. No significant edema, erythema, no lymph angiopathic spread. We will hold on antibiotics as patient is stable and Dr. Ayala on is aware that patient is here today. We will initiate antibiotics at the request of her. Labs demonstrate no leukocytosis, stable chronic anemia, stable CKD 3, coag stable. Last Impressions Foot X-Ray 07/19/17 0000 Signed Impressions: Service Date/Time: Wednesday, July 19, 2017 13:30 - CONCLUSION: Progressive bony destruction of the fifth toe characteristic of osteomyelitis Randall Reeder MD Patient be admitted for osteomyelitis, Dr. Melgar consult. Diagnosis Primary Impression: Osteomyelitis Qualified Codes: M86.671 - Other chronic osteomyelitis, right ankle and foot Admitting Information Admitting Physician Requests: Admit Condition: Stable Shahida Soliz Jul 19, 2017 16:05
[2017-07-19] MEDS ORDERED: ZOFR4TAB PO (16:09)
[2017-07-19] MEDS ORDERED: ONDANSETRON HCL 4 MG/2 ML VIAL IVP PRN (18:30)
[2017-07-19] MEDS ORDERED: SENNOSIDES 8.6 MG TAB PO PRN (18:30)
[2017-07-19] MEDS ORDERED: ACETAMINOPHEN 325 MG TAB PO PRN (18:30)
[2017-07-19] MEDS ORDERED: NALOXONE HCL 0.4 MG/ML AMP IV PUSH PRN (18:30)
[2017-07-19] MEDS ORDERED: MAGNESIUM HYDROXIDE SUSP 30 ML CUP PO PRN (18:30)
[2017-07-19] MEDS ORDERED: MORPHINE SULFATE 2 MG/ML INJ IV PUSH PRN (18:30)
[2017-07-19] MEDS ORDERED: LACTULOSE SYRUP 20 GM/30 ML CUP PO PRN (18:30)
[2017-07-19] MEDS ORDERED: SODIUM CHLORIDE 0.9% FLUSH 10 ML FLUSH IV FLUSH PRN (18:30)
[2017-07-19] MEDS ORDERED: BISACODYL 10 MG SUPP RECTAL PRN (18:30)
[2017-07-19] MEDS ORDERED: ACETAMINOPHEN/HYDROcodone 325 MG/5 MG TAB PO PRN (18:30)
[2017-07-19] MEDS ORDERED: ACETAMINOPHEN/HYDROcodone 325 MG/10 MG TAB PO PRN (18:30)
[2017-07-19 18:33] VITALS: BP 159/72; PULSE 74; RESP 16; O2SAT 99
[2017-07-19] MEDS ORDERED: GADODIAMIDE PF 287 MG/ML 5 ML VIAL (for RAD MRI) IVCONTRAST ONE (19:14)
[2017-07-19] MEDS: SODIUM CHLOR 0.45% 1000 ML INJ 1,000 ML IV SCH (19:38)
[2017-07-19 20:00] VITALS: BP 186/82; PULSE 58; RESP 20; TEMP 97.7; O2SAT 96
--- NOTE | 2017-07-19 20:07 | RADRPT ---
EXAM DATE/TIME: 07/19/2017 18:48 [facility] COMPARISON: FOOT RIGHT COMPLETE ([id number]), July 19, 2017, 13:30. MRI FOOT RIGHT W & W/O CONTRAST, June 09, 2 018, 13:20. INDICATIONS : Abscess. Right foot, fifth digit abscess. CONTRAST: 22 cc Omniscan (gadodiamide) IV MEDICAL HISTORY : Hypertension. Diabetes mellitus type 2. Myocardial infarction. AAA SURGICAL HISTORY : CABG Carotid stent. Cholecystectomy. ENCOUNTER: Subsequent ACUITY: 2 months PAIN SCORE: 2/10 LOCATION: Right fifth digit. TECHNIQUE: Multiplanar, multisequence MRI examination was performed without contrast and after the intravenous a dministration of gadolinium. FINDINGS: Prior MRI 06/09/17 demonstrated prominent marrow edema and enhancement in the proximal 5th metatarsus. On today's examination, there is a similar appearance no signal abnormality involving the entire 5t h metatarsal bone with T1 prolongation and prominent enhancement. There is also similar signal abnor mality in the proximal phalanx of the 5th digit. On the postcontrast images, there is enhancement in the marrow of the proximal phalanx and 5th metatarsus. There is also enhancement along the sinus tr act lateral to the distal 5th metatarsal. There is prominent soft tissue thickening adjacent to the 5th metatarsus without drainable fluid collection. There is some subcutaneous fluid laterally. No e nhancement in the marrow of the 1st and 4th metatarsal bones. Subchondral cyst in the 3rd multangula r bone slightly large than on prior and enhancement. CONCLUSION: Osteomyelitis of the 5th metatarsal bone and proximal phalanx with lateral sinus tract and prominent soft tissue swelling. The appearance is very similar to prior MRI. Also, there is an enhancing subc hondral cyst in the 3rd multangular bone adjacent to the proximal 5th metatarsus which demonstrates s ome enhancement and measures 5 mm. This suggests possibility of osteomyelitis involvement of the 3rd multangular. Mert Henley MD on July 19, 2017 at 19:58 Board Certified Radiologist. This report was verified electronically.
[2017-07-19] MEDS: SODIUM CHLORIDE 0.9% FLUSH 10 ML FLUSH IV FLUSH SCH (22:44)
[2017-07-19] MEDS: FUROSEMIDE 40 MG TAB PO SCH (22:45)
[2017-07-19] MEDS: DOCUSATE SODIUM 50 MG/SENNA 8.6 MG TAB PO SCH (22:45)
[2017-07-19] MEDS: OXYBUTYNIN CHLORIDE 5 MG TAB PO SCH (22:45)
[2017-07-19] MEDS: ATORVASTATIN 20 MG TAB PO SCH (22:45)
[2017-07-19] MEDS: METOPROLOL TARTRATE 25 MG TAB PO SCH (22:45)
[2017-07-19] MEDS: PIPERACIL-TAZO 4.5 GM PREMIX 100 ML IV SCH (22:50)
[2017-07-19] MEDS: VANCOMYCIN INJ 1,700 MG in SODIUM CHLORID 0.9% 500 ML INJ 500 ML IV SCH (22:50)
--- NOTE | 2017-07-19 23:07 | HHI.HP ---
[facility] Unknown Admission Diagnosis osteomyelitis right foot Diagnoses: Travel History International Travel<30 Days: No Contact w/Intl Traveler <30 Da: No Traveled to Known Affected Are: No History of Present Illness 76-year-old male with a past medical history significant for diabetes, CAD status post CABG 4 - 3 weeks ago, AAA, GERD and chronic kidney disease presents to the emergency department for evaluation of a right foot wound. The patient was sent from his facility where he was recovering from his CABG. He reports pain with ambulation. Denies fever/chills. No shortness of breath or chest pain. No nausea/vomiting. No weakness or lateralizing signs/symptoms. Review of Systems Except as stated in HPI: all other systems reviewed are Neg Past Family Social History Past Medical History Osteoarthritis Colonic polyps Diabetes Coronary artery disease AAA GERD CKD Past Surgical History Carotid endarterectomy bilateral Cholecystectomy Amputation of 3 toes on the left foot. CABG x 4 Reported Medications Reported Meds & Active Scripts Active Hydrocodone-Acetamin 5-325 mg (Hydrocodone/Acetaminophen) 5 Mg-325 Mg Tablet 1 Tab PO Q6H PRN Senna-Lax (Sennosides) 8.6 Mg Tab 8.6 Mg PO HS Metoprolol Tartrate 25 Mg Tab 12.5 Mg PO Q12HR Ferosul (Ferrous Sulfate) 325 Mg (65 Mg Iron) Tablet 325 Mg PO BID@12,17 Reported Zofran (Ondansetron HCl) 4 Mg Tab 4 Mg PO Q6HR PRN Potassium Chloride ER (Potassium Chloride) 20 Meq Tab 20 Meq PO DAILY Ditropan (Oxybutynin Chloride) 5 Mg Tab 5 Mg PO Q12HR Magnesium Oxide 400 Mg Tab 500 Mg PO DAILY Losartan (Losartan Potassium) 100 Mg Tab 100 Mg PO DAILY Lasix (Furosemide) 40 Mg Tab 40 Mg PO BID Prozac (Fluoxetine HCl) 20 Mg Cap 20 Mg PO DAILY Fluocinonide Topical (Fluocinonide) 0.05% Cream 1 Applic TOPICAL BID PRN Apply thin layer to affected area(s) Fish Oil 1000 mg ([place]-3 Fatty Acids) 300 Mg-1,000 Mg Cap 2,000 Mg PO DAILY Vitamin B-12 (Cyanocobalamin) 1,000 Mcg Tab 1,000 Mcg PO DAILY Plavix (Clopidogrel Bisulfate) 75 Mg Tab 75 Mg PO DAILY Lipitor (Atorvastatin Calcium) 40 Mg Tab 20 Mg PO HS Aspirin Adult Low Strength (Aspirin) 81 Mg Tabdr 81 Mg PO DAILY Zyloprim (Allopurinol) 300 Mg Tab 300 Mg PO DAILY Allergies: Coded Allergies: niacin (Verified Allergy, Severe, rash, 07/19/17) Family History Mom - cerebral hemorrhage Dad - heart disease. Social History Denies using alcohol, tobacco, illicit drugs. Physical Exam Vital Signs Vital Signs Date Time Temp Pulse Resp B/P (MAP) Pulse Ox O2 Delivery O2 Flow Rate FiO2 07/19/17 20:19 07/19/17 18:33 74 16 159/72 (101) 99 Room Air 07/19/17 15:59 61 18 181/74 (109) 98 Room Air 07/19/17 15:50 18 99 Room Air 07/19/17 13:12 98.7 54 16 156/68 (97) 99 Physical Exam GENERAL: male lying in bed SKIN: Cool and dry. Right foot lateral aspect of the fifth MTP has a 1 cm ulcer with granulation tissue. No drainage noted. HEAD: Atraumatic. Normocephalic. No temporal or scalp tenderness. EYES: Pupils equal round and reactive. Extraocular motions intact. No scleral icterus. No injection or drainage. ENT: Nose without bleeding, purulent drainage or septal hematoma. Throat without erythema, tonsillar hypertrophy or exudate. Uvula midline. Airway patent. NECK: Trachea midline. No JVD or lymphadenopathy. Supple, nontender, no meningeal signs. CARDIOVASCULAR: Regular rate and rhythm without murmurs, gallops, or rubs. RESPIRATORY: Clear to auscultation. Breath sounds equal bilaterally. No wheezes , rales, or rhonchi. GASTROINTESTINAL: Abdomen soft, non-tender, nondistended. No hepato-splenomegaly , or palpable masses. No guarding. MUSCULOSKELETAL: Bilateral edema, right greater than left with chronic vascular changes. Status post amputation of digits 2,3 and 4 left foot. No calf tenderness. NEUROLOGICAL: Awake and alert. Cranial nerves II through XII intact. Motor and sensory grossly within normal limits. Normal speech. Laboratory Laboratory Tests Test 07/19/17 14:00 White Blood Count 7.7 Red Blood Count 3.89 Hemoglobin 11.4 Hematocrit 35.1 Mean Corpuscular Volume 90.2 Mean Corpuscular Hemoglobin 29.3 Mean Corpuscular Hemoglobin Concent 32.5 Red Cell Distribution Width 17.5 Platelet Count 214 Mean Platelet Volume 8.0 Neutrophils (%) (Auto) 74.8 Lymphocytes (%) (Auto) 12.1 Monocytes (%) (Auto) 6.3 Eosinophils (%) (Auto) 5.8 Basophils (%) (Auto) 1.0 Neutrophils # (Auto) 5.8 Lymphocytes # (Auto) 0.9 Monocytes # (Auto) 0.5 Eosinophils # (Auto) 0.4 Basophils # (Auto) 0.1 CBC Comment DIFF FINAL Differential Comment Prothrombin Time 11.1 Prothromb Time International Ratio 1.1 Activated Partial Thromboplast Time 26.1 Blood Urea Nitrogen 23 Creatinine 1.33 Random Glucose 119 Calcium Level 9.0 Sodium Level 137 Potassium Level 4.5 Chloride Level 101 Carbon Dioxide Level 32.3 Anion Gap 4 Estimat Glomerular Filtration Rate 52 Lactic Acid Level 0.8 Date/Time Source Procedure Growth Status 07/19/17 14:00 Blood Peripheral Aerobic Blood Culture Pending Received 07/19/17 14:00 Blood Peripheral Anaerobic Blood Culture Pending Received Result Diagram: 07/19/17 1400 07/19/17 1400 Jermainerinjimy VTE Risk Assessment Caprini VTE Risk Assessment: Mod/High Risk (score >= 2) Caprini Risk Assessment Model Point Value = 1 Point Value = 2 Point Value = 3 Point Value = 5 Age 41-60 Minor surgery BMI > 25 kg/m2 Swollen legs Varicose veins or History of unexplained or recurrent spontaneous Oral contraceptives or hormone replacement Sepsis (< 1 month) Serious lung disease, including pneumonia (< 1 month) Abnormal pulmonary function Acute myocardial infarction Congestive heart failure (< 1 month) History of inflammatory bowel disease Medical patient at bed rest Age 61-74 Arthroscopic surgery Major open surgery (> 45 min) Laparoscopic surgery (> 45 min) Malignancy Confined to bed (> 72 hours) Immobilizing plaster cast Central venous access Age >= 75 History of VTE Family history of VTE Factor V Leiden Prothrombin [id number] Lupus anticoagulant Anticardiolipin antibodies Elevated serum homocysteine Heparin-induced thrombocytopenia Other congenital or acquired thrombophilia Stroke (< 1 month) Elective arthroplasty Hip, pelvis, or leg fracture Acute spinal cord injury (< 1 month) Prophylaxis Regimen Total Risk Factor Score Risk Level Prophylaxis Regimen 0-1 Low Early ambulation 2 Moderate Order ONE of the following: *Sequential Compression Device (SCD) *Heparin 5000 units SQ BID 3-4 Higher Order ONE of the following medications: *Heparin 5000 units SQ TID *Enoxaparin/Lovenox 40 mg SQ daily (WT < 150 kg, CrCl > 30 mL/min) *Enoxaparin/Lovenox 30 mg SQ daily (WT < 150 kg, CrCl > 10-29 mL/min) *Enoxaparin/Lovenox 30 mg SQ BID (WT < 150 kg, CrCl > 30 mL/min) AND/OR *Sequential Compression Device (SCD) 5 or more Highest Order ONE of the following medications: *Heparin 5000 units SQ TID (Preferred with Epidurals) *Enoxaparin/Lovenox 40 mg SQ daily (WT < 150 kg, CrCl > 30 mL/min) *Enoxaparin/Lovenox 30 mg SQ daily (WT < 150 kg, CrCl > 10-29 mL/min) *Enoxaparin/Lovenox 30 mg SQ BID (WT < 150 kg, CrCl > 30 mL/min) AND *Sequential Compression Device (SCD) Assessment and Plan Assessment and Plan Assessment/plan: 1. Osteomyelitis Foot MRI significant for osteomyelitis of the fifth metatarsal bone and proximal phalanx with lateral sinus tract and prominent soft tissue swelling Vancomycin/Zosyn Podiatry consulted, appreciate recommendations 2. Hypertension/hyperlipidemia/CAD Continue home medications Holding Plavix and aspirin 3. Diabetes mellitus Sliding scale insulin Monitor blood glucose 4. Chronic kidney disease Creatinine 1.33, improved from baseline Monitor renal function FEN Nothing by mouth Electrolytes: Monitor and replete when necessary NS at 75 cc/hour Holding pharmacologic anticoagulation in anticipation of operative intervention Physician Certification 2 Midnight Certification Type: Admission for Inpatient Services Order for Inpatient Services The services are ordered in accordance with Medicare regulations or non- Medicare payer requirements, as applicable. In the case of services not specified as inpatient-only, they are appropriately provided as inpatient services in accordance with the 2-midnight benchmark. Estimated LOS (days): 2 2 days is the estimated time the patient will need to remain in the hospital, assuming treatment plan goals are met and no additional complications. Post-Hospital Plan: Not yet determined Yulissa Olvera MD Jul 19, 2017:07
[2017-07-19] MEDS ORDERED: GLUCAGON 1 MG/ML VIAL OTHER PRN (23:15)
[2017-07-19] MEDS ORDERED: DEXTROSE 50% IN WATER 50 ML VIAL(D50) IV PUSH PRN (23:15)
[2017-07-20] VITALS: BP 106/54; PULSE 52; RESP 16; TEMP 96.5; O2SAT 98
[2017-07-20] MEDS: PIPERACIL-TAZO 4.5 GM PREMIX 100 ML IV SCH ×4 (04:05→20:38)
[2017-07-20] MEDS ORDERED: LACTATED RINGER'S 1000 ML IV PRN (05:15)
[2017-07-20] MEDS: SODIUM CHLOR 0.45% 1000 ML INJ 1,000 ML IV SCH ×2 (07:41→20:44)
[2017-07-20] MEDS: INSULIN ASPART SUPPLEMENTAL SCALE SQ SCH ×4 (08:00→21:00)
[2017-07-20] MEDS: DOCUSATE SODIUM 50 MG/SENNA 8.6 MG TAB PO SCH ×2 (08:27→20:39)
[2017-07-20] MEDS: METOPROLOL TARTRATE 25 MG TAB PO SCH ×2 (08:27→20:39)
[2017-07-20] MEDS: MAGNESIUM OXIDE 400 MG TAB PO SCH (08:27)
[2017-07-20] MEDS: OXYBUTYNIN CHLORIDE 5 MG TAB PO SCH ×2 (08:28→20:39)
[2017-07-20] MEDS: POTASSIUM CHLORIDE 20 MEQ CONTROLLED RELEASE TAB PO SCH (08:28)
[2017-07-20] MEDS: ALLOPURINOL 300 MG TAB PO SCH (08:28)
[2017-07-20] MEDS: FLUoxetine HCL 20 MG CAP PO SCH (08:28)
[2017-07-20] MEDS: FUROSEMIDE 40 MG TAB PO SCH ×2 (08:28→20:39)
[2017-07-20] MEDS: LOSARTAN 50 MG TAB PO SCH (08:29)
[2017-07-20] MEDS: SODIUM CHLORIDE 0.9% FLUSH 10 ML FLUSH IV FLUSH SCH ×2 (08:30→20:38)
[2017-07-20] MEDS: CYANOCOBALAMIN 1,000 MCG TAB PO SCH (08:30)
[2017-07-20 08:32] LABS: AUTOMATED NEUTROPHIL # 6.6 TH/MM3 (1.8-7.7); BASOPHIL # 0.1 TH/MM3 (0-0.2); BASOPHIL % 0.8 % (0.0-2.0); EOSINOPHIL # 0.4 TH/MM3 (0-0.4); EOSINOPHIL % 4.7 % (0.0-4.0); HEMATOCRIT 36.7 % (39.0-51.0); LYMPH % 6.3 % (9.0-44.0); LYMPHOCYTE # 0.5 TH/MM3 (1.0-4.8); MEAN CORPUSCULAR HEMOGLOBIN 29.8 PG (27.0-34.0); MEAN CORPUSCULAR HGB CONC 32.7 % (32.0-36.0); MEAN PLATELET VOLUME 8.1 FL (7.0-11.0); MONO % 5.7 % (0.0-8.0); MONOCYTE # 0.5 TH/MM3 (0-0.9); NEUT % 82.5 % (16.0-70.0); PLATELET COUNT 203 TH/MM3 (150-450); RED BLOOD COUNT 4.03 MIL/MM3 (4.50-5.90); RED CELL DISTRIBUTION WIDTH 17.4 % (11.6-17.2)
[2017-07-20] MEDS ORDERED: FATTY ACIDS PO SCH (09:00)
[2017-07-20] MEDS ORDERED: OMEGA PO SCH (09:00)
[2017-07-20 09:01] LABS: ALBUMIN 3.3 GM/DL (3.4-5.0); AST (GOT) 21 U/L (15-37); BICARBONATE 31.8 MEQ/L (21.0-32.0); BLOOD UREA NITROGEN 24 MG/DL (7-18); CALCIUM 8.5 MG/DL (8.5-10.1); CHLORIDE 99 MEQ/L (98-107); CREATININE 1.55 MG/DL (0.60-1.30); GLOMERULAR FILTRATION RATE 44 ML/MIN (>89); SODIUM (NA) 138 MEQ/L (136-145)
[2017-07-20 09:05] LABS: GLUCOSE,RANDOM 97 MG/DL (74-106)
[2017-07-20 09:10] LABS: ALKALINE PHOSPHATASE 138 U/L (45-117); ALT (GPT) 14 U/L (12-78); TOTAL BILIRUBIN ADULT 0.7 MG/DL (0.2-1.0)
--- NOTE | 2017-07-20 11:27 | HHI.PR ---
Subjective Remarks Follow-up osteomyelitis right foot 07/20/17-patient seen and examined, early nothing by mouth pending further evaluation from podiatry. Afebrile. Objective Vitals Vital Signs Date Time Temp Pulse Resp B/P (MAP) Pulse Ox O2 Delivery O2 Flow Rate FiO2 07/20/17 00:00 96.5 52 16 106/54 (71) 98 07/19/17 20:19 07/19/17 20:00 97.7 58 20 186/82 (116) 96 07/19/17 18:33 74 16 159/72 (101) 99 Room Air 07/19/17 15:59 61 18 181/74 (109) 98 Room Air 07/19/17 15:50 18 99 Room Air 07/19/17 13:12 98.7 54 16 156/68 (97) 99 I/O 07/19/17 07/19/17 07/19/17 07/20/17 07/20/17 07/20/17 07:00 15:00 23:00 07:00 15:00 23:00 Intake Total 240 ml 717 ml Balance 240 ml 717 ml Intake Oral 240 ml IV Total 717 ml # Voids 3 2 Result Diagram: 07/20/17 0741 07/20/17 0741 Imaging Last Impressions Foot X-Ray 07/19/17 0000 Signed Impressions: Service Date/Time: Wednesday, July 19, 2017 13:30 - CONCLUSION: Progressive bony destruction of the fifth toe characteristic of osteomyelitis Randall Reeder MD Foot MRI 07/19/17 0000 Signed Impressions: Service Date/Time: Wednesday, July 19, 2017 18:48 - CONCLUSION: Osteomyelitis of the 5th metatarsal bone and proximal phalanx with lateral sinus tract and prominent soft tissue swelling. The appearance is very similar to prior MRI. Also, there is an enhancing subchondral cyst in the 3rd multangular bone adjacent to the proximal 5th metatarsus which demonstrates some enhancement and measures 5 mm. This suggests possibility of osteomyelitis involvement of the 3rd multangular. Mert Henley MD Objective Remarks GENERAL: NAD SKIN: Warm and dry. open sore/wound right 5th toe with surrounding erythema HEAD: Normocephalic. EYES: No scleral icterus. No injection or drainage. NECK: Supple, trachea midline. No JVD or lymphadenopathy. CARDIOVASCULAR: Regular rate and rhythm without murmurs, gallops, or rubs. RESPIRATORY: Breath sounds equal bilaterally. No accessory muscle use. GASTROINTESTINAL: Abdomen soft, non-tender, nondistended. MUSCULOSKELETAL: No cyanosis, or edema. BACK: Nontender without obvious deformity. No CVA tenderness. A/P Problem List: (1) Osteomyelitis ICD Code: M86.9 - Osteomyelitis, unspecified Status: Acute (2) Acute renal failure ICD Code: N17.9 - Acute kidney failure, unspecified Assessment and Plan 76-year-old man with 1. Osteomyelitis Foot MRI significant for osteomyelitis of the fifth metatarsal bone and proximal phalanx with lateral sinus tract and prominent soft tissue swelling Vancomycin/Zosyn Podiatry consulted, appreciate recommendations 2. Hypertension/hyperlipidemia/CAD Continue home medications Holding Plavix and aspirin 3. Diabetes mellitus Sliding scale insulin Monitor blood glucose 4. Chronic kidney disease Continue IV fluid hydration and monitor renal indices Monitor renal function Problem Qualifiers (1) Osteomyelitis: Qualified Codes: M86.671 - Other chronic osteomyelitis, right ankle and foot Basli Cha MD Jul 20, 2017 11:27
[2017-07-20 12:00] VITALS: BP 127/58; PULSE 55; RESP 19; TEMP 98.7; O2SAT 90
[2017-07-20] MEDS: FERROUS SULFATE 325 MG (65 MG ELEMENTAL IRON) TAB PO SCH ×2 (12:29→17:33)
[2017-07-20 14:00] VITALS: BP 153/66; PULSE 60; RESP 19; TEMP 98.4; O2SAT 97
[2017-07-20 20:00] VITALS: BP 152/67; PULSE 55; RESP 16; TEMP 97.3; O2SAT 96
[2017-07-20] MEDS: VANCOMYCIN INJ 1,700 MG in SODIUM CHLORID 0.9% 500 ML INJ 500 ML IV SCH (20:38)
[2017-07-20] MEDS: ATORVASTATIN 20 MG TAB PO SCH (20:39)
--- NOTE | 2017-07-20 23:11 | PD.POD ---
Past Med/Surg/Social History Social History Smoking Status: Former Smoker Objective Vital Signs Vital Signs Date Time Temp Pulse Resp B/P (MAP) Pulse Ox O2 Delivery O2 Flow Rate FiO2 07/20/17 21:43 21 07/20/17 20:00 97.3 55 16 152/67 (95) 96 07/20/17 14:00 98.4 60 19 153/66 (95) 97 07/20/17 12:00 98.7 55 19 127/58 (81) 90 07/20/17 00:00 96.5 52 16 106/54 (71) 98 Coded Allergies: niacin (Verified Allergy, Severe, rash, 07/19/17) Assessment & Plan A/P Osteomyelitis right 5th metatarsal and toe Case canceled tonight due to no OR availability NPO after midnight Case rescheduled for early afternoon tomorrow Carlos Melgar DPM Jul 20, 2017 23:11
[2017-07-21] VITALS: BP 128/58; PULSE 54; RESP 16; TEMP 98.4; O2SAT 95
[2017-07-21] MEDS: PIPERACIL-TAZO 4.5 GM PREMIX 100 ML IV SCH ×4 (04:21→19:35)
[2017-07-21 07:19] LABS: AUTOMATED NEUTROPHIL # 3.2 TH/MM3 (1.8-7.7); BASOPHIL # 0.1 TH/MM3 (0-0.2); BASOPHIL % 1.3 % (0.0-2.0); EOSINOPHIL # 0.4 TH/MM3 (0-0.4); EOSINOPHIL % 7.9 % (0.0-4.0); HEMATOCRIT 30.2 % (39.0-51.0); LYMPH % 17.4 % (9.0-44.0); LYMPHOCYTE # 0.9 TH/MM3 (1.0-4.8); MEAN CELL VOLUME 89.9 FL (80.0-100.0); MEAN CORPUSCULAR HEMOGLOBIN 29.7 PG (27.0-34.0); MEAN CORPUSCULAR HGB CONC 33.1 % (32.0-36.0); MEAN PLATELET VOLUME 8.1 FL (7.0-11.0); MONO % 10.4 % (0.0-8.0); MONOCYTE # 0.5 TH/MM3 (0-0.9); PLATELET COUNT 165 TH/MM3 (150-450); RED BLOOD COUNT 3.35 MIL/MM3 (4.50-5.90); RED CELL DISTRIBUTION WIDTH 17.8 % (11.6-17.2); WHITE BLOOD COUNT 5.1 TH/MM3 (4.0-11.0)
[2017-07-21 07:29] LABS: BICARBONATE 30.7 MEQ/L (21.0-32.0); CALCIUM 8.3 MG/DL (8.5-10.1); CREATININE 1.53 MG/DL (0.60-1.30)
[2017-07-21 08:00] VITALS: BP 151/74; PULSE 58; RESP 16; TEMP 96.7; O2SAT 93
[2017-07-21] MEDS: INSULIN ASPART SUPPLEMENTAL SCALE SQ SCH ×4 (08:00→19:48)
[2017-07-21] MEDS: SODIUM CHLORIDE 0.9% FLUSH 10 ML FLUSH IV FLUSH SCH ×2 (09:00→19:35)
[2017-07-21] MEDS: FUROSEMIDE 40 MG TAB PO SCH ×2 (09:23→19:39)
[2017-07-21] MEDS: LOSARTAN 50 MG TAB PO SCH (09:23)
[2017-07-21] MEDS: DOCUSATE SODIUM 50 MG/SENNA 8.6 MG TAB PO SCH ×2 (09:24→19:40)
[2017-07-21] MEDS: METOPROLOL TARTRATE 25 MG TAB PO SCH ×2 (09:24→22:52)
[2017-07-21] MEDS: CYANOCOBALAMIN 1,000 MCG TAB PO SCH (09:25)
[2017-07-21] MEDS: POTASSIUM CHLORIDE 20 MEQ CONTROLLED RELEASE TAB PO SCH (09:26)
[2017-07-21] MEDS: FLUoxetine HCL 20 MG CAP PO SCH (09:26)
[2017-07-21] MEDS: ALLOPURINOL 300 MG TAB PO SCH (09:26)
[2017-07-21] MEDS: OXYBUTYNIN CHLORIDE 5 MG TAB PO SCH ×2 (09:26→19:39)
[2017-07-21] MEDS: MAGNESIUM OXIDE 400 MG TAB PO SCH (09:26)
[2017-07-21] MEDS: SODIUM CHLOR 0.45% 1000 ML INJ 1,000 ML IV SCH ×2 (10:21→22:51)
[2017-07-21] MEDS ORDERED: Vancomycin Consult Pharmacy 1 EA OTHER SCH (10:30)
--- NOTE | 2017-07-21 11:54 | HHI.PR ---
Subjective Remarks Follow-up osteomyelitis right foot 07/20/17-patient seen and examined, early nothing by mouth pending further evaluation from podiatry. Afebrile. 07/21/17-patient seen and examined, surgery was canceled yesterday due to the room not being available. Currently nothing by mouth Objective Vitals Vital Signs Date Time Temp Pulse Resp B/P (MAP) Pulse Ox O2 Delivery O2 Flow Rate FiO2 07/21/17 08:00 96.7 58 16 151/74 (99) 93 07/21/17 00:00 98.4 54 16 128/58 (81) 95 07/20/17 21:43 21 07/20/17 20:00 97.3 55 16 152/67 (95) 96 07/20/17 14:00 98.4 60 19 153/66 (95) 97 07/20/17 12:00 98.7 55 19 127/58 (81) 90 I/O 07/20/17 07/20/17 07/20/17 07/21/17 07/21/17 07/21/17 07:00 15:00 23:00 07:00 15:00 23:00 Intake Total 717 ml 100 ml 340 ml Output Total 900 ml 275 ml Balance 717 ml 100 ml -560 ml -275 ml Intake Oral 240 ml IV Total 717 ml 100 ml 100 ml Output Urine Total 900 ml 275 ml # Voids 2 3 # Bowel Movements 1 Result Diagram: 07/21/17 0559 07/21/17 0559 Imaging Last Impressions Foot X-Ray 07/19/17 0000 Signed Impressions: Service Date/Time: Wednesday, July 19, 2017 13:30 - CONCLUSION: Progressive bony destruction of the fifth toe characteristic of osteomyelitis Randall Reeder MD Foot MRI 07/19/17 0000 Signed Impressions: Service Date/Time: Wednesday, July 19, 2017 18:48 - CONCLUSION: Osteomyelitis of the 5th metatarsal bone and proximal phalanx with lateral sinus tract and prominent soft tissue swelling. The appearance is very similar to prior MRI. Also, there is an enhancing subchondral cyst in the 3rd multangular bone adjacent to the proximal 5th metatarsus which demonstrates some enhancement and measures 5 mm. This suggests possibility of osteomyelitis involvement of the 3rd multangular. eMrt Henley MD Objective Remarks GENERAL: NAD SKIN: Warm and dry. open sore/wound right 5th toe with surrounding erythema HEAD: Normocephalic. EYES: No scleral icterus. No injection or drainage. NECK: Supple, trachea midline. No JVD or lymphadenopathy. CARDIOVASCULAR: Regular rate and rhythm without murmurs, gallops, or rubs. RESPIRATORY: Breath sounds equal bilaterally. No accessory muscle use. GASTROINTESTINAL: Abdomen soft, non-tender, nondistended. MUSCULOSKELETAL: No cyanosis, or edema. BACK: Nontender without obvious deformity. No CVA tenderness. A/P Problem List: (1) Osteomyelitis ICD Code: M86.9 - Osteomyelitis, unspecified Status: Acute (2) Acute renal failure ICD Code: N17.9 - Acute kidney failure, unspecified Assessment and Plan 76-year-old man with 1. Osteomyelitis Foot MRI significant for osteomyelitis of the fifth metatarsal bone and proximal phalanx with lateral sinus tract and prominent soft tissue swelling Vancomycin/Zosyn Podiatry consulted, appreciate recommendations and plan for amputation of toe today 07/21/17 2. Hypertension/hyperlipidemia/CAD Continue home medications Holding Plavix and aspirin 3. Diabetes mellitus Sliding scale insulin Monitor blood glucose 4. Chronic kidney disease Continue IV fluid hydration and monitor renal indices Renal indices improving Problem Qualifiers (1) Osteomyelitis: Qualified Codes: M86.671 - Other chronic osteomyelitis, right ankle and foot Basil Cha MD Jul 21, 2017 11:54
[2017-07-21 12:00] VITALS: BP 152/70; PULSE 58; RESP 18; TEMP 96.5; O2SAT 92
[2017-07-21] MEDS ORDERED: LIDOCAINE HCL 1% PF 5 ML SYRINGE OTHER ONE (12:00)
[2017-07-21] MEDS: FERROUS SULFATE 325 MG (65 MG ELEMENTAL IRON) TAB PO SCH ×2 (12:00→18:01)
[2017-07-21] MEDS ORDERED: PROPOFOL 200 MG/20 ML AMP IV ONE (12:00)
[2017-07-21] MEDS ORDERED: BUPIVACAINE HCL PF 0.5% 30 ML VIAL ONE (13:53)
[2017-07-21] MEDS ORDERED: LIDOCAINE HCL 2% 100 MG/5 ML SYRINGE ONE (13:53)
[2017-07-21] MEDS ORDERED: DO NOT ADM ANY ANTICOAGULANT DRUGS PRN (14:58)
--- NOTE | 2017-07-21 15:00 | HHI.PR ---
Immediate Post Op Note Procedure Date: Jul 21, 2017 Pre Op Diagnosis: Osteomyelitis right 5th toe and metatarsal Post Op Diagnosis: Same Surgeon: Carlos Melgar DPM Dancing Instructor(s): Staff Procedure: Amputation right partial 5th ray with bone biopsy Findings: Consistent with diagnosis. lateral full thickness ulceration just proximal to 5th metatarsal head right foot probing to bone. No purulence noted. Minimal edema, no erythema. Racquet incision made encompassing 5th toe and dissection down to 5th metatarsal. 5th metatarsal transected midshaft level and distal metatarsal and toe sent to pathology. Bone biopsy from residual 5th metatarsal sent. Culture taken from site with swab, followed by irrigation with normal saline and closure with 2-0 nylon. No purulence noted throughout and healthy viable bleeding tissue noted throughout. Xeroform, 4x4, abd, cast padding, jovanna right foot. Nonweightbearing right foot. PT to evaluate. May need return to rehab if unable to be compliant. No further surgical treatment planned. Ok with discharge tomorrow and can follow bone biopsy as outpatient Needs to follow up in clinic next week for dressing change as outpatient. Additional Information: No tourniquet utilized. Complications: None Specimen(s) removed: 1. culture right foot 2. right partial 5th metatarsal and 5th toe to pathology 3. bone biopsy right residual 5th metatarsal Anesthesia: MAC, Local (20mL 0.5% marcaine plain) Drains: None IVF Tourniquet time (min at mmHg) n/a Patient to: PACU Patient Condition: Good Date/Time of Procedure: SEE SURGICAL CARE RECORD Carlos Melgar DPM Jul 21, 2017 15:00
--- NOTE | 2017-07-21 15:59 | RADRPT ---
EXAM DATE/TIME: 07/21/2017 15:08 [facility] COMPARISON: FOOT RIGHT COMPLETE ([id number]), July 19, 2017, 13:30. INDICATIONS : Post op right foot. MEDICAL HISTORY : Hypertension. Diabetes mellitus type 2. Myocardial infarction. AAA SURGICAL HISTORY : CABG Carotid stent. Cholecystectomy. ENCOUNTER: Initial ACUITY: 1 day PAIN SCORE: Non-responsive. LOCATION: Right lateral foot FINDINGS: Post surgical changes are noted following subtotal resection of the fifth metatarsal and complete res ection of the fifth toe. Overlying soft tissue deformity is identified. Posterior to the foot are otherwise intact. CONCLUSION: Status post right fifth toe and metatarsal amputation. Ger Prince MD on July 21, 2017 at 15:54 Board Certified Radiologist. This report was verified electronically.
[2017-07-21 16:00] VITALS: BP 143/67; PULSE 60; RESP 17; TEMP 96.1; O2SAT 97
[2017-07-21] MEDS: VANCOMYCIN INJ 1,700 MG in SODIUM CHLORID 0.9% 500 ML INJ 500 ML IV SCH (19:35)
[2017-07-21] MEDS: ATORVASTATIN 20 MG TAB PO SCH (19:39)
[2017-07-21 20:00] VITALS: BP 153/67; PULSE 57; RESP 20; TEMP 97.8; O2SAT 98
[2017-07-22] VITALS: BP 154/70; PULSE 56; RESP 18; TEMP 98.3; O2SAT 96
[2017-07-22] MEDS: PIPERACIL-TAZO 4.5 GM PREMIX 100 ML IV SCH ×4 (02:58→21:40)
[2017-07-22 06:54] LABS: CREATININE 1.51 MG/DL (0.60-1.30)
[2017-07-22 08:00] VITALS: BP 136/62; PULSE 52; RESP 18; TEMP 97.9; O2SAT 93
[2017-07-22] MEDS: INSULIN ASPART SUPPLEMENTAL SCALE SQ SCH ×4 (08:00→21:00)
[2017-07-22] MEDS: MAGNESIUM OXIDE 400 MG TAB PO SCH (09:40)
[2017-07-22] MEDS: CYANOCOBALAMIN 1,000 MCG TAB PO SCH (09:40)
[2017-07-22] MEDS: OXYBUTYNIN CHLORIDE 5 MG TAB PO SCH ×2 (09:40→21:40)
[2017-07-22] MEDS: ALLOPURINOL 300 MG TAB PO SCH (09:40)
[2017-07-22] MEDS: LOSARTAN 50 MG TAB PO SCH (09:40)
[2017-07-22] MEDS: DOCUSATE SODIUM 50 MG/SENNA 8.6 MG TAB PO SCH ×2 (09:40→21:40)
[2017-07-22] MEDS: POTASSIUM CHLORIDE 20 MEQ CONTROLLED RELEASE TAB PO SCH (09:40)
[2017-07-22] MEDS: FUROSEMIDE 40 MG TAB PO SCH ×2 (09:40→21:40)
[2017-07-22] MEDS: METOPROLOL TARTRATE 25 MG TAB PO SCH ×2 (09:40→21:40)
[2017-07-22] MEDS: FLUoxetine HCL 20 MG CAP PO SCH (09:40)
[2017-07-22] MEDS: SODIUM CHLORIDE 0.9% FLUSH 10 ML FLUSH IV FLUSH SCH ×2 (09:41→21:00)
[2017-07-22] MEDS: FERROUS SULFATE 325 MG (65 MG ELEMENTAL IRON) TAB PO SCH ×2 (11:36→17:14)
[2017-07-22] MEDS: SODIUM CHLOR 0.45% 1000 ML INJ 1,000 ML IV SCH (11:36)
[2017-07-22 12:00] VITALS: BP 118/56; PULSE 56; RESP 17; TEMP 97.8; O2SAT 93
--- NOTE | 2017-07-22 12:26 | HHI.PR ---
Subjective Remarks Follow-up osteomyelitis right foot 07/20/17-patient seen and examined, early nothing by mouth pending further evaluation from podiatry. Afebrile. 07/21/17-patient seen and examined, surgery was canceled yesterday due to the room not being available. Currently nothing by mouth 07/22/17-patient seen and examined, no acute event overnight, currently afebrile , tolerated pain Objective Vitals Vital Signs Date Time Temp Pulse Resp B/P (MAP) Pulse Ox O2 Delivery O2 Flow Rate FiO2 07/22/17 12:00 97.8 56 17 118/56 (76) 93 07/22/17 08:00 97.9 52 18 136/62 (86) 93 07/22/17 00:00 98.3 56 18 154/70 (98) 96 07/21/17 20:00 97.8 57 20 153/67 (95) 98 07/21/17 16:00 96.1 60 17 143/67 (92) 97 07/21/17 15:30 54 12 139/69 (92) 100 Nasal Cannula 2 07/21/17 15:15 54 12 134/66 (88) 100 Nasal Cannula 2 07/21/17 15:00 56 12 154/59 (90) 100 Nasal Cannula 2 07/21/17 14:58 97.4 53 12 112/53 (72) 100 Nasal Cannula 2 I/O 07/21/17 07/21/17 07/21/17 07/22/17 07/22/17 07/22/17 07:00 15:00 23:00 07:00 15:00 23:00 Intake Total 2240 ml 460 ml Output Total 275 ml 830 ml 800 ml Balance -275 ml 1410 ml -340 ml Intake Oral 240 ml 360 ml IV Total 2000 ml 100 ml Output Urine Total 275 ml 800 ml 800 ml Estimated Blood Loss 30 ml # Bowel Movements 3 0 Result Diagram: 07/21/17 0559 07/22/17 0553 Objective Remarks GENERAL: NAD SKIN: Warm and dry. HEAD: Normocephalic. EYES: No scleral icterus. No injection or drainage. NECK: Supple, trachea midline. No JVD or lymphadenopathy. CARDIOVASCULAR: Regular rate and rhythm without murmurs, gallops, or rubs. RESPIRATORY: Breath sounds equal bilaterally. No accessory muscle use. GASTROINTESTINAL: Abdomen soft, non-tender, nondistended. MUSCULOSKELETAL: No cyanosis, or edema. dressing over the right foot BACK: Nontender without obvious deformity. No CVA tenderness. Procedures s/p Amputation right partial 5th ray with bone biopsy 07/21/17 A/P Problem List: (1) Osteomyelitis ICD Code: M86.9 - Osteomyelitis, unspecified Status: Acute (2) Acute renal failure ICD Code: N17.9 - Acute kidney failure, unspecified Assessment and Plan 76-year-old man with 1. Osteomyelitis Foot MRI significant for osteomyelitis of the fifth metatarsal bone and proximal phalanx with lateral sinus tract and prominent soft tissue swelling Currently on Vancomycin/Zosyn s/p Amputation right partial 5th ray with bone biopsy 07/21/17 pending biopsy report Podiatry ff 2. Hypertension/hyperlipidemia/CAD Continue home medications Resume Plavix and aspirin 3. Diabetes mellitus Sliding scale insulin Monitor blood glucose 4. Chronic kidney disease Continue IV fluid hydration and monitor renal indices Renal indices improving Problem Qualifiers (1) Osteomyelitis: Qualified Codes: M86.671 - Other chronic osteomyelitis, right ankle and foot Basil Cha MD Jul 22, 2017 12:26
--- NOTE | 2017-07-22 15:51 | PD.POD ---
Subjective Podiatric Problems R foot osteomyelitis, s/p R partial 5th ray amputation with bone biopsy 3 Dr Melgar Past Med/Surg/Social History Social History Smoking Status: Former Smoker Objective Vital Signs Vital Signs Date Time Temp Pulse Resp B/P (MAP) Pulse Ox O2 Delivery O2 Flow Rate FiO2 07/22/17 12:00 97.8 56 17 118/56 (76) 93 07/22/17 08:00 97.9 52 18 136/62 (86) 93 07/22/17 00:00 98.3 56 18 154/70 (98) 96 07/21/17 20:00 97.8 57 20 153/67 (95) 98 07/21/17 16:00 96.1 60 17 143/67 (92) 97 Coded Allergies: niacin (Verified Allergy, Severe, rash, 07/19/17) Other Results R foot, preliminary Staph Microbiology Date/Time Source Procedure Growth Status 07/19/17 14:00 Blood Peripheral Aerobic Blood Culture - Preliminary NO GROWTH IN 3 DAYS Resulted 07/19/17 14:00 Blood Peripheral Anaerobic Blood Culture - Preliminary NO GROWTH IN 3 DAYS Resulted 07/21/17 14:41 Wound Foot Fungal Smear - Final NO FUNGAL ELEMENTS SEEN. Resulted 07/21/17 14:41 Wound Foot Fungal Culture Pending Resulted Exam-Podiatry Remarks R foot dressing clean, dry, intact. No strikethrough noted. Assessment & Plan A/P Osteomyelitis right 5th metatarsal and toe R foot osteomyelitis, s/p R partial 5th ray amputation with bone biopsy 07.21.17 Dr Melgar Continue NWB Right foot., patient did not remember PT coming by and thought nurse had brought him the walker, He has been noncompliant and has been walking around his room from bed to chair and to bathroom and back and admitted this to me. Discussed risk of dehiscence and nonhealing surgical site with noncompliance. Needs bedside commode. Await bone biopsy. Plan to change bandage wednesday. Anticipate he will be ready for discharge Wednesday. Carlos Melgar DPM Jul 22, 2017 15:51
[2017-07-22 16:00] VITALS: BP 125/68; PULSE 55; RESP 16; TEMP 96.5; O2SAT 92
[2017-07-22 19:39] VITALS: O2SAT 92
[2017-07-22 20:00] VITALS: BP 132/59; PULSE 65; RESP 18; TEMP 97; O2SAT 91
[2017-07-22] MEDS ORDERED: PHARMACY ORDERED LAB ONE (20:45)
[2017-07-22] MEDS: ATORVASTATIN 20 MG TAB PO SCH (21:40)
[2017-07-23] VITALS: BP 130/62; PULSE 62; RESP 18; TEMP 97.1; O2SAT 95
[2017-07-23] MEDS: VANCOMYCIN INJ 1,500 MG in SODIUM CHLORID 0.9% 500 ML INJ 500 ML IV SCH ×2 (01:26→23:49)
[2017-07-23] MEDS: PIPERACIL-TAZO 4.5 GM PREMIX 100 ML IV SCH ×4 (04:18→19:58)
[2017-07-23] MEDS: SODIUM CHLOR 0.45% 1000 ML INJ 1,000 ML IV SCH ×2 (04:18→10:29)
[2017-07-23 08:00] VITALS: BP 151/70; PULSE 63; RESP 18; TEMP 96.6; O2SAT 90
[2017-07-23] MEDS: INSULIN ASPART SUPPLEMENTAL SCALE SQ SCH ×4 (08:00→20:50)
[2017-07-23] MEDS: DOCUSATE SODIUM 50 MG/SENNA 8.6 MG TAB PO SCH ×2 (09:00→19:57)
[2017-07-23] MEDS: CLOPIDOGREL 75 MG TAB PO SCH (10:32)
[2017-07-23] MEDS: ALLOPURINOL 300 MG TAB PO SCH (10:32)
[2017-07-23] MEDS: ASPIRIN EC 81 MG TABEC PO SCH (10:32)
[2017-07-23] MEDS: FLUoxetine HCL 20 MG CAP PO SCH (10:33)
[2017-07-23] MEDS: LOSARTAN 50 MG TAB PO SCH (10:33)
[2017-07-23] MEDS: MAGNESIUM OXIDE 400 MG TAB PO SCH (10:34)
[2017-07-23] MEDS: CYANOCOBALAMIN 1,000 MCG TAB PO SCH (10:34)
[2017-07-23] MEDS: OXYBUTYNIN CHLORIDE 5 MG TAB PO SCH ×2 (10:35→20:06)
[2017-07-23] MEDS: FUROSEMIDE 40 MG TAB PO SCH ×2 (10:35→19:57)
[2017-07-23] MEDS: METOPROLOL TARTRATE 25 MG TAB PO SCH ×2 (10:36→19:57)
[2017-07-23] MEDS: POTASSIUM CHLORIDE 20 MEQ CONTROLLED RELEASE TAB PO SCH (10:36)
[2017-07-23] MEDS: SODIUM CHLORIDE 0.9% FLUSH 10 ML FLUSH IV FLUSH SCH ×2 (10:37→19:58)
[2017-07-23 12:00] VITALS: BP 169/71; PULSE 59; RESP 16; TEMP 96.2; O2SAT 95
--- NOTE | 2017-07-23 12:11 | HHI.PR ---
Subjective Remarks Follow-up osteomyelitis right foot 07/20/17-patient seen and examined, early nothing by mouth pending further evaluation from podiatry. Afebrile. 07/21/17-patient seen and examined, surgery was canceled yesterday due to the room not being available. Currently nothing by mouth 07/22/17-patient seen and examined, no acute event overnight, currently afebrile , tolerated pain 07/23/17-patient seen and examined, Afebrile and no complaint Objective Vitals Vital Signs Date Time Temp Pulse Resp B/P (MAP) Pulse Ox O2 Delivery O2 Flow Rate FiO2 07/23/17 08:00 96.6 63 18 151/70 (97) 90 07/23/17 00:00 97.1 62 18 130/62 (84) 95 07/22/17 20:00 97.0 65 18 132/59 (83) 91 07/22/17 19:39 92 Nasal Cannula 2.00 07/22/17 16:00 96.5 55 16 125/68 (87) 92 I/O 07/22/17 07/22/17 07/22/17 07/23/17 07/23/17 07/23/17 07:00 15:00 23:00 07:00 15:00 23:00 Intake Total 460 ml 900 ml 1180 ml 1100 ml Output Total 800 ml 550 ml 350 ml Balance -340 ml 900 ml 630 ml -350 ml 1100 ml Intake Oral 360 ml 1080 ml IV Total 100 ml 900 ml 100 ml 1100 ml Output Urine Total 800 ml 550 ml 350 ml # Voids 3 # Bowel Movements 0 2 2 Result Diagram: 07/21/17 0559 07/22/17 0553 Objective Remarks GENERAL: NAD SKIN: Warm and dry. HEAD: Normocephalic. EYES: No scleral icterus. No injection or drainage. NECK: Supple, trachea midline. No JVD or lymphadenopathy. CARDIOVASCULAR: Regular rate and rhythm without murmurs, gallops, or rubs. RESPIRATORY: Breath sounds equal bilaterally. No accessory muscle use. GASTROINTESTINAL: Abdomen soft, non-tender, nondistended. MUSCULOSKELETAL: No cyanosis, or edema. dressing over the right foot BACK: Nontender without obvious deformity. No CVA tenderness. Procedures s/p Amputation right partial 5th ray with bone biopsy 07/21/17 A/P Problem List: (1) Osteomyelitis ICD Code: M86.9 - Osteomyelitis, unspecified Status: Acute (2) Acute renal failure ICD Code: N17.9 - Acute kidney failure, unspecified Assessment and Plan 76-year-old man with 1. Osteomyelitis Foot MRI significant for osteomyelitis of the fifth metatarsal bone and proximal phalanx with lateral sinus tract and prominent soft tissue swelling Currently on Vancomycin/Zosyn s/p Amputation right partial 5th ray with bone biopsy 07/21/17 pending biopsy report Podiatry ff and recommend NWB Await bone biopsy. Plan to change bandage Wednesday 2. Hypertension/hyperlipidemia/CAD Continue home medications Continue Plavix and aspirin 3. Diabetes mellitus Sliding scale insulin Monitor blood glucose 4. Chronic kidney disease Continue IV fluid hydration and monitor renal indices Renal indices improving Problem Qualifiers (1) Osteomyelitis: Qualified Codes: M86.671 - Other chronic osteomyelitis, right ankle and foot Basil Cha MD Jul 23, 2017 12:11
[2017-07-23] MEDS: FERROUS SULFATE 325 MG (65 MG ELEMENTAL IRON) TAB PO SCH ×2 (12:20→18:40)
[2017-07-23 16:00] VITALS: BP 144/65; PULSE 52; RESP 18; TEMP 97.1; O2SAT 97
[2017-07-23 17:47] VITALS: O2SAT 97
[2017-07-23] MEDS: ATORVASTATIN 20 MG TAB PO SCH (19:57)
[2017-07-23 20:31] VITALS: BP 114/56; PULSE 60; RESP 18; TEMP 97.6; O2SAT 95
[2017-07-24 01:01] VITALS: BP 158/70; PULSE 67; RESP 18; TEMP 97.7; O2SAT 94
[2017-07-24] MEDS: PIPERACIL-TAZO 4.5 GM PREMIX 100 ML IV SCH ×4 (02:43→20:26)
[2017-07-24] MEDS: INSULIN ASPART SUPPLEMENTAL SCALE SQ SCH ×4 (07:53→20:31)
[2017-07-24] MEDS: DOCUSATE SODIUM 50 MG/SENNA 8.6 MG TAB PO SCH ×2 (07:54→20:26)
[2017-07-24] MEDS: METOPROLOL TARTRATE 25 MG TAB PO SCH ×2 (07:55→20:26)
[2017-07-24] MEDS: CLOPIDOGREL 75 MG TAB PO SCH (07:55)
[2017-07-24] MEDS: POTASSIUM CHLORIDE 20 MEQ CONTROLLED RELEASE TAB PO SCH (07:55)
[2017-07-24] MEDS: ASPIRIN EC 81 MG TABEC PO SCH (07:55)
[2017-07-24] MEDS: FUROSEMIDE 40 MG TAB PO SCH ×2 (07:56→20:26)
[2017-07-24] MEDS: MAGNESIUM OXIDE 400 MG TAB PO SCH (07:56)
[2017-07-24] MEDS: LOSARTAN 50 MG TAB PO SCH (07:56)
[2017-07-24] MEDS: FLUoxetine HCL 20 MG CAP PO SCH (07:56)
[2017-07-24] MEDS: OXYBUTYNIN CHLORIDE 5 MG TAB PO SCH ×2 (07:56→20:26)
[2017-07-24] MEDS: CYANOCOBALAMIN 1,000 MCG TAB PO SCH (07:56)
[2017-07-24] MEDS: ALLOPURINOL 300 MG TAB PO SCH (07:56)
[2017-07-24] MEDS: SODIUM CHLORIDE 0.9% FLUSH 10 ML FLUSH IV FLUSH SCH ×2 (07:57→20:26)
[2017-07-24 08:00] VITALS: BP 166/70; PULSE 58; RESP 18; TEMP 98; O2SAT 93
--- NOTE | 2017-07-24 08:54 | HHI.PR ---
Subjective Remarks In bed doesn't appear in distress Says has no pain at this time. No n/v/d/c. Objective Vitals Vital Signs Date Time Temp Pulse Resp B/P (MAP) Pulse Ox O2 Delivery O2 Flow Rate FiO2 07/24/17 08:00 98.0 58 18 166/70 (102) 93 07/24/17 01:01 97.7 67 18 158/70 (99) 94 07/23/17 20:31 97.6 60 18 114/56 (75) 95 07/23/17 17:47 97 Nasal Cannula 2.00 07/23/17 16:00 97.1 52 18 144/65 (91) 97 07/23/17 12:00 96.2 59 16 169/71 (103) 95 I/O 07/23/17 07/23/17 07/23/17 07/24/17 07/24/17 07/24/17 07:00 15:00 23:00 07:00 15:00 23:00 Intake Total 1100 ml 1000 ml 1095 ml Output Total 350 ml 800 ml 1700 ml Balance -350 ml 1100 ml 200 ml -605 ml Intake Oral 800 ml 480 ml IV Total 1100 ml 200 ml 615 ml Output Urine Total 350 ml 800 ml 1700 ml # Voids 3 # Bowel Movements 2 2 1 Result Diagram: 07/21/17 0559 07/22/17 0553 Imaging Last Impressions Foot X-Ray 07/21/17 0000 Signed Impressions: Service Date/Time: Friday, July 21, 2017 15:08 - CONCLUSION: Status post right fifth toe and metatarsal amputation. Ger Prince MD Foot MRI 07/19/17 0000 Signed Impressions: Service Date/Time: Wednesday, July 19, 2017 18:48 - CONCLUSION: Osteomyelitis of the 5th metatarsal bone and proximal phalanx with lateral sinus tract and prominent soft tissue swelling. The appearance is very similar to prior MRI. Also, there is an enhancing subchondral cyst in the 3rd multangular bone adjacent to the proximal 5th metatarsus which demonstrates some enhancement and measures 5 mm. This suggests possibility of osteomyelitis involvement of the 3rd multangular. Mert Henley MD Objective Remarks GENERAL: 76 yo male, appears in NAD SKIN: Warm and dry. HEAD: Normocephalic. EYES: No scleral icterus. No injection or drainage. NECK: Supple, trachea midline. No JVD or lymphadenopathy. CARDIOVASCULAR: Regular rate and rhythm without murmurs, gallops, or rubs. RESPIRATORY: Breath sounds equal bilaterally. No accessory muscle use. GASTROINTESTINAL: Abdomen soft, non-tender, nondistended. MUSCULOSKELETAL: No cyanosis, or edema. dressing over the right foot BACK: Nontender without obvious deformity. No CVA tenderness. Procedures s/p Amputation right partial 5th ray with bone biopsy 07/21/17 A/P Problem List: (1) Osteomyelitis ICD Code: M86.9 - Osteomyelitis, unspecified Status: Acute (2) Acute renal failure ICD Code: N17.9 - Acute kidney failure, unspecified Assessment and Plan 76-year-old man with Osteomyelitis Foot MRI significant for osteomyelitis of the fifth metatarsal bone and proximal phalanx with lateral sinus tract and prominent soft tissue swelling Currently on Vancomycin/Zosyn s/p Amputation right partial 5th ray with bone biopsy 07/21/17 pending biopsy report Podiatry ff and recommend NWB Await bone biopsy. Plan to change bandage Wednesday morning Hypertension/hyperlipidemia/CAD Continue home medications Continue Plavix and aspirin Hyperglycemia A1c is 6 on 06/03 Sliding scale insulin Monitor blood glucose Chronic kidney disease Continue IV fluid hydration and monitor renal indices Renal indices improving Discussed with the patient, nurse Problem Qualifiers (1) Osteomyelitis: Qualified Codes: M86.671 - Other chronic osteomyelitis, right ankle and foot Karina Clements MD Jul 24, 2017 08:54
[2017-07-24] MEDS: SODIUM CHLOR 0.45% 1000 ML INJ 1,000 ML IV SCH ×3 (10:32→16:09)
[2017-07-24] MEDS: FERROUS SULFATE 325 MG (65 MG ELEMENTAL IRON) TAB PO SCH ×2 (11:52→16:43)
[2017-07-24 12:00] VITALS: BP 146/65; PULSE 55; RESP 17; TEMP 96.9; O2SAT 96
[2017-07-24 16:00] VITALS: BP 166/55; PULSE 67; RESP 16; TEMP 97.9; O2SAT 92
[2017-07-24 20:00] VITALS: BP 144/63; PULSE 64; RESP 19; TEMP 96.6; O2SAT 95
[2017-07-24] MEDS: ATORVASTATIN 20 MG TAB PO SCH (20:26)
[2017-07-25] VITALS: BP 134/60; PULSE 71; RESP 19; TEMP 96.4; O2SAT 94
[2017-07-25] MEDS: VANCOMYCIN INJ 1,500 MG in SODIUM CHLORID 0.9% 500 ML INJ 500 ML IV SCH (00:07)
[2017-07-25] MEDS: SODIUM CHLOR 0.45% 1000 ML INJ 1,000 ML IV SCH (04:30)
[2017-07-25] MEDS: PIPERACIL-TAZO 4.5 GM PREMIX 100 ML IV SCH ×4 (04:30→20:22)
[2017-07-25] MEDS: DOCUSATE SODIUM 50 MG/SENNA 8.6 MG TAB PO SCH ×2 (07:06→20:23)
[2017-07-25] MEDS: INSULIN ASPART SUPPLEMENTAL SCALE SQ SCH ×3 (07:31→17:00)
[2017-07-25] MEDS: FUROSEMIDE 40 MG TAB PO SCH ×2 (07:31→20:23)
[2017-07-25] MEDS: FLUoxetine HCL 20 MG CAP PO SCH (07:31)
[2017-07-25] MEDS: LOSARTAN 50 MG TAB PO SCH (07:31)
[2017-07-25] MEDS: ALLOPURINOL 300 MG TAB PO SCH (07:31)
[2017-07-25] MEDS: CYANOCOBALAMIN 1,000 MCG TAB PO SCH (07:32)
[2017-07-25] MEDS: CLOPIDOGREL 75 MG TAB PO SCH (07:32)
[2017-07-25] MEDS: OXYBUTYNIN CHLORIDE 5 MG TAB PO SCH ×2 (07:32→20:23)
[2017-07-25] MEDS: MAGNESIUM OXIDE 400 MG TAB PO SCH (07:32)
[2017-07-25] MEDS: METOPROLOL TARTRATE 25 MG TAB PO SCH ×2 (07:32→20:24)
[2017-07-25] MEDS: SODIUM CHLORIDE 0.9% FLUSH 10 ML FLUSH IV FLUSH SCH ×2 (07:32→20:22)
[2017-07-25] MEDS: POTASSIUM CHLORIDE 20 MEQ CONTROLLED RELEASE TAB PO SCH (07:32)
[2017-07-25] MEDS: ASPIRIN EC 81 MG TABEC PO SCH (07:32)
[2017-07-25 08:00] VITALS: BP 153/71; PULSE 53; RESP 18; TEMP 95.9; O2SAT 92
--- NOTE | 2017-07-25 08:34 | PD.POD ---
Subjective Podiatric Problems R foot osteomyelitis, s/p R partial 5th ray amputation with bone biopsy 3.7.18 Dr Melgar Past Med/Surg/Social History Social History Smoking Status: Former Smoker Objective Vital Signs Vital Signs Date Time Temp Pulse Resp B/P (MAP) Pulse Ox O2 Delivery O2 Flow Rate FiO2 07/25/17 00:00 96.4 71 19 134/60 (84) 94 07/24/17 22:02 Nasal Cannula 2.00 07/24/17 20:00 96.6 64 19 144/63 (90) 95 07/24/17 16:00 97.9 67 16 166/55 (92) 92 07/24/17 14:43 2.00 07/24/17 12:00 96.9 55 17 146/65 (92) 96 Coded Allergies: niacin (Verified Allergy, Severe, rash, 07/19/17) Assessment & Plan A/P Osteomyelitis right 5th metatarsal and toe R foot osteomyelitis, s/p R partial 5th ray amputation with bone biopsy 3.12.01 Dr Melgar Continue NWB Right foot. Discussed risk of dehiscence and nonhealing surgical site with noncompliance. Keep dressing intact, clean, dry until follow up in clinic. Needs to follow up in clinic for dressing change next week. Bone biopsy negative for osteomyelitis Carlos Melgar DPM Jul 25, 2017 08:34
[2017-07-25 09:17] LABS: CREATININE 1.5 MG/DL (0.60-1.30)
[2017-07-25] MEDS ORDERED: HYDR-3516 PO (10:49)
[2017-07-25 12:00] VITALS: BP 123/58; PULSE 52; RESP 16; TEMP 97.5; O2SAT 95
[2017-07-25] MEDS: FERROUS SULFATE 325 MG (65 MG ELEMENTAL IRON) TAB PO SCH ×2 (12:13→17:22)
--- NOTE | 2017-07-25 14:19 | HHI.PR ---
Subjective Remarks afebrile , no acute issues over night Objective Vitals Vital Signs Date Time Temp Pulse Resp B/P (MAP) Pulse Ox O2 Delivery O2 Flow Rate FiO2 07/25/17 12:00 97.5 52 16 123/58 (79) 95 07/25/17 08:00 95.9 53 18 153/71 (98) 92 07/25/17 00:00 96.4 71 19 134/60 (84) 94 07/24/17 22:02 Nasal Cannula 2.00 07/24/17 20:00 96.6 64 19 144/63 (90) 95 07/24/17 16:00 97.9 67 16 166/55 (92) 92 07/24/17 14:43 2.00 I/O 07/24/17 07/24/17 07/24/17 07/25/17 07/25/17 07/25/17 07:00 15:00 23:00 07:00 15:00 23:00 Intake Total 1095 ml 580 ml 1855 ml Output Total 1700 ml 1400 ml 900 ml Balance -605 ml -820 ml 955 ml Intake Oral 480 ml 480 ml 240 ml IV Total 615 ml 100 ml 1615 ml Output Urine Total 1700 ml 1400 ml 900 ml # Bowel Movements 1 0 1 Result Diagram: 07/21/17 0559 07/25/17 0806 Objective Remarks GENERAL: This is a well-nourished, well-developed patient, in no apparent distress. CARDIOVASCULAR: Regular rate and rhythm without murmurs, gallops, or rubs. RESPIRATORY: Clear to auscultation. Breath sounds equal bilaterally. No wheezes , rales, or rhonchi. GASTROINTESTINAL: Abdomen soft, non-tender, nondistended. Normal active bowel sounds MUSCULOSKELETAL: Extremities without clubbing, cyanosis, or edema. NEURO: Alert & Oriented x4 to person, place, time, situation. Moves all ext x4 Procedures s/p Amputation right partial 5th ray with bone biopsy 07/21/17 A/P Problem List: (1) Osteomyelitis ICD Code: M86.9 - Osteomyelitis, unspecified Status: Acute (2) Acute renal failure ICD Code: N17.9 - Acute kidney failure, unspecified Assessment and Plan 07/25: discharge to [facility] 76-year-old man with Osteomyelitis Foot MRI significant for osteomyelitis of the fifth metatarsal bone and proximal phalanx with lateral sinus tract and prominent soft tissue swelling Currently on Vancomycin/Zosyn s/p Amputation right partial 5th ray with bone biopsy 07/21/17 pending biopsy report Podiatry ff and recommend NWB Await bone biopsy. Plan to change bandage Wednesday morning Hypertension/hyperlipidemia/CAD Continue home medications Continue Plavix and aspirin Hyperglycemia A1c is 6 on 06/03 Sliding scale insulin Monitor blood glucose Chronic kidney disease Continue IV fluid hydration and monitor renal indices Renal indices improving Problem Qualifiers (1) Osteomyelitis: Qualified Codes: M86.671 - Other chronic osteomyelitis, right ankle and foot Tarsha Burnett MD Jul 25, 2017 14:19
[2017-07-25 16:00] VITALS: BP 152/65; PULSE 66; RESP 18; TEMP 96.9; O2SAT 92
[2017-07-25 20:22] VITALS: BP 136/63; PULSE 57; RESP 20; TEMP 99.3; O2SAT 95
[2017-07-25] MEDS: ATORVASTATIN 20 MG TAB PO SCH (20:23)
[2017-07-25] MEDS ORDERED: PHARMACY ORDERED LAB ONE (23:45)
--- NOTE | 2017-07-26 16:27 | HHI.DS ---
Discharge Summary Admission Date Jul 19, 2017 at 17:09 Discharge Date: Jul 25, 2017 Admitting Diagnosis osteomyelitis right foot (1) Osteomyelitis ICD Code: M86.9 - Osteomyelitis, unspecified Status: Acute (2) Acute renal failure ICD Code: N17.9 - Acute kidney failure, unspecified Procedures s/p Amputation right partial 5th ray with bone biopsy 07/21/17 Brief History - From Admission 76-year-old male with a past medical history significant for diabetes, CAD status post CABG 4 - 3 weeks ago, AAA, GERD and chronic kidney disease presents to the emergency department for evaluation of a right foot wound. The patient was sent from his facility where he was recovering from his CABG. He reports pain with ambulation. Denies fever/chills. No shortness of breath or chest pain. No nausea/vomiting. No weakness or lateralizing signs/symptoms. CBC/BMP: 07/25/17 0806 Significant Findings Laboratory Tests Test 07/25/17 08:06 Creatinine 1.50 MG/DL (0.60-1.30) Estimat Glomerular Filtration Rate 46 ML/MIN (>89) PE at Discharge GENERAL: 76 yo male, appears in NAD SKIN: Warm and dry. HEAD: Normocephalic. EYES: No scleral icterus. No injection or drainage. NECK: Supple, trachea midline. No JVD or lymphadenopathy. CARDIOVASCULAR: Regular rate and rhythm without murmurs, gallops, or rubs. RESPIRATORY: Breath sounds equal bilaterally. No accessory muscle use. GASTROINTESTINAL: Abdomen soft, non-tender, nondistended. MUSCULOSKELETAL: No cyanosis, or edema. dressing over the right foot BACK: Nontender without obvious deformity. No CVA tenderness. Hospital Course 76 years old man admitted with osteomyelitis of the fifth metatarsal bone proximal phalanx started on vancomycin and Zosyn, podiatry consult is status post amputation biopsy came back negative patient cleared to be discharged and follow-up as an outpatient also patient had a history of hypertension hyperlipidemia coronary artery disease hyperglycemia with A1c at 7 as well as chronic kidney disease all to be managed as an outpatient [id number] encounter performed with the patient on discharge day, as well as physical exam , summary of hospitalization course and postdischarge plan has been D/W the patient. 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 Discharge medications reviewed and printed and signed, post discharge follow up visit with PCP and other specialist as well as Brief hospital course and discharge summary has been placed. Pt Condition on Discharge: Fair Discharge Disposition: Discharge to SNF Discharge Time: > 30 minutes Discharge Instructions DIET: Follow Instructions for: Heart Healthy Diet, Diabetic Diet Activities you can perform: See Additionl Instruction Other Activity Instructions: PT Follow up Referrals: Podiatry - 1 Week with Carlos Melgar DPM New Medications: Hydrocodone/Acetaminophen (Hydrocodone-Acetamin 5-325 mg) 5 Mg-325 Mg Tablet 1 TAB PO Q6H PRN for pain, #15 TAB Continued Medications: Allopurinol (Zyloprim) 300 Mg Tab 300 MG PO DAILY for Gout, #30 TAB [address] (Aspirin Adult Low Strength) 81 Mg Tabdr 81 MG PO DAILY for Heart Health, TAB Atorvastatin (Lipitor) 40 Mg Tab 20 MG PO HS for Cholesterol Management, #30 TAB 0 Refills Clopidogrel (Plavix) 75 Mg Tab 75 MG PO DAILY for Blood Clot Prevention, #30 TAB 0 Refills Cyanocobalamin (Vitamin B-12) 1,000 Mcg Tab 1000 MCG PO DAILY for Nutritional Supplement, #1 BOTTLE 0 Refills Ferrous Sulfate (Ferosul) 325 Mg (65 Mg Iron) Tablet 325 MG PO BID@12,17 for Nutritional Supplement, #60 TAB Fluocinonide Topical (Fluocinonide Topical) 0.05% Cream 1 APPLIC TOPICAL BID PRN for Dermatitis, #30 GM 0 Refills Apply thin layer to affected area(s) Fluoxetine (Prozac) 20 Mg Cap 20 MG PO DAILY for Mood, #30 CAP 0 Refills Furosemide (Lasix) 40 Mg Tab 40 MG PO BID for Diuretic, #60 TAB 0 Refills Losartan (Losartan) 100 Mg Tab 100 MG PO DAILY for Blood Pressure Management, #30 TAB 0 Refills Magnesium Oxide (Magnesium Oxide) 400 Mg Tab 500 MG PO DAILY for Nutritional Supplement, TAB 0 Refills Metoprolol Tartrate (Metoprolol Tartrate) 25 Mg Tab 12.5 MG PO Q12HR for Blood Pressure Management, #60 TAB [place]-3 Fatty Acids (Fish Oil 1000 mg) 300 Mg-1,000 Mg Cap 2000 MG PO DAILY for Nutritional Supplement Ondansetron (Zofran) 4 Mg Tab 4 MG PO Q6HR PRN for NAUSEA OR VOMITING, TAB 0 Refills Oxybutynin (Ditropan) 5 Mg Tab 5 MG PO Q12HR for Urinary Symptom Managemen, #60 TAB 0 Refills Potassium Chloride ER (Potassium Chloride ER) 20 Meq Tab 20 MEQ PO DAILY for Electrolyte Replacement, #30 TAB 0 Refills Sennosides (Senna-Lax) 8.6 Mg Tab 8.6 MG PO HS for Constipation, #60 TAB Tarsha Burnett MD Jul 26, 2017 16:27
--- NOTE | 2017-08-05 15:02 | MP ---
cc: Carlos Melgar DPM DATE OF OPERATION: 07/21/2017 The patient presented initially approximately 6 weeks ago to the emergency department with an abscess to the right lateral foot. It was also deemed necessary to have coronary artery bypass graft that was a higher priority, so the surgery was delayed due to significant risk with anesthesia. The patient was placed on IV antibiotics long-term while he underwent rehab for his CABG procedure and was scheduled to come back in to manage the infection and I discussed with him that he would benefit from a right partial fifth ray amputation with bone biopsy. He consented to the procedure. He was seen in preop holding by myself, nursing staff, and anesthesia where the correct patient, side, and site were all confirmed to be correct of right foot. He was then taken to the surgical suite. In supine position the right foot was prepped and draped in normal sterile fashion followed by attention directed to the right lateral foot. After timeouts were performed as per facility protocol, the 5th digit was disarticulated with a racquet incision to encompass the fifth toe down to the level of the midshaft 5th metatarsal. There was noted to be an ulceration probing to bone at the level of the fifth metatarsal head. No purulence was noted in the area. The wound was excised in addition to the fifth toe and the distal aspect of the fifth metatarsal where it was transected at the level of the mid shaft. Following the removal of bone in the wound a bone biopsy was taken from the residual fifth metatarsal, followed by culture from the surgical site was swabbed followed by irrigation with normal saline and closure with 2-0 nylon suture. No purulence was noted throughout and there was noted to be healthy bleeding and viable tissue throughout the area. A dressing consisting of Xeroform, 4 x 4s, ABD, cast padding and Trent bandage were applied to the right foot. The patient tolerated the procedure and anesthesia with no complications and was taken to the PACU with vital signs stable and vascular status intact to the remainder of the right foot. He will be nonweightbearing to the right foot with PT to further evaluate to see if he needs to return to rehab. No further surgical treatment is planned and we will await bone biopsy. Short operative note SURGEON: Calros Melgar DPM RENTAL AGENT: Staff. PREOPERATIVE DIAGNOSIS: Osteomyelitis, right fifth toe metatarsal. POSTOPERATIVE DIAGNOSIS: Osteomyelitis, right fifth toe metatarsal. PROCEDURE: Amputation, right partial fifth ray with bone biopsy. PATHOLOGY: 1. Culture right foot. 2. Right partial fifth metatarsal and fifth toe to pathology. 3. Bone biopsy right residual fifth metatarsal. ANESTHESIA: MAC plus local consisting of 20 mL 0.5% Marcaine plain. No tourniquet was utilized. COMPLICATIONS: None. CONDITION: Stable to PACU. DISPOSITON: Nonweightbearing right lower extremity, await bone biopsy MATHEW Luong/rt , 09:45 PM , 10:14 PM COOKIE
== END 2017-07-25 20:30 | DRG 505 ==
LOC: NEPC 12:39 → NEDH 17:09 → N07A 20:15
PROVIDERS: ADMIT Hospitalist; ATTEND Hospitalist
PROC: 0QBN0ZZ Excision of Right Metatarsal, Open Approach (ICD-10-PCS; 2017-07-21)
PROC: 0Y6X0Z0 Detachment at Right 5th Toe, Complete, Open Approach (ICD-10-PCS; principal; 2017-07-21 14:10)
DX: M86.671 Other chronic osteomyelitis, right ankle and foot (principal); E11.22 Type 2 diabetes mellitus with diabetic chronic kidney disease; E11.621 Type 2 diabetes mellitus with foot ulcer; I12.9 Hypertensive chronic kidney disease with stage 1 through stage 4 chronic kidney disease, or unspecified chronic kidney disease; N18.3 Chronic kidney disease, stage 3 (moderate); Z91.19 Patient's noncompliance with other medical treatment and regimen; I25.10 Atherosclerotic heart disease of native coronary artery without angina pectoris; Z95.1 Presence of aortocoronary bypass graft; M19.90 Unspecified osteoarthritis, unspecified site; I71.4 Abdominal aortic aneurysm, without rupture; K21.9 Gastro-esophageal reflux disease without esophagitis; Z89.422 Acquired absence of other left toe(s); Z79.02 Long term (current) use of antithrombotics/antiplatelets; Z79.82 Long term (current) use of aspirin; Z87.891 Personal history of nicotine dependence
CPT/HCPCS: 73630; 73720; 80048; 80053; 80202; 82565; 82948; 83605; 85025; 85610; 85730; 86403; 87015; 87040; 87070; 87102; 87116; 87147; 87186; 87205; 87206; 88305; 88307; 88311; A9579; J1815; J2270; J2543; J3010; J3370; J7040; L3260